=== PATIENT | male | born 1950 | race Caucasian/White ===

== ENCOUNTER 2019-12-31 07:45 | Outpatient (CLI) | payer MEDICARE, SELFPAY ==
--- NOTE | 2019-12-31 08:37 | ECG_ITS ---
Measurements Intervals [place] Rate: 57 P: 62 VA: 178 QRS: 26 QRSD: 110 T: 36 QT: 412 QTc: 402 Interpretive Statements SINUS BRADYCARDIA POSSIBLE LEFT VENTRICULAR HYPERTROPHY ST ELEVATION IN ANTEROLATERAL LEADS- PROBABLY EARLY REPOLARIZATION BASELINE ARTIFACT- I, III, AVR, AVL, AVF, V1 BORDERLINE ECG Electronically Signed On 12-31-2019 8:54:27 CDT by James Aldana D.O.
[2019-12-31 09:21] LABS: Basophils Absolute Auto 0.1 K/mm3 (0.0-0.1); Basophils Percent Auto 1.7 % (0.2-1.2); Eosinophils Absolute Auto 0.5 K/mm3 (0-0.3); Eosinophils Percent Auto 8.3 % (0-4.4); Hematocrit 41.4 % (42.0-52.0); Hemoglobin 13.9 g/dL (14.0-18.0); Immature Granulocyte Absolute 0.02 K/mm3 (0.00-0.031); Immature Granulocyte Percent A 0.3 % (0-0.5); Lymphocytes Absolute Auto 1.78 K/mm3 (0.9-3.2); Lymphocytes Percent Auto 30.8 % (18.3-44.2); Mean Corpuscular HGB Conc 33.6 g/dl (32-36); Mean Corpuscular Hemoglobin 32.7 pg (26-34); Mean Corpuscular Volume 97.4 fl (80-100); Mean Platelet Volume 10.5 fl (7.4-10.4); Monocytes Absolute Auto 0.9 K/mm3 (0.1-0.6); Monocytes Percent Auto 14.7 % (2.6-8.5); Neutrophils Absolute Auto 2.5 K/mm3 (1.3-6.7); Neutrophils Percent Auto 44.2 % (45.5-73.1); Platelet Count Result 271 k/mm3 (150-375); Red Blood Count 4.25 M/mm3 (4.6-6.20); Red Cell Distribution Width 13.2 % (11.5-14.5); White Blood Count 5.8 K/mm3 (4.5-10.0)
[2019-12-31 09:29] LABS: Hemoglobin A1C 5.6 % (<5.7)
[2019-12-31 09:31] LABS: Urine Cotinine NEGATIVE
[2019-12-31 09:37] LABS: Albumin Level 4.6 g/dL (3.5-5.1); Blood Urea Nitrogen 17 mg/dL (9-20); Calcium 9.5 mg/dL (8.4-10.2); Carbon Dioxide 31 mmol/L (22-30); Chloride 98 mmol/L (98-107); Estimated Glomerular Filt Rate > 60; Glucose 99 mg/dL (75-110); Potassium 4.3 mmol/L (3.4-5.0); Sodium 134 mmol/L (137-145)
== END 2019-12-31 07:46 | disposition home or self-care (01) ==
PROVIDERS: PCP Pediatrics; Visit Provider Orthopaedic Surgery
DX: Z01.818 Encounter for other preprocedural examination (principal); M16.12 Unilateral primary osteoarthritis, left hip
CPT/HCPCS: 36415; 80048; 80307; 82040; 83036; 85025; 86850; 86900; 86901; 87081; 93005

== ENCOUNTER 2020-01-07 | Outpatient (CLI) | payer MEDICARE, SELFPAY ==
[2020-01-07 17:26] LABS: SARS-CoV-2 RNA PCR Negative
== END 2020-01-07 00:01 | disposition home or self-care (01) ==
LOC: ANHCOVIDDT
PROVIDERS: PCP Pediatrics; Visit Provider Orthopaedic Surgery
DX: Z01.812 Encounter for preprocedural laboratory examination (principal); Z20.828 Contact with and (suspected) exposure to other viral communicable diseases
CPT/HCPCS: 87635; C9803; U0003

== ENCOUNTER 2020-01-07 08:56 | Outpatient (CLI) | payer MEDICARE, SELFPAY ==
--- NOTE | ~2020-01-07 | NM_ITS ---
EXAMINATION: NM obey stress w perfusion DATE: 01/07/2020 11:27 INDICATION: Abnormal electrocardiogram. TECHNIQUE: Rest images were obtained following intravenous administration of 10.1 mCi Tc99m tetrofosm in (Myoview). The patient was infused intravenously with Lexiscan (regadenoson). Then, 31.7 mCi Tc99m tetrofosmin (Myoview) was administered intravenously, and stress images were obtained. Data was debi nstructed into short axis and horizontal and vertical long axis SPECT images. Gated SPECT images were also obtained. COMPARISON: None. FINDINGS: There is no definite reversible or fixed perfusion abnormality to suggest ischemia or infar ction. There is no segmental wall motion abnormality. Left ventricular ejection fraction measures 6 2%. IMPRESSION: 1. No definite ischemia or infarct. 2. Normal left ventricular ejection fraction measuring 62%. Reviewed, dictated and finalized at location A.
--- NOTE | 2020-01-07 10:22 | EST_ITS ---
Patient Info Name: Isma Nieves Age: 69 years : 1950 Gender: Male Ht: 72 in Wt: 198 lbs BSA: 2.15 m2 Exam Date: 01/07/2020 10:25 AM Exam Location: [facility] Stress Patient Status: Outpatient Admit Date: 01/07/2020 Staff Ordering Physician: James Aldana DO Attending Provider: James Aldana DO Exercise Technologist: Mele Antony RDCS, RT Exam Type: CA stress obey w NM Study Info A regadenoson stress test was performed. Summary 1. 1. Negative lexiscan stress test for ischemic ST changes by ECG criteria. 2. 2. Stable hemodynamics throughout the test. 3. 3. Nuclear scan to follow and will be reported separately. Please correlate with it. 4. 4. Patient informed of the above results. Protocol: Lexiscan Stress ECG Details Stage: REST Duration (min): 0 min : 54 sec HR (bpm): 62 SBP (mmHg): 119 DBP (mmHg): 77 Stage: REST Duration (min): 5 min : 56 sec HR (bpm): 60 SBP (mmHg): 119 DBP (mmHg): 77 Stage: STAGE 1 Duration (min): 1 min : 0 sec HR (bpm): 72 SBP (mmHg): 122 DBP (mmHg): 76 Stage: RECOVERY Duration (min): 1 min : 0 sec HR (bpm): 73 SBP (mmHg): 122 DBP (mmHg): 76 Stage: RECOVERY Duration (min): 2 min : 0 sec HR (bpm): 68 SBP (mmHg): 122 DBP (mmHg): 76 Stage: RECOVERY Duration (min): 3 min : 0 sec HR (bpm): 67 SBP (mmHg): 114 DBP (mmHg): 73 Stage: RECOVERY Duration (min): 3 min : 14 sec HR (bpm): 65 SBP (mmHg): 114 DBP (mmHg): 73 Rest HR: 60 bpm Peak HR: 79 bpm Rest Sys BP: 119 mmHg Peak Sys BP: 122 mmHg Max Pred HR: 153 bpm % Max Pred HR: 52 % Target HR: 130 bpm Max RPP: 9,638 bpm*mmHg Termination Reason: Completed protocol Cardiac Symptoms: Shortness of breath Total Time: 1 min : 0 sec Rest [place]and BP: 77 mmHg Peak [place] BP: 76 mmHg Total Dose: 0.4 mg Resting ECG Sinus rhythm. Stress ECG No ST changes. Arrhythmias None. Report Signatures
== END 2020-01-07 08:57 | disposition home or self-care (01) ==
PROVIDERS: PCP Pediatrics; Visit Provider Internal Medicine Cardiovascular Disease
DX: R06.00 Dyspnea, unspecified (principal); Z01.812 Encounter for preprocedural laboratory examination
CPT/HCPCS: 78452; 93017; A9502; J2785

== ENCOUNTER 2020-01-10 00:02 | Day surgery (SDC) | payer MEDICARE, SELFPAY ==
[2019-12-31 08:02] VITALS: BP 150/80; PULSE 64; RESP 20; TEMP 36.7; O2SAT 97; BMI 28.0
[2020-01-10] VITALS (12 sets, daily range): BP systolic 124–158; BP diastolic 68–90; PULSE 55–71; RESP 10–18; TEMP 36–36.7; O2SAT 90–100; BMI 27.5
--- NOTE | ~2020-01-10 | XR_ITS ---
EXAMINATION: XR hip LT min 2V DATE: 01/10/2020 10:55 INDICATION: Total left hip arthroplasty. Postop. TECHNIQUE: 2 views of left hip were obtained. COMPARISON: Left hip radiographs 09/28/2019 FINDINGS: There is a total left hip arthroplasty in near-anatomic alignment. No fracture. There is ga s in the soft tissues, consistent with recent surgery. IMPRESSION: 1. Total left hip arthroplasty in near-anatomic alignment. Reviewed, dictated and finalized at location A.
--- NOTE | ~2020-01-10 | XR_ITS ---
EXAMINATION: XR surgery orthopedic EXAM DATE: 01/10/2020 10:15 INDICATION: Left hip replacement. TECHNIQUE: Fluoroscopy used during XR surgery orthopedic performed by Dr. Loy Fitzgerald MD. The DAP for this procedure was 0.1 mGym2. FINDINGS: Single frontal image demonstrates total left hip arthroplasty, hardware in expected positi on on this single projection. Correlate with procedure note. IMPRESSION: Fluoroscopy used during XR surgery orthopedic. Reviewed, dictated and finalized at location A.
[2020-01-10] MEDS: LACTATED RINGERS 1,000 ML 30 ML IV CONT (06:45)
[2020-01-10 06:55] LABS: Urine Cotinine NEGATIVE
[2020-01-10] MEDS: TRANEXAMIC ACID 1,000MG/ISO100 1,000 MG/100 ML BAG 200 MG IVPB (07:00)
[2020-01-10] MEDS: ONDANSETRON INJ 4 MG/2 ML VIAL IV PUSH (07:00)
--- NOTE | 2020-01-10 07:05 | WPDANESEPPF ---
Anes - Initial Pre Proc Eval Procedure: Operation Date: 01/10/20 07:30 Proposed Procedures p Left Total Hip Anterior Approach - Loy Fitzgerald MD Date/Time: 01/10/20 07:05 Surgeon: Loy Fitzgerald MD Pre Op Diagnosis: OA Left Hip Patient Data Age: 69 Gender: M Height: 1.8 m Weight: 91.1 kg Last Vital Signs Temp 36.7 C 12/31/19 08:02 Pulse 64 12/31/19 08:02 Resp 20 12/31/19 08:02 BP 150/80 H 12/31/19 08:02 Pulse Ox 97 12/31/19 08:02 Allergies Allergy/AdvReac Type Severity Reaction Status Date / Time No Known Allergies Allergy Verified 01/04/20 09:26 Home Medications Medication Instructions Recorded Confirmed Type albuterol sulfate 200 mcg capsules 2 mcg INHALATION PC PRN 12/28/19 01/04/20 History for inhalation hydrochlorothiazide 25 mg tablet 25 mg PO DAILY 12/28/19 01/04/20 History lisinopril 10 mg tablet 10 mg PO DAILY 12/28/19 01/04/20 History acetaminophen 500 mg tablet 500 mg PO Q6H PRN 01/04/20 01/04/20 History metoprolol succinate 25 mg 25 mg PO DAILY 01/04/20 01/04/20 History tablet,extended release 24 hr Laboratory Tests 01/10/20 06:19 Cotinine Negative ECG: Date of Service: 12/31/19 Procedure(s): CA 12 lead EKG Accession Number(s): [id number] cc: ~ Measurements Intervals [place] Rate: 57 P: 62 [place]: 178 QRS: 26 QRSD: 110 T: 36 QT: 412 QTc: 402 Interpretive Statements SINUS BRADYCARDIA POSSIBLE LEFT VENTRICULAR HYPERTROPHY ST ELEVATION IN ANTEROLATERAL LEADS- PROBABLY EARLY REPOLARIZATION BASELINE ARTIFACT- I, III, AVR, AVL, AVF, V1 BORDERLINE ECG Electronically Signed On 12-31-2019 8:54:27 CDT by James Aldana D.O. Dictated By: James Aldana DO 12/31/19 0908 Other Studies: Exam Date: 01/07/2020 10:25 AM Exam Location: [facility] Stress Patient Status: Outpatient Admit Date: 01/07/2020 Staff Ordering Physician: James Aldana DO Attending Provider: James Aldana DO Exercise Technologist: Mele Antony, DESHAWN, RT Exam Type: CA stress obey w NM Study Info A regadenoson stress test was performed. Summary 1. 1. Negative lexiscan stress test for ischemic ST changes by ECG criteria. 2. 2. Stable hemodynamics throughout the test. FINDINGS: There is no definite reversible or fixed perfusion abnormality to suggest ischemia or infarction. There is no segmental wall motion abnormality. Left ventricular ejection fraction measures 62%. IMPRESSION: 1. No definite ischemia or infarct. 2. Normal left ventricular ejection fraction measuring 62%. Patient hx anesthesia problems: none Family hx anesthesia problems: none [facility] Past Medical History Medical History (Updated 01/10/20 @ 07:06 by Emeterio Galeana MD) Arthritis Arthritis, lumbar spine BMI 26.0-26.9,adult COPD (chronic obstructive pulmonary disease) HYDE (dyspnea on exertion) Hypertension Surgical History Surgical History History of shoulder surgery Left and Right 2007-Dr. Fitzgerald Social History Social History Smoking status: Former smoker Smoking end date: 10/06/19 Additional smoking assessment comments: Smoking for 50 years. 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
--- NOTE | 2020-01-10 07:17 | WPDHPUPDATE1 ---
History and Physical Update Update Date/Time: 01/10/20 07:17 History and Physical has been reviewed, including an updated exam of the patient. There are NO changes in the patient's condition. Risks, benefits, and alternatives have been discussed and questions answered. Patient agrees to proceed with procedure.
[2020-01-10] MEDS: ceFAZolin 2 GM/D5W 50 ML 2 GM/50 ML BAG IVPB ×3 (07:30→23:09)
[2020-01-10] MEDS: SODIUM CHLORIDE 0.9% IV 50 ML, TRANEXAMIC ACID 1,000 MG TOPICAL (08:03)
[2020-01-10] MEDS: ceFAZolin SODIUM 1 GM VIAL IV PUSH (10:06)
--- NOTE | 2020-01-10 10:14 | SUR.OPER ---
EBL: 300ML CELL SAVER: 300ML PLEASE SEE ANESTHESIA RECORD FOR BLOOD ADMINISTRATION
--- NOTE | 2020-01-10 10:53 | PM.PROC ---
Procedure Note - Detailed Date of procedure: 01/10/20 Pre-op diagnosis: OA Left Hip Post-op diagnosis: same Procedure performed: Left total hip replacement through an anterior approach Description of procedure: The patient was identified and the proper side identified. He was taken to the operating room and after general anesthetic induction and intubation, transferred to the HANA table properly positioning him for a left hip procedure. The left hip and thigh was prepped and draped in usual sterile fashion. 10 cc of the arthroplasty solution was injected into the subcutaneous tissue in the area of the incision. Longitudinal incision was made over the TFL muscle belly. Subcutaneous tissue was sharply dissected down to the TFL fascia which was divided in line with the incision. TFL was retracted in the TFL fascia was incised. The circumflex perforating vessels were identified cauterized and ligated then divided. Anterior capsular fat was excised after the anterior capsule was exposed and the appropriate retractors were in place. Anterior capsulectomy was performed. A 1 cm napkin ring of bone was taken out of the femoral neck allowing for removal the femoral head. The acetabulum was cleared of debris then reamed sequentially up to 57 mm allowing for seeding of a 58 G7 cup which was further secured with a single screw. Wound was irrigated with sterile antibiotic solution and then the E poly liner for the 36 head was impacted into place. Attention was then turned to the femur. Appropriate releases were done to allow for access to the proximal femur which was broached up to accept a size 17 echo micro plasty stem. All of this was assessed in done under fluoroscopic control. The real size 17 standard offset micro plasty stem was impacted into place and with trialing was determined that a 36+ six head gave good voodoo of leg lengths when compared fluoroscopically to the opposite side as well as excellent stability. The real 36 ceramic head with a plus six call our was impacted onto this cleaned neck of the femoral component. After the hip was reduced and stability again assessed, the wound was irrigated with a copious amount of sterile irrigation. Periarticular tissues and luisa-incisional tissues were infiltrated with additional 50 cc of the arthroplasty solution. 1 g of tranexamic acid was left deep in the wound. The TFL fascia was reapproximated with 0 looped PDS sutures as was the deeper layers of the subcutaneous tissue. Skin was reapproximated with two of strata fix and glue. Sterile dressings applied. He tolerated the procedure well. He was awakened, extubated and taken recovery in stable condition. There were no known intraoperative complications. Anesthesia: GETA Surgeon: Loy Fitzgerald MD Black Powder Glazing Operator: Isabel Palomares Estimated blood loss (mL): 300 (125 mL returned via Cell Saver) Drains: No Packing: No Pathology: none sent Complications: No immediate complications Condition: stable Disposition: PACU
--- NOTE | 2020-01-10 11:51 | ADMGEN ---
This patient, Isma Nieves, was admitted to -. Patient/family oriented to hospital policies and general routines including ID bracelet, bed and alarms, visiting hours, pain management, procedures, bathroom and other care routines, personal items, smoking policy, room service/diet, and visiting hours. Valuables list has been completed. Information on how to activate the Rapid Response Team has been discussed. Patient/Family are encouraged to report perceived risks to care and to ask questions if they do not understand what they are told or what they should do.
[2020-01-10] MEDS: SODIUM CHLORIDE 0.9% IV 1,000 ML 125 ML IV CONT (12:38)
[2020-01-10] MEDS: KETOROLAC 15 MG/ML VIAL (*BKC) IV PUSH ×2 (13:05→20:24)
--- NOTE | 2020-01-10 17:00 | WPDCN ---
Assessment and Plan Assessment and plan (1) Osteoarthritis of left hip: Qualifiers: Osteoarthritis type: primary Qualified Code(s): M16.12 - Unilateral primary osteoarthritis, left hip Code(s): M16.12 - Unilateral primary osteoarthritis, left hip Status: Acute Assessment and Plan: Postoperative day #0, status post anterior approach left total hip arthroplasty. Wound care and pain control will be deferred to Dr. Fitzgerald. DVT prophylaxis also deferred to the orthopedic surgeon. (2) Chronic obstructive pulmonary disease: Code(s): J44.9 - Chronic obstructive pulmonary disease, unspecified Status: Acute Assessment and Plan: No acute issues. Rescue inhaler as needed. (3) Essential hypertension: Code(s): I10 - Essential (primary) hypertension Status: Acute Assessment and Plan: Blood pressures are well controlled post-operatively. Continue antihypertensives and monitor daily. Additional Plan Thank you for allowing us to participate in this patient's care. Please do not hesitate to contact us with any questions. Supervising physician for this medical consultation is Dr. Marcela Marr. HPI Data of Consult Date/Time: 01/10/20 17:00 Requesting Physician: Loy Fitzgerald MD Primary Care Provider: Bryn Galdamez, Consult Narrative Narrative: Isma Nieves is a 69-year-old male with osteoarthritis of the left hip, chronic back pain, hypertension, and COPD whom the hospitalist service has been consulted for postoperative medical management. He has longstanding, chronic back pain which has gotten worse due to progressive arthritis in the left hip. He has been experiencing daily pain in the left groin and hip, and unfortunately conservative outpatient treatment has not provided him with lasting relief. He thus elected for replacement today and is now status post total left hip replacement through anterior approach per Dr. Fitzgerald. His surgery was performed under general anesthesia with no immediate complications documented and an estimated blood loss of 300 mL, 125 mL returned via Cell Saver. At the time my evaluation, the patient is sitting in a chair at the side of the bed and is eating dinner. He reports no pain whatsoever and in fact tells me ?it is like I had never even had surgery.? He has absolutely no complaints and specifically denies fever, chills, sweats, chest pain, shortness of breath, nausea, and vomiting. He further denies paresthesias, skin color, and temperature changes distal to the surgical site. Of note, preoperative EKG was deemed abnormal, showing early repolarization. Subsequent Lexiscan stress with nuclear medicine imaging was negative with an ejection fraction of 62% Review of Systems Review of Systems: Narrative: Twelve systems were reviewed with pertinent positives and negatives as per HPI. He has upper dentures and lower plate. He wears corrective lenses. He has been diagnosed with mild COPD/emphysema and only has a rescue inhaler at home. He uses it at most 2 days a week, and mainly in the evening and nighttime. He has not had a cough. He will have some dyspnea on exertion occasionally. No exertional chest pain. No history of venous thromboembolism. Except as documented, all other systems were reviewed and are negative. [facility] Past Medical History Medical History (Updated 01/10/20 @ 16:24 by Aviva Pisano PA-C) Arthritis, lumbar spine Chronic low back pain Chronic obstructive pulmonary disease Essential hypertension Normal cardiac stress test (~12/2019) With normal MPI and an ejection fraction of 62%. Osteoarthritis Shingles (~2015) Surgical History Surgical History (Updated 01/10/20 @ 16:23 by Aviva Pisano PA-C) History of repair of rotato
[2020-01-10] MEDS: DOCUSATE SODIUM 100 MG CAPSULE PO (17:53)
[2020-01-10] MEDS: RIVAROXABAN 10 MG TABLET PO (20:24)
[2020-01-11 02:03] VITALS: BP 140/82; PULSE 77; RESP 14; TEMP 37; O2SAT 95
[2020-01-11] MEDS: KETOROLAC 15 MG/ML VIAL (*BKC) IV PUSH (02:05)
[2020-01-11 04:56] LABS: Basophils Absolute Auto 0.1 K/mm3 (0.0-0.1); Basophils Percent Auto 0.5 % (0.2-1.2); Eosinophils Percent Auto 0.4 % (0-4.4); Hematocrit 31.8 % (42.0-52.0); Hemoglobin 10.6 g/dL (14.0-18.0); Immature Granulocyte Absolute 0.04 K/mm3 (0.00-0.031); Immature Granulocyte Percent A 0.4 % (0-0.5); Lymphocytes Absolute Auto 1.34 K/mm3 (0.9-3.2); Lymphocytes Percent Auto 14.1 % (18.3-44.2); Mean Corpuscular HGB Conc 33.3 g/dl (32-36); Mean Corpuscular Hemoglobin 32.4 pg (26-34); Mean Corpuscular Volume 97.2 fl (80-100); Monocytes Absolute Auto 1.2 K/mm3 (0.1-0.6); Monocytes Percent Auto 12.8 % (2.6-8.5); Neutrophils Absolute Auto 6.8 K/mm3 (1.3-6.7); Neutrophils Percent Auto 71.8 % (45.5-73.1); Platelet Count Result 231 k/mm3 (150-375); Red Blood Count 3.27 M/mm3 (4.6-6.20); Red Cell Distribution Width 13.2 % (11.5-14.5); White Blood Count 9.5 K/mm3 (4.5-10.0)
[2020-01-11 05:09] LABS: Blood Urea Nitrogen 14 mg/dL (9-20); Calcium 8.6 mg/dL (8.4-10.2); Carbon Dioxide 26 mmol/L (22-30); Chloride 96 mmol/L (98-107); Estimated CRCL calculation 83 ml/min; Estimated Glomerular Filt Rate > 60; Glucose 142 mg/dL (75-110); Potassium 3.8 mmol/L (3.4-5.0); Sodium 130 mmol/L (137-145)
[2020-01-11 05:44] VITALS: BP 134/72; PULSE 103; RESP 16; TEMP 36.7; O2SAT 97
[2020-01-11] MEDS: ceFAZolin 2 GM/D5W 50 ML 2 GM/50 ML BAG IVPB (06:40)
--- NOTE | 2020-01-11 07:19 | PM.PNORT ---
Progress Note: A&P Assessment and Plan (1) History of total left hip arthroplasty: Onset Date: ~01/2020 Code(s): Z96.642 - Presence of left artificial hip joint Status: Acute (2) Postoperative anemia: Code(s): D64.9 - Anemia, unspecified Status: Acute Assessment and Plan: 69-year-old male who is postop day one left total hip replacement done through an anterior approach and doing very well. He has a mild postoperative anemia which is in part delusional, in part from a intraoperative blood loss as noted above. He will have another round of therapy today and then be discharged home. Instructions were reviewed with him in detail. He has a follow-up with me in approximately two weeks but was instructed to call with any questions prior to follow-up. Plan anticoagulation with Xarelto for two weeks followed by a coated aspirin for another four weeks. I asked him to use his walker until he returns to see me at which point we will likely get him on to a cane. Time Spent With Patient Time with patient: 15 - 25 minutes Subjective Subjective Date/Time Seen: 01/11/20 07:19 Post Op day: 1 (Left hip replacement) Principal diagnosis: Osteoarthritis left hip status post left total hip -anterior approach Interval history: 69-year-old male who is postop day one from left total hip replacement done through an anterior approach. He is having virtually no pain at this point. He ambulated last night with assistance and did well with that. He is anxious to go home. Review of Systems Constitutional: Constitutional: Denies chills and Denies fever(s) Eyes: Eyes: Reports no additional eye complaints ENT: Reports system reviewed and no additional complaints, except as documented Cardiovascular: Cardiovascular: Denies chest pain and Denies dyspnea on exertion Respiratory: Respiratory: Reports no additional respiratory complaints and Denies dyspnea on exertion Gastrointestinal: Gastrointestinal: Denies abdominal pain and Denies bloating Exam Const: General: cooperative, no acute distress and alert Nutritional Appearance: well nourished (BMI 27.5) Orientation/consciousness: patient oriented x3 Limitations: no limitations HENMT: Head: normal to inspection Ears: hearing grossly normal bilaterally Face and sinus: face symmetric Mouth: Yes moist mucous membranes Teeth and gingiva: fair dentition Eyes: Alignment and Position: alignment normal and position normal Sclera: sclerae normal Neck: Neck: normal visual inspection and nontender Chest: Chest palpation & inspection: normal inspection of the chest Resp: Effort & Inspection: normal respiratory effort and able to speak in complete sentences GI: Inspection: other (Abdomen nondistended) Skin: General skin exam: normal color Rashes: no rashes Neuro: General: patient oriented x3 Cognition (Neuro): normal cognition Speech: normal speech Gait exam (Neuro): Other gait observations present Motor exam (neuro): 5/5 motor strength present throughout (Left lower extremity) Sensory Exam: normal sensation Extrem: General: normal to inspection and other Other: Exam of the left hip wound shows it to be intact. No drainage, or erythema. Mild swelling noted in the left proximal thigh about the hip incision. Psych: Appearance: grossly normal Mental Status: mental status grossly normal Objective Data Vital Signs Vital Signs: Vital Signs - 24 hr 01/10/20 10:46 01/10/20 11:01 01/10/20 11:16 Temperature 96.8 F L Pulse Rate 65 60 55 L Respiratory Rate 10 L 11 L 12 Blood Pressure 131/74 136/76 129/73 Pulse Oximetry 100 100 97 01/10/20 11:26 01/10/20 11:42 01/10/20 11:47 Temperature 97.8 F Pulse Rate 69 59 L 58 L Respiratory Rate 14 13 14 Blood Pressure 137/84 128/70 124/69 Pulse Oximetry 94 96 90 01/10/20 12:02 01/10/20 12:32 01/10/20 13:32 Temperature 98.1 F 97.4 F L 97.6 F Pulse Rate 71 69 65 Respiratory Rate 17 18 17 Blood Pressure 13
--- NOTE | 2020-01-11 07:25 | P.DS_ITS ---
DS: Admitting Diagnosis Admitting Diagnosis Admitting Diagnosis: Primary osteoarthritis left hip DS: Discharge Diagnosis Discharge Diagnosis (1) History of total left hip arthroplasty: Onset Date: ~01/2020 Code(s): Z96.642 - Presence of left artificial hip joint Status: Acute DS: Summary Time Spent with Patient Time attestation: Total time spent providing and/or coordinating discharge services: DS: Data Data Completed and Pending Labs on day of discharge: Labs from last 24 hours 01/11/20 01/11/20 04:37 04:37 WBC 9.5 RBC 3.27 L Hgb 10.6 L D Hct 31.8 L MCV 97.2 MCH 32.4 MCHC 33.3 RDW 13.2 Plt Count 231 MPV 10.0 Immature Gran % (Auto) 0.4 Neut % (Auto) 71.8 Lymph % (Auto) 14.1 L Mcdonald % (Auto) 12.8 H Eos % (Auto) 0.4 Baso % (Auto) 0.5 Lymph # (Auto) 1.34 Mcdonald # (Auto) 1.2 H Eos # (Auto) 0.0 Baso # (Auto) 0.1 Abs Immat Gran (auto) 0.04 H Absolute Neuts (auto) 6.8 H Absolute Nucleated RBC 0.0 Nucleated RBC % 0.0 Sodium 130 L Potassium 3.8 Chloride 96 L Carbon Dioxide 26 BUN 14 Creatinine 0.80 Estim Creat Clear Calc 83 Estimated GFR > 60 Glucose 142 H Calcium 8.6 Magnesium 2.0 Discharge Plan Discharge Patient Disposition: Home, Self-Care Discharge Instructions: Please call [facility] at as soon as possible to verify follow-up appointment to be seen in [place]. Also, call the office with any orthopedic questions prior to follow-up. * 3 times daily for 20 minutes each time, reclining in bed with ice packs over the incision and a pillow underneath the affected calf. * Your wound is glued so it is okay to get into the shower and get the wound wet. * Be sure to read through all the information that came from a my office and the hospital. Most of the answer was you will need can be found that material. * Call the office with any questions that you cannot find answers to, or concerns you may have. * After the Xarelto is completed, start taking one coated 325 mg aspirin daily and do this for four more weeks. * Be sure to get up and move around several times daily but do not overdo it. Patient Instructions: Rivaroxaban (By mouth), Pain Management (DC), Total Hip Replacement (DC) Discharge Medications: No Action acetaminophen [Tylenol Extra Strength] 500 mg tablet 500 mg PO Q6H PRN (Reason: PAIN) RF: 0 metoprolol succinate 25 mg tablet extended release 24 hr 25 mg PO DAILY RF: 0 hydrochlorothiazide 25 mg tablet 25 mg PO DAILY RF: 0 lisinopril 10 mg tablet 10 mg PO DAILY RF: 0 albuterol sulfate 90 mcg/actuation Hfa Aerosol Inhaler 2 puff INHALATION QID PRN (Reason: Dyspnea) RF: 0 Quality VTE Prophylaxis VTE prophylaxis: mechanical ordered and pharmacologic ordered
[2020-01-11] MEDS: DOCUSATE SODIUM 100 MG CAPSULE PO (08:56)
[2020-01-11] MEDS: lisinopriL 10 MG TABLET PO (08:57)
[2020-01-11] MEDS: METOPROLOL SUCCINATE EXT REL 25 MG TABCR PO (08:57)
--- NOTE | 2020-01-11 11:44 | PM.IMPN ---
Progress Note: A&P Assessment and Plan (1) Osteoarthritis of left hip: Qualifiers: Osteoarthritis type: primary Qualified Code(s): M16.12 - Unilateral primary osteoarthritis, left hip Code(s): M16.12 - Unilateral primary osteoarthritis, left hip Status: Acute Assessment and Plan: Postoperative day #1, status post anterior approach left total hip arthroplasty. Wound care and pain control per to Dr. Fitzgerald. DVT prophylaxis will be Xarelto [address] Fitzgerald Will be discharged later today. (2) Chronic obstructive pulmonary disease: Code(s): J44.9 - Chronic obstructive pulmonary disease, unspecified Status: Acute Assessment and Plan: No acute issues. Rescue inhaler as needed. (3) Essential hypertension: Code(s): I10 - Essential (primary) hypertension Status: Acute Assessment and Plan: Blood pressures are well controlled post-operatively. Continue THOMAS-inhibitor and diuretic and monitor daily. Subjective Date/time seen: 01/11/20 11:44 Interval history: Date of visit 01/10. [age] old hypertensive white male with COPD status post total left hip arthroplasty 01/09. Stay change having no pain and has been walking. No nausea shortness of breath or chest pain. Seen PT OT and orthopedic surgery and scheduled to be discharged later today Exam Narrative: Exam Narrative: Blood pressure 134/72 pulse is 86 regular afebrile Lungs are clear CV regular rate rhythm no murmur Abdomen nontender Extremities edema posterior tibial 1 to 2+ Neuro alert pleasant cooperative no focal deficits Objective Data Vital Signs Vital Signs: Vital Signs - 24 hr 01/10/20 11:47 01/10/20 12:02 01/10/20 12:32 Temperature 36.6 C 36.7 C 36.3 C L Pulse Rate 58 L 71 69 Respiratory Rate 14 17 18 Blood Pressure 124/69 135/87 135/77 Pulse Oximetry 90 92 99 01/10/20 13:32 01/10/20 18:36 01/10/20 20:53 Temperature 36.4 C 36.6 C 36.5 C Pulse Rate 65 64 65 Respiratory Rate 17 14 16 Blood Pressure 143/75 H 139/68 135/80 Pulse Oximetry 97 100 98 01/11/20 02:03 01/11/20 05:44 Temperature 37.0 C 36.7 C Pulse Rate 77 103 H Respiratory Rate 14 16 Blood Pressure 140/82 134/72 Pulse Oximetry 95 97 Intake/Output Intake/Output: Intake & Output 01/08/20 01/09/20 01/10/20 01/11/20 23:59 23:59 23:59 23:59 Intake Total 1300 1140 Output Total 400 Balance 1300 740 Meds/Results Radiology Results: ITS Impressions Hip X-Ray 01/10/20 11:03 IMPRESSION: 1. Total left hip arthroplasty in near-anatomic alignment. Intraoperative X-Ray 01/10/20 16:11 IMPRESSION: Fluoroscopy used during XR surgery orthopedic. Labs Labs: Laboratory Results - last 24 hr 01/11/20 01/11/20 04:37 04:37 WBC 9.5 RBC 3.27 L Hgb 10.6 L D Hct 31.8 L MCV 97.2 MCH 32.4 MCHC 33.3 RDW 13.2 Plt Count 231 MPV 10.0 Immature Gran % (Auto) 0.4 Neut % (Auto) 71.8 Lymph % (Auto) 14.1 L Real % (Auto) 12.8 H Eos % (Auto) 0.4 Baso % (Auto) 0.5 Lymph # (Auto) 1.34 Real # (Auto) 1.2 H Eos # (Auto) 0.0 Baso # (Auto) 0.1 Abs Immat Gran (auto) 0.04 H Absolute Neuts (auto) 6.8 H Absolute Nucleated RBC 0.0 Nucleated RBC % 0.0 Sodium 130 L Potassium 3.8 Chloride 96 L Carbon Dioxide 26 BUN 14 Creatinine 0.80 Estim Creat Clear Calc 83 Estimated GFR > 60 Glucose 142 H Calcium 8.6 Magnesium 2.0 Quality VTE Prophylaxis VTE prophylaxis: mechanical ordered and pharmacologic ordered
== END 2020-01-11 10:45 | disposition home or self-care (01) ==
LOC: ANHSURGERY 05:51 → ANH2MED 11:59
PROVIDERS: PCP Pediatrics; Visit Provider Orthopaedic Surgery
PROC: (CPT 27130; principal; 2020-01-10 07:30)
DX: M16.12 Unilateral primary osteoarthritis, left hip (principal); J44.9 Chronic obstructive pulmonary disease, unspecified; I10 Essential (primary) hypertension; Z87.891 Personal history of nicotine dependence; E66.9 Obesity, unspecified; Z68.27 Body mass index [BMI] 27.0-27.9, adult; Z79.899 Other long term (current) drug therapy
CPT/HCPCS: 27130; 36415; 73502; 80048; 80307; 82040; 83036; 83735; 85025; 86850; 86900; 86901; 87081; 93005; 97110; 97116; 97161; 97165; A9270; C1776; J0131; J0171; J0690; J1100; J1170; J1885; J2250; J2270; J2370; J2405; J2710; J2795; J3010; J7030; J7120

== ENCOUNTER 2020-04-18 02:22 | Outpatient (CLI) | payer MEDICARE, SELFPAY ==
[2020-04-18 17:03] LABS: SARS-CoV-2 RNA PCR Negative
== END 2020-04-18 02:23 | disposition home or self-care (01) ==
LOC: ANHCOVIDDT 02:22
PROVIDERS: PCP Pediatrics; Visit Provider Internal Medicine Gastroenterology
DX: Z01.812 Encounter for preprocedural laboratory examination (principal); Z20.828 Contact with and (suspected) exposure to other viral communicable diseases
CPT/HCPCS: 87635; C9803; U0003

== ENCOUNTER 2020-04-20 00:40 | Day surgery (SDC) | payer MEDICARE, SELFPAY ==
[2020-04-11 14:17] VITALS: BMI 29.9
[2020-04-20] MEDS: LACTATED RINGERS 1,000 ML 150 ML IV CONT (08:42)
[2020-04-20] MEDS: GENTAMICIN 80MG/SOD CHL 50 ML 80 MG/50 ML BAG 100 MG IVPB (08:44)
[2020-04-20 08:53] VITALS: BP 136/99; PULSE 70; RESP 18; TEMP 36.3; O2SAT 98; BMI 28.4
--- NOTE | 2020-04-20 08:55 | WPDANESEPPF ---
Anes - Initial Pre Proc Eval Procedure: Operation Date: 04/20/20 09:30 Proposed Procedures p Colonoscopy - Daryn Woodson DO Date/Time: 04/20/20 08:55 Surgeon: Daryn Woodson DO Pre Op Diagnosis: Diarrhea Patient Data Age: 69 Gender: M Height: 1.83 m Weight: 100 kg Allergies Allergy/AdvReac Type Severity Reaction Status Date / Time No Known Allergies Allergy Verified 04/20/20 08:27 Home Medications Medication Instructions Recorded Confirmed Type hydrochlorothiazide 25 mg tablet 25 mg PO DAILY 12/28/19 04/20/20 History lisinopril 10 mg tablet 10 mg PO DAILY 12/28/19 04/20/20 History albuterol sulfate 2 puff INHALATION QID PRN 01/10/20 04/20/20 History aspirin 325 mg PO DAILY 04/20/20 04/20/20 History Patient hx anesthesia problems: none Family hx anesthesia problems: none PMFSH Past Medical History Medical History (Updated 03/22/20 @ 11:25 by Loy Fitzgerald MD) Arthritis, lumbar spine BMI 28.0-28.9,adult Chronic low back pain Chronic obstructive pulmonary disease Essential hypertension Normal cardiac stress test (~12/2019) With normal MPI and an ejection fraction of 62%. Osteoarthritis Shingles (~2015) Surgical History Surgical History (Updated 03/22/20 @ 11:25 by Loy Fitzgerald MD) History of repair of rotator cuff (~2007) Bilateral repair per Dr. Fitzgerald. History of total left hip arthroplasty (~01/2020) Surgery January 09, 2020 Social History Social History Social History: The patient lives in [place], [place] with his and their 2 laboratories. 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 He smoked up to 1.5 packs of cigarettes per day and quit in September 2019. He drinks alcohol socially and in moderation. Denies illicit substance use. His , Rohini Nieves, is his surrogate decision maker and he wishes to be a full code. Smoking packs per day: 1.5 Smoking cigarettes per day: 30.0 Years smoked: 50 Smoking pack-years: 75.00 Smoking status: Former smoker Tobacco type: cigarettes Second hand tobacco smoke exposure: Yes Smoking end date: 10/06/19 Additional smoking assessment comments: Smoking for 50 years. 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 Questions were solicited and answers provided to the satisfaction of the patient/family/POA.
[2020-04-20] MEDS: AMPICILLIN 2 GM/NS 100 ML 2 GM/100 ML BAG IVPB (09:17)
--- NOTE | 2020-04-20 09:26 | PM.IMHP ---
H&P: HPI History of Present Illness Date/Time: 04/20/20 09:26 Chief complaint: Diarrhea Narrative: Reason for revisit colonoscopy. This very pleasant gentleman is being evaluated the request of the primary physician. The patient was examined. Impression: In review gentleman with a family history of colon cancer. He has been having diarrhea and rectal bleeding. He had underlying inflammatory and neoplastic disease should be excluded. Hypertension. COPD. Degenerative joint disease. Status post recent total hip arthroplasty. History: This very pleasant gentleman is status post recent hip arthroplasty. Patient began having diarrhea after surgery. He did go a few times per day. He reports black and blood in the stool. Nausea, vomiting, hematemesis, dysphagia and identification night. He denies any abdominal pain, fever, chills, weight loss or constipation at this time. He most recently had bleeding the day prior to the preparation. Patient is here for colonoscopy. Physical examination: General: very pleasant patient in no acute distress. HEENT: Head was normocephalic sclerae is clear mouth without masses neck was supple. Heart: Rate rhythm regular without S3 or S4. Lungs: CTA. Abdomen: Soft with no guarding or rigidity. Bowel sounds were active. Neurologic: Cranial nerves 2 through 12 intact. No focal defects. No clonus. Musculoskeletal system: Revealed no joint tenderness or swelling no muscle atrophy. Extremities: Reveal no significant edema. Skin: Warm and dry with normal turgor. Mental status: intact. Patient is alert and oriented. Review of Systems Review of Systems: All systems reviewed & are unremarkable except as noted in HPI and below [facility] Past Medical History Medical History (Updated 03/22/20 @ 11:25 by Loy Fitzgerald MD) Arthritis, lumbar spine BMI 28.0-28.9,adult Chronic low back pain Chronic obstructive pulmonary disease Essential hypertension Normal cardiac stress test (~12/2019) With normal MPI and an ejection fraction of 62%. Osteoarthritis Shingles (~2015) Surgical History Surgical History (Updated 03/22/20 @ 11:25 by Loy Fitzgerald MD) History of repair of rotator cuff (~2007) Bilateral repair per Dr. Fitzgerald. History of total left hip arthroplasty (~01/2020) Surgery January 09, 2020 Social History Social History Social History: The patient lives in [place], [place] with his and their 2 laboratories. 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 He smoked up to 1.5 packs of cigarettes per day and quit in September 2019. He drinks alcohol socially and in moderation. Denies illicit substance use. His , Rohini Nieves, is his surrogate decision maker and he wishes to be a full code. Smoking packs per day: 1.5 Smoking cigarettes per day: 30.0 Years smoked: 50 Smoking pack-years: 75.00 Smoking status: Former smoker Tobacco type: cigarettes Second hand tobacco smoke exposure: Yes Smoking end date: 10/06/19 Additional smoking assessment comments: Smoking for 50 years. 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
[2020-04-20 10:12] VITALS: BP 130/76; PULSE 60; RESP 16; O2SAT 98
[2020-04-20 10:22] VITALS: BP 157/94; PULSE 62; RESP 18; O2SAT 99
[2020-04-20 10:32] VITALS: BP 176/103; PULSE 60; RESP 22; O2SAT 100
--- NOTE | 2020-04-20 11:44 | SUR.PHASEII ---
PT'S SISTER ROMINA AT BEDSIDE POST OP. DR ROMANO SPOKE WITH PT AND ROMINA. ATTEMPTED TO DRAW BLOOD ON PT SEVERAL TIMES BY MULTIPLE RN'S WHILE PT IN POST OP. LAB WORK OBTAINED AND SENT TO LAB. APPOINTMENT SCHEDULED AT DR JANSEN'S OFFICE AND PT GIVEN THAT INFORMATION. DR VELARDE'S OFFICE WILL CALL TO ARRANGE APPOINTMENT, INFORMATION GIVEN TO 'S OFFICE, THEY WILL ARRANGE AN APPOINTMENT AND CONTACT PT. PT AWARE AND GIVEN ALL PAPER WORK.
[2020-04-20 11:47] LABS: Hematocrit 42.8 % (42.0-52.0); Hemoglobin 14.4 g/dL (14.0-18.0); Mean Corpuscular HGB Conc 33.6 g/dl (32-36); Mean Corpuscular Hemoglobin 32.3 pg (26-34); Mean Platelet Volume 10.7 fl (7.4-10.4); Platelet Count Result 329 k/mm3 (150-375); Red Blood Count 4.46 M/mm3 (4.6-6.20); Red Cell Distribution Width 14.5 % (11.5-14.5); White Blood Count 6.2 K/mm3 (4.5-10.0)
[2020-04-20 11:57] LABS: Alanine Aminotransferase 24 U/L (4-50); Albumin Level 4.3 g/dL (3.5-5.1); Alkaline Phosphatase 78 U/L (38-126); Anion Gap 7 mmol/L (8-16); Aspartate Amino Transferase 27 U/L (17-59); Bilirubin,Total 0.7 mg/dL (0.2-1.3); Blood Urea Nitrogen 5 mg/dL (9-20); Calcium 9.2 mg/dL (8.4-10.2); Carbon Dioxide 27 mmol/L (22-30); Chloride 100 mmol/L (98-107); Estimated CRCL calculation 97 ml/min; Estimated Glomerular Filt Rate > 60; Glucose 93 mg/dL (75-110); Potassium 4.1 mmol/L (3.4-5.0); Prothrombin Time 13.3 Seconds (11.1-14.7); Sodium 134 mmol/L (137-145)
[2020-04-20 12:18] LABS: Free T4 Free Thyroxine 0.99 ng/mL (0.78-2.19)
[2020-04-20 12:23] LABS: Phosphorus 3.9 mg/dL (2.5-4.5)
[2020-04-20 12:28] LABS: Carcinoembryonic Antigen 1.7 ng/mL (0.0-3.0)
[2020-04-20 12:41] LABS: T4 Thyroxine 8.94 ug/dL (5.53-11.0)
== END 2020-04-20 11:54 | disposition home or self-care (01) ==
PROVIDERS: PCP Pediatrics; Visit Provider Internal Medicine Gastroenterology
PROC: 0DJD8ZZ Inspection of Lower Intestinal Tract, Via Natural or Artificial Opening Endoscopic (ICD-10-PCS; CPT 45378; principal; 2020-04-20 09:30)
DX: C20 Malignant neoplasm of rectum (principal); D12.3 Benign neoplasm of transverse colon; K63.5 Polyp of colon; I10 Essential (primary) hypertension; J44.9 Chronic obstructive pulmonary disease, unspecified; Z87.891 Personal history of nicotine dependence; E66.9 Obesity, unspecified; Z68.28 Body mass index [BMI] 28.0-28.9, adult; Z80.0 Family history of malignant neoplasm of digestive organs; Z79.82 Long term (current) use of aspirin
CPT/HCPCS: 45380; 36415; 80048; 80076; 82378; 83735; 84100; 84436; 84439; 85027; 85610; 88305; J0290; J1580; J2704; J7120

== ENCOUNTER 2020-04-27 14:27 | Outpatient (CLI) | payer MEDICARE, SELFPAY ==
--- NOTE | ~2020-04-27 | MR_ITS ---
EXAMINATION: MR pelvis wo con DATE: 04/27/2020 15:58 INDICATION: Rectal adenocarcinoma. Blood in stool. TECHNIQUE: Magnetic resonance imaging (MRI) of the pelvis was performed without intravenous contrast. Sequences included coronal and axial T2-weighted FS FSE, axial T1-weighted FS FSE, axial LAVA, coron al FS FIESTA, coronal LAVA-flex, axial T2-weighted FSE, axial dual-echo T1-weighted FSPGR, axial FS F IESTA, axial DWI, and small nryxp-hi-pfec sagittal, coronal, and axial T2-weighted FSE. COMPARISON: None. FINDINGS: There is wall thickening of the proximal rectum, consistent with adenocarcinoma. The mass likely exte nds less than 5 mm beyond the muscularis propria. The bladder is from the rectum by 1 mm of fat, and it is not clear if the anterior rectal wall is involved by tumor in this area. There are no pathologically enlarged lymph nodes. There is prominent fat in the inguinal canals, which may be sma ll hernias. There is a left hip arthroplasty. There is a left hip joint effusion that extends into th e proximal anterior thigh musculature. IMPRESSION: 1. Wall thickening of the proximal rectum, consistent with adenocarcinoma. Reviewed, dictated and finalized at location A.
== END 2020-04-27 14:28 | disposition home or self-care (01) ==
LOC: ANHIMG 14:35
PROVIDERS: PCP Pediatrics; Visit Provider Internal Medicine Gastroenterology
DX: C20 Malignant neoplasm of rectum (principal); J43.9 Emphysema, unspecified
CPT/HCPCS: 71260; 72195; 74177; Q9967

== ENCOUNTER 2020-04-28 07:59 | Outpatient (CLI) | payer MEDICARE, SELFPAY ==
--- NOTE | ~2020-04-28 | CT_ITS ---
CORRECTED REPORT Changed report and images from [id number] to [id number] EXAMINATION: CT chest abdomen pelvis w con DATE: 04/28/2020 10:04 CDT INDICATION: Rectal cancer TECHNIQUE: Computed tomography (CT) of the chest, abdomen, and pelvis was performed with 100 cc Omnipaque 350 intravenous contrast. The dose-length product was 1000.08 mGy-cm. Automated exposure control and iterative reconstruction technique were employed. COMPARISON: MRI pelvis dated 04/27/2020 FINDINGS: CHEST CT: There is emphysema. There are calcified nodules of the lung parenchyma, consistent with chronic granulomatous disease. No endobronchial lesions. Dependent atelectasis. No noncalcified pulmonary nodules are seen. There are calcified mediastinal lymph nodes, consistent with chronic granulomatous disease. Heart size normal. Small hiatal hernia. No significant vascular abnormality. No pleural or pericardial effusion. ABDOMEN/PELVIS CT: Fatty infiltration of the liver. Small subcentimeter hypodensities of the liver are too small to characterize, although likely benign. The spleen, pancreas, adrenal glands and kidneys are unremarkable. Gallbladder is present. No lymphadenopathy. There is mural thickening of the proximal rectum, consistent with known rectal cancer. No obstruction. There is a left hip arthroplasty. Moderate lumbar spondylosis. No osteolytic or osteoblastic lesions are seen. IMPRESSION: 1. Mural wall thickening proximal rectum, consistent with known rectal carcinoma. No evidence for metastatic disease. 2: Emphysema. Reviewed, dictated and finalized at location B. [facility]
[2020-04-28 08:32] LABS: Estimated Glomerular Filt Rate > 60
== END 2020-04-28 08:00 | disposition home or self-care (01) ==
PROVIDERS: PCP Pediatrics; Visit Provider Internal Medicine Gastroenterology
DX: C20 Malignant neoplasm of rectum (principal); J43.9 Emphysema, unspecified
CPT/HCPCS: 71260; 74177; Q9967

== ENCOUNTER 2020-05-24 12:38 | Outpatient (CLI) | payer MEDICARE, SELFPAY ==
--- NOTE | 2020-05-24 12:51 | ECHO_ITS ---
Patient Info Name: Isma Nieves Age: 69 years : 1950 Gender: Male Ht: 72 in Wt: 218 lbs BSA: 2.26 m2 HR: 60 bpm BP: 117 / 76 mmHg Heart Rhythm: Sinus Rhythm Technical Quality: Good Exam Date: 05/24/2020 1:01 PM Exam Location: [facility] Patient Status: Outpatient Admit Date: 05/24/2020 Staff Ordering Physician: James Aldana DO Banking Manager: London Gregg RDCS Attending Provider: James Aldana DO Referring Physician: Jovan STEVENSON; Exam Type: CA echo doppler color flow Study Info Indications I47.1 - Supraventricular tachycardia Complete two-dimensional, color flow and Doppler transthoracic echocardiogram is performed. Strain analysis performed. History/Risk Factors Supraventricular tachycardia. Summary 1. Complete two-dimensional, color flow and Doppler transthoracic echocardiogram is performed. 2. Left ventricular chamber dimension is normal. 3. Left ventricular systolic function is normal, estimated at 60-65%. 4. There is moderately increased left ventricular wall thickness. 5. The left ventricular diastolic function is grade II diastolic dysfunction. 6. E/e' 12 is mildly elevated. 7. Global longitudinal strain is slightly abnormal at -16.9%. 8. There is mild aortic valve sclerosis. 9. There is trace tricuspid valve regurgitation. 10. No pulmonary hypertension, estimated pulmonary arterial systolic pressure is 28 mmHg. 11. There is trace pulmonic regurgitation. Left Ventricle E/e' 12 is mildly elevated. Global longitudinal strain is slightly abnormal at -16.9%. Left ventricular chamber dimension is normal. Left ventricular systolic function is normal, estimated at 60-65%. There is moderately increased left ventricular wall thickness. The left ventricular diastolic function is grade II diastolic dysfunction. Right Ventricle Right ventricular systolic function is normal with normal TAPSE at 2.0 cm. Right ventricular chamber dimension is normal. Left Atria Left atrial chamber dimension is normal. Right Atria Right atrial chamber dimension is normal. Aortic Valve The aortic valve is trileaflet. There is mild aortic valve sclerosis. There is no aortic valve stenosis. There is no aortic valve regurgitation. Pulmonic Valve There is trace pulmonic regurgitation. Mitral Valve There is no mitral valve stenosis. There is no mitral valve regurgitation. Tricuspid Valve There is trace tricuspid valve regurgitation. No pulmonary hypertension, estimated pulmonary arterial systolic pressure is 28 mmHg. Pericardium/Pleural There is no pericardial effusion. Inferior Vena Cava Normal inferior vena cava with >50% collapse upon inspiration consistent with normal right atrial pressure, 5 mmHg. Aorta The aortic root size at the sinus of Valsalva is normal. Left Ventricular Outflow Tract Name Value Normal LVOT 2D LVOT Diameter 2.0 cm LVOT Doppler LVOT Peak Gradient 8 mmHg LVOT Mean Gradient 4 mmHg LVOT VTI 28 cm LVOT VTI/AV VTI Ratio
== END 2020-05-24 12:39 | disposition home or self-care (01) ==
PROVIDERS: PCP Pediatrics; Visit Provider Internal Medicine Cardiovascular Disease
DX: I47.1 Supraventricular tachycardia (principal); I35.8 Other nonrheumatic aortic valve disorders
CPT/HCPCS: 93306

== ENCOUNTER 2020-06-01 10:30 | Outpatient (CLI) | payer MEDICARE, SELFPAY ==
[2020-06-01 10:42] LABS: Basophils Absolute Auto 0.1 K/mm3 (0.0-0.1); Basophils Percent Auto 1.3 % (0.2-1.2); Eosinophils Absolute Auto 0.3 K/mm3 (0-0.3); Eosinophils Percent Auto 5.5 % (0-4.4); Immature Granulocyte Absolute 0.01 K/mm3 (0.00-0.031); Immature Granulocyte Percent A 0.2 % (0-0.5); Lymphocytes Absolute Auto 1.23 K/mm3 (0.9-3.2); Lymphocytes Percent Auto 27.3 % (18.3-44.2); Mean Corpuscular HGB Conc 33.3 g/dl (32-36); Mean Corpuscular Hemoglobin 32.3 pg (26-34); Mean Platelet Volume 9.8 fl (7.4-10.4); Monocytes Absolute Auto 0.5 K/mm3 (0.1-0.6); Neutrophils Absolute Auto 2.5 K/mm3 (1.3-6.7); Neutrophils Percent Auto 55.7 % (45.5-73.1); Platelet Count Result 259 k/mm3 (150-375); Red Blood Count 4.02 M/mm3 (4.6-6.20); Red Cell Distribution Width 14.6 % (11.5-14.5); White Blood Count 4.5 K/mm3 (4.5-10.0)
== END 2020-06-01 10:31 | disposition home or self-care (01) ==
PROVIDERS: PCP Pediatrics; Visit Provider Internal Medicine Hematology & Oncology
DX: C20 Malignant neoplasm of rectum (principal)
CPT/HCPCS: 36415; 85025

== ENCOUNTER 2020-06-15 09:30 | Outpatient (CLI) | payer MEDICARE, SELFPAY ==
[2020-06-15 09:44] LABS: Basophils Percent Auto 0.9 % (0.2-1.2); Eosinophils Absolute Auto 0.3 K/mm3 (0-0.3); Eosinophils Percent Auto 7.5 % (0-4.4); Hematocrit 37.9 % (42.0-52.0); Hemoglobin 12.6 g/dL (14.0-18.0); Immature Granulocyte Absolute 0.01 K/mm3 (0.00-0.031); Immature Granulocyte Percent A 0.3 % (0-0.5); Lymphocytes Absolute Auto 0.74 K/mm3 (0.9-3.2); Lymphocytes Percent Auto 21.3 % (18.3-44.2); Mean Corpuscular HGB Conc 33.2 g/dl (32-36); Mean Corpuscular Hemoglobin 32.6 pg (26-34); Mean Corpuscular Volume 97.9 fl (80-100); Mean Platelet Volume 10.3 fl (7.4-10.4); Monocytes Absolute Auto 0.4 K/mm3 (0.1-0.6); Monocytes Percent Auto 12.4 % (2.6-8.5); Neutrophils Percent Auto 57.6 % (45.5-73.1); Platelet Count Result 173 k/mm3 (150-375); Red Blood Count 3.87 M/mm3 (4.6-6.20); Red Cell Distribution Width 15.1 % (11.5-14.5); White Blood Count 3.5 K/mm3 (4.5-10.0)
[2020-06-15 09:48] LABS: Blood Urea Nitrogen 15 mg/dL (8-26); Carbon Dioxide 25 mmol/L (22-30); Chloride 102 mmol/L (98-109); Estimated Glomerular Filt Rate > 60; Glucose 139 mg/dL (70-105); Potassium 3.8 mmol/L (3.5-4.9); Sodium 139 mmol/L (138-146)
== END 2020-06-15 09:31 | disposition home or self-care (01) ==
PROVIDERS: PCP Pediatrics; Visit Provider Internal Medicine Hematology & Oncology
DX: C20 Malignant neoplasm of rectum (principal)
CPT/HCPCS: 36415; 80048; 85025

== ENCOUNTER 2020-06-28 11:31 | Outpatient (CLI) | payer MEDICARE, SELFPAY ==
[2020-06-28 11:52] LABS: Eosinophils Absolute Auto 0.3 K/mm3 (0-0.3); Eosinophils Percent Auto 7.2 % (0-4.4); Hematocrit 37.8 % (42.0-52.0); Hemoglobin 12.9 g/dL (14.0-18.0); Immature Granulocyte Absolute 0.02 K/mm3 (0.00-0.031); Immature Granulocyte Percent A 0.5 % (0-0.5); Mean Corpuscular HGB Conc 34.1 g/dl (32-36); Mean Corpuscular Hemoglobin 33.3 pg (26-34); Mean Corpuscular Volume 97.7 fl (80-100); Mean Platelet Volume 10.1 fl (7.4-10.4); Monocytes Absolute Auto 0.6 K/mm3 (0.1-0.6); Neutrophils Absolute Auto 2.2 K/mm3 (1.3-6.7); Neutrophils Percent Auto 57.3 % (45.5-73.1); Platelet Count Result 215 k/mm3 (150-375); Red Blood Count 3.87 M/mm3 (4.6-6.20); White Blood Count 3.9 K/mm3 (4.5-10.0)
[2020-06-28 11:57] LABS: Blood Urea Nitrogen 10 mg/dL (8-26); Carbon Dioxide 26 mmol/L (22-30); Chloride 99 mmol/L (98-109); Estimated Glomerular Filt Rate > 60; Glucose 85 mg/dL (70-105); Sodium 137 mmol/L (138-146)
== END 2020-06-28 11:32 | disposition home or self-care (01) ==
LOC: ANHLAB 11:32
PROVIDERS: PCP Pediatrics; Visit Provider Internal Medicine Hematology & Oncology
DX: C20 Malignant neoplasm of rectum (principal)
CPT/HCPCS: 36415; 80048; 85025

== ENCOUNTER 2020-08-05 00:56 | Outpatient (CLI) | payer MEDICARE, SELFPAY ==
[2020-08-05 19:31] LABS: SARS-CoV-2 RNA PCR Negative
== END 2020-08-05 00:57 | disposition home or self-care (01) ==
LOC: ANHCOVIDDT 00:56
PROVIDERS: PCP Pediatrics; Visit Provider Surgery
DX: Z01.818 Encounter for other preprocedural examination (principal); Z20.828 Contact with and (suspected) exposure to other viral communicable diseases
CPT/HCPCS: 87635; C9803; U0003

== ENCOUNTER 2020-08-09 12:21 | Inpatient (IN) | payer MEDICARE, SELFPAY ==
[2020-07-24 10:33] VITALS: BP 121/74; PULSE 51; RESP 16; TEMP 37; O2SAT 97; BMI 31.2
--- NOTE | 2020-08-07 13:43 | WPDANESEPPF ---
Anes - Initial Pre Proc Eval Procedure: Operation Date: 08/09/20 07:30 Proposed Procedures p Hand-Assisted Laparoscopic Low Anterior Resection - Caesar Robertson DO Date/Time: 08/07/20 13:43 Surgeon: Caesar Robertson DO Pre Op Diagnosis: Rectal Cancer Patient Data Age: 70 Gender: M Height: 1.83 m Weight: 104.5 kg Last Vital Signs Temp 37.0 C 07/24/20 10:33 Pulse 51 L 07/24/20 10:33 Resp 16 07/24/20 10:33 BP 121/74 07/24/20 10:33 Pulse Ox 97 07/24/20 10:33 Allergies Allergy/AdvReac Type Severity Reaction Status Date / Time No Known Allergies Allergy Verified 08/09/20 06:27 Home Medications Medication Instructions Recorded Confirmed Type hydrochlorothiazide 25 mg tablet 25 mg PO DAILY 12/28/19 08/09/20 History lisinopril 10 mg tablet 10 mg PO DAILY 12/28/19 08/09/20 History albuterol sulfate 2 puff INHALATION QID PRN 01/10/20 07/24/20 History aspirin 325 mg PO DAILY 04/20/20 08/09/20 History metoprolol succinate 50 mg 50 mg PO DAILY #30 tablet 05/04/20 08/09/20 Rx tablet,extended release 24 hr amiodarone 200 mg tablet 200 mg PO DAILY #30 tablet 06/26/20 08/09/20 Rx erythromycin 500 mg tablet See Rx Instructions .ROUTE 07/14/20 08/09/20 Rx .COMPLEX #6 tablet neomycin 500 mg tablet See Rx Instructions .ROUTE 07/14/20 08/09/20 Rx .COMPLEX #6 tablet Patient hx anesthesia problems: none Family hx anesthesia problems: none [facility] Past Medical History Medical History (Updated 08/07/20 @ 13:44 by Emeterio Galeana MD) Arthritis, lumbar spine BMI 28.0-28.9,adult BMI 30.0-30.9,adult Chronic low back pain Chronic obstructive pulmonary disease COPD (chronic obstructive pulmonary disease) Essential hypertension Normal cardiac stress test (~12/2019) With normal MPI and an ejection fraction of 62%. Obesity Osteoarthritis PAF (paroxysmal atrial fibrillation) PSVT (paroxysmal supraventricular tachycardia) Rectal cancer Shingles (~2015) Surgical History Surgical History History of colonoscopy 04/20/2020 History of repair of rotator cuff (~2007) Bilateral repair per Dr. Fitzgerald. History of total left hip arthroplasty (~01/2020) Surgery January 09, 2020 Family History Family History Father , age 91 Cancer Skin cancer, Bladder, cancer, Lung cancer Heart disease Sibling Cancer skin cancer Diabetes mellitus Kidney disease Mother , age 95 Cancer Skin cancer, lung cancer Social History Social History Social History: The patient lives in [place], [place] with his and their 2 laboratories. 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 He smoked up to 1.5 packs of cigarettes per day and quit in September 2019. He drinks alcohol socially and in moderation. Denies illicit substance use. His , Rohini Nieves, is his surrogate decision maker and he wishes to be a full code. Smoking packs per day: 2 Smoking cigarettes per day: 40.0 Years smoked: 50 Smoking pack-years: 100.00 Smoking status: Former smoker Tobacco type: cigarettes Second hand tobacco smoke exposure: Yes Smoking end date: 10/08/19 Additional smoking assessment comments: Smoking for 50 years. Alcohol intake: current Drinks per week: 4 Substance use: former Substance use type: does not use Living arrangements: with family Additional living arrangements comments: Rohini Nieves Additional occupation/education comments: [employer] Spiritual care concerns: No Anes - Eval Final PreProcedure Day of Procedure 08/07/20 13:43 Patient weight: obese Heart: regular rate and rhythm Lungs: clear to auscultation and normal air movement Airway: Mallampati scale class II Neurological: alert and oriented Last oral i
[2020-08-09] VITALS (14 sets, daily range): BP systolic 104–127; BP diastolic 57–79; PULSE 59–73; RESP 14–20; TEMP 35.9–37; O2SAT 92–100
[2020-08-09] MEDS: ACETAMINOPHEN 500 MG TABLET 1000 MG PO ×2 (06:34→17:17)
[2020-08-09] MEDS: LACTATED RINGERS 1,000 ML 30 ML IV CONT ×2 (06:40→12:09)
[2020-08-09] MEDS: KETOROLAC 15 MG/ML VIAL (*BKC) IV PUSH (06:43)
--- NOTE | 2020-08-09 07:15 | WPDHPUPDATE1 ---
History and Physical Update Update Date/Time: 08/09/20 07:15 History and Physical has been reviewed, including an updated exam of the patient. There are NO changes in the patient's condition. Risks, benefits, and alternatives have been discussed and questions answered. Patient agrees to proceed with procedure.
[2020-08-09] MEDS: ceFAZolin 2 GM/D5W 50 ML 2 GM/50 ML BAG IVPB (07:29)
[2020-08-09] MEDS: metroNIDAZOLE 500 MG/ISO 100ML 500 MG/100 ML BAG 100 MG IVPB (07:50)
--- NOTE | 2020-08-09 08:12 | SUR.PREOP ---
0715-UP TO BR TO VOID.
[2020-08-09] MEDS: ceFAZolin SODIUM 1 GM VIAL 2 GM IV PUSH (11:19)
--- NOTE | 2020-08-09 12:04 | PM.PROC ---
Procedure Note - Detailed Date of procedure: 08/09/20 Pre-op diagnosis: Rectal Cancer Post-op diagnosis: same Procedure performed: Hand assisted laparoscopic low anterior resection with low pelvic anastomosis Description of procedure: Procedure as well as risks benefits and alternatives were explained to the patient. Written consent was obtained and placed in chart prior to procedure. Patient was brought back to surgical suite. He was placed supine on operating table. Time-out was done to confirm patient procedure. He was then intubated by the anesthesia department. He was re-positioned to modified lithotomy position. His abdomen was prepped and draped in sterile fashion using chlorhexidine prep. His rectum was irrigated with Betadine and his perirectal area was prepped and draped in sterile fashion using Betadine prep. A 7 centimeter vertical incision was made just inferior to the umbilicus using a 15 blade scalpel. Electrocautery was used for hemostasis and for dissection down through Martinez's fascia. The linea alba was then incised using electrocautery. The peritoneum was bluntly entered using a curved hemostats. A carefully inspected the abdomen through the small hand port incision, and then placed the wound protector at this incision followed by the gel port with a 5 millimeter trocar placed through it. Carbon dioxide insufflation was then used to create a pneumoperitoneum. The abdomen was inspected, and no significant abnormalities were identified. The patient was then placed in steep Trendelenburg position and rotated to the right. Exparel was infiltrated bilaterally along the abdominal wall to perform a transversus abdominis plane block. A 5 millimeter incision was made in the suprapubic region and in the right upper quadrant and 5 millimeter ports were placed under direct visualization. A 12 millimeter incision was made in the right lower quadrant, and a 12 millimeter port was placed under direct visualization. I placed my left hand through the GelPort and carefully inspected the colon. The sigmoid colon was retracted anteriorly to tent up the inferior mesenteric artery and mesocolon. The medial side of the peritoneum was scored using hook electrocautery. I entered into the avascular retroperitoneal plane and continued the medial to lateral dissection. The left ureter was identified and preserved in its location throughout the entire case. The continued dissection with hook electrocautery and ligasure bipolar cautery to clear off the adventitia around the inferior mesenteric artery. Once the inferior mesenteric artery was isolated, I then ligated it with the ligasure bipolar cautery. The ureter was identified and position was verified before like getting the vessel. I then continued along the medial to lateral plane and dissected out to the lateral peritoneal attachments of the descending and sigmoid colon. I then continued this dissection distally along the upper rectum. The sigmoid colon was then retracted further medially and the lateral peritoneal attachments were taken down using hook electrocautery. I entered into the mesorectal plane and continued the dissection around the pelvic rectum using LigaSure bipolar cautery. Careful dissection was carried out circumferentially around the rectum and mesorectum until I felt that I was distal enough to perform our resection and anastomosis. There was no tattoo to locate where the mass was and I could not palpate any mass in the rectum. I chose to resect at the location where I had cleared off along the distal rectum. The echelon 60 millimeter blue load stapler was then advanced across the distal rectum and clamped and fired. This freed up our rectum completely. The staple line appeared secure. Indocyanine green was then infused intravenously to assess for perfusion to the colon and rectal stump. Perfusion appeared adequate at both ends. The patient was then flattened out in bed and the pneumo
--- NOTE | 2020-08-09 14:00 | PC.NURSE ---
Received patient from OR per bed. Report received from SHANELL Laurent.
[2020-08-09] MEDS: LACTATED RINGERS 1,000 ML 100 ML IV CONT (14:34)
[2020-08-09] MEDS: HYDROmorphone HCL INJ (*CRX) 1 MG/ML SYR 0.5 MG IV PUSH ×2 (14:45→23:03)
[2020-08-09] MEDS: ENOXAPARIN 30 MG/0.3 ML SYRINGE SUB-Q (20:43)
[2020-08-09] MEDS: NITROGLYCERIN SL 0.4 MG TABLET SUBLINGUAL (23:58)
[2020-08-10] VITALS (13 sets, daily range): BP systolic 112–132; BP diastolic 65–79; PULSE 61–80; RESP 16–20; TEMP 36.6–37.1; O2SAT 92–96
[2020-08-10] MEDS: ACETAMINOPHEN 500 MG TABLET 1000 MG PO ×2 (00:01→05:31)
--- NOTE | 2020-08-10 00:24 | PC.NURSE ---
Patient stated he had chest pressure midsternal area that doesn't radiate. DR glasgow ordered nitroglycerin and hospitalist consult. After taking the nitroglycerin patient is resting comfortably with no complains at this time.
[2020-08-10] MEDS: LACTATED RINGERS 1,000 ML 100 ML IV CONT ×3 (00:54→21:43)
--- NOTE | 2020-08-10 01:00 | WPDCN ---
Assessment and Plan Assessment and plan (1) Chest pressure: Code(s): R07.89 - Other chest pain Status: Acute (2) Primary colorectal adenocarcinoma: Onset Date: ~04/2020 Code(s): C19 - Malignant neoplasm of rectosigmoid junction Status: Inactive (3) Essential hypertension: Code(s): I10 - Essential (primary) hypertension Status: Acute (4) Chronic obstructive pulmonary disease: Code(s): J44.9 - Chronic obstructive pulmonary disease, unspecified Status: Acute (5) Paroxysmal atrial fibrillation: Code(s): I48.0 - Paroxysmal atrial fibrillation Status: Inactive Additional Plan Chest pressure is atypical for cardiac pain and is likely referred discomfort from the abdomen as the pressure resolved with belching. EKG is unremarkable. For completeness sake he will be monitored on telemetry and troponins will be trended. He is in a normal sinus rhythm at this time. Vital signs were reviewed and they are stable. Thank you for allowing us to participate in this patient's care. Please do not hesitate to contact us with any questions. We will follow with you. Supervising physician for this medical consultation is Dr. Hager. HPI Data of Consult Date/Time: 08/10/20 01:00 Requesting Physician: Caesar Robertson DO Primary Care Provider: Bryn GaldamezMD Consult Narrative Narrative: This is a very pleasant is a 70-year-old male with colorectal adenocarcinoma arising in the proximal rectum, paroxysmal atrial fibrillation, hypertension, and COPD whom the hospitalist service has been consulted for evaluation of chest discomfort. The patient is known to myself and the hospitalist service as we saw him in consultation in January 2020 status post left hip replacement. Following the surgery he had constipation however not long thereafter began experiencing diarrhea with rectal bleeding. He was referred for colonoscopy on April [address] Woodson and at that time he was found to have a malignant appearing ulcerated mass in the rectum as well as 2 colon polyps. The polyps were benign, 1 was hyperplastic and the other was a tubular adenoma. Pathology on the rectal mass showed moderate to poorly differentiated colorectal adenocarcinoma. More recently he completed neoadjuvant chemoradiation which he tolerated well. He presented today for resection of the rectal mass and is now status post hand assisted laparoscopic low anterior resection with low pelvic anastomosis per Dr. Robertson. He has had some mild discomfort in the lower abdomen and occasional nausea since the surgery but nothing significant. Sometime several hours ago he developed a pressure-like sensation in the low sternal region. The on-call surgeon was contacted, recommended nitroglycerin x1, and it is in this setting that we are being consulted. The patient does not think the nitroglycerin helped, but instead thinks it resolved with belching. His EKG showed a sinus rhythm with normal axis and no ST changes. He has no discomfort at the time my evaluation and specifically denies chest pain, shortness of breath, current nausea, vomiting, and sweats. He has no history of coronary artery disease however he reportedly had an abnormal EKG (early repolarization) prior to his hip replacement in January. Subsequent Lexiscan stress with nuclear medicine imaging was negative for ischemia and his ejection fraction was 62%. More recently he developed intermittent tachycardia and was found to have paroxysmal atrial fibrillation on a 19 day event monitor for which he is now being followed by Dr. Aldana. Review of Systems Review of Systems: Narrative: Twelve systems were reviewed with pertinent positives and negatives as per HPI. No fever, chills, or sweats. No recent cold or flu symptoms. He denies cough and shortness of breath. No feelings of racing heart or palpitations today. He has chronic back pain related to his longstanding hip pain,
--- NOTE | 2020-08-10 01:44 | ECG_ITS ---
Measurements Intervals [place] Rate: 76 P: 45 SD: 159 QRS: 26 QRSD: 109 T: 12 QT: 409 QTc: 463 Interpretive Statements SINUS RHYTHM BORDERLINE T WAVE ABNORMALITY- INFERIOR LEADS BASELINE ARTIFACT- I, III, AVL BORDERLINE ECG Electronically Signed On 08-10-2020 8:53:36 REGISTERED DIET TECHNICIAN by James Aldana D.O.
[2020-08-10 02:15] LABS: Basophils Percent Auto 0.3 % (0.2-1.2); Hematocrit 34.5 % (42.0-52.0); Hemoglobin 11.9 g/dL (14.0-18.0); Immature Granulocyte Absolute 0.05 K/mm3 (0.00-0.031); Immature Granulocyte Percent A 0.5 % (0-0.5); Lymphocytes Absolute Auto 0.31 K/mm3 (0.9-3.2); Lymphocytes Percent Auto 2.9 % (18.3-44.2); Mean Corpuscular HGB Conc 34.5 g/dl (32-36); Mean Corpuscular Hemoglobin 34.5 pg (26-34); Mean Platelet Volume 10.7 fl (7.4-10.4); Monocytes Absolute Auto 0.7 K/mm3 (0.1-0.6); Monocytes Percent Auto 6.7 % (2.6-8.5); Neutrophils Absolute Auto 9.7 K/mm3 (1.3-6.7); Neutrophils Percent Auto 89.6 % (45.5-73.1); Platelet Count Result 223 k/mm3 (150-375); Red Blood Count 3.45 M/mm3 (4.6-6.20); Red Cell Distribution Width 14.7 % (11.5-14.5); White Blood Count 10.9 K/mm3 (4.5-10.0)
[2020-08-10 02:24] LABS: Anion Gap 10 mmol/L (8-16); Blood Urea Nitrogen 12 mg/dL (9-20); Calcium 8.8 mg/dL (8.4-10.2); Carbon Dioxide 24 mmol/L (22-30); Chloride 98 mmol/L (98-107); Estimated CRCL calculation 86 ml/min; Estimated Glomerular Filt Rate > 60; Glucose 152 mg/dL (75-110); Potassium 4.1 mmol/L (3.4-5.0); Sodium 132 mmol/L (137-145)
[2020-08-10 02:35] LABS: Troponin I < 0.012 ng/mL (0.000-0.034)
[2020-08-10] MEDS: HYDROmorphone HCL INJ (*CRX) 1 MG/ML SYR 0.5 MG IV PUSH (05:00)
[2020-08-10 06:17] LABS: Troponin I < 0.012 ng/mL (0.000-0.034)
[2020-08-10 08:43] LABS: Troponin I < 0.012 ng/mL (0.000-0.034)
[2020-08-10] MEDS: ASPIRIN 81 MG ENTERIC TABLET PO (09:10)
[2020-08-10] MEDS: METOPROLOL SUCCINATE EXT REL 50 MG TABCR PO (09:10)
[2020-08-10] MEDS: AMIODARONE HCL 200 MG TABLET PO (09:10)
[2020-08-10] MEDS: ENOXAPARIN 30 MG/0.3 ML SYRINGE SUB-Q ×2 (09:10→20:11)
--- NOTE | 2020-08-10 09:49 | PM.PNGS ---
Progress Note: A&P Assessment and Plan (1) Rectal cancer: Code(s): C20 - Malignant neoplasm of rectum Status: Acute Assessment and Plan: Doing well on POD#1. Will advance to full liquids but advised patient to still just sip on what he feels like having. Increase activity, encourage IS Await final pathology Subjective Subjective Date/Time Seen: 08/10/20 09:49 Post Op day: 1 Interval history: Passing flatus. Pain controlled. 1 episode of nausea yesterday, otherwise tolerating liquids. Had episode of chest pain last night and hospitalist was consulted, so far does not appear to be cardiac. Exam GI: Inspection: non-distended and incision (intact with glue) GI Palp: Yes Tenderness to palpation present (GI) (incisional) Auscultation: normal bowel sounds Objective Data Vital Signs Vital Signs: Vital Signs - 24 hr 08/09/20 12:09 08/09/20 12:20 08/09/20 12:35 Temperature 36.3 C L Pulse Rate 72 59 L 61 Respiratory Rate 14 14 14 Blood Pressure 115/69 109/57 L 111/66 Pulse Oximetry 100 98 100 08/09/20 12:50 08/09/20 13:05 08/09/20 13:20 Temperature Pulse Rate 60 61 63 Respiratory Rate 14 14 14 Blood Pressure 106/65 113/64 104/60 Pulse Oximetry 96 92 93 08/09/20 13:35 08/09/20 14:15 08/09/20 14:30 Temperature 36.0 C L 36.0 C L 36.0 C L Pulse Rate 62 61 62 Respiratory Rate 14 14 14 Blood Pressure 110/60 120/61 119/73 Pulse Oximetry 92 94 96 08/09/20 15:00 08/09/20 16:00 08/09/20 20:23 Temperature 35.9 C L 36.0 C L 36.4 C Pulse Rate 63 64 68 Respiratory Rate 14 14 14 Blood Pressure 115/61 108/59 L 125/72 Pulse Oximetry 94 95 95 08/09/20 23:40 08/10/20 02:00 08/10/20 02:43 Temperature 37.0 C 37.0 C Pulse Rate 73 73 80 Respiratory Rate 18 18 Blood Pressure 127/79 127/79 Pulse Oximetry 92 92 08/10/20 04:00 08/10/20 04:58 08/10/20 09:10 Temperature 37.1 C Pulse Rate 70 74 80 Respiratory Rate 16 Blood Pressure 112/65 Pulse Oximetry 94 Intake/Output Intake/Output: Intake & Output 08/07/20 08/08/20 08/09/20 08/10/20 23:59 23:59 23:59 23:59 Intake Total 850 1750 Output Total 135 950 Balance 715 800 Meds/Results Medications: Active Medications Generic Name Dose Route Start Last Admin Trade Name Freq PRN Reason Stop Dose Admin Acetaminophen 1,000 mg 08/09/20 18:00 08/10/20 05:31 Acetaminophen 500 Mg Tablet PO 1,000 mg Q6H ASHELY Administration Albuterol 2 puff 08/09/20 13:42 Albuterol Sulfate (*Sp) Aerosol 1 Puff INHALATION QID PRN Dyspnea Amiodarone HCl 200 mg 08/10/20 09:00 08/10/20 09:10 Amiodarone Hcl 200 Mg Tablet PO 200 mg DAILY ASHELY Administration Aspirin 81 mg 08/10/20 09:00 08/10/20 09:10 Aspirin 81 Mg Enteric Tablet PO 81 mg QAM ASHELY Administration Enoxaparin Sodium 30 mg 08/09/20 21:00 08/10/20 09:10 Enoxaparin 30 Mg/0.3 Ml Syringe SUB-Q 30 mg Q12HR ASHELY Administration Hydromorphone HCl 1 mg 08/09/20 13:42 Hydromorphone Hcl Inj (*Crx) 1 Mg/Ml Syr IV PUSH Q2H PRN Pain Rated 7-10 Hydromorphone HCl 0.5 mg 08/09/20 13:42 08/10/20 05:00 Hydromorphone Hcl Inj (*Crx) 1 Mg/Ml Syr IV PUSH 0.5 mg Q2H PRN Administration Pain Rated 4-6 Lactated Ringer's 1,000 mls @ 100 mls/hr 08/09/20 13:42 08/10/20 00:54 Lr - Lactated Ringers Iv IV CONT 100 mls/hr .Q10H ASHELY Administration Metoprolol Succinate 50 mg 08/10/20 09:00 08/10/20 09:10 Metoprolol Succinate Ext Rel 50 Mg Tabcr PO 50 mg DAILY ASHELY Administration Ondansetron HCl 4 mg 08/09/20 13:42 Ondansetron Inj 4 Mg/2 Ml Vial IV PUSH Q4H PRN Nausea And Vomiting Labs Labs: Laboratory Results - last 24 hr 08/10/20 08/10/20 08/10/20 02:02 02:02 02:02 WBC 10.9 H RBC 3.45 L Hgb 11.9 L Hct 34.5 L MCV 100.0 MCH 34.5 H MCHC 34.5 RDW 14.7 H Plt Count 223 MPV 10.7 H Immature Gran % (Auto) 0.5 Neut % (Auto) 89.6 H
--- NOTE | 2020-08-10 12:12 | PM.IMPN ---
Progress Note: A&P Assessment and Plan (1) Chest pressure: Code(s): R07.89 - Other chest pain Status: Resolved Assessment and Plan: Chest pressure is atypical for cardiac pain and is likely referred discomfort from the abdomen as the pressure resolved with belching. EKG is unremarkable. Troponins negative x 3. Does not appear to be cardiac related and likely more related from recent abdominal surgery. VSS reviewed and stable. (2) Primary colorectal adenocarcinoma: Onset Date: ~04/2020 Code(s): C19 - Malignant neoplasm of rectosigmoid junction Status: Inactive Assessment and Plan: POD1 Hand assisted laparoscopic low anterior resection with low pelvic anastomosis per Dr. Robertson. (3) Essential hypertension: Code(s): I10 - Essential (primary) hypertension Status: Acute Assessment and Plan: BP 110s sys. Continuing on metoprolol Consider resuming other home medications if BP allows (4) Chronic obstructive pulmonary disease: Code(s): J44.9 - Chronic obstructive pulmonary disease, unspecified Status: Acute Assessment and Plan: No acute issues (5) Paroxysmal atrial fibrillation: Code(s): I48.0 - Paroxysmal atrial fibrillation Status: Inactive Assessment and Plan: On amiodarone. In sinus rhythm at this moment Additional Plan Thank you for allowing us to participate in this patient's care. Will sign off on case. Please do not hesitate to contact us with any questions. Subjective Date/time seen: 08/10/20 12:12 This is a Hospitalist Consult Progress Note Interval history: Patient is a very pleasant is a 70-year-old male with colorectal adenocarcinoma arising in the proximal rectum, paroxysmal atrial fibrillation, hypertension, and COPD whom the hospitalist service has been consulted for evaluation of chest discomfort. This has resolved per patient. He tells me he thinks was related to GI/gas/abdominal distention as it resolved with belching. No further chest discomfort. Had several BMs this morning. Has significant, but tolerable abdominal pain. He states he has some discomfort on the roof of his mouth that started overnight. Has some Miller discomfort. No other complaints at the moment. Denies f/c/s, headaches, dizziness, lightheadedness, changes in v/h, current cp/palpitations, n/v, calf pain/swelling. Review of Systems Review of Systems: All systems reviewed & are unremarkable except as noted in HPI and below Exam Narrative: Exam Narrative: General: Patient sitting up in chair at time of visit in no acute distress. HEENT: Normocephalic, EOMI, oral mucosa moist. No abscess appreciated in oral cavity; patient points to one area on right palate that appears very slightly more edematous then opposite corresponding site but no drainage or erythema appreciated. No evidence of infection Cardiovascular: Rate and rhythm are regular. No notable murmur, rub, or gallop. Tele shows sinus rhythm, no alarms Respiratory: Lungs clear to auscultation all faustin. Non-labored breathing. Abdomen: Abdomen is soft and slightly distended with hypoactive bowel sounds. There is some bruising around a lower midline abdominal surgical incision and laparoscopic incision which are both c/d/i/well approximated. Extremities: Peripheral pulses intact. No edema. NTTP b/l calves Neuro: No focal neurological deficits. Speech is clear. Objective Data Vital Signs Vital Signs: Last Vital Signs Temp 98.6 F 08/10/20 10:00 Pulse 75 08/10/20 10:00 Resp 16 08/10/20 10:00 BP 117/66 08/10/20 10:00 Pulse Ox 96 08/10/20 10:00 Intake/Output Intake/Output: Intake & Output 08/07/20 08/08/20 08/09/20 08/10/20 23:59 23:59 23:59 23:59 Intake Total 850 1870 Output Total 135 950 Balance 715
[2020-08-10] MEDS: MAGNES & ALUM HYD/SIMETH/DIPHENHYD/LIDOCAINE 119 ML MOUTHWASH BY MOUTH (12:31)
[2020-08-10] MEDS: HYDROmorphone HCL INJ (*CRX) 1 MG/ML SYR IV PUSH (15:01)
[2020-08-10] MEDS: HYDROcodone/acetaminophen (*CRX) 10-325 MG TABLET 1 TAB PO (17:37)
[2020-08-10] MEDS: HYDROcodone/acetaminophen (*CRX) 5-325 MG TABLET 1 TAB PO (21:51)
[2020-08-11] VITALS (10 sets, daily range): BP systolic 129–145; BP diastolic 64–71; PULSE 73–85; RESP 15–20; TEMP 36.8–37; O2SAT 91–95
[2020-08-11] MEDS: HYDROcodone/acetaminophen (*CRX) 5-325 MG TABLET 1 TAB PO ×3 (03:02→22:21)
[2020-08-11 05:51] LABS: Hematocrit 31.5 % (42.0-52.0); Hemoglobin 10.4 g/dL (14.0-18.0); Mean Corpuscular Hemoglobin 34.1 pg (26-34); Mean Corpuscular Volume 103.3 fl (80-100); Platelet Count Result 199 k/mm3 (150-375); Red Blood Count 3.05 M/mm3 (4.6-6.20); Red Cell Distribution Width 15.1 % (11.5-14.5); White Blood Count 6.7 K/mm3 (4.5-10.0)
[2020-08-11 06:07] LABS: Anion Gap 1 mmol/L (8-16); Blood Urea Nitrogen 10 mg/dL (9-20); Calcium 8.6 mg/dL (8.4-10.2); Carbon Dioxide 32 mmol/L (22-30); Chloride 104 mmol/L (98-107); Estimated CRCL calculation 88 ml/min; Estimated Glomerular Filt Rate > 60; Glucose 94 mg/dL (75-110); Potassium 3.5 mmol/L (3.4-5.0); Sodium 137 mmol/L (137-145)
[2020-08-11] MEDS: METOPROLOL SUCCINATE EXT REL 50 MG TABCR PO (07:16)
[2020-08-11] MEDS: AMIODARONE HCL 200 MG TABLET PO (07:16)
[2020-08-11] MEDS: ASPIRIN 81 MG ENTERIC TABLET PO (07:16)
[2020-08-11] MEDS: ENOXAPARIN 30 MG/0.3 ML SYRINGE SUB-Q ×2 (09:01→20:36)
[2020-08-11] MEDS: HYDROcodone/acetaminophen (*CRX) 10-325 MG TABLET 1 TAB PO ×2 (11:53→17:46)
--- NOTE | 2020-08-11 12:19 | PM.PNGS ---
Progress Note: A&P Assessment and Plan (1) Rectal cancer: Code(s): C20 - Malignant neoplasm of rectum Status: Acute Assessment and Plan: Pathology shows T2N0 rectal cancer, margins negative. Advance to soft diet for dinner. Desitin ointment for perirectal irritation Continue to slowly advance diet and activity Subjective Subjective Date/Time Seen: 08/11/20 12:19 Post Op day: 2 Interval history: Moving bowels, tolerating full liquids. Having a lot of rectal pain and tailbone pain today from all of the BM's. He says he's had about 20 BM's since yesterday. No bloating. Ambulating some, but tailbone hurts so much it is hard for him to get out of bed. Exam GI: Inspection: non-distended and incision (intact with glue) GI Palp: Yes Tenderness to palpation present (GI) (incisional) Auscultation: normal bowel sounds Objective Data Vital Signs Vital Signs: Vital Signs - 24 hr 08/10/20 14:00 08/10/20 16:00 08/10/20 18:00 Temperature 36.6 C 37.1 C Pulse Rate 61 74 75 Respiratory Rate 16 16 Blood Pressure 132/69 126/72 Pulse Oximetry 96 95 08/10/20 20:00 08/10/20 22:01 08/11/20 00:00 Temperature 37.0 C Pulse Rate 68 75 74 Respiratory Rate 20 Blood Pressure 114/65 Pulse Oximetry 95 08/11/20 04:00 08/11/20 04:57 08/11/20 07:16 Temperature 37.0 C Pulse Rate 74 73 81 Respiratory Rate 20 Blood Pressure 131/67 Pulse Oximetry 92 08/11/20 08:00 08/11/20 12:00 Temperature Pulse Rate 74 83 Respiratory Rate Blood Pressure Pulse Oximetry Intake/Output Intake/Output: Intake & Output 08/08/20 08/09/20 08/10/20 08/11/20 23:59 23:59 23:59 23:59 Intake Total 850 5110 1630 Output Total 135 3925 1400 Balance 715 1185 230 Meds/Results Medications: Active Medications Generic Name Dose Route Start Last Admin Trade Name Freq PRN Reason Stop Dose Admin Acetaminophen 650 mg 08/10/20 09:48 Acetaminophen 325 Mg Tablet PO Q6H PRN Pain Rated 1-3 Hydrocodone Bitart/Acetaminophen 1 tab 08/10/20 09:47 08/11/20 07:14 Hydrocodone/Acetaminophen (*Crx) 5-325 Mg Tablet PO 1 tab Q4H PRN Administration Pain Rated 4-6 Hydrocodone Bitart/Acetaminophen 1 tab 08/10/20 09:47 08/11/20 11:53 Hydrocodone/Acetaminophen (*Crx) 10-325 Mg Tablet PO 1 tab Q4H PRN Administration Pain Rated 7-10 Albuterol 2 puff 08/09/20 13:42 Albuterol Sulfate (*Sp) Aerosol 1 Puff INHALATION QID PRN Dyspnea Amiodarone HCl 200 mg 08/10/20 09:00 08/11/20 07:16 Amiodarone Hcl 200 Mg Tablet PO 200 mg DAILY ASHELY Administration Aspirin 81 mg 08/10/20 09:00 08/11/20 07:16 Aspirin 81 Mg Enteric Tablet PO 81 mg QAM ASHELY Administration Enoxaparin Sodium 30 mg 08/09/20 21:00 08/11/20 09:01 Enoxaparin 30 Mg/0.3 Ml Syringe SUB-Q 30 mg Q12HR ASHELY Administration Hydromorphone HCl 1 mg 08/09/20 13:42 08/10/20 15:01 Hydromorphone Hcl Inj (*Crx) 1 Mg/Ml Syr IV PUSH 1 mg Q2H PRN Administration Pain Rated 7-10 Hydromorphone HCl 0.5 mg 08/09/20 13:42 08/10/20 05:00 Hydromorphone Hcl Inj (*Crx) 1 Mg/Ml Syr IV PUSH 0.5 mg Q2H PRN Administration Pain Rated 4-6 Lidocaine/Diphenhydr/Alum/Mg/Simeth 5 ml 08/10/20 10:18 08/10/20 12:31 Magnes & Alum Hyd/Simeth/Diphenhyd/Lidocaine 119 Ml Mouthwash BY MOUTH 09/09/20 13:01 5 ml Q4HR PRN Administration Mouth Sore Pain Metoprolol Succinate 50 mg 08/10/20 09:00 08/11/20 07:16 Metoprolol Succinate Ext Rel 50 Mg Tabcr PO 50 mg DAILY ASHELY Administration Ondansetron HCl 4 mg 08/09/20 13:42 Ondansetron Inj 4 Mg/2 Ml Vial IV PUSH Q4H PRN Nausea And Vomiting Zinc Oxide 1 applic 08/11/20 12:17 Cod Liver Oil/Zinc Oxide Oint 30 Gm TOPICAL PRN PRN Rash Labs Labs: Laboratory Results - last 24 hr 08/11/20 08/11/20 05:00 05:00 WBC 6.7 RBC 3.05 L Hgb 10.4 L Hct 31.5 L MCV 103.3
--- NOTE | 2020-08-11 14:07 | PC.NURSE ---
Re-evaluated patient's fall score following surgery. Patient no longer experiencing effects from anesthesia. Patient has ambulated many times in room and in shook way with standby assistance. Patient reports feeling great while up and moving. Educated patient on need to call for assistance when needed, patient understands and acknowledges this.
[2020-08-11] MEDS: COD LIVER OIL/ZINC OXIDE OINT 30 GM 1 APPLIC TOPICAL (15:00)
[2020-08-12] VITALS (12 sets, daily range): BP systolic 124–145; BP diastolic 73–82; PULSE 76–95; RESP 20–23; TEMP 36.2–38.1; O2SAT 92–95
[2020-08-12] MEDS: ONDANSETRON INJ 4 MG/2 ML VIAL IV PUSH ×3 (01:13→10:05)
[2020-08-12 05:46] LABS: Hematocrit 33.5 % (42.0-52.0); Hemoglobin 11.1 g/dL (14.0-18.0); Mean Corpuscular HGB Conc 33.1 g/dl (32-36); Mean Corpuscular Hemoglobin 33.4 pg (26-34); Mean Corpuscular Volume 100.9 fl (80-100); Mean Platelet Volume 11.2 fl (7.4-10.4); Platelet Count Result 205 k/mm3 (150-375); Red Blood Count 3.32 M/mm3 (4.6-6.20); Red Cell Distribution Width 14.7 % (11.5-14.5); White Blood Count 9.1 K/mm3 (4.5-10.0)
[2020-08-12] MEDS: HYDROcodone/acetaminophen (*CRX) 10-325 MG TABLET 1 TAB PO ×2 (06:00→10:05)
[2020-08-12 06:03] LABS: Anion Gap 6 mmol/L (8-16); Blood Urea Nitrogen 10 mg/dL (9-20); Calcium 8.7 mg/dL (8.4-10.2); Carbon Dioxide 29 mmol/L (22-30); Chloride 97 mmol/L (98-107); Estimated CRCL calculation 89 ml/min; Estimated Glomerular Filt Rate > 60; Glucose 115 mg/dL (75-110); Potassium 3.5 mmol/L (3.4-5.0); Sodium 132 mmol/L (137-145)
[2020-08-12] MEDS: ENOXAPARIN 30 MG/0.3 ML SYRINGE SUB-Q ×2 (09:13→20:15)
[2020-08-12] MEDS: ASPIRIN 81 MG ENTERIC TABLET PO (09:13)
[2020-08-12] MEDS: METOPROLOL SUCCINATE EXT REL 50 MG TABCR PO (09:13)
[2020-08-12] MEDS: AMIODARONE HCL 200 MG TABLET PO (09:14)
--- NOTE | 2020-08-12 13:29 | PM.PNGS ---
Progress Note: A&P Assessment and Plan (1) Rectal cancer: Code(s): C20 - Malignant neoplasm of rectum Status: Acute Assessment and Plan: Continue soft diet Slowly increase activity Await improvement in frequent bowels before patient will be ready to handle routine care at home (2) Fever: Code(s): R50.9 - Fever, unspecified Status: Acute Assessment and Plan: Will continue to monitor for recurrent fevers. Wound has just a slight amount of pink discoloration which could be early signs of a superficial wound infection. We will repeat CBC in a.m. and workup for other sources of fever if it continues. Subjective Subjective Date/Time Seen: 08/12/20 13:29 Post Op day: 3 Interval history: Still having very frequent bowel movements, but becoming slightly more solid. Pain controlled with oral pain meds. Patient feels very fatigued and feels tired with short ambulation. Spiked a fever overnight, but down to normal this morning. Denies any cough or any leg swelling. No urinary difficulties. Exam GI: Inspection: incision (Glue intact, slight pink color around hand port incision) GI Palp: Yes Soft to palpation and Yes Tenderness to palpation present (GI) (Incisional) Auscultation: normal bowel sounds Objective Data Vital Signs Vital Signs: Vital Signs - 24 hr 08/11/20 14:00 08/11/20 16:00 08/11/20 20:00 Temperature 36.8 C Pulse Rate 77 73 81 Respiratory Rate 15 Blood Pressure 129/64 Pulse Oximetry 95 08/11/20 22:00 08/12/20 00:00 08/12/20 04:00 Temperature 36.9 C Pulse Rate 85 88 95 Respiratory Rate 16 Blood Pressure 145/71 H Pulse Oximetry 91 08/12/20 05:55 08/12/20 05:57 08/12/20 08:30 Temperature 38.1 C H 37.6 C H Pulse Rate 94 92 Respiratory Rate 20 Blood Pressure 139/82 Pulse Oximetry 92 08/12/20 09:12 08/12/20 09:13 08/12/20 09:14 Temperature 36.9 C Pulse Rate 92 92 92 Respiratory Rate 20 Blood Pressure 124/73 Pulse Oximetry 94 08/12/20 12:00 Temperature Pulse Rate 76 Respiratory Rate Blood Pressure Pulse Oximetry Intake/Output Intake/Output: Intake & Output 12/30/20 08/10/20 08/11/20 08/12/20 23:59 23:59 23:59 23:59 Intake Total 850 5110 2830 1100 Output Total 135 3925 1400 1700 Balance 715 1185 1430 -600 Meds/Results Medications: Active Medications Generic Name Dose Route Start Last Admin Trade Name Freq PRN Reason Stop Dose Admin Acetaminophen 650 mg 08/10/20 09:48 Acetaminophen 325 Mg Tablet PO Q6H PRN Pain Rated 1-3 Hydrocodone Bitart/Acetaminophen 1 tab 08/10/20 09:47 08/11/20 22:21 Hydrocodone/Acetaminophen (*Crx) 5-325 Mg Tablet PO 1 tab Q4H PRN Administration Pain Rated 4-6 Hydrocodone Bitart/Acetaminophen 1 tab 08/10/20 09:47 08/12/20 10:05 Hydrocodone/Acetaminophen (*Crx) 10-325 Mg Tablet PO 1 tab Q4H PRN Administration Pain Rated 7-10 Albuterol 2 puff 08/09/20 13:42 Albuterol Sulfate (*Sp) Aerosol 1 Puff INHALATION QID PRN Dyspnea Amiodarone HCl 200 mg 08/10/20 09:00 08/12/20 09:14 Amiodarone Hcl 200 Mg Tablet PO 200 mg DAILY ASHELY Administration Aspirin 81 mg 08/10/20 09:00 08/12/20 09:13 Aspirin 81 Mg Enteric Tablet PO 81 mg QAM ASHELY Administration Enoxaparin Sodium 30 mg 08/09/20 21:00 08/12/20 09:13 Enoxaparin 30 Mg/0.3 Ml Syringe SUB-Q 30 mg Q12HR ASHELY Administration Hydromorphone HCl 1 mg 08/09/20 13:42 08/10/20 15:01 Hydromorphone Hcl Inj (*Crx) 1 Mg/Ml Syr IV PUSH 1 mg Q2H PRN Administration Pain Rated 7-10 Hydromorphone HCl 0.5 mg 08/09/20 13:42 08/10/20 05:00 Hydromorphone Hcl Inj (*Crx) 1 Mg/Ml Syr IV PUSH 0.5 mg Q2H PRN Administration Pain Rated 4-6 Lidocaine/Diphenhydr/Alum/Mg/Simeth 5 ml 08/10/20 10:18 08/10/20 12:31 Magnes & Alum Hyd/Simeth/Diphenhyd/Lidocaine 119 Ml Mouthwash BY MOUTH 09/09/20 13:01 5 ml Q4HR PRN Administr
--- NOTE | 2020-08-12 14:00 | PC.NURSE ---
Lower medial abdominal incision slightly warm and reddened. Dr. Robertson was here and assessed wound and is aware.
[2020-08-12] MEDS: HYDROcodone/acetaminophen (*CRX) 5-325 MG TABLET 1 TAB PO ×2 (15:38→22:41)
--- NOTE | 2020-08-12 18:54 | PC.NURSE ---
Incision to medial lower abdomen with more redness noted around site. Warmth noted around site as well. Patient has remained afebrile today. Patient states he is feeling better this evening and denies additional pain or discomfort. Call placed to Dr. Robertson to notify him of changes to incision site.
[2020-08-13 04:52] VITALS: BP 137/64; PULSE 70; RESP 20; TEMP 36.8; O2SAT 95
[2020-08-13 05:52] LABS: Hematocrit 31.5 % (42.0-52.0); Hemoglobin 10.6 g/dL (14.0-18.0); Mean Corpuscular HGB Conc 33.7 g/dl (32-36); Mean Corpuscular Hemoglobin 34.6 pg (26-34); Mean Corpuscular Volume 102.9 fl (80-100); Mean Platelet Volume 10.9 fl (7.4-10.4); Platelet Count Result 190 k/mm3 (150-375); Red Blood Count 3.06 M/mm3 (4.6-6.20); Red Cell Distribution Width 14.8 % (11.5-14.5); White Blood Count 7.6 K/mm3 (4.5-10.0)
[2020-08-13 06:08] LABS: Anion Gap 4 mmol/L (8-16); Blood Urea Nitrogen 11 mg/dL (9-20); Calcium 8.7 mg/dL (8.4-10.2); Carbon Dioxide 30 mmol/L (22-30); Chloride 99 mmol/L (98-107); Estimated CRCL calculation 86 ml/min; Estimated Glomerular Filt Rate > 60; Glucose 98 mg/dL (75-110); Potassium 3.5 mmol/L (3.4-5.0); Sodium 133 mmol/L (137-145)
[2020-08-13] MEDS: HYDROcodone/acetaminophen (*CRX) 5-325 MG TABLET 1 TAB PO (07:15)
--- NOTE | 2020-08-13 08:07 | PC.NURSE ---
Patient c/o intense burning and itching in rectum. Rectum appears very reddened and irritated. Small raised area noted near rectum, possibly a hemorrhoid. Patient states he has had hemorrhoids in the past. Requesting something for this. Call placed to Dr. Robertson. Awaiting call back.
[2020-08-13] MEDS: ASPIRIN 81 MG ENTERIC TABLET PO (10:01)
[2020-08-13] MEDS: ENOXAPARIN 30 MG/0.3 ML SYRINGE SUB-Q ×2 (10:01→21:21)
[2020-08-13 10:02] VITALS: PULSE 76
[2020-08-13] MEDS: AMIODARONE HCL 200 MG TABLET PO (10:02)
[2020-08-13] MEDS: METOPROLOL SUCCINATE EXT REL 50 MG TABCR PO (10:02)
--- NOTE | 2020-08-13 12:52 | PM.PNGS ---
Progress Note: A&P Assessment and Plan (1) Rectal cancer: Code(s): C20 - Malignant neoplasm of rectum Status: Acute Assessment and Plan: slowly improving with regular diet continue Desitin and Anusol cream for perirectal irritation Increase activity Possibly home tomorrow Subjective Subjective Date/Time Seen: 08/13/20 12:52 Post Op day: 4 Interval history: Mostly c/o perirectal irritation still. Abdominal pain is improving. No more fevers. Tolerating solid diet. Still having a lot of loose BM's. Exam GI: Inspection: incision (mild pink color at handport incision. No erythema or drainage.) GI Palp: Yes Soft to palpation, Yes Tenderness to palpation present (GI) (minimal incisional) and No Guarding due to palpation present (GI) Auscultation: normal bowel sounds Other: Perirectal erythema and irritation. No thrombosed hemorrhoids visible. Objective Data Vital Signs Vital Signs: Vital Signs - 24 hr 08/12/20 14:00 08/12/20 18:00 08/12/20 21:57 Temperature 36.2 C L 37.1 C 36.6 C Pulse Rate 82 77 Respiratory Rate 23 H 20 Blood Pressure 145/76 H 141/75 H Pulse Oximetry 95 92 08/13/20 04:52 08/13/20 10:02 Temperature 36.8 C Pulse Rate 70 76 Respiratory Rate 20 Blood Pressure 137/64 Pulse Oximetry 95 Intake/Output Intake/Output: Intake & Output 08/10/20 08/11/20 08/12/20 08/13/20 23:59 23:59 23:59 23:59 Intake Total 5110 2830 1980 1090 Output Total 3925 1400 1700 Balance 1185 3068 406 6680 Meds/Results Medications: Active Medications Generic Name Dose Route Start Last Admin Trade Name Freq PRN Reason Stop Dose Admin Acetaminophen 650 mg 08/10/20 09:48 Acetaminophen 325 Mg Tablet PO Q6H PRN Pain Rated 1-3 Hydrocodone Bitart/Acetaminophen 1 tab 08/10/20 09:47 08/13/20 07:15 Hydrocodone/Acetaminophen (*Crx) 5-325 Mg Tablet PO 1 tab Q4H PRN Administration Pain Rated 4-6 Hydrocodone Bitart/Acetaminophen 1 tab 08/10/20 09:47 08/12/20 10:05 Hydrocodone/Acetaminophen (*Crx) 10-325 Mg Tablet PO 1 tab Q4H PRN Administration Pain Rated 7-10 Albuterol 2 puff 08/09/20 13:42 Albuterol Sulfate (*Sp) Aerosol 1 Puff INHALATION QID PRN Dyspnea Amiodarone HCl 200 mg 08/10/20 09:00 08/13/20 10:02 Amiodarone Hcl 200 Mg Tablet PO 200 mg DAILY ASHELY Administration Aspirin 81 mg 08/10/20 09:00 08/13/20 10:01 Aspirin 81 Mg Enteric Tablet PO 81 mg QAM ASHELY Administration Enoxaparin Sodium 30 mg 08/09/20 21:00 08/13/20 10:01 Enoxaparin 30 Mg/0.3 Ml Syringe SUB-Q 30 mg Q12HR ASHELY Administration Hydrocortisone 1 applic 08/13/20 09:00 08/13/20 10:01 Hydrocortisone (Proctozone-Hc) 2.5% Cream 30 Gm Tube RECTAL 1 applic Q12HR ASHELY Administration Hydromorphone HCl 1 mg 08/09/20 13:42 08/10/20 15:01 Hydromorphone Hcl Inj (*Crx) 1 Mg/Ml Syr IV PUSH 1 mg Q2H PRN Administration Pain Rated 7-10 Hydromorphone HCl 0.5 mg 08/09/20 13:42 08/10/20 05:00 Hydromorphone Hcl Inj (*Crx) 1 Mg/Ml Syr IV PUSH 0.5 mg Q2H PRN Administration Pain Rated 4-6 Cefazolin Sodium 1 gm in 50 mls @ 100 mls/hr 08/12/20 19:00 08/13/20 12:38 Ancef 1 Gm/D5w 50 Ml Pm IVPB Infused Q8H [facility] Infusion Lidocaine/Diphenhydr/Alum/Mg/Simeth 5 ml 08/10/20 10:18 08/10/20 12:31 Magnes & Alum Hyd/Simeth/Diphenhyd/Lidocaine 119 Ml Mouthwash BY MOUTH 09/09/20 13:01 5 ml Q4HR PRN Administration Mouth Sore Pain Metoprolol Succinate 50 mg 08/10/20 09:00 08/13/20 10:02 Metoprolol Succinate Ext Rel 50 Mg Tabcr PO 50 mg DAILY ASHELY Administration Ondansetron HCl 4 mg 08/09/20 13:42 08/12/20 10:05 Ondansetron Inj 4 Mg/2 Ml Vial IV PUSH 4 mg Q4H PRN Administration Nausea And Vomiting Zinc Oxide 1 applic 08/11/20 12:17 08/11/20 15:00 Cod Liver Oil/Zinc Oxide Oint 30 Gm TOPICAL 1 applic PRN PRN Administration Rash Labs Labs: Laboratory
[2020-08-13 14:00] VITALS: BP 140/62; PULSE 80; RESP 17; TEMP 36.7; O2SAT 97
[2020-08-13] MEDS: HYDROcodone/acetaminophen (*CRX) 10-325 MG TABLET 1 TAB PO (15:31)
[2020-08-13] MEDS: COD LIVER OIL/ZINC OXIDE OINT 30 GM 1 APPLIC TOPICAL (18:25)
[2020-08-13 22:00] VITALS: BP 150/76; PULSE 72; RESP 18; TEMP 37; O2SAT 98
[2020-08-14] MEDS: HYDROcodone/acetaminophen (*CRX) 10-325 MG TABLET 1 TAB PO (02:19)
[2020-08-14 05:47] LABS: Hematocrit 31.1 % (42.0-52.0); Hemoglobin 10.5 g/dL (14.0-18.0); Mean Corpuscular HGB Conc 33.8 g/dl (32-36); Mean Corpuscular Hemoglobin 34.3 pg (26-34); Mean Corpuscular Volume 101.6 fl (80-100); Mean Platelet Volume 10.9 fl (7.4-10.4); Platelet Count Result 204 k/mm3 (150-375); Red Blood Count 3.06 M/mm3 (4.6-6.20); Red Cell Distribution Width 14.5 % (11.5-14.5)
[2020-08-14 06:00] VITALS: BP 137/74; PULSE 65; RESP 16; TEMP 36.4; O2SAT 98
[2020-08-14 06:16] LABS: Anion Gap 5 mmol/L (8-16); Blood Urea Nitrogen 9 mg/dL (9-20); Calcium 8.8 mg/dL (8.4-10.2); Carbon Dioxide 29 mmol/L (22-30); Chloride 102 mmol/L (98-107); Estimated CRCL calculation 86 ml/min; Estimated Glomerular Filt Rate > 60; Glucose 99 mg/dL (75-110); Potassium 3.6 mmol/L (3.4-5.0); Sodium 136 mmol/L (137-145)
[2020-08-14 08:35] VITALS: PULSE 65
[2020-08-14] MEDS: AMIODARONE HCL 200 MG TABLET PO (08:35)
[2020-08-14 08:36] VITALS: PULSE 65
[2020-08-14] MEDS: ASPIRIN 81 MG ENTERIC TABLET PO (08:36)
[2020-08-14] MEDS: METOPROLOL SUCCINATE EXT REL 50 MG TABCR PO (08:36)
[2020-08-14] MEDS: ENOXAPARIN 30 MG/0.3 ML SYRINGE SUB-Q (08:36)
--- NOTE | 2020-08-14 10:30 | PM.DS ---
DS: Admitting Diagnosis Admitting Diagnosis Admitting Diagnosis: Rectal cancer DS: Discharge Diagnosis Discharge Diagnosis (1) Rectal cancer: Code(s): C20 - Malignant neoplasm of rectum Status: Acute (2) BMI 30.0-30.9,adult: Code(s): Z68.30 - Body mass index [BMI]30.0-30.9, adult Status: Acute (3) PSVT (paroxysmal supraventricular tachycardia): Code(s): I47.1 - Supraventricular tachycardia Status: Acute (4) Essential hypertension: Code(s): I10 - Essential (primary) hypertension Status: Acute DS: Summary Hospital Course Reason for hospitalization: Rectal cancer Hospital Course: This is a 70-year-old man who presented for surgical resection rectal cancer. He was previously diagnosed on 04/20/[address] Woodson. He underwent neoadjuvant chemo radiation and is now presenting for surgery. Hand assisted laparoscopic low anterior resection was performed on 08/09/2020. He was admitted postoperatively for recovery. He was started on clear liquid diet. The evening after the surgery he was having some chest pressure and atypical chest pain, therefore hospitalist was consulted. EKG was unchanged and troponins were negative. He was placed on telemetry to carefully observe for any other changes. His cardiac monitor remained normal sinus rhythm and after a couple days the cardiac monitor was discontinued. On postop day 1 he started moving his bowels and was having frequent loose bowel movements. He was advanced to a full liquid diet. Over the next couple days he was gradually advanced to a soft regular diet. He continued to have frequent loose bowel movements but this did gradually improved over a few days. He was also having extreme irritation around his anus from all of the bowel movements and wiping. He was started on Desitin cream and hydrocortisone cream to help. This did seem to improve over the next couple days. He did spike a fever on 08/12/2020. He was noted to have some slight erythema at his hand port incision and this was possibly the source of his fever. He was started on Ancef for possible early signs of cellulitis. He did not spike any more fevers and the slight erythema at the hand port site seemed to resolve over the next day or 2. He remained hemodynamically stable and was tolerating a soft diet. Pathology showed T2 N0 adenocarcinoma with negative resection margins. 0/8 lymph nodes were positive. He was doing well on postop day 5 and therefore was discharged on postop day 5 Status at Discharge Functional status at discharge: uses cane/walker Overall status at discharge: patient is progressing back to baseline Time Spent with Patient Time attestation: Total time spent providing and/or coordinating discharge services: Time spent: Less than 30 minutes Exam GI: Inspection: normal to inspection, non-distended and incision (Intact with glue, pink color at the hand port incision is resolving) GI Palp: Yes Soft to palpation and No Tenderness to palpation present (GI) Auscultation: normal bowel sounds DS: Data Data Completed and Pending Completed studies during hospitalization: Pathology 08/09/20 09:45 Final Diagnosis A. RECTOSIGMOID, LOW ANTERIOR RESECTION: - RECTOSIGMOID WITHOUT PATHOLOGIC ABNORMALITY. - FIVE BENIGN PERICOLONIC/PERIRECTAL LYMPH NODES (0/5). B. RECTUM, LOW ANTERIOR RESECTION: - MODERATELY DIFFERENTIATED RECTAL ADENOCARCINOMA, 1.7 x 1.5 x 1.1 CM, AT PERITONEAL REFLECTION, INVADING INTO BUT NOT THROUGH MUSCULARIS PROPRIA, NOT INVOLVING RESECTION MARGINS. - DISTANCE FROM DISTAL MARGIN 2.0 CM. - CHANGES CONSISTENT WITH PARTIAL TUMOR REGRESSION (SCORE 2). - TWO BENIGN PERIRECTAL LYMPH NODES (0/2). C. ANASTOMOTIC RINGS, END-TO-END ANASTOMOSIS: - COLON AND RECTUM WITHOUT PATHOLOGIC ABNORMALITY. - ONE BENIGN PERICOLONIC/PERIRECTAL LYMPH NODE (0/1). Labs on day of discharge: Labs from last 24 hours 08/14/20
[2020-08-14] MEDS: HYDROcodone/acetaminophen (*CRX) 5-325 MG TABLET 1 TAB PO (11:26)
== END 2020-08-14 12:32 | disposition home or self-care (01) | DRG 330 ==
LOC: ANH2MED 08-10 06:03
PROVIDERS: Physician Assistant; Admitting Provider Surgery; PCP Pediatrics; Visit Provider Surgery
PROC: 0D1E4Z4 Bypass Large Intestine to Cutaneous, Percutaneous Endoscopic Approach (ICD-10-PCS; principal; 2020-08-09 07:30)
DX: C20 Malignant neoplasm of rectum (principal); I47.1 Supraventricular tachycardia; R50.9 Fever, unspecified; R07.89 Other chest pain; I48.0 Paroxysmal atrial fibrillation; I10 Essential (primary) hypertension; J44.9 Chronic obstructive pulmonary disease, unspecified; M47.816 Spondylosis without myelopathy or radiculopathy, lumbar region; Z96.642 Presence of left artificial hip joint; E66.9 Obesity, unspecified; Z68.31 Body mass index [BMI] 31.0-31.9, adult; Z79.82 Long term (current) use of aspirin; Z79.899 Other long term (current) drug therapy; Z86.010 Personal history of colon polyps; Z87.891 Personal history of nicotine dependence; Z92.3 Personal history of irradiation; Z92.21 Personal history of antineoplastic chemotherapy
CPT/HCPCS: 36415; 80048; 84484; 85025; 85027; 86140; 86850; 86900; 86901; 88305; 88307; 88309; 88329; 93005; A9270; C1729; C9290; J0330; J0690; J1100; J1170; J1650; J1885; J2370; J2405; J2704; J2710; J3010; J7030; J7120

== ENCOUNTER 2020-08-19 08:23 | Inpatient (IN) | payer MEDICARE, SELFPAY ==
[2020-08-19] VITALS (31 sets, daily range): BP systolic 132–154; BP diastolic 57–87; PULSE 69–89; RESP 13–25; TEMP 36.6–36.9; O2SAT 93–100; BMI 30.5
--- NOTE | ~2020-08-19 | CT_ITS ---
EXAMINATION: CT guide absc cath placement DATE: 08/19/2020 14:59 INDICATION: Perirectal gas and fluid collection post recent low abdominal resection. TECHNIQUE: The procedure including the risks and benefits was discussed with the patient. Risks discu ssed included bleeding and infection. The patient understood the risks and benefits and agreed to pro ceed. The patient was confirmed to be receiving appropriate antibiotic coverage. Patient was placed p [place]. The skin overlying the left buttock was prepped and draped in usual sterile fashion. Conscious sedation was provided by the department of anesthesia. Anesthetic was administered with 1% lidocaine subcutaneously. An 18-gauge trocar needle was inserted loculated or rectal gas and fluid collection w ith CT guidance. A J-wire was advanced through the needle with position confirmed by CT. The needle w as removed over the wire and utilizing Seldinger technique the tract was serially dilated to 10 Frenc h. A 10 German drainage catheter was then placed over the wire with position confirmed by CT. The wir e was removed and approximately 10 mL of cloudy reddish-yellow fluid was aspirated and sent to the ks b for Gram stain and cultures. The catheter was stitched to the skin with suture. Antibiotic ointment and a sterile dressing were applied. The catheter was attached to suction drainage and was draining small amount of additional fluid at the conclusion of the procedure. There were no immediate complica tions. The dose-length product was 234.08 mGy-cm. FINDINGS: CT images demonstrate the catheter within the perirectal gas and fluid collection. 10 mL fl uid was aspirated for testing. IMPRESSION: 1. Successful CT-guided perirectal abscess drainage. 2. 10 mL fluid was sent for aerobic and anaerobic cultures. 3. The catheter will be managed by Dr. Sierra. Reviewed, dictated and finalized at location A. [facility]
--- NOTE | ~2020-08-19 | CT_ITS ---
EXAMINATION: CT abdomen pelvis w con DATE: 08/19/2020 10:20 INDICATION: Abdominal pain. TECHNIQUE: Computed tomography (CT) of the abdomen and pelvis was performed with 100 mL Omnipaque-350 intravenous contrast. Automated exposure control and iterative reconstruction technique were employe d. The dose-length product was 1083.51 mGy-cm. COMPARISON: 04/28/2020 FINDINGS: Calcified nodule at the left lower lobe, calcified mediastinal lymph node and splenic calcification, all consistent with old granulomatous disease. Mild bibasilar atelectasis. Heart size is normal. Athe rosclerotic coronary artery calcification and aortic valve ossification. No pericardial or pleural ef fusion. 6 mm cyst in the right hepatic lobe. Gallbladder, pancreas and bilateral adrenal glands are n ormal. 3 mm nonobstructing stone in the mid left kidney. There are couple subcentimeter low-attenuati on right renal cysts. Mild right hydroureteronephrosis without evident right-sided urolithiasis or ob structing mass. There is mild urothelial enhancement along the distal right ureter. There is also mil d wall thickening at the bladder which raises possibility of cystitis with ascending urinary tract in fection. Postoperative change of prior partial colectomy for reported rectal cancer with anastomotic suture line at the distal aspect of the rectum. Abutting the posterior margin of the anastomosis is a loculated gas collection in the presacral space which measures 7.4 x 5.2 x 4.8 cm and which contains a minimal amount of fluid posteriorly. No other free intraperitoneal gas. No bowel obstruction. Norm al appendix. There is calcified atherosclerosis of the tortuous abdominal aorta and several of the ot her arteries. Left total hip arthroplasty. Severe lumbar spondylosis. Small fat-containing left ingui nal hernia. IMPRESSION: 1. 7.4 x 5.2 x 4.8 cm predominately gas containing cavity with minimal fluid located in the presacral space abutting the posterior margin of a rectal anastomotic suture line likely at the site of a repo rted prior rectal cancer resection which is concerning for bowel perforation. 2. 3 mm nonobstructing left renal stone. 3. Mild right hydroureteronephrosis with urothelial enhancement at the distal right ureter but withou t evident obstructing stone or mass. Cannot exclude either recently passed stone, cystitis and ascend ing urinary tract infection or response to the adjacent inflammation resulting from the suspected per forated bowel. Correlate with urinalysis. Reviewed, dictated and finalized at location A. [employer] IMPRESSION: 1. 7.4 x 5.2 x 4.8 cm predominately gas containing cavity with minimal fluid lo cated in the presacral space abutting the posterior margin of a rectal anastomo tic suture line likely at the site of a reported prior rectal cancer resection which is concerning for bowel perforation. 2. 3 mm nonobstructing left renal stone. 3. Mild right hydroureteronephrosis with urothelial enhancement at the distal r ight ureter but without evident obstructing stone or mass. Cannot exclude eithe r recently passed stone, cystitis and ascending urinary tract infection or resp onse to the adjacent inflammation resulting from the suspected perforated bowel . Correlate with urinalysis.
--- NOTE | ~2020-08-19 | CT_ITS ---
EXAMINATION: CT abdomen pelvis wo con DATE: 08/23/2020 10:16 INDICATION: Anastomotic leak. TECHNIQUE: Computed tomography (CT) of the abdomen and pelvis was performed without intravenous contr ast. Automated exposure control and iterative reconstruction technique were employed. The dose-length product was 855.89 mGy-cm. COMPARISON: CT abdomen and pelvis 08/19/2020 FINDINGS: The visualized portions of the lung bases demonstrate mild atelectasis. Calcified bilateral lung nodules and calcified left hilar lymph nodes are consistent with old granulomatous disease. No pleural effusion. The heart size is normal. No pericardial effusion. The liver is normal. There is co ntrast in the gallbladder. The spleen, pancreas, adrenal glands, and right kidney are normal. There i s a 4 mm stone in left kidney. There is an anastomosis in the rectum. There is a perirectal collectio n of gas and relatively small volume of fluid in total measuring 5.7 x 4.3 x 7.2 cm with percutaneous drain in expected position. There are no dilated loops of bowel. The appendix is normal. There are n o pathologically enlarged lymph nodes. There is prominent fat in the inguinal canals that may be smal l hernias. There is a total left hip arthroplasty. There is osteolysis in the acetabulum adjacent to the arthroplasty. There is severe lumbar spondylosis. IMPRESSION: 1. Collection of gas and relatively small volume of fluid in the perirectal region with little change from 08/19/20 with percutaneous drain in expected position. Reviewed, dictated and finalized at location A. [employer] IMPRESSION: 1. Collection of gas and relatively small volume of fluid in the perirectal reg ion with little change from 08/19/20 with percutaneous drain in expected position .
[2020-08-19 08:53] LABS: Basophils Absolute Auto 0.1 K/mm3 (0.0-0.1); Basophils Percent Auto 0.5 % (0.2-1.2); Eosinophils Absolute Auto 0.2 K/mm3 (0-0.3); Eosinophils Percent Auto 1.3 % (0-4.4); Hematocrit 32.1 % (42.0-52.0); Hemoglobin 10.9 g/dL (14.0-18.0); Immature Granulocyte Absolute 0.12 K/mm3 (0.00-0.031); Lymphocytes Percent Auto 8.2 % (18.3-44.2); Mean Corpuscular Hemoglobin 33.3 pg (26-34); Mean Corpuscular Volume 98.2 fl (80-100); Mean Platelet Volume 10.7 fl (7.4-10.4); Monocytes Absolute Auto 1.2 K/mm3 (0.1-0.6); Monocytes Percent Auto 9.8 % (2.6-8.5); Neutrophils Absolute Auto 9.6 K/mm3 (1.3-6.7); Neutrophils Percent Auto 79.2 % (45.5-73.1); Platelet Count Result 364 k/mm3 (150-375); Red Blood Count 3.27 M/mm3 (4.6-6.20); Red Cell Distribution Width 13.8 % (11.5-14.5); White Blood Count 12.2 K/mm3 (4.5-10.0)
--- NOTE | 2020-08-19 08:59 | ED.GENADULT ---
HPI - General Adult General Chief complaint: Abdominal Pain Stated complaint: ABD PAIN/DIARRHEA Time Seen by Provider: 08/19/20 08:35 History of Present Illness HPI narrative: Patient is a 70-year-old gentleman who presents the emergency department with chief complaint of abdominal pain. Patient reports that he had a bowel resection and was discharged from the hospital the end of July. The patient states that he has been having increasing pain throughout his abdomen and has noticed that his bowel pattern has switched from soft stool to liquid stool. Patient states he has been having severe rectal pain and has been treated with hydrocortisone creams to his rectal area. The patient states he is spoken to the on-call surgeon who recommended that he come to the emergency department for evaluation. Patient denies fever reports that he has been treated with antibiotics for a postoperative infection. Related Data Home Medications Medication Instructions Recorded Confirmed hydrochlorothiazide 25 mg tablet 25 mg PO DAILY 12/28/19 08/19/20 lisinopril 10 mg tablet 10 mg PO DAILY 12/28/19 08/19/20 albuterol sulfate 2 puff INHALATION QID PRN 01/10/20 07/24/20 aspirin 325 mg PO DAILY 04/20/20 08/19/20 Allergies Allergy/AdvReac Type Severity Reaction Status Date / Time No Known Allergies Allergy Verified 08/19/20 08:31 Review of Systems Review of Systems: Narrative: A 10 system review of systems was completed on the patient and is negative except for what is stated in the HPI. Nursing and ancillary documentation was reviewed. [facility] Past Medical History Medical History Arthritis, lumbar spine Chronic low back pain Chronic obstructive pulmonary disease Essential hypertension Normal cardiac stress test (~12/2019) With normal MPI and an ejection fraction of 62%. Osteoarthritis Paroxysmal atrial fibrillation Paroxysmal supraventricular tachycardia Primary colorectal adenocarcinoma (~04/2020) Status post neoadjuvant chemoradiation and resection on 08/09/2020. Shingles (~2015) Surgical History Surgical History History of colonoscopy 04/20/2020 History of rectal surgery (~08/09/20) Hand assisted laparoscopic low anterior resection with low pelvic anastomosis for colorectal adenocarcinoma per Dr. Robertson. History of repair of rotator cuff (~2007) Bilateral repair per Dr. Fitzgerald. History of total left hip arthroplasty (~01/10/20) Family History Family History Father , age 91 Cancer Skin cancer, Bladder, cancer, Lung cancer Heart disease Sibling Cancer skin cancer Diabetes mellitus Kidney disease Mother , age 95 Cancer Skin cancer, lung cancer Social History Social History Social History: The patient lives in [place], [place] with his and their 2 laboratories. 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 He smoked up to 1.5 packs of cigarettes per day and quit in September 2019. He drinks alcohol socially and in moderation. Denies illicit substance use. His , Rohini Nieves, is his surrogate decision maker and he wishes to be a full code. Smoking packs per day: 2 Smoking cigarettes per day: 40.0 Years smoked: 50 Smoking pack-years: 100.00 Smoking status: Former smoker Tobacco type: cigarettes Second hand tobacco smoke exposure: Yes Smoking end date: 10/08/19 Additional smoking assessment comments: Smoking for 50 years. 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
[2020-08-19] MEDS: SODIUM CHLORIDE 0.9% IV 1,000 ML 999 ML IV CONT (09:00)
[2020-08-19] MEDS: MORPHINE SULFATE (*CRX) 4 MG/ML INJ IV PUSH ×4 (09:00→23:35)
[2020-08-19] MEDS: ONDANSETRON INJ 4 MG/2 ML VIAL IV PUSH ×2 (09:01→15:10)
[2020-08-19 09:11] LABS: Alanine Aminotransferase 36 U/L (4-50); Albumin Level 3.9 g/dL (3.5-5.1); Alkaline Phosphatase 72 U/L (38-126); Anion Gap 9 mmol/L (8-16); Aspartate Amino Transferase 35 U/L (17-59); Bilirubin,Total 0.9 mg/dL (0.2-1.3); Blood Urea Nitrogen 10 mg/dL (9-20); Calcium 9.1 mg/dL (8.4-10.2); Carbon Dioxide 25 mmol/L (22-30); Chloride 92 mmol/L (98-107); Estimated CRCL calculation 96 ml/min; Estimated Glomerular Filt Rate > 60; Glucose 118 mg/dL (75-110); Lipase 22 U/L (23-300); Potassium 3.8 mmol/L (3.4-5.0); Sodium 126 mmol/L (137-145)
[2020-08-19 09:19] LABS: Add Urine Microscopic? NO; Appearance Urine Clear (Clear); Bilirubin Urine Negative (Negative); Blood Urine Negative (Negative); Color Urine Yellow (Yellow); Glucose Urine UA Negative (Negative); Ketones Urine Negative (Negative); Leukocyte Esterase Ur Negative LEU/UL (Negative); Mucus Urine Rare /lpf; Nitrate Urine Negative (Negative); Protein Urine Negative (Negative); RBC Urine 0-2 /hpf (0-2); Specific Grav Ur 1.013 (1.001-1.035); Urobilinogen Urine Negative mg/dL (<2.0); WBC Urine 0-3 /hpf
[2020-08-19 09:30] LABS: Lactic Acid Reflex 1.2 mmol/L (0.7-2.1)
--- NOTE | 2020-08-19 11:47 | PM.IMHP ---
H&P: HPI History of Present Illness Date/Time: 08/19/20 11:47 Chief Complaint: abdominal pain Narrative: Isma Nieves is a 70 year old male c h/o rectal cancer s/p LAR on 08/09 presenting to ED c/o worsening lower abd pain/pressure c radiation to back. Pt reports diarrhea but had some blood clots this am. Pt has been eric diet but reports poor appetite. Pt reports weakness, easy fatigue but no f/c. Review of Systems Constitutional: Constitutional: Denies anorexia, Denies body ache(s), Denies chills, Reports fatigue, Denies fever(s), Denies headache(s), Reports lethargy, Reports malaise, Reports poor appetite, Reports weakness, Denies weight gain and Denies weight loss Eyes: Eyes: Reports no additional eye complaints ENT: Reports system reviewed and no additional complaints, except as documented Cardiovascular: Cardiovascular: Reports no additional cardiovascular complaints Respiratory: Respiratory: Reports no additional respiratory complaints Gastrointestinal: Gastrointestinal: Reports as per HPI Genitourinary: Genitourinary: Reports urinary frequency Musculoskeletal: Musculoskeletal: Reports no additional musculoskeletal complaints Integumentary/Breasts: Skin/Breast: Reports system reviewed and no additional complaints, except as docu Neurologic: Reports system reviewed and no additional complaints, except as documented Psychiatric: Psychiatric: Reports no additional psychiatric complaints Endocrine: Endocrine: Reports no additional endocrine complaints Hematologic/Lymphatic: Hematologic/Lymphatic: Reports no additional hematologic/lymphatic complaints Allergic/Immunologic: Allergic/Immunologic: Reports no additional allergic/immunologic complaints PMFSH Past Medical History Medical History Arthritis, lumbar spine Chronic low back pain Chronic obstructive pulmonary disease Essential hypertension Normal cardiac stress test (~12/2019) With normal MPI and an ejection fraction of 62%. Osteoarthritis Paroxysmal atrial fibrillation Paroxysmal supraventricular tachycardia Primary colorectal adenocarcinoma (~04/2020) Status post neoadjuvant chemoradiation and resection on 08/09/2020. Shingles (~2015) Surgical History Surgical History History of colonoscopy 04/20/2020 History of rectal surgery (~08/09/20) Hand assisted laparoscopic low anterior resection with low pelvic anastomosis for colorectal adenocarcinoma per Dr. Robertson. History of repair of rotator cuff (~2007) Bilateral repair per Dr. Fitzgerald. History of total left hip arthroplasty (~01/10/20) Family History Family History Father , age 91 Cancer Skin cancer, Bladder, cancer, Lung cancer Heart disease Sibling Cancer skin cancer Diabetes mellitus Kidney disease Mother , age 95 Cancer Skin cancer, lung cancer Social History Social History Social History: The patient lives in [place], [place] with his and their 2 laboratories. 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 He smoked up to 1.5 packs of cigarettes per day and quit in September 2019. He drinks alcohol socially and in moderation. Denies illicit substance use. His , Rohini Nieves, is his surrogate decision maker and he wishes to be a full code. Smoking packs per day: 2 Smoking cigarettes per day: 40.0 Years smoked: 50 Smoking pack-years: 100.00 Smoking status: Former smoker Tobacco type: cigarettes Second hand tobacco smoke exposure: Yes Smoking end date: 10/08/19 Additional smoking assessment comments: Smoking for 50 years. Alcohol intake: never Drinks per week: 4 Substance use: never Substance use type: does not use Additional living arrangements comments:
--- NOTE | 2020-08-19 12:23 | WPDANESEPPF ---
Anes - Initial Pre Proc Eval Procedure: IR abscess drain placement Date/Time: 08/19/20 12:23 Surgeon: Trice Pre Op Diagnosis: abscess Pre Op Diagnosis: Post Operative Infection Patient Data Age: 70 Gender: M Height: 1.83 m Weight: 103.42 kg Last Vital Signs Temp 36.6 C 08/19/20 08:26 Pulse 76 08/19/20 12:01 Resp 15 08/19/20 12:01 BP 133/87 08/19/20 12:01 Pulse Ox 100 08/19/20 12:01 Allergies Allergy/AdvReac Type Severity Reaction Status Date / Time No Known Allergies Allergy Verified 08/19/20 08:31 Home Medications Medication Instructions Recorded Confirmed Type hydrochlorothiazide 25 mg tablet 25 mg PO DAILY 12/28/19 08/19/20 History lisinopril 10 mg tablet 10 mg PO DAILY 12/28/19 08/19/20 History albuterol sulfate 2 puff INHALATION QID PRN 01/10/20 07/24/20 History aspirin 325 mg PO DAILY 04/20/20 08/19/20 History metoprolol succinate 50 mg 50 mg PO DAILY #30 tablet 05/04/20 08/19/20 Rx tablet,extended release 24 hr amiodarone 200 mg tablet 200 mg PO DAILY #30 tablet 06/26/20 08/19/20 Rx hydrocodone 5 mg-acetaminophen 325 1 tablet PO Q4H PRN #20 tablet 08/18/20 08/19/20 Rx mg tablet Laboratory Tests 08/19/20 08/19/20 08/19/20 08:38 08:38 08:54 WBC 12.2 K/mm3 H K/mm3 (4.5-10.0) RBC 3.27 M/mm3 L M/mm3 (4.6-6.20) Hgb 10.9 g/dL L g/dL (14.0-18.0) Hct 32.1 % L % (42.0-52.0) MCV 98.2 fl fl (80-100) MCH 33.3 pg pg (26-34) MCHC 34.0 g/dl g/dl (32-36) RDW 13.8 % % (11.5-14.5) Plt Count 364 k/mm3 D k/mm3 (150-375) MPV 10.7 fl H fl (7.4-10.4) Immature Gran % (Auto) 1.0 % H % (0-0.5) Neut % (Auto) 79.2 % H % (45.5-73.1) Lymph % (Auto) 8.2 % L % (18.3-44.2) [place] % (Auto) 9.8 % H % (2.6-8.5) Eos % (Auto) 1.3 % % (0-4.4) Baso % (Auto) 0.5 % % (0.2-1.2) Lymph # (Auto) 1.00 K/mm3 K/mm3 (0.9-3.2) [place] # (Auto) 1.2 K/mm3 H K/mm3 (0.1-0.6) Eos # (Auto) 0.2 K/mm3 K/mm3 (0-0.3) Baso # (Auto) 0.1 K/mm3 K/mm3 (0.0-0.1) Abs Immat Gran (auto) 0.12 K/mm3 H K/mm3 (0.00-0.031) Absolute Neuts (auto) 9.6 K/mm3 H K/mm3 (1.3-6.7) Absolute Nucleated RBC 0.0 K/mm3 K/mm3 (0.0-0.012) Nucleated RBC % 0.0 % % (0.0-0.2) Sodium 126 mmol/L L mmol/L (137-145) Potassium 3.8 mmol/L mmol/L (3.4-5.0) Chloride 92 mmol/L L mmol/L (98-107) Carbon Dioxide 25 mmol/L mmol/L (22-30) Anion Gap 9 mmol/L mmol/L (8-16) BUN 10 mg/dL mg/dL (9-20) Creatinine 0.80 mg/dL mg/dL (0.7-1.3) Estim Creat Clear Calc 96 ml/min ml/min Estimated GFR > 60 (59 - ) Glucose 118 mg/dL H mg/dL (75-110) Lactic Acid Calcium 9.1 mg/dL mg/dL (8.4-10.2) Total Bilirubin 0.9 mg/dL mg/dL (0.2-1.3) AST 35 U/L U/L (17-59) ALT 36 U/L U/L (4-50) Alkaline Phosphatase 72 U/L U/L (38-126) Total Protein 8.0 g/dL g/dL (6.3-8.2) Albumin 3.9 g/dL g/dL (3.5-5.1) Lipase 22 U/L L U/L (23-300) Urine Color Yellow (Yellow) Urine Appearance Clear (Clear) Urine pH 6.0 (5.0-9.0) Ur Specific Harvey 1.013 (1.001-1.035) Urine Protein Negative mg/dL mg/dL (Negative) Urine Glucose (UA) Negative mg/dL mg/dL (Negative) Urine Ketones Negative mg/dL mg/dL (Negative) Ur Blood (Man) Negative (Negative) Urine Nitrate Negative (Negative) Urine Bilirubin Negative (Negative) Urine Urobilinogen Negative mg/dL mg/dL (<2.0) Leukocyte Esterase Rfl Negative JONATHAN/UL JONATHAN/UL (Negative) Urine RBC 0-2 /hpf /hpf (0-2) Urine WBC 0-3 /hp
[2020-08-19] MEDS: SODIUM CHLORIDE 0.9% IV 1,000 ML 125 ML IV CONT ×2 (12:43→23:37)
[2020-08-19 12:45] LABS: Prothrombin Time 14.2 Seconds (11.1-14.7)
[2020-08-19 12:46] LABS: Partial Thromboplastin Time 35.3 SECONDS (22.3-36.8)
--- NOTE | 2020-08-19 12:55 | ADMGEN ---
This patient, Isma Nieves, was admitted to Medical Room 244-. Patient/family oriented to hospital policies and general routines including ID bracelet, bed and alarms, visiting hours, pain management, procedures, bathroom and other care routines, personal items, smoking policy, room service/diet, and visiting hours. Information on how to activate the Rapid Response Team has been discussed. Patient/Family are encouraged to report perceived risks to care and to ask questions if they do not understand what they are told or what they should do.
[2020-08-19] MEDS: LORazepam INJ (*CRX) 2 MG/ML VIAL 1 MG IV PUSH ×2 (17:36→23:29)
[2020-08-20] MEDS: MORPHINE SULFATE (*CRX) 4 MG/ML INJ IV PUSH ×5 (02:25→20:08)
[2020-08-20 04:00] VITALS: BP 132/53; PULSE 78; RESP 20; TEMP 36.9; O2SAT 96
[2020-08-20] MEDS: LORazepam INJ (*CRX) 2 MG/ML VIAL 1 MG IV PUSH ×2 (05:59→23:32)
[2020-08-20 06:00] VITALS: BP 132/53; PULSE 78; RESP 20; TEMP 36.9; O2SAT 96
[2020-08-20 07:23] LABS: Hematocrit 33.2 % (42.0-52.0); Mean Corpuscular HGB Conc 33.1 g/dl (32-36); Mean Corpuscular Hemoglobin 34.3 pg (26-34); Mean Corpuscular Volume 103.4 fl (80-100); Mean Platelet Volume 10.4 fl (7.4-10.4); Platelet Count Result 390 k/mm3 (150-375); Red Blood Count 3.21 M/mm3 (4.6-6.20); White Blood Count 10.5 K/mm3 (4.5-10.0)
[2020-08-20 07:32] LABS: Anion Gap 7 mmol/L (8-16); Blood Urea Nitrogen 6 mg/dL (9-20); Calcium 8.8 mg/dL (8.4-10.2); Carbon Dioxide 27 mmol/L (22-30); Chloride 101 mmol/L (98-107); Estimated CRCL calculation 95 ml/min; Estimated Glomerular Filt Rate > 60; Glucose 123 mg/dL (75-110); Potassium 4.2 mmol/L (3.4-5.0); Sodium 135 mmol/L (137-145)
[2020-08-20] MEDS: SODIUM CHLORIDE 0.9% IV 1,000 ML 125 ML IV CONT ×2 (08:09→17:33)
[2020-08-20 09:57] VITALS: O2SAT 94
--- NOTE | 2020-08-20 11:12 | PM.PNGS ---
Progress Note: A&P Assessment and Plan (1) Intraabdominal fluid collection: Code(s): R18.8 - Other ascites Status: Acute Assessment and Plan: s/p perc drainage, cont abx, await cx, cont NPO for now (2) Rectal cancer: Code(s): C20 - Malignant neoplasm of rectum Status: Acute Assessment and Plan: s/p LAR Subjective Subjective Date/Time Seen: 08/20/20 11:12 Pt feels better today. Reports lower abd and back pain nearly resolved. Pt reports difficulty c urination and bladder scan c 1000 ml Review of Systems Constitutional: Constitutional: Denies body ache(s), Denies chills, Denies fever(s), Reports lethargy and Reports weakness Cardiovascular: Cardiovascular: Reports no additional cardiovascular complaints Respiratory: Respiratory: Reports no additional respiratory complaints Gastrointestinal: Gastrointestinal: Denies abdominal pain, Denies nausea and Denies vomiting Genitourinary: Genitourinary: Reports as per HPI Exam Const: General: cooperative, comfortable and no acute distress Resp: Effort & Inspection: normal respiratory effort Auscultation: clear to auscultation bilaterally Cardio: Rate: regular rate Rhythm: regular rhythm GI: Inspection: normal to inspection, non-distended and incision GI Palp: Yes Soft to palpation, No Tenderness to palpation present (GI), No Guarding due to palpation present (GI) and No Rigid due to palpation Other: soft, sl dist, decreased TTP Objective Data Vital Signs Vital Signs: Vital Signs - 24 hr 08/19/20 11:15 08/19/20 11:53 08/19/20 12:00 Temperature Pulse Rate 71 89 77 Respiratory Rate 13 18 15 Blood Pressure 154/84 H Pulse Oximetry 100 100 08/19/20 12:01 08/19/20 12:40 08/19/20 14:40 Temperature 36.6 C 36.6 C Pulse Rate 76 69 74 Respiratory Rate 15 16 16 Blood Pressure 133/87 133/71 134/81 Pulse Oximetry 100 99 97 08/19/20 15:33 08/19/20 20:00 08/20/20 04:00 Temperature 36.9 C 36.9 C Pulse Rate 82 78 Respiratory Rate 18 20 Blood Pressure 138/57 L 132/53 L Pulse Oximetry 94 97 96 08/20/20 06:00 08/20/20 09:57 Temperature 36.9 C Pulse Rate 78 Respiratory Rate 20 Blood Pressure 132/53 L Pulse Oximetry 96 94 Intake/Output Intake/Output: Intake & Output 08/17/20 08/18/20 08/19/20 08/20/20 23:59 23:59 23:59 23:59 Intake Total 2100 1050 Output Total 30 Balance 2100 1020 Meds/Results Medications: Active Medications Generic Name Dose Route Start Last Admin Trade Name Freq PRN Reason Stop Dose Admin Piperacillin/Tazobactam/Dextrose 3.375 gm in 50 mls @ 100 mls/hr 08/19/20 18:00 08/20/20 07:24 Zosyn 3.375 Gm/D5w 50ml Pm IVPB Infused Q6H ASHELY Infusion Sodium Chloride 1,000 mls @ 125 mls/hr 08/19/20 11:25 08/20/20 08:09 Normal Saline Iv IV CONT 125 mls/hr .Q8H ASHELY Administration Lorazepam 1 mg 08/19/20 17:00 08/20/20 05:59 Lorazepam Inj (*Crx) 2 Mg/Ml Vial IV PUSH 1 mg Q6H PRN Administration Anxiety Morphine Sulfate 4 mg 08/19/20 11:23 08/20/20 10:45 Morphine Sulfate (*Crx) 4 Mg/Ml Inj IV PUSH 4 mg Q2H PRN Administration Pain Rated 7-10 Ondansetron HCl 4 mg 08/19/20 11:23 08/19/20 15:10 Ondansetron Inj 4 Mg/2 Ml Vial IV PUSH 4 mg Q4H PRN Administration Nausea Radiology Results: ITS Impressions Abdomen/Pelvis CT 08/19/20 10:42 IMPRESSION: 1. 7.4 x 5.2 x 4.8 cm predominately gas containing cavity with minimal fluid located in the presacral space abutting the posterior margin of a rectal anastomotic suture line likely at the site of a reported prior rectal cancer resection which is concerning for bowel perforation. 2. 3 mm nonobstructing left renal stone. 3. Mild right hydroureteronephrosis with urothelial enhancement at the distal right ureter but without evident obstructing stone or mass. Cannot exclude either recently passed stone, cystitis and ascending urinary tract infection or response to the lew
[2020-08-20 14:00] VITALS: BP 158/75; PULSE 80; RESP 16; TEMP 37.1; O2SAT 94
[2020-08-20 21:44] VITALS: BP 151/83; PULSE 85; RESP 16; TEMP 36.9; O2SAT 97
[2020-08-21] MEDS: MORPHINE SULFATE (*CRX) 4 MG/ML INJ IV PUSH ×7 (03:49→22:36)
[2020-08-21] MEDS: SODIUM CHLORIDE 0.9% IV 1,000 ML 125 ML IV CONT (03:51)
[2020-08-21 05:48] LABS: Hematocrit 30.3 % (42.0-52.0); Hemoglobin 10.1 g/dL (14.0-18.0); Mean Corpuscular HGB Conc 33.3 g/dl (32-36); Mean Corpuscular Hemoglobin 34.1 pg (26-34); Mean Corpuscular Volume 102.4 fl (80-100); Mean Platelet Volume 10.4 fl (7.4-10.4); Platelet Count Result 403 k/mm3 (150-375); Red Blood Count 2.96 M/mm3 (4.6-6.20); White Blood Count 11.9 K/mm3 (4.5-10.0)
[2020-08-21 06:00] VITALS: BP 147/67; PULSE 80; RESP 18; TEMP 36.8; O2SAT 96
[2020-08-21] MEDS: ONDANSETRON INJ 4 MG/2 ML VIAL IV PUSH ×3 (06:03→20:19)
[2020-08-21 06:15] LABS: Anion Gap 5 mmol/L (8-16); Blood Urea Nitrogen 6 mg/dL (9-20); Calcium 8.2 mg/dL (8.4-10.2); Carbon Dioxide 24 mmol/L (22-30); Chloride 104 mmol/L (98-107); Estimated CRCL calculation 124 ml/min; Estimated Glomerular Filt Rate > 60; Glucose 101 mg/dL (75-110); Potassium 3.7 mmol/L (3.4-5.0); Sodium 133 mmol/L (137-145)
[2020-08-21 08:45] VITALS: PULSE 80; RESP 18; O2SAT 96
--- NOTE | 2020-08-21 10:40 | PM.PNGS ---
Progress Note: A&P Assessment and Plan (1) Anastomotic leak of intestine: Code(s): K91.89 - Other postprocedural complications and disorders of digestive system Status: Acute Assessment and Plan: What is coming out of drain appears to be thin feculent fluid. This appears to be very minimal and patient is still having bowel movements, so I think this is a tiny leak that may seal with bowel rest and time. Will keep patient NPO and start PPN today. Will determine if repeat imaging is needed in the next couple days to assess how well the fluid collection is being drained. Discussed concerns for possibly needing to return to surgery and perform loop ileostomy. If he is responding well to perc drainage and bowel rest, may be able to avoid this and just give him time to heal. (2) Rectal cancer: Code(s): C20 - Malignant neoplasm of rectum Status: Acute (3) Urinary retention: Code(s): R33.9 - Retention of urine, unspecified Status: Acute Subjective Subjective Date/Time Seen: 08/21/20 10:40 Bowels still moving. No fevers. Pain improving. Urinating better today. Still has some mild right flank pain. Exam GI: Inspection: non-distended and incision (clean/dry/intact) GI Palp: No abdominal tenderness Other: Pigtail drain with scant thin feculent drainage Objective Data Vital Signs Vital Signs: Vital Signs - 24 hr 08/20/20 14:00 08/20/20 21:44 08/21/20 06:00 Temperature 37.1 C 36.9 C 36.8 C Pulse Rate 80 85 80 Respiratory Rate 16 16 18 Blood Pressure 158/75 H 151/83 H 147/67 H Pulse Oximetry 94 97 96 08/21/20 08:45 Temperature Pulse Rate 80 Respiratory Rate 18 Blood Pressure Pulse Oximetry 96 Intake/Output Intake/Output: Intake & Output 08/18/20 08/19/20 08/20/20 08/21/20 23:59 23:59 23:59 23:59 Intake Total 2100 2100 1100 Output Total 35 1535 2700 Balance 2065 565 -1600 Meds/Results Medications: Active Medications Generic Name Dose Route Start Last Admin Trade Name Freq PRN Reason Stop Dose Admin Albuterol 2 puff 08/21/20 10:35 Albuterol Sulfate (*Sp) Aerosol 1 Puff INHALATION QID PRN Dyspnea Amiodarone HCl 200 mg 08/22/20 09:00 Amiodarone Hcl 200 Mg Tablet PO DAILY [facility] Hydrochlorothiazide 25 mg 08/22/20 09:00 Hydrochlorothiazide 25 Mg Tablet PO DAILY [facility] Piperacillin/Tazobactam/Dextrose 3.375 gm in 50 mls @ 100 mls/hr 08/19/20 18:00 08/21/20 06:33 Zosyn 3.375 Gm/D5w 50ml Pm IVPB Infused Q6H [facility] Infusion Dextrose 1,000 mls @ 50 mls/hr 08/21/20 10:38 Dextrose 10% IV CONT .Q20H PRN if PN is interrupted Amino Acids/Electrolytes/Dextrose 2,000 mls @ 100 mls/hr 08/21/20 10:40 Clinimix E 4.25%/5% Solution IV CONT .Q20H [facility] Protocol Fat Emulsion Intravenous 250 mls @ 20.833 mls/hr 08/21/20 10:40 Lipids 20% IVPB Q24H [facility] Lisinopril 10 mg 08/22/20 09:00 Lisinopril 10 Mg Tablet PO DAILY [facility] Lorazepam 1 mg 08/19/20 17:00 08/20/20 23:32 Lorazepam Inj (*Crx) 2 Mg/Ml Vial IV PUSH 1 mg Q6H PRN Administration Anxiety Metoprolol Succinate 50 mg 08/22/20 09:00 Metoprolol Succinate Ext Rel 50 Mg Tabcr PO DAILY [facility] Morphine Sulfate 4 mg 08/19/20 11:23 08/21/20 09:20 Morphine Sulfate (*Crx) 4 Mg/Ml Inj IV PUSH 4 mg Q2H PRN Administration Pain Rated 7-10 Ondansetron HCl 4 mg 08/19/20 11:23 08/21/20 09:54 Ondansetron Inj 4 Mg/2 Ml Vial IV PUSH 4 mg Q4H PRN Administration Nausea Radiology Results: ITS Impressions Abdomen/Pelvis CT 08/19/20 10:42 IMPRESSION: 1. 7.4 x 5.2 x 4.8 cm predominately gas containing cavity with minimal fluid located in the presacral space abutting the posterior margin of a rectal anastomotic suture line likely at the site of a reported prior rectal cancer resection which is concerning for bowel perforation. 2. 3 mm nonobstructing left renal stone. 3. Mild right hydro
--- NOTE | 2020-08-21 10:47 | WPDURCON ---
Assessment and Plan Assessment and plan (1) Urinary retention: Code(s): R33.9 - Retention of urine, unspecified Status: Acute Assessment and Plan: Place 16fr montero catheter. He is unable to take Flomax at this time d/t NPO status, will start it when that is lifted. Likely secondary to procedure in July, however he may have had underlying BPH prior to this. Will plan to do a voiding trial once he has been on Flomax for a few days. No further evaluation at this time. (2) BPH (benign prostatic hyperplasia): Code(s): N40.0 - Benign prostatic hyperplasia without lower urinary tract symptoms Status: Acute (3) Hydronephrosis: Code(s): N13.30 - Unspecified hydronephrosis Status: Acute Assessment and Plan: Noted on the right side, no obvious obstruction, likely secondary to retention. Will plan to [facility] in a couple of days to see if it resolves after montero placement. Urology Consult Note HPI Date Seen: 08/21/20 Requesting Physician: Yuridia Sierra MD Primary Care Provider: Bryn Galdamez, Consult Narrative Narrative: Isma Nieves is a 70 year old male Who presented to the ER on 08/19/2020 with worsening right lower quadrant abdominal pain s/p a bowel resection in 07/2020, this pain radiates to the right flank. He also c/o nausea. He has had this pain since before his initial surgery. We were consulted d/t the concern for urinary retention. His PVR last night was 1000cc, he has been urinating since but not very much. He also states he cannot empty his bladder but is afraid to strain and push d/t his recent surgery and not wanting to ruin his repair. He denies problems urinating prior to his surgery, but does state he has had dysuria since the surgery. He denies hematuria, history of UTI's or BPH. He states he has a history of kidney stones and has passed some spontaneously, but has also had a ureteroscopy before. He was not treated by our group. His first kidney stone was in 1974. His UA is negative, WBC is 11.9, creatinine is 0.60. His CT from 08/19/2020 shows a left 3mm non obstructive stone, mild right hydronephrosis with urothelial enhancement of the distal right ureter. There is no obvious obstruction in the right ureter, 7.4 x 5.2 x 4.8 cm predominately gas containing cavity with minimal fluid located in the presacral space abutting the posterior margin of a rectal anastomotic suture line likely at the site of a reported prior rectal cancer resection which is concerning for bowel perforation. He is currently NPO d/t his anastomosis that is not healing. Review of Systems Cardiovascular: Cardiovascular: Denies chest pain Respiratory: Respiratory: Reports no additional respiratory complaints Gastrointestinal: Gastrointestinal: Reports abdominal pain, Reports nausea and Denies vomiting Genitourinary: Genitourinary: Denies hematuria, Reports dysuria, Reports flank pain, Denies urinary frequency, Reports urinary hesitancy and Denies urinary urgency REPLACED BY [facility] Past Medical History Medical History Arthritis, lumbar spine Chronic low back pain Chronic obstructive pulmonary disease Essential hypertension Normal cardiac stress test (~12/2019) With normal MPI and an ejection fraction of 62%. Osteoarthritis Paroxysmal atrial fibrillation Paroxysmal supraventricular tachycardia Primary colorectal adenocarcinoma (~04/2020) Status post neoadjuvant chemoradiation and resection on 08/09/2020. Shingles (~2015) Surgical History Surgical History History of colonoscopy 04/20/2020 History of rectal surgery (~08/09/20) Hand assisted laparoscopic low anterior resection with low pelvic anastomosis for colorectal adenocarcinoma per Dr. Robertson. History of repair of rotator cuff (~2007) Bilateral repair per Dr. Fitzgerald. History of total left hip arthroplasty (~01/10/20) Family History F
[2020-08-21 11:13] LABS: Partial Thromboplastin Time 33.7 SECONDS (22.3-36.8)
[2020-08-21 12:48] VITALS: BP 145/77
[2020-08-21 12:49] VITALS: PULSE 80
[2020-08-21] MEDS: METOPROLOL SUCCINATE EXT REL 50 MG TABCR PO (12:49)
[2020-08-21] MEDS: AMIODARONE HCL 200 MG TABLET PO (12:49)
[2020-08-21] MEDS: lisinopriL 10 MG TABLET PO (12:49)
[2020-08-21] MEDS: hydroCHLOROthiazide 25 MG TABLET PO (12:49)
[2020-08-21 13:10] LABS: Transferrin 161 mg/dL (206-381)
[2020-08-21] MEDS: AMINO ACIDS 4.25%/D5W/LYTES/CA 2,000 ML 100 ML IV CONT (13:56)
[2020-08-21 14:00] VITALS: BP 138/67; PULSE 80; RESP 18; TEMP 37.2; O2SAT 93
[2020-08-21] MEDS: FAT EMULSIONS IV 20% 250 ML 20.83 ML IVPB (16:11)
[2020-08-21] MEDS: TAMSULOSIN HCL 0.4 MG CAPSULE PO (17:51)
[2020-08-21 18:21] LABS: Glucose Point of Care 166 (65-105)
[2020-08-21] MEDS: LORazepam INJ (*CRX) 2 MG/ML VIAL 1 MG IV PUSH (21:09)
[2020-08-21 22:00] VITALS: BP 147/74; PULSE 81; RESP 20; TEMP 37.7; O2SAT 96
[2020-08-22] LABS: Glucose Point of Care 141 (65-105)
[2020-08-22] MEDS: MORPHINE SULFATE (*CRX) 4 MG/ML INJ IV PUSH ×5 (03:46→22:08)
[2020-08-22 05:18] VITALS: BP 124/68; PULSE 71; RESP 20; TEMP 37.3; O2SAT 94
[2020-08-22 05:47] LABS: Hemoglobin 10.2 g/dL (14.0-18.0); Mean Corpuscular Hemoglobin 33.8 pg (26-34); Mean Corpuscular Volume 99.3 fl (80-100); Mean Platelet Volume 10.2 fl (7.4-10.4); Platelet Count Result 449 k/mm3 (150-375); Red Blood Count 3.02 M/mm3 (4.6-6.20); Red Cell Distribution Width 13.6 % (11.5-14.5); White Blood Count 12.8 K/mm3 (4.5-10.0)
[2020-08-22] MEDS: ONDANSETRON INJ 4 MG/2 ML VIAL IV PUSH ×2 (05:47→19:14)
[2020-08-22 06:00] LABS: Anion Gap 5 mmol/L (8-16); Blood Urea Nitrogen 9 mg/dL (9-20); Calcium 8.4 mg/dL (8.4-10.2); Carbon Dioxide 28 mmol/L (22-30); Chloride 94 mmol/L (98-107); Estimated CRCL calculation 124 ml/min; Estimated Glomerular Filt Rate > 60; Glucose 139 mg/dL (75-110); Phosphorus 3.3 mg/dL (2.5-4.5); Potassium 3.4 mmol/L (3.4-5.0); Sodium 127 mmol/L (137-145)
[2020-08-22 06:51] LABS: Glucose Point of Care 131 (65-105)
[2020-08-22 07:52] LABS: Triglycerides 89 mg/dL (<150)
--- NOTE | 2020-08-22 08:56 | PM.PNGS ---
Progress Note: A&P Assessment and Plan (1) Anastomotic leak of intestine: Code(s): K91.89 - Other postprocedural complications and disorders of digestive system Status: Acute Assessment and Plan: No drain output yesterday. Bowels still moving. Continue IV antibiotics Clear liquid diet today Will plan for repeat CT tomorrow, may use oral contrast to assess for any leak at anastomosis (2) Intraabdominal fluid collection: Code(s): R18.8 - Other ascites Status: Acute Assessment and Plan: Drain in place with no output yesterday. (3) Urinary retention: Code(s): R33.9 - Retention of urine, unspecified Status: Acute Assessment and Plan: Urology following, Miller replaced yesterday Subjective Subjective Date/Time Seen: 08/22/20 08:56 Mostly c/o pain from Miller catheter. Tolerating ensure clear supplements. Exam GI: Inspection: non-distended and incision (clean/dry/intact) GI Palp: No abdominal tenderness Other: Pigtail drain with scant thin feculent drainage and minimal air Objective Data Vital Signs Vital Signs: Vital Signs - 24 hr 08/21/20 12:48 08/21/20 12:49 08/21/20 14:00 Temperature 37.2 C Pulse Rate 80 80 Respiratory Rate 18 Blood Pressure 145/77 H 138/67 Pulse Oximetry 93 08/21/20 22:00 08/22/20 05:18 Temperature 37.7 C H 37.3 C Pulse Rate 81 71 Respiratory Rate 20 20 Blood Pressure 147/74 H 124/68 Pulse Oximetry 96 94 Intake/Output Intake/Output: Intake & Output 08/19/20 08/20/20 08/21/20 08/22/20 23:59 23:59 23:59 23:59 Intake Total 2100 2100 1200 350 Output Total 35 1535 3600 900 Balance 2065 823 -0435 -375 Meds/Results Medications: Active Medications Generic Name Dose Route Start Last Admin Trade Name Freq PRN Reason Stop Dose Admin Albuterol 2 puff 08/21/20 10:35 Albuterol Sulfate (*Sp) Aerosol 1 Puff INHALATION QID PRN Dyspnea Amiodarone HCl 200 mg 08/21/20 09:00 08/21/20 12:49 Amiodarone Hcl 200 Mg Tablet PO 200 mg DAILY ASHELY Administration Hydrochlorothiazide 25 mg 08/21/20 09:00 08/21/20 12:49 Hydrochlorothiazide 25 Mg Tablet PO 25 mg DAILY [facility] Administration Piperacillin/Tazobactam/Dextrose 3.375 gm in 50 mls @ 100 mls/hr 08/19/20 18:00 08/22/20 06:09 Zosyn 3.375 Gm/D5w 50ml Pm IVPB Infused Q6H ASHE[facility] Infusion Dextrose 1,000 mls @ 50 mls/hr 08/21/20 10:38 Dextrose 10% IV CONT .Q20H PRN if PN is interrupted Amino Acids/Electrolytes/Dextrose 2,000 mls @ 100 mls/hr 08/21/20 14:00 08/21/20 13:56 Clinimix E 4.25%/5% Solution IV CONT 100 mls/hr .Q20H ASHELY Administration Protocol Fat Emulsion Intravenous 250 mls @ 20.833 mls/hr 08/21/20 14:00 08/22/20 04:12 Lipids 20% IVPB Infused Q24H ASHE[facility] Infusion Lisinopril 10 mg 08/21/20 09:00 08/21/20 12:49 Lisinopril 10 Mg Tablet PO 10 mg DAILY [facility] Administration Lorazepam 1 mg 08/19/20 17:00 08/21/20 21:09 Lorazepam Inj (*Crx) 2 Mg/Ml Vial IV PUSH 1 mg Q6H PRN Administration Anxiety Metoprolol Succinate 50 mg 08/21/20 09:00 08/21/20 12:49 Metoprolol Succinate Ext Rel 50 Mg Tabcr PO 50 mg DAILY [facility] Administration Morphine Sulfate 4 mg 08/19/20 11:23 08/22/20 05:46 Morphine Sulfate (*Crx) 4 Mg/Ml Inj IV PUSH 4 mg Q2H PRN Administration Pain Rated 7-10 Ondansetron HCl 4 mg 08/19/20 11:23 08/22/20 05:47 Ondansetron Inj 4 Mg/2 Ml Vial IV PUSH 4 mg Q4H PRN Administration Nausea Tamsulosin HCl 0.4 mg 08/21/20 17:00 08/21/20 17:51 Tamsulosin Hcl 0.4 Mg Capsule PO 0.4 mg QAM ASHELY Administration Radiology Results: ITS Impressions Abdomen/Pelvis CT 08/19/20 10:42 IMPRESSION: 1. 7.4 x 5.2 x 4.8 cm predominately gas containing cavity with minimal fluid located in the presacral space abutting the posterior margin of a rectal anastomotic suture line likely at the site of a reported prior rectal cancer res
[2020-08-22] MEDS: AMIODARONE HCL 200 MG TABLET PO (09:36)
[2020-08-22] MEDS: METOPROLOL SUCCINATE EXT REL 50 MG TABCR PO (09:36)
[2020-08-22] MEDS: lisinopriL 10 MG TABLET PO (09:36)
[2020-08-22] MEDS: TAMSULOSIN HCL 0.4 MG CAPSULE PO (09:36)
[2020-08-22] MEDS: hydroCHLOROthiazide 25 MG TABLET PO (09:36)
[2020-08-22] MEDS: AMINO ACIDS 4.25%/D5W/LYTES/CA 2,000 ML 100 ML IV CONT (09:50)
[2020-08-22 11:44] VITALS: BMI 30.5
[2020-08-22 14:00] VITALS: BP 108/64; PULSE 71; RESP 16; TEMP 37.1; O2SAT 97
[2020-08-22] MEDS: FAT EMULSIONS IV 20% 250 ML 20.83 ML IVPB (16:14)
[2020-08-22 17:16] LABS: Glucose Point of Care 123 (65-105)
--- NOTE | 2020-08-22 17:52 | WPDUROPN2 ---
Progress Note: A&P Assessment and Plan (1) BPH (benign prostatic hyperplasia): Code(s): N40.0 - Benign prostatic hyperplasia without lower urinary tract symptoms Status: Acute (2) Hydronephrosis: Code(s): N13.30 - Unspecified hydronephrosis Status: Acute Assessment and Plan: Pt. uncomfortable, but tolerant of, Miller catheter. Tentatively plan voiding trial morning. Repeat CT scan will allow us to re-evaluate scant right hydronephrosis. Subjective Subjective Date/Time Seen: 08/22/20 17:52 Tolerating catheter and Flomax Review of Systems Cardiovascular: Cardiovascular: Denies chest pain, Denies lightheadedness, Denies palpitations and Denies dyspnea Respiratory: Respiratory: Denies dyspnea Gastrointestinal: Gastrointestinal: Denies diarrhea, Denies nausea and Denies vomiting Genitourinary: Genitourinary: Denies hematuria and Denies dysuria Endocrine: Endocrine: Denies palpitations Exam Const: General: no acute distress Resp: Effort & Inspection: normal respiratory effort GI: Inspection: non-distended GI Palp: No abdominal tenderness and No Guarding due to palpation present (GI) Auscultation: normal bowel sounds Objective Data Vital Signs Vital Signs: Vital Signs - 24 hr 08/21/20 22:00 08/22/20 05:18 08/22/20 14:00 Temperature 99.8 F H 99.1 F 98.7 F Pulse Rate 81 71 71 Respiratory Rate 20 20 16 Blood Pressure 147/74 H 124/68 108/64 Pulse Oximetry 96 94 97 Intake/Output Intake/Output: Intake & Output 08/19/20 08/20/20 08/21/20 08/22/20 23:59 23:59 23:59 23:59 Intake Total 2100 2100 1200 3210 Output Total 35 1535 3600 1700 Balance 2065 565 -2400 1510 Meds/Results Medications: Active Medications Generic Name Dose Route Start Last Admin Trade Name Freq PRN Reason Stop Dose Admin Albuterol 2 puff 08/21/20 10:35 Albuterol Sulfate (*Sp) Aerosol 1 Puff INHALATION QID PRN Dyspnea Amiodarone HCl 200 mg 08/21/20 09:00 08/22/20 09:36 Amiodarone Hcl 200 Mg Tablet PO 200 mg DAILY ASHELY Administration Hydrochlorothiazide 25 mg 08/21/20 09:00 08/22/20 09:36 Hydrochlorothiazide 25 Mg Tablet PO 25 mg DAILY ASHE[facility] Administration Piperacillin/Tazobactam/Dextrose 3.375 gm in 50 mls @ 100 mls/hr 08/19/20 18:00 08/22/20 17:25 Zosyn 3.375 Gm/D5w 50ml Pm IVPB 100 mls/hr Q6H ASHE[facility] Administration Dextrose 1,000 mls @ 50 mls/hr 08/21/20 10:38 Dextrose 10% IV CONT .Q20H PRN if PN is interrupted Amino Acids/Electrolytes/Dextrose 2,000 mls @ 100 mls/hr 08/21/20 14:00 08/22/20 09:50 Clinimix E 4.25%/5% Solution IV CONT 100 mls/hr .Q20H ASHELY Administration Protocol Fat Emulsion Intravenous 250 mls @ 20.833 mls/hr 08/21/20 14:00 08/22/20 16:14 Lipids 20% IVPB 20.83 mls/hr Q24H ASHE[facility] Administration Lisinopril 10 mg 08/21/20 09:00 08/22/20 09:36 Lisinopril 10 Mg Tablet PO 10 mg DAILY [facility] Administration Lorazepam 1 mg 08/19/20 17:00 08/21/20 21:09 Lorazepam Inj (*Crx) 2 Mg/Ml Vial IV PUSH 1 mg Q6H PRN Administration Anxiety Metoprolol Succinate 50 mg 08/21/20 09:00 08/22/20 09:36 Metoprolol Succinate Ext Rel 50 Mg Tabcr PO 50 mg DAILY [facility] Administration Morphine Sulfate 4 mg 08/19/20 11:23 08/22/20 13:12 Morphine Sulfate (*Crx) 4 Mg/Ml Inj IV PUSH 4 mg Q2H PRN Administration Pain Rated 7-10 Ondansetron HCl 4 mg 08/19/20 11:23 08/22/20 05:47 Ondansetron Inj 4 Mg/2 Ml Vial IV PUSH 4 mg Q4H PRN Administration Nausea Tamsulosin HCl 0.4 mg 08/21/20 17:00 08/22/20 09:36 Tamsulosin Hcl 0.4 Mg Capsule PO 0.4 mg QAM ASHELY Administration Radiology Results: ITS Impressions Abdomen/Pelvis CT 08/19/20 10:42 IMPRESSION: 1. 7.4 x 5.2 x 4.8 cm predominately gas containing cavity with minimal fluid located in the presacral space abutting the posterior margin of a rectal anastomotic suture line likely at the site o
[2020-08-22] MEDS: LORazepam INJ (*CRX) 2 MG/ML VIAL 1 MG IV PUSH (20:07)
[2020-08-22 22:00] VITALS: BP 113/54; PULSE 68; RESP 18; TEMP 37; O2SAT 96
[2020-08-23] MEDS: ONDANSETRON INJ 4 MG/2 ML VIAL IV PUSH ×3 (00:45→23:55)
[2020-08-23] MEDS: MORPHINE SULFATE (*CRX) 4 MG/ML INJ IV PUSH ×3 (00:45→11:04)
[2020-08-23 01:13] LABS: Glucose Point of Care 129 (65-105)
[2020-08-23] MEDS: LORazepam INJ (*CRX) 2 MG/ML VIAL 1 MG IV PUSH ×2 (04:00→20:00)
[2020-08-23 05:54] VITALS: BP 113/54; PULSE 67; RESP 18; TEMP 36.7; O2SAT 92
[2020-08-23 06:00] LABS: Hematocrit 30.9 % (42.0-52.0); Hemoglobin 10.5 g/dL (14.0-18.0); Mean Corpuscular Hemoglobin 33.2 pg (26-34); Mean Corpuscular Volume 97.8 fl (80-100); Mean Platelet Volume 10.4 fl (7.4-10.4); Platelet Count Result 510 k/mm3 (150-375); Red Blood Count 3.16 M/mm3 (4.6-6.20); Red Cell Distribution Width 13.4 % (11.5-14.5); White Blood Count 10.1 K/mm3 (4.5-10.0)
[2020-08-23 06:03] LABS: Anion Gap 6 mmol/L (8-16); Blood Urea Nitrogen 12 mg/dL (9-20); Calcium 8.5 mg/dL (8.4-10.2); Carbon Dioxide 31 mmol/L (22-30); Chloride 94 mmol/L (98-107); Estimated CRCL calculation 107 ml/min; Estimated Glomerular Filt Rate > 60; Glucose 140 mg/dL (75-110); Phosphorus 4.4 mg/dL (2.5-4.5); Potassium 3.5 mmol/L (3.4-5.0); Sodium 131 mmol/L (137-145)
[2020-08-23 07:43] LABS: Glucose Point of Care 140 (65-105)
[2020-08-23 08:13] LABS: Glucose Point of Care 111 (65-105)
[2020-08-23] MEDS: AMINO ACIDS 4.25%/D5W/LYTES/CA 2,000 ML 100 ML IV CONT (09:03)
[2020-08-23 11:08] VITALS: PULSE 72
[2020-08-23] MEDS: METOPROLOL SUCCINATE EXT REL 50 MG TABCR PO (11:08)
[2020-08-23 11:09] VITALS: PULSE 72
[2020-08-23] MEDS: AMIODARONE HCL 200 MG TABLET PO (11:09)
[2020-08-23] MEDS: hydroCHLOROthiazide 25 MG TABLET PO (11:09)
[2020-08-23] MEDS: TAMSULOSIN HCL 0.4 MG CAPSULE PO (11:10)
[2020-08-23] MEDS: lisinopriL 10 MG TABLET PO (11:10)
--- NOTE | 2020-08-23 11:36 | PM.PNGS ---
Progress Note: A&P Assessment and Plan (1) Anastomotic leak of intestine: Code(s): K91.89 - Other postprocedural complications and disorders of digestive system Status: Acute Assessment and Plan: Repeat CT reviewed. Still has some gas within presacral space, but very little fluid. Nothing draining out of pigtail drain. Will advance diet to full liquids today. Increase activity. Hopefully home in 1-2 days. Will keep drain in for at least 1 more week. (2) Urinary retention: Code(s): R33.9 - Retention of urine, unspecified Status: Acute Assessment and Plan: Appreciate urology input. Voiding trial eventually. (3) Rectal cancer: Code(s): C20 - Malignant neoplasm of rectum Status: Acute Subjective Subjective Date/Time Seen: 08/23/20 11:36 Still no drainage from pigtail drain. No fevers. Bowels moving a lot. Exam GI: Inspection: non-distended GI Palp: Yes Soft to palpation, No Tenderness to palpation present (GI) and No Guarding due to palpation present (GI) Objective Data Vital Signs Vital Signs: Vital Signs - 24 hr 08/22/20 14:00 08/22/20 22:00 08/23/20 05:54 Temperature 37.1 C 37.0 C 36.7 C Pulse Rate 71 68 67 Respiratory Rate 16 18 18 Blood Pressure 108/64 113/54 L 113/54 L Pulse Oximetry 97 96 92 08/23/20 11:08 08/23/20 11:09 Temperature Pulse Rate 72 72 Respiratory Rate Blood Pressure Pulse Oximetry Intake/Output Intake/Output: Intake & Output 08/20/20 08/21/20 08/22/20 08/23/20 23:59 23:59 23:59 23:59 Intake Total 2100 1200 3260 3270 Output Total 1535 3600 1700 3000 Balance 565 -2400 1560 270 Meds/Results Medications: Active Medications Generic Name Dose Route Start Last Admin Trade Name Freq PRN Reason Stop Dose Admin Albuterol 2 puff 08/21/20 10:35 Albuterol Sulfate (*Sp) Aerosol 1 Puff INHALATION QID PRN Dyspnea Amiodarone HCl 200 mg 08/21/20 09:00 08/23/20 11:09 Amiodarone Hcl 200 Mg Tablet PO 200 mg DAILY ASHELY Administration Hydrochlorothiazide 25 mg 08/21/20 09:00 08/23/20 11:09 Hydrochlorothiazide 25 Mg Tablet PO 25 mg DAILY ASHELY Administration Piperacillin/Tazobactam/Dextrose 3.375 gm in 50 mls @ 100 mls/hr 08/19/20 18:00 08/23/20 07:10 Zosyn 3.375 Gm/D5w 50ml Pm IVPB Infused Q6H ASHELY Infusion Dextrose 1,000 mls @ 50 mls/hr 08/21/20 10:38 Dextrose 10% IV CONT .Q20H PRN if PN is interrupted Amino Acids/Electrolytes/Dextrose 2,000 mls @ 100 mls/hr 08/21/20 14:00 08/23/20 09:03 Clinimix E 4.25%/5% Solution IV CONT 100 mls/hr .Q20H ASHELY Administration Protocol Fat Emulsion Intravenous 250 mls @ 20.833 mls/hr 08/21/20 14:00 08/23/20 06:44 Lipids 20% IVPB Infused Q24H ASHELY Infusion Lisinopril 10 mg 08/21/20 09:00 08/23/20 11:10 Lisinopril 10 Mg Tablet PO 10 mg DAILY ASHELY Administration Lorazepam 1 mg 08/19/20 17:00 08/23/20 04:00 Lorazepam Inj (*Crx) 2 Mg/Ml Vial IV PUSH 1 mg Q6H PRN Administration Anxiety Metoprolol Succinate 50 mg 08/21/20 09:00 08/23/20 11:08 Metoprolol Succinate Ext Rel 50 Mg Tabcr PO 50 mg DAILY ASHELY Administration Morphine Sulfate 4 mg 08/19/20 11:23 08/23/20 11:04 Morphine Sulfate (*Crx) 4 Mg/Ml Inj IV PUSH 4 mg Q2H PRN Administration Pain Rated 7-10 Ondansetron HCl 4 mg 08/19/20 11:23 08/23/20 11:02 Ondansetron Inj 4 Mg/2 Ml Vial IV PUSH 4 mg Q4H PRN Administration Nausea Tamsulosin HCl 0.4 mg 08/21/20 17:00 08/23/20 11:10 Tamsulosin Hcl 0.4 Mg Capsule PO 0.4 mg QAM ASHELY Administration Radiology Results: ITS Impressions Catheter Placement CT 08/19/20 15:25 IMPRESSION: 1. Successful CT-guided perirectal abscess drainage. 2. 10 mL fluid was sent for aerobic and anaerobic cultures. 3. The catheter will be managed by Dr. Sierra. Abdomen/Pelvis CT 08/23/20 10:17 IMPRESSION: 1. Collection of gas and relat
[2020-08-23 11:44] LABS: Glucose Point of Care 142 (65-105)
[2020-08-23] MEDS: HYDROcodone/acetaminophen (*CRX) 10-325 MG TABLET 1 TAB PO ×3 (13:51→23:55)
[2020-08-23 14:00] VITALS: BP 120/60; PULSE 74; RESP 18; TEMP 37; O2SAT 95
[2020-08-23] MEDS: LOPERAMIDE HCL 2 MG CAPSULE PO ×2 (14:18→18:28)
[2020-08-23] MEDS: FAT EMULSIONS IV 20% 250 ML 20.83 ML IVPB (15:16)
[2020-08-23 17:27] LABS: Glucose Point of Care 127 (65-105)
[2020-08-23 20:00] VITALS: PULSE 74; RESP 18; O2SAT 95
[2020-08-23 22:00] VITALS: BP 137/79; PULSE 64; RESP 16; TEMP 36.4; O2SAT 98
[2020-08-23 23:31] LABS: Glucose Point of Care 139 (65-105)
[2020-08-24] MEDS: LORazepam INJ (*CRX) 2 MG/ML VIAL 1 MG IV PUSH ×2 (03:18→19:00)
[2020-08-24] MEDS: HYDROcodone/acetaminophen (*CRX) 10-325 MG TABLET 1 TAB PO ×2 (05:36→20:22)
[2020-08-24 06:00] VITALS: BP 125/58; PULSE 82; RESP 16; TEMP 36.8; O2SAT 93
[2020-08-24 06:02] LABS: Glucose Point of Care 140 (65-105)
[2020-08-24 06:03] LABS: Alanine Aminotransferase 30 U/L (4-50); Albumin Level 3.7 g/dL (3.5-5.1); Alkaline Phosphatase 87 U/L (38-126); Anion Gap 6 mmol/L (8-16); Aspartate Amino Transferase 37 U/L (17-59); Bilirubin,Total 0.7 mg/dL (0.2-1.3); Blood Urea Nitrogen 13 mg/dL (9-20); Calcium 9.1 mg/dL (8.4-10.2); Carbon Dioxide 31 mmol/L (22-30); Chloride 89 mmol/L (98-107); Estimated CRCL calculation 95 ml/min; Estimated Glomerular Filt Rate > 60; Glucose 147 mg/dL (75-110); Phosphorus 3.5 mg/dL (2.5-4.5); Potassium 3.6 mmol/L (3.4-5.0); Sodium 126 mmol/L (137-145)
[2020-08-24 06:06] LABS: Basophils Absolute Auto 0.1 K/mm3 (0.0-0.1); Basophils Percent Auto 0.5 % (0.2-1.2); Eosinophils Absolute Auto 0.1 K/mm3 (0-0.3); Eosinophils Percent Auto 0.9 % (0-4.4); Hematocrit 32.9 % (42.0-52.0); Hemoglobin 11.2 g/dL (14.0-18.0); Immature Granulocyte Absolute 0.09 K/mm3 (0.00-0.031); Immature Granulocyte Percent A 0.6 % (0-0.5); Lymphocytes Percent Auto 4.2 % (18.3-44.2); Mean Corpuscular Hemoglobin 33.3 pg (26-34); Mean Corpuscular Volume 97.9 fl (80-100); Mean Platelet Volume 10.3 fl (7.4-10.4); Monocytes Absolute Auto 1.3 K/mm3 (0.1-0.6); Monocytes Percent Auto 8.9 % (2.6-8.5); Neutrophils Percent Auto 84.9 % (45.5-73.1); Platelet Count Result 600 k/mm3 (150-375); Red Blood Count 3.36 M/mm3 (4.6-6.20); Red Cell Distribution Width 13.5 % (11.5-14.5); White Blood Count 14.2 K/mm3 (4.5-10.0)
[2020-08-24 06:23] LABS: Triglycerides 117 mg/dL (<150)
[2020-08-24 08:13] LABS: Glucose Point of Care 147 (65-105)
[2020-08-24 10:10] VITALS: PULSE 68
[2020-08-24] MEDS: hydroCHLOROthiazide 25 MG TABLET PO (10:10)
[2020-08-24] MEDS: AMIODARONE HCL 200 MG TABLET PO (10:10)
[2020-08-24] MEDS: LOPERAMIDE HCL 2 MG CAPSULE PO ×3 (10:10→18:07)
[2020-08-24] MEDS: lisinopriL 10 MG TABLET PO (10:10)
[2020-08-24] MEDS: METOPROLOL SUCCINATE EXT REL 50 MG TABCR PO (10:10)
[2020-08-24] MEDS: TAMSULOSIN HCL 0.4 MG CAPSULE PO (10:10)
--- NOTE | 2020-08-24 12:07 | WPDUROPN2 ---
Progress Note: A&P Assessment and Plan (1) Hydronephrosis: Code(s): N13.30 - Unspecified hydronephrosis Status: Acute Assessment and Plan: Resolved on repeat CT from 08/23/2020. (2) BPH (benign prostatic hyperplasia): Code(s): N40.0 - Benign prostatic hyperplasia without lower urinary tract symptoms Status: Acute Assessment and Plan: Continue Flomax. Bladder scan post void and call with residual. (3) Urinary retention: Code(s): R33.9 - Retention of urine, unspecified Status: Acute Assessment and Plan: Miller removed yesterday d/t irritation. Subjective Subjective Date/Time Seen: 08/24/20 12:07 Patient was not tolerating catheter yesterday afternoon, therefore I gave orders for removal. Since then he continues FLomax and denies straining, hesitancy or slowed stream of urination. Review of Systems Cardiovascular: Cardiovascular: Denies chest pain Respiratory: Respiratory: Reports no additional respiratory complaints Gastrointestinal: Gastrointestinal: Denies nausea and Denies vomiting Genitourinary: Genitourinary: Denies hematuria, Denies dysuria, Denies flank pain, Denies urinary frequency and Denies urinary hesitancy Exam Resp: Effort & Inspection: normal respiratory effort Cardio: Rate: regular rate GI: GI Palp: Yes Soft to palpation and No Tenderness to palpation present (GI) : General: Yes no CVA tenderness Extrem: General: no edema Objective Data Vital Signs Vital Signs: Vital Signs - 24 hr 08/23/20 14:00 08/23/20 20:00 08/23/20 22:00 Temperature 98.6 F 97.6 F Pulse Rate 74 74 64 Respiratory Rate 18 18 16 Blood Pressure 120/60 137/79 Pulse Oximetry 95 95 98 08/24/20 06:00 08/24/20 10:10 Temperature 98.3 F Pulse Rate 82 68 Respiratory Rate 16 Blood Pressure 125/58 L Pulse Oximetry 93 Intake/Output Intake/Output: Intake & Output 08/21/20 08/22/20 08/23/20 08/24/20 23:59 23:59 23:59 23:59 Intake Total 1200 3260 3700 3060 Output Total 3600 1700 3650 300 Balance -2400 1560 50 2760 Meds/Results Medications: Active Medications Generic Name Dose Route Start Last Admin Trade Name Freq PRN Reason Stop Dose Admin Hydrocodone Bitart/Acetaminophen 1 tab 08/23/20 11:40 Hydrocodone/Acetaminophen (*Crx) 5-325 Mg Tablet PO Q4H PRN Pain Rated 4-6 Hydrocodone Bitart/Acetaminophen 1 tab 08/23/20 11:40 08/24/20 05:36 Hydrocodone/Acetaminophen (*Crx) 10-325 Mg Tablet PO 1 tab Q4H PRN Administration Pain Rated 7-10 Albuterol 2 puff 08/21/20 10:35 Albuterol Sulfate (*Sp) Aerosol 1 Puff INHALATION QID PRN Dyspnea Amiodarone HCl 200 mg 08/21/20 09:00 08/24/20 10:10 Amiodarone Hcl 200 Mg Tablet PO 200 mg DAILY ASHELY Administration Hydrochlorothiazide 25 mg 08/21/20 09:00 08/24/20 10:10 Hydrochlorothiazide 25 Mg Tablet PO 25 mg DAILY ASHELY Administration Piperacillin/Tazobactam/Dextrose 3.375 gm in 50 mls @ 100 mls/hr 08/19/20 18:00 08/24/20 06:15 Zosyn 3.375 Gm/D5w 50ml Pm IVPB Infused Q6H ASHELY Infusion Dextrose 1,000 mls @ 50 mls/hr 08/21/20 10:38 Dextrose 10% IV CONT .Q20H PRN if PN is interrupted Lisinopril 10 mg 08/21/20 09:00 08/24/20 10:10 Lisinopril 10 Mg Tablet PO 10 mg DAILY ASHELY Administration Loperamide HCl 2 mg 08/23/20 13:00 08/24/20 10:10 Loperamide Hcl 2 Mg Capsule PO 2 mg TID ASHELY Administration Lorazepam 1 mg 08/19/20 17:00 08/24/20 03:18 Lorazepam Inj (*Crx) 2 Mg/Ml Vial IV PUSH 1 mg Q6H PRN Administration Anxiety Metoprolol Succinate 50 mg 08/21/20 09:00 08/24/20 10:10 Metoprolol Succinate Ext Rel 50 Mg Tabcr PO 50 mg DAILY ASHELY Administration Ondansetron HCl 4 mg 08/19/20 11:23 08/23/20 23:55 Ondansetron Inj 4 Mg/2 Ml Vial IV PUSH 4 mg Q4H PRN Administration Nausea Tamsulosin HCl 0.4 mg 08/21/20 17:00 08/24/20 10:10 Tamsulosin Hcl 0.4
--- NOTE | 2020-08-24 12:29 | PM.PNGS ---
Progress Note: A&P Assessment and Plan (1) Anastomotic leak of intestine: Code(s): K91.89 - Other postprocedural complications and disorders of digestive system Status: Acute Assessment and Plan: WBC up slightly to 14,000 today but he remains afebrile. Percutaneous drain with no output, but appears to be having some gas coming through the tubing - continue to monitor on suction. This will remain in place on discharge. Discussed with the patient to try to monitor the drain and keep it to suction if the accordion expands throughout the day. Will advance to soft diet today and see how the patient tolerates this. Stop PPN. Continue IV antibiotics. Increase activity and encouraged walking the halls. (2) Urinary retention: Code(s): R33.9 - Retention of urine, unspecified Status: Acute Assessment and Plan: Miller removed and voiding trial today. Appreciate Urology's help. Will need outpatient f/u after discharge. (3) Rectal cancer: Code(s): C20 - Malignant neoplasm of rectum Status: Acute Additional Plan Discussed plan of care with Dr. Robertson. Subjective Subjective Date/Time Seen: 08/24/20 12:29 Post Op day: 15 Patient reports: voiding w/o difficulty (Miller removed today) Interval history: Patient feeling tired and exhausted today. Reports his right flank pain has improved some. Tolerating a diet. No output recorded from perc drain again overnight. Review of Systems Review of Systems: All systems reviewed & are unremarkable except as noted in HPI and below Constitutional: Constitutional: Denies fever(s) Exam Const: General: comfortable and no acute distress Orientation/consciousness: patient oriented x3 GI: Inspection: non-distended GI Palp: Yes Soft to palpation and No Tenderness to palpation present (GI) Auscultation: normal bowel sounds Other: Pigtail drain in left lower back with scant thin feculent drainage and small amount of air noted in accordion suction. Skin: General skin exam: normal color Neuro: General: moves all extremities and no focal motor deficits Extrem: General: no clubbing, cyanosis or edema and no calf tenderness Psych: Affect: normal affect Insight: Good insight present (Psych) Judgement: Good judgement present (Psych) Objective Data Vital Signs Vital Signs: Vital Signs - 24 hr 08/23/20 14:00 08/23/20 20:00 08/23/20 22:00 Temperature 98.6 F 97.6 F Pulse Rate 74 74 64 Respiratory Rate 18 18 16 Blood Pressure 120/60 137/79 Pulse Oximetry 95 95 98 08/24/20 06:00 08/24/20 10:10 Temperature 98.3 F Pulse Rate 82 68 Respiratory Rate 16 Blood Pressure 125/58 L Pulse Oximetry 93 Intake/Output Intake/Output: Intake & Output 08/21/20 08/22/20 08/23/20 08/24/20 23:59 23:59 23:59 23:59 Intake Total 1200 3260 3700 3060 Output Total 3600 1700 3650 300 Balance -2400 1560 50 2760 Meds/Results Medications: Active Medications Generic Name Dose Route Start Last Admin Trade Name Freq PRN Reason Stop Dose Admin Hydrocodone Bitart/Acetaminophen 1 tab 08/23/20 11:40 Hydrocodone/Acetaminophen (*Crx) 5-325 Mg Tablet PO Q4H PRN Pain Rated 4-6 Hydrocodone Bitart/Acetaminophen 1 tab 08/23/20 11:40 08/24/20 05:36 Hydrocodone/Acetaminophen (*Crx) 10-325 Mg Tablet PO 1 tab Q4H PRN Administration Pain Rated 7-10 Albuterol 2 puff 08/21/20 10:35 Albuterol Sulfate (*Sp) Aerosol 1 Puff INHALATION QID PRN Dyspnea Amiodarone HCl 200 mg 08/21/20 09:00 08/24/20 10:10 Amiodarone Hcl 200 Mg Tablet PO 200 mg DAILY ASHELY Administration Hydrochlorothiazide 25 mg 08/21/20 09:00 08/24/20 10:10 Hydrochlorothiazide 25 Mg Tablet PO 25 mg DAILY ASHELY Administration Piperacillin/Tazobactam/Dextrose 3.375 gm in 50 mls @ 100 mls/hr 08/19/20 18:00 08/24/20 12:24 Zosyn 3.375 Gm/D5w 50ml Pm IVPB 100 mls/hr Q6H ASHELY Administration Dextrose 1,000 mls @ 50 mls/hr 08/21/20 10:3
--- NOTE | 2020-08-24 13:32 | PC.NURSE ---
Bladder scanned patient. Scanner revealed 750-900 cc urine in bladder. Patient ambulated to bathroom and attempted to void. Voided 350 cc and a bit more unmeasured in the toilet. Call placed to [facility] to notify her of same. Patient states he will not agree to a montero catheter or a straight cath.
[2020-08-24 14:00] VITALS: BP 100/58; PULSE 70; RESP 18; TEMP 36.6; O2SAT 94
[2020-08-24] MEDS: HYDROcodone/acetaminophen (*CRX) 5-325 MG TABLET 1 TAB PO (14:50)
[2020-08-24 20:00] VITALS: PULSE 70; RESP 18; O2SAT 94
[2020-08-24 22:00] VITALS: BP 107/65; PULSE 63; RESP 16; TEMP 36.4; O2SAT 97
[2020-08-25] MEDS: HYDROcodone/acetaminophen (*CRX) 10-325 MG TABLET 1 TAB PO ×3 (00:28→08:57)
[2020-08-25] MEDS: LORazepam INJ (*CRX) 2 MG/ML VIAL 1 MG IV PUSH (03:26)
[2020-08-25 05:12] VITALS: BP 124/58; PULSE 73; RESP 16; TEMP 36.6; O2SAT 97
[2020-08-25 05:41] LABS: Hematocrit 30.3 % (42.0-52.0); Hemoglobin 10.2 g/dL (14.0-18.0); Mean Corpuscular HGB Conc 33.7 g/dl (32-36); Mean Corpuscular Hemoglobin 33.3 pg (26-34); Mean Platelet Volume 10.1 fl (7.4-10.4); Platelet Count Result 521 k/mm3 (150-375); Red Blood Count 3.06 M/mm3 (4.6-6.20); Red Cell Distribution Width 13.6 % (11.5-14.5); White Blood Count 9.6 K/mm3 (4.5-10.0)
[2020-08-25 05:53] LABS: Anion Gap 6 mmol/L (8-16); Blood Urea Nitrogen 14 mg/dL (9-20); Calcium 8.6 mg/dL (8.4-10.2); Carbon Dioxide 31 mmol/L (22-30); Chloride 89 mmol/L (98-107); Estimated CRCL calculation 85 ml/min; Estimated Glomerular Filt Rate > 60; Glucose 113 mg/dL (75-110); Potassium 3.2 mmol/L (3.4-5.0); Sodium 126 mmol/L (137-145)
[2020-08-25] MEDS: TOLNAFTATE 1% POWDER 45 GM BTL 1 APPLIC TOPICAL ×2 (06:13→20:22)
--- NOTE | 2020-08-25 07:19 | WPDUROPN2 ---
Progress Note: A&P Additional Plan Continues to carry residual volumes 700-750cc but, other than a slow steam, is not symptomatic. He contineus to refuse a urethral catheter. Home anytime on Flomax. Follow-up with us in 2-3 weeks. Subjective Subjective Date/Time Seen: 08/25/20 07:19 Reports slow urine stream but, otherwise, no discomfort with incomplete bladder emptying. Review of Systems Cardiovascular: Cardiovascular: Denies chest pain, Denies lightheadedness, Denies palpitations and Denies dyspnea Respiratory: Respiratory: Denies dyspnea Gastrointestinal: Gastrointestinal: Denies diarrhea, Denies nausea and Denies vomiting Genitourinary: Genitourinary: Denies hematuria and Denies dysuria Endocrine: Endocrine: Denies palpitations Exam Const: General: no acute distress Resp: Effort & Inspection: normal respiratory effort GI: Inspection: non-distended GI Palp: No abdominal tenderness and No Guarding due to palpation present (GI) Auscultation: normal bowel sounds Objective Data Vital Signs Vital Signs: Vital Signs - 24 hr 08/24/20 10:10 08/24/20 14:00 08/24/20 20:00 Temperature 98 F Pulse Rate 68 70 70 Respiratory Rate 18 18 Blood Pressure 100/58 L Pulse Oximetry 94 94 08/24/20 22:00 08/25/20 05:12 Temperature 97.6 F 97.8 F Pulse Rate 63 73 Respiratory Rate 16 16 Blood Pressure 107/65 124/58 L Pulse Oximetry 97 97 Intake/Output Intake/Output: Intake & Output 08/22/20 08/23/20 08/24/20 08/25/20 23:59 23:59 23:59 23:59 Intake Total 3260 3700 3480 100 Output Total 1700 3650 953 Balance 1560 50 2527 100 Meds/Results Medications: Active Medications Generic Name Dose Route Start Last Admin Trade Name Freq PRN Reason Stop Dose Admin Hydrocodone Bitart/Acetaminophen 1 tab 08/23/20 11:40 08/24/20 14:50 Hydrocodone/Acetaminophen (*Crx) 5-325 Mg Tablet PO 1 tab Q4H PRN Administration Pain Rated 4-6 Hydrocodone Bitart/Acetaminophen 1 tab 08/23/20 11:40 08/25/20 04:15 Hydrocodone/Acetaminophen (*Crx) 10-325 Mg Tablet PO 1 tab Q4H PRN Administration Pain Rated 7-10 Albuterol 2 puff 08/21/20 10:35 Albuterol Sulfate (*Sp) Aerosol 1 Puff INHALATION QID PRN Dyspnea Amiodarone HCl 200 mg 08/21/20 09:00 08/24/20 10:10 Amiodarone Hcl 200 Mg Tablet PO 200 mg DAILY ASHELY Administration Hydrochlorothiazide 25 mg 08/21/20 09:00 08/24/20 10:10 Hydrochlorothiazide 25 Mg Tablet PO 25 mg DAILY ASHELY Administration Piperacillin/Tazobactam/Dextrose 3.375 gm in 50 mls @ 100 mls/hr 08/19/20 18:00 08/25/20 06:41 Zosyn 3.375 Gm/D5w 50ml Pm IVPB Infused Q6H ASHELY Infusion Dextrose 1,000 mls @ 50 mls/hr 08/21/20 10:38 Dextrose 10% IV CONT .Q20H PRN if PN is interrupted Lisinopril 10 mg 08/21/20 09:00 08/24/20 10:10 Lisinopril 10 Mg Tablet PO 10 mg DAILY ASHELY Administration Loperamide HCl 2 mg 08/23/20 13:00 08/24/20 18:07 Loperamide Hcl 2 Mg Capsule PO 2 mg TID ASHELY Administration Lorazepam 1 mg 08/19/20 17:00 08/25/20 03:26 Lorazepam Inj (*Crx) 2 Mg/Ml Vial IV PUSH 1 mg Q6H PRN Administration Anxiety Metoprolol Succinate 50 mg 08/21/20 09:00 08/24/20 10:10 Metoprolol Succinate Ext Rel 50 Mg Tabcr PO 50 mg DAILY ASHELY Administration Ondansetron HCl 4 mg 08/19/20 11:23 08/23/20 23:55 Ondansetron Inj 4 Mg/2 Ml Vial IV PUSH 4 mg Q4H PRN Administration Nausea Tamsulosin HCl 0.4 mg 08/21/20 17:00 08/24/20 10:10 Tamsulosin Hcl 0.4 Mg Capsule PO 0.4 mg QAM ASHELY Administration Tolnaftate 1 applic 08/25/20 09:00 08/25/20 06:13 Tolnaftate 1% Powder 45 Gm Btl TOPICAL 1 applic Q12HR ASHELY Administration Radiology Results: ITS Impressions Catheter Placement CT 08/19/20 15:25 IMPRESSION: 1. Successful CT-guided perirectal abscess drainage. 2. 10 mL fluid was sent for aerobic and anaerobic cultures. 3. The catheter will b
[2020-08-25 08:59] VITALS: PULSE 88
[2020-08-25] MEDS: AMIODARONE HCL 200 MG TABLET PO (08:59)
[2020-08-25] MEDS: POTASSIUM CHLORIDE 20 MEQ TABLET 40 MEQ PO (08:59)
[2020-08-25 09:00] VITALS: PULSE 88
[2020-08-25] MEDS: METOPROLOL SUCCINATE EXT REL 50 MG TABCR PO (09:00)
[2020-08-25] MEDS: hydroCHLOROthiazide 25 MG TABLET PO (09:00)
[2020-08-25] MEDS: TAMSULOSIN HCL 0.4 MG CAPSULE PO (09:00)
[2020-08-25] MEDS: lisinopriL 10 MG TABLET PO (09:00)
[2020-08-25] MEDS: LIDOCAINE HCL 2% GEL UROJET 10 ML PKG MUCOUS MEM (09:05)
[2020-08-25] MEDS: LOPERAMIDE HCL 2 MG CAPSULE PO ×3 (09:05→18:09)
--- NOTE | 2020-08-25 09:30 | PC.NURSE ---
Patient up and down all night, having difficulty urinating. States he feels like he has to go but cannot make any urine come out. Has to focus and run warm water and try repeatedly to go to the bathroom. Patient also c/o right flank pain. States it is an 8 and he is requesting a pain med. Called Dr. Corey and discussed with him. Orders received to insert montero catheter. 700 cc urine immediately returned. Patient resting comfortably after montero inserted.
--- NOTE | 2020-08-25 11:30 | PC.NURSE ---
Patient called me to the room. Complains of severe abdominal pain - states I can't take it . Points to lower abdomen and down into right leg. Called Dr. Robertson and notified him of patient's complaints. Dr. Corey and Dr. Robertson both to see patient.
[2020-08-25] MEDS: HYDROmorphone HCL INJ (*CRX) 1 MG/ML SYR 0.5 MG IV PUSH (11:44)
--- NOTE | 2020-08-25 12:17 | PCNFU ---
Nutrition Follow-Up Complete: Altered GI function as related to post opt infection as evidenced by parentral nutrition. Goal: Meet estimated nutritional needs Progressing towards goal. We will continue current goal. Pt current nutrition is heart healthy diet. Last recorded weight is 101.6 kg, down from 102.1 kg. Bowel Motility:+BM reported 08/25 Labs Reviewed:Glu 113,Na 126, Hct 30.3 Meds Noted:Craig, Ativan, Zosyn Additional Notes: Nutrition follow up today. PPN has been d/c. orders for ensure clear to ensure Enlive BID. Patient oral intake has been fair, refused dinner last night. Ate bites for breakfast. He did request strawberry for ensure drink. PO intake is encouraged. Monitoring: weight, labs, meds, oral intake every 3 days.
--- NOTE | 2020-08-25 13:29 | PM.PNGS ---
Progress Note: A&P Assessment and Plan (1) Anastomotic leak of intestine: Code(s): K91.89 - Other postprocedural complications and disorders of digestive system Status: Acute Assessment and Plan: Drain in place and does not have any output other than a little gas. Will keep drain in place and continue antibiotics. Plan for CT abd/pelvis next week to ensure that there is no more leak. (2) Urinary retention: Code(s): R33.9 - Retention of urine, unspecified Status: Acute Assessment and Plan: Miller replaced today. Continue per Urology. (3) Hydronephrosis: Code(s): N13.30 - Unspecified hydronephrosis Status: Acute (4) Rectal cancer: Code(s): C20 - Malignant neoplasm of rectum Status: Acute Subjective Subjective Date/Time Seen: 08/25/20 13:29 Patient was having a lot of right flank pain this AM and was found to have >1 Liter on bladder scan. Miller had to be replaced. Patient now c/o right leg pain, right sided abdominal and flank pain, and suprapubic pain. He has been tolerating regular diet and bowels have been moving fine. No output from percutaneous drain. No fevers. Exam GI: GI Palp: Yes Soft to palpation, Yes Tenderness to palpation present (GI) (RLQ and Right flank) and No Guarding due to palpation present (GI) Auscultation: normal bowel sounds Other: Pigtail catheter in place with no output. Objective Data Vital Signs Vital Signs: Vital Signs - 24 hr 08/24/20 14:00 08/24/20 20:00 08/24/20 22:00 Temperature 36.6 C 36.4 C Pulse Rate 70 70 63 Respiratory Rate 18 18 16 Blood Pressure 100/58 L 107/65 Pulse Oximetry 94 94 97 08/25/20 05:12 08/25/20 08:59 08/25/20 09:00 Temperature 36.6 C Pulse Rate 73 88 88 Respiratory Rate 16 Blood Pressure 124/58 L Pulse Oximetry 97 Intake/Output Intake/Output: Intake & Output 08/22/20 08/23/20 08/24/20 08/25/20 23:59 23:59 23:59 23:59 Intake Total 3260 3700 3480 900 Output Total 1700 3650 953 700 Balance 1560 50 2527 200 Meds/Results Medications: Active Medications Generic Name Dose Route Start Last Admin Trade Name Freq PRN Reason Stop Dose Admin Hydrocodone Bitart/Acetaminophen 1 tab 08/23/20 11:40 08/24/20 14:50 Hydrocodone/Acetaminophen (*Crx) 5-325 Mg Tablet PO 1 tab Q4H PRN Administration Pain Rated 4-6 Hydrocodone Bitart/Acetaminophen 1 tab 08/23/20 11:40 08/25/20 08:57 Hydrocodone/Acetaminophen (*Crx) 10-325 Mg Tablet PO 1 tab Q4H PRN Administration Pain Rated 7-10 Albuterol 2 puff 08/21/20 10:35 Albuterol Sulfate (*Sp) Aerosol 1 Puff INHALATION QID PRN Dyspnea Amiodarone HCl 200 mg 08/21/20 09:00 08/25/20 08:59 Amiodarone Hcl 200 Mg Tablet PO 200 mg DAILY ASHELY Administration Aspirin 325 mg 08/25/20 09:00 Aspirin 325 Mg Tablet PO DAILY ASHELY Hydrochlorothiazide 25 mg 08/21/20 09:00 08/25/20 09:00 Hydrochlorothiazide 25 Mg Tablet PO 25 mg DAILY ASHELY Administration Hydromorphone HCl 0.5 mg 08/25/20 11:29 08/25/20 11:44 Hydromorphone Hcl Inj (*Crx) 1 Mg/Ml Syr IV PUSH 0.5 mg Q2H PRN Administration Pain Rated 7-10 Piperacillin/Tazobactam/Dextrose 3.375 gm in 50 mls @ 100 mls/hr 08/19/20 18:00 08/25/20 12:30 Zosyn 3.375 Gm/D5w 50ml Pm IVPB 100 mls/hr Q6H ASHELY Administration Dextrose 1,000 mls @ 50 mls/hr 08/21/20 10:38 Dextrose 10% IV CONT .Q20H PRN if PN is interrupted Lisinopril 10 mg 08/21/20 09:00 08/25/20 09:00 Lisinopril 10 Mg Tablet PO 10 mg DAILY ASHELY Administration Loperamide HCl 2 mg 08/23/20 13:00 08/25/20 09:05 Loperamide Hcl 2 Mg Capsule PO 2 mg TID ASHELY Administration Lorazepam 1 mg 08/19/20 17:00 08/25/20 03:26 Lorazepam Inj (*Crx) 2 Mg/Ml Vial IV PUSH 1 mg Q6H PRN Administration Anxiety Metoprolol Succinate 50 mg 08/21/20 09:00 08/25/20 09:00 Metoprolol Succinate Ext Rel 50 Mg Tabcr PO
[2020-08-25 14:00] VITALS: BP 125/51; PULSE 76; RESP 16; TEMP 37.1; O2SAT 97
[2020-08-25] MEDS: ASPIRIN 325 MG TABLET PO (15:01)
[2020-08-25] MEDS: HYDROcodone/acetaminophen (*CRX) 5-325 MG TABLET 1 TAB PO ×2 (15:01→20:20)
[2020-08-25] MEDS: ONDANSETRON INJ 4 MG/2 ML VIAL IV PUSH (18:55)
[2020-08-25] MEDS: diazePAM (*CRX) 5 MG TABLET PO (18:55)
[2020-08-25 22:00] VITALS: BP 110/64; PULSE 71; RESP 18; TEMP 37.1; O2SAT 97
[2020-08-26] MEDS: HYDROmorphone HCL INJ (*CRX) 1 MG/ML SYR 0.5 MG IV PUSH (00:09)
[2020-08-26] MEDS: ONDANSETRON INJ 4 MG/2 ML VIAL IV PUSH (03:05)
[2020-08-26 04:58] VITALS: BP 119/55; PULSE 96; RESP 22; TEMP 37.1; O2SAT 84
[2020-08-26] MEDS: diazePAM (*CRX) 5 MG TABLET PO (05:50)
[2020-08-26] MEDS: HYDROcodone/acetaminophen (*CRX) 5-325 MG TABLET 1 TAB PO (05:50)
[2020-08-26 06:02] LABS: Hematocrit 33.5 % (42.0-52.0); Hemoglobin 11.4 g/dL (14.0-18.0); Mean Corpuscular Hemoglobin 33.6 pg (26-34); Mean Corpuscular Volume 98.8 fl (80-100); Mean Platelet Volume 10.3 fl (7.4-10.4); Platelet Count Result 606 k/mm3 (150-375); Red Blood Count 3.39 M/mm3 (4.6-6.20); Red Cell Distribution Width 13.8 % (11.5-14.5); White Blood Count 11.8 K/mm3 (4.5-10.0)
[2020-08-26 06:25] LABS: Anion Gap 7 mmol/L (8-16); Blood Urea Nitrogen 13 mg/dL (9-20); Calcium 9.2 mg/dL (8.4-10.2); Carbon Dioxide 30 mmol/L (22-30); Chloride 89 mmol/L (98-107); Estimated CRCL calculation 85 ml/min; Estimated Glomerular Filt Rate > 60; Glucose 124 mg/dL (75-110); Magnesium 2.1 mg/dL (1.6-2.3); Potassium 3.9 mmol/L (3.4-5.0); Sodium 126 mmol/L (137-145)
[2020-08-26 09:18] VITALS: PULSE 77
[2020-08-26] MEDS: ASPIRIN 325 MG TABLET PO (09:18)
[2020-08-26] MEDS: AMIODARONE HCL 200 MG TABLET PO (09:18)
[2020-08-26] MEDS: lisinopriL 10 MG TABLET PO (09:19)
[2020-08-26 09:20] VITALS: PULSE 71
[2020-08-26] MEDS: TOLNAFTATE 1% POWDER 45 GM BTL 1 APPLIC TOPICAL (09:20)
[2020-08-26] MEDS: TAMSULOSIN HCL 0.4 MG CAPSULE PO (09:20)
[2020-08-26] MEDS: hydroCHLOROthiazide 25 MG TABLET PO (09:20)
[2020-08-26] MEDS: METOPROLOL SUCCINATE EXT REL 50 MG TABCR PO (09:20)
[2020-08-26] MEDS: LOPERAMIDE HCL 2 MG CAPSULE PO ×2 (09:24→12:44)
[2020-08-26 09:25] VITALS: PULSE 71; RESP 20; O2SAT 92
--- NOTE | 2020-08-26 11:31 | PM.DS ---
DS: Admitting Diagnosis Admitting Diagnosis Admitting Diagnosis: colorectal anastomotic leak history rectal cancer status post low anterior resection 08/09/2020 DS: Discharge Diagnosis Discharge Diagnosis (1) Anastomotic leak of intestine: Code(s): K91.89 - Other postprocedural complications and disorders of digestive system Status: Acute Assessment and Plan: CT-guided percutaneous drain placed 08/20/2020 with good result. (2) Urinary retention: Code(s): R33.9 - Retention of urine, unspecified Status: Acute Assessment and Plan: Patient failed voiding trial after being placed on Flomax. Will go home with Miller catheter. (3) Rectal cancer: Code(s): C20 - Malignant neoplasm of rectum Status: Chronic Assessment and Plan: Preoperative chemo radiation therapy which was completed in late June. Laparoscopic low anterior resection 08/09/2020. DS: Summary Hospital Course Hospital Course: see discharge summary Time Spent with Patient Time attestation: Total time spent providing and/or coordinating discharge services: Patient is a 70-year-old man who presented to the emergency room on August 19 with abdominal pain that radiated to his back. He was also noted to have some loose stools. He has a history of rectal cancer. He had chemo radiation therapy from May 29 through July 05, 2020. The tumor was clinical stage IIA. On 08/09/2020 he underwent hand access laparoscopic low anterior resection. The tumor was straddling the anterior peritoneal reflection. Pathologic staging was T2 N0 M0. Patient was discharged on 08/14/2020. In the emergency room on 08/19/2020 he was noted to have a diffusely [place] [id number]. He was afebrile. CT scan showed a 7 x 5 cm pelvic fluid collection adjacent to the anastomosis suggestive of anastomotic leak. He was started on IV Zosyn and admitted to the hospital. The next day, 08/20/[address]-guided percutaneous drain placed. Cultures grew Enterococcus and E coli. The drain had very little output after 24-36 hours. His white count stayed marginally elevated throughout the hospitalization. Follow-up CT scan on 08/23 showed decrease in the amount of air and a very small residual amount of fluid with the catheter in good position. Patient had problems with urinary retention during his hospital stay. He had a postvoid residual of over 1000. He was started on Flomax and a Miller catheter was placed on 08/21/2020. His catheter was removed and he had a voiding trial on 08/24. He failed the voiding trial. Miller catheter was replaced and he will be discharged on Flomax with the catheter. He was able to be started on clear liquids on 08/21. His diet was slowly advanced and he was tolerating regular food by the time of discharge. He is discharged now with home health to see him for assistance in managing the Miller catheter and the percutaneous drain. He is in improved condition. Exam Const: General: comfortable and no acute distress; No confusion Orientation/consciousness: patient oriented x3 and No confusion GI: Inspection: non-distended, scar ( Well-healed) and other ( pigtail catheter exits from the back. Minimal output.) GI Palp: Yes Soft to palpation, No Tenderness to palpation present (GI), No Guarding due to palpation present (GI) and No Rebound tenderness present Auscultation: normal bowel sounds Urinary Catheter: Urinary Catheter: patent and draining and urine clear Neuro: General: patient oriented x3, no focal motor deficits and No confusion Extrem: General: no calf tenderness and no edema DS: Data Data Completed and Pending Labs on day of discharge: Labs from last 24 hours 08/26/20 08/26/20 05:12 05:11 WBC 11.8 H RBC 3.39 L Hgb 11.4 L Hct 33.5 L MCV 98.8 MCH 33.6 MCHC 34.0 RDW 13.8 Plt Count 606 H MPV 10.3 Sodium 126 L Potassium 3.9 Chlo
== END 2020-08-26 14:20 | disposition home health service (06) | DRG 394 ==
LOC: ANHED 11:18 → ANH2MED 08-21 16:08
PROVIDERS: Surgery; Admitting Provider Surgery; Emergency Provider Emergency Medicine; PCP Pediatrics; Visit Provider Surgery
DX: K91.89 Other postprocedural complications and disorders of digestive system (principal); C20 Malignant neoplasm of rectum; N13.30 Unspecified hydronephrosis; R33.9 Retention of urine, unspecified; N40.0 Benign prostatic hyperplasia without lower urinary tract symptoms; J44.9 Chronic obstructive pulmonary disease, unspecified; M47.896 Other spondylosis, lumbar region; I10 Essential (primary) hypertension; Z96.642 Presence of left artificial hip joint; Z79.82 Long term (current) use of aspirin; Z79.899 Other long term (current) drug therapy; Z87.891 Personal history of nicotine dependence
CPT/HCPCS: 36415; 74176; 74177; 75989; 80048; 80053; 81003; 83605; 83690; 83735; 84100; 84466; 84478; 85025; 85027; 85610; 85730; 87070; 87075; 87076; 87077; 87185; 87186; 87205; 96361; 96374; 96375; 99285; A9270; C1729; C1769; J1170; J2060; J2250; J2270; J2405; J2543; J3010; J7030; Q9967

== ENCOUNTER 2020-08-29 16:25 | Inpatient (IN) | payer MEDICARE, SELFPAY ==
[2020-08-29] VITALS (12 sets, daily range): BP systolic 119–149; BP diastolic 66–91; PULSE 56–69; RESP 12–23; TEMP 36.5–36.9; O2SAT 98–100; BMI 28.4
--- NOTE | ~2020-08-29 | CT_ITS ---
EXAMINATION: CT abdomen pelvis wo/w con DATE: 09/10/2020 11:27 INDICATION: Abdominal and flank pain. Nausea and vomiting. TECHNIQUE: Computed tomography (CT) of the abdomen and pelvis was performed without and with 100 mL O mnipaque-350 intravenous contrast. Automated exposure control and iterative reconstruction technique were employed. The dose-length product was 1544.38 mGy-cm. COMPARISON: 09/07/2020 FINDINGS: Decrease in size of a now tiny left pleural effusion. Persistent compressive atelectasis at the basil ar left lower lobe and minimal dependent atelectasis in the right lower lobe. Small bilateral calcifi ed pulmonary nodules consistent with old granulomatous disease. Heart size is normal. No pericardial effusion. Distal tip of a left internal jugular central venous catheter is positioned in the high rig ht atrium near the superior cavoatrial junction. Nasogastric tube tip in the body of the stomach. There are multiple dilated loops of small bowel brayan uring up to 1.3 cm maximal diameter. There is some residual dilute oral contrast material within the dilated bowel which tapers gradually distally with no discrete transition point to suggest obstructio n and this likely represents a persistent ileus. A catheter extends into the afferent limb of the rig ht lower quadrant diverting loop ileostomy. The dose if recurrent side of the small bowel is decompre ssed extending to the cecum where there is residual high attenuation oral contrast material. Appendix is normal. Surgical drain extends from the anterior left pelvis into the presacral space where there is a persistent 8.2 x 4.6 x 4.9 cm gas and fluid-filled rim-enhancing abscess. Dehiscent anastomotic suture line at the distalmost rectum. 6 mm low-attenuation likely cyst or hemangioma in the right hepatic lobe. Splenic calcific a cyst con sistent with old granulomatous disease. Gallbladder, pancreas and bilateral adrenal glands are normal . Kidneys enhance symmetrically. 2-3 mm nonobstructing left renal stone. No other urolithiasis or hyd ronephrosis. Contrast extends through the normal-appearing bilateral ureters to the bladder where add itional excreted contrast surrounds the inflated bulb of a Miller catheter. Small bilateral fat-contai adalgisa inguinal hernias. No pathologically enlarged abdominal or pelvic lymphadenopathy. There is some osteolysis likely related to particle disease at the cephalad aspect of the acetabular component of a left total hip arthroplasty. Small nonaggressive lytic lesion in the lateral right ninth rib most li carolyn fibrous dysplasia. Severe lumbar spondylosis. IMPRESSION: 1. Persistent dilated small bowel proximal to the right lower quadrant loop ileostomy without a discr ete transition point and favor persistent adynamic ileus over obstruction. 2. Surgical drain within a persistent 8.2 x 4.6 x 4.9 cm perirectal abscess secondary to a previousl y identified leak at a distal rectal anastomosis. 3. Decreased size of a now very small left pleural effusion with bibasilar atelectasis. Reviewed, dictated and finalized at location A. MET COFFEE ATTENDANT IMPRESSION: 1. Persistent dilated small bowel proximal to the right lower quadrant loop ile ostomy without a discrete transition point and favor persistent adynamic ileus over obstruction. 2. Surgical drain within a persistent 8.2 x 4.6 x 4.9 cm perirectal abscess se condary to a previously identified leak at a distal rectal anastomosis. 3. Decreased size of a now very small left pleural effusion with bibasilar atel ectasis.
--- NOTE | ~2020-08-29 | XR_ITS ---
EXAMINATION: XR abdomen/kub 1V DATE: 09/06/2020 12:58 INDICATION: Ileus TECHNIQUE: A supine view of the abdomen on 2 radiographs was obtained. COMPARISON: Small bowel follow-through dated 09/06/2020 FINDINGS: Nasogastric tube tip in proximal side port likely in the stomach. Multiple mildly dilated loops of sm all bowel throughout the abdomen and pelvis. These are gas-filled proximally and there is some residu al more dilute oral contrast material in the more distal small bowel. Right lower quadrant ostomy rep ortedly a diverting loop ileostomy. Unchanged small amount of residual more dense oral contrast mater ial in the cecum and appendix. Surgical drain with distal tip in the deep pelvis. Midline pelvic skin cassius. Calcified nodule at the medial left lung base consistent with old granulomatous disease. Mo derate lower lumbar spondylosis. Partially visualized left total hip arthroplasty. IMPRESSION: 1. Multiple mildly dilated gas-filled loops of small bowel with decrease in the amount of residual di lute oral contrast material consistent with persistent small bowel ileus. Reviewed, dictated and finalized at location B. DULING AGENT IMPRESSION: 1. Multiple mildly dilated gas-filled loops of small bowel with decrease in the amount of residual dilute oral contrast material consistent with persistent sm all bowel ileus.
--- NOTE | ~2020-08-29 | CT_ITS ---
EXAMINATION: CT abdomen pelvis wo con DATE: 09/07/2020 10:22 INDICATION: Adynamic ileus. TECHNIQUE: Computed tomography (CT) of the abdomen and pelvis was performed without intravenous contr ast. Automated exposure control and iterative reconstruction technique were employed. The dose-length product was 1148.04 mGy-cm. COMPARISON: CT abdomen and pelvis 08/29/2020 FINDINGS: The visualized portions of the lung bases demonstrate small pleural effusions. There is dep endent atelectasis bilaterally. Emphysema is noted. A calcified left lung nodule and calcified left h ilar and mediastinal lymph nodes are consistent with old granulomatous disease. The heart size is nor mal. No pericardial effusion. The nasogastric tube tip is in the stomach. The liver is normal. Calcif ications in the spleen are consistent with old granulomatous disease. There is contrast in the gallbl adder, which is normal in size. The pancreas, adrenal glands, and right kidney are normal. There is a 3 mm stone in left kidney. A Miller catheter is noted. There is an anastomosis in the rectum. The sanjuana endix is normal. There is a diverting loop ileostomy in right abdomen. The proximal small bowel is di lated to the level of the ileostomy. There is a 5.6 x 5.2 x 9.2 cm collection of fluid and gas in the perirectal region. There is a surgical drain in the fluid collection. There are no pathologically en larged lymph nodes. There is a total left hip arthroplasty. There is osteolysis in the superior aceta bulum adjacent to the arthroplasty. There is a 12 mm nonaggressive lytic lesion in right ninth rib, m ost likely fibrous dysplasia. There is severe lumbar spondylosis. IMPRESSION: 1. Dilatation of proximal small bowel to the level of the ileostomy, consistent with adynamic ileus. 2. 5.6 x 5.2 x 9.2 cm postoperative fluid collection in the perirectal region with surgical drain in the collection. 3. Small pleural effusions. Reviewed, dictated and finalized at location A. OMIC DEVELOPMENT COORDINATOR IMPRESSION: 1. Dilatation of proximal small bowel to the level of the ileostomy, consistent with adynamic ileus. 2. 5.6 x 5.2 x 9.2 cm postoperative fluid collection in the perirectal region w ith surgical drain in the collection. 3. Small pleural effusions.
--- NOTE | ~2020-08-29 | XR_ITS ---
EXAMINATION: XR abdomen NG/feed tube insert DATE: 09/10/2020 10:23 INDICATION: Nasogastric tube placement TECHNIQUE: A supine view of the abdomen and lower chest was obtained for evaluation of feeding tube placement. COMPARISON: CT dated 09/07/2020 and radiograph dated 09/09/2020 FINDINGS: Nasogastric tube tip in proximal side port in the body of the stomach. Again seen are multiple dilate d gas-filled loops of small bowel in the central abdomen, some gas in the proximal colon. Mild left b asilar atelectasis. Heart size is normal. IMPRESSION: 1. Nasogastric tube in the stomach. 2. Persistent dilated gas-filled small bowel which could represent ileus or obstruction. 3. Mild left basilar atelectasis. Reviewed, dictated and finalized at location A. ATRY TEACHER IMPRESSION: 1. Nasogastric tube in the stomach. 2. Persistent dilated gas-filled small bowel which could represent ileus or obs truction. 3. Mild left basilar atelectasis.
--- NOTE | ~2020-08-29 | XR_ITS ---
EXAMINATION: XR abdomen NG/feed tube insert INDICATION: Nasogastric tube placement TECHNIQUE: Portable AP KUB-NG at 0 to 51 hours COMPARISON: 08/30/2020 FINDINGS: The nasogastric tube is in the stomach. There are multiple mildly dilated loops of small mady wel. A small amount of enteric contrast material from recent small bowel follow-through is seen in th e colon. Left basilar airspace opacities are consistent with atelectasis versus pneumonia. There is a partially imaged drain in the pelvis. IMPRESSION: 1. Nasogastric tube in the stomach. 2. Mildly dilated small bowel, likely adynamic ileus. Reviewed, dictated and finalized at location A. GROUND CLEANING ATTENDANT
--- NOTE | ~2020-08-29 | XR_ITS ---
EXAMINATION: XR abdomen/kub 1V EXAM DATE: 09/05/2020 13:22 INDICATION: Ileus. TECHNIQUE: Frontal projection of the upper abdomen, frontal projection lower abdomen/pelvis for inter pretation. Comparison is made to prior examination from 09/03/2020. FINDINGS: Sternotomy wires are present without findings to suggest sternal dehiscence. There is a espinosa rgical drain overlying the pelvis. Left hip arthroplasty. Contrast within colon and appendix. Severel y distended left upper quadrant small bowel, probably postoperative ileus. Feeding tube is in positio n. IMPRESSION: Severely distended small bowel, likely postoperative ileus. Reviewed, dictated and finalized at location A. ONAL RETAIL SALES MANAGER
--- NOTE | ~2020-08-29 | XR_ITS ---
EXAMINATION: XR abdomen obstructive series DATE: 09/09/2020 08:03 INDICATION: Bowel obstruction TECHNIQUE: Frontal supine and upright views of the abdomen were obtained. COMPARISON: CT dated 09/07/2020 FINDINGS: No significant change in multiple gas-filled mildly dilated loops of small bowel throughout the abdom en consistent with persistent ileus. Right lower quadrant diverting loop ileostomy. Residual small am ount of oral contrast material at the cecum. No free intraperitoneal gas. Surgical drain the central pelvis with multiple superimposed midline skin cassius. Suture line projecting over the region of the rectoanal junction. Partially visualized left total hip arthroplasty. Small left pleural effusion wi th mild left basilar atelectasis.. IMPRESSION: 1. No significant change in multiple mildly dilated gas-filled loops of small bowel and favor persis tent postoperative ileus over obstruction. 2. Small left pleural effusion with left basilar atelectasis. Reviewed, dictated and finalized at location A. IT COLLECTION SPECIALIST IMPRESSION: 1. No significant change in multiple mildly dilated gas-filled loops of small bowel and favor persistent postoperative ileus over obstruction. 2. Small left pleural effusion with left basilar atelectasis.
--- NOTE | ~2020-08-29 | XR_ITS ---
EXAMINATION: XR abdomen obstructive series DATE: 09/07/2020 08:42 INDICATION: Adynamic ileus. TECHNIQUE: Upright and supine views of the abdomen on 3 radiographs were obtained. COMPARISON: CT abdomen and pelvis 08/29/2020 FINDINGS: There are multiple dilated loops of small bowel. There is free intraperitoneal gas, consist ent with recent surgery. The nasogastric tube tip is in the stomach. There is a surgical drain in the pelvis. Skin cassius overlie the lower abdomen. There is a left hip arthroplasty. There are airspace opacities at left lung base, likely atelectasis. IMPRESSION: 1. Dilated small bowel, consistent with adynamic ileus. Reviewed, dictated and finalized at location A. DING ARCHITECT
--- NOTE | ~2020-08-29 | XR_ITS ---
EXAMINATION: XR abdomen/kub 1V DATE: 09/12/2020 08:02 INDICATION: Adynamic ileus. TECHNIQUE: A supine view of the abdomen on 2 radiographs was obtained. COMPARISON: CT abdomen and pelvis 09/10/2020, abdomen single view 09/10/2020 FINDINGS: There are multiple dilated loops of small bowel. The colon is decompressed. There is a surg ical drain overlying the pelvis. Skin cassius are noted. The nasogastric tube tip is in the stomach. There is a total left hip arthroplasty. IMPRESSION: 1. Persistently dilated small bowel, consistent with adynamic ileus. Reviewed, dictated and finalized at location A. AN/WOMAN
--- NOTE | ~2020-08-29 | XR_ITS ---
EXAMINATION: XR sm bowel follow through WS EXAM DATE: 09/06/2020 03:50 INDICATION: Post-op loop ileostomy, ileus. TECHNIQUE: Magnetic Resonance Imaging Coordinator radiograph was acquired. Small bowel series was performed with water-soluble contr ast solution. Reportedly a total of 225 mL of Omnipaque 350 solution was injected through the nasogas tric tube. Fluoroscopy time of 0.0 minutes, with 15 KUB images obtained portably. FINDINGS: Magnetic Resonance Imaging Coordinator image demonstrates feeding tube in expected position and some contrast within the cec um and appendix, along with severely distended jejunum. On a 2 hour image contrast identified in stom ach and single loop of jejunum, slow progression. On a 3 1/2 hour image contrast within several other loops of severely distended small bowel. A 5 hour image has further progression of additional loops of severely distended small bowel bowel. Can't appreciate any interval change between the 5 hour imag e and subsequent 7 hour, 9 hour and 11 hour images. There is no evidence of contrast reached the term inal ileum on that exam, and exam was ended. No evidence of contrast extravasation. Laparotomy cassius, left pelvic drain, left hip replacement. IMPRESSION: Severely distended jejunum without transit to colon during 11 hours of images. Given his tory of recent operation, most likely postoperative ileus. Obstruction can have similar radiographic appearance. Reviewed, dictated and finalized at location A. O MACHINE OPERATOR IMPRESSION: Severely distended jejunum without transit to colon during 11 hour s of images. Given history of recent operation, most likely postoperative ileus . Obstruction can have similar radiographic appearance.
--- NOTE | ~2020-08-29 | US_ITS ---
EXAMINATION: US renal BI DATE: 09/18/2020 11:11 INDICATION: Renal failure. TECHNIQUE: Multiple ultrasound grayscale images of the kidneys were obtained. COMPARISON: CT abdomen and pelvis 09/10/2020 FINDINGS: The right kidney measures 12.1 x 5.2 x 5.8 cm. The left kidney measures 11.2 x 6.8 x 4.8 cm. The kidn eys demonstrate normal parenchymal echogenicity. There is no hydronephrosis. The bladder is normal. T here is a Miller catheter in the bladder. IMPRESSION: 1. Normal kidneys. No hydronephrosis. Reviewed, dictated and finalized at location A. CATTLE FARM WORKER
--- NOTE | ~2020-08-29 | CT_ITS ---
EXAMINATION: CT brain wo con DATE: 09/17/2020 20:31 INDICATION: Status post fall. Head trauma. Headache. TECHNIQUE: Computed tomography (CT) of the head was performed without intravenous contrast. The dose- length product was 605.33 mGy-cm. The mA was adjusted according to patient size. Iterative reconstruc tion technique was employed. COMPARISON: None FINDINGS: Brain parenchymal volume is normal. There are scattered mild periventricular and subcortica l white matter changes, most likely related to small vessel ischemic disease (microangiopathy). No ve ntriculomegaly or midline shift. Basilar cisterns are patent. There is intracranial atherosclerosis. There is mucosal thickening of the paranasal sinuses. No acute intracranial hemorrhage, infarction, m ass or mass effect. No depressed skull fractures. IMPRESSION: 1. No acute intracranial abnormality. 2: Chronic age-related findings. Reviewed, dictated and finalized at location A. EXPANDER
--- NOTE | ~2020-08-29 | XR_ITS ---
EXAMINATION: XR abdomen obstructive series DATE: 09/03/2020 07:52 INDICATION: Nasogastric tube placement TECHNIQUE: Upright and supine views of the abdomen were obtained. COMPARISON: 09/02/2020 FINDINGS: The nasogastric tube is in the stomach. There are are multiple dilated loops of small bowel in the left abdomen. No free intraperitoneal gas is identified. A surgical drain is present in the p tyler. A rectal anastomosis is noted. There are midline surgical cassius. A small amount of contrast material is seen in the cecum and appendix related to recent small bowel follow-through. There are ch anges of left total hip arthroplasty. IMPRESSION: 1. Nasogastric tube in the stomach. 2. Dilated small bowel, likely adynamic ileus. Reviewed, dictated and finalized at location A. ESS ENGINEER
--- NOTE | ~2020-08-29 | XR_ITS ---
EXAMINATION: XR sm bowel follow through WS DATE: 08/30/2020 15:01 INDICATION: Rectal anastomotic leak. Unable to perform water-soluble enema due to the inferior positi oning of the anastomosis. TECHNIQUE: Bundle Tier radiograph(s) of the abdomen was/were obtained. Oral contrast was administered, and sequential radiographs of the abdomen were obtained until oral contrast was noted to be in the rectu m. COMPARISON: CT dated 08/29/2020 FINDINGS: Bundle Tier image demonstrates the formed loop of a percutaneous left transgluteal abscess drain coiled in the region of the presacral space. Partially visualized noncemented left total hip arthroplasty. Resendiz sit time from the stomach to proximal colon was approximately 30 minutes with contrast reaching the r ectum by 2 hours. There is normal caliber and mucosal fold pattern throughout the small bowel. IMPRESSION: 1. Normal small bowel follow-through with contrast having reached the rectum. No definitive contrast accumulation within the drainage catheter. A noncontrast CT of the pelvis is planned for more sensiti ve assessment of contrast extravasation into the presacral abscess cavity. See subsequent CT report t o follow for further detail. Reviewed, dictated and finalized at location A. MITE PACKING MACHINE OPERATOR IMPRESSION: 1. Normal small bowel follow-through with contrast having reached the rectum. N o definitive contrast accumulation within the drainage catheter. A noncontrast CT of the pelvis is planned for more sensitive assessment of contrast extravasa tion into the presacral abscess cavity. See subsequent CT report to follow for further detail.
--- NOTE | ~2020-08-29 | CT_ITS ---
EXAMINATION: CT pelvis wo con DATE: 08/30/2020 15:57 INDICATION: Abdominal pain and bloating. TECHNIQUE: High resolution computed tomography (CT) of the pelvis was performed without intravenous c ontrast. Additional sagittal and coronal reconstructions were performed. Automated exposure control a nd iterative reconstruction technique were employed. The dose-length product was 732.63 mGy-cm. COMPARISON: 08/29/2020 FINDINGS: Large amount of water-soluble oral contrast material from the prior small bowel study extends through out the visualized bowels including the normal appendix and throughout the colon to the anus. There i s an approximately 9 mm diameter defect in the right posterolateral wall at the distal rectal anastom osis. Contrast, small amount of gas and small amount of likely clot or feculent material fills an sanjuana roximately 7.8 x 6.1 x 3.8 cm abscess cavity in the presacral space. The drainage catheter which had been clamped for the 30 minutes prior to imaging remains positioned at the left side of the abscess c avity. Following imaging the catheter was unclamped and suction drainage reinitiated with drainage of opaque santana-colored fluid. The bladder is decompressed with a Miller catheter in place. No free intrap erineal fluid or other loculated fluid collections identified in the pelvis or visualized lower abdom en. No pathologically enlarged pelvic or inguinal lymphadenopathy. Left total hip arthroplasty. Apurva re lower lumbar spondylosis. IMPRESSION: 1. Anastomotic leak at the distal rectum with contrast extending into a 7.8 x 6.1 x 3.8 cm presacral abscess cavity through a 9 mm diameter defect. The left transgluteal abscess drainage catheter remain s appropriately positioned within the abscess cavity. Reviewed, dictated and finalized at location A. GY CONSULTANT IMPRESSION: 1. Anastomotic leak at the distal rectum with contrast extending into a 7.8 x 6 .1 x 3.8 cm presacral abscess cavity through a 9 mm diameter defect. The left t ransgluteal abscess drainage catheter remains appropriately positioned within t he abscess cavity.
--- NOTE | ~2020-08-29 | CT_ITS ---
EXAMINATION: CT abdomen pelvis w con INDICATION: Right lower quadrant pain, history of rectal cancer and perirectal abscess drain TECHNIQUE: Computed tomographic images of the abdomen and pelvis were obtained after the administrati on of 100 cc of Omnipaque 350 intravenous contrast. The dose-length product (DLP) was 924.54 mGy-cm. Automated exposure control and iterative reconstruction technique were employed. COMPARISON: 08/23/2020 and 08/19/2020 FINDINGS: Minimal dependent atelectasis is present in the lung bases. The heart size is normal. There is a 6 mm cyst of the right hepatic lobe. The spleen, pancreas, gallbladder, and adrenal glands are normal. Hypoattenuating lesions in the kidneys, measuring up to 6 mm on the right, are too small to c haracterize but likely represent cysts. There is 3 mm nonobstructing stone of the left kidney. No pat hologically enlarged abdominal or pelvic lymph nodes are identified. The appendix is normal. There is a presacral abscess containing a drain which is slightly decreased in size since the prior examinati on measuring approximately 5.0 x 2.6 x 8.3 cm. The gas-containing component of the abscess has decrea sed in size however there appears to be slight increase in the fluid component. The bladder is decomp ressed by Miller catheter. There is severe lumbar spondylosis. Changes of left total hip arthroplasty are noted. There is calcified atherosclerosis of the aorta and many of the other arteries. IMPRESSION: 1. Presacral abscess containing a drain with overall slight decrease in size although this is predomi nantly related to decrease in volume of the gas-containing component as the fluid component appears t o have slightly increased in volume. Reviewed, dictated and finalized at location A. NEYMAN PRESSMAN IMPRESSION: 1. Presacral abscess containing a drain with overall slight decrease in size al though this is predominantly related to decrease in volume of the gas-containin g component as the fluid component appears to have slightly increased in volume .
[2020-08-29] MEDS: MORPHINE SULFATE (*CRX) 4 MG/ML INJ IV PUSH ×2 (17:19→21:03)
[2020-08-29 17:31] LABS: Basophils Absolute Auto 0.1 K/mm3 (0.0-0.1); Basophils Percent Auto 0.4 % (0.2-1.2); Eosinophils Absolute Auto 0.1 K/mm3 (0-0.3); Eosinophils Percent Auto 0.3 % (0-4.4); Hematocrit 36.3 % (42.0-52.0); Hemoglobin 12.4 g/dL (14.0-18.0); Immature Granulocyte Absolute 0.29 K/mm3 (0.00-0.031); Lymphocytes Absolute Auto 0.59 K/mm3 (0.9-3.2); Lymphocytes Percent Auto 4.1 % (18.3-44.2); Mean Corpuscular HGB Conc 34.2 g/dl (32-36); Mean Corpuscular Hemoglobin 33.5 pg (26-34); Mean Corpuscular Volume 98.1 fl (80-100); Mean Platelet Volume 9.9 fl (7.4-10.4); Monocytes Absolute Auto 1.2 K/mm3 (0.1-0.6); Monocytes Percent Auto 8.3 % (2.6-8.5); Neutrophils Absolute Auto 12.3 K/mm3 (1.3-6.7); Neutrophils Percent Auto 84.9 % (45.5-73.1); Platelet Count Result 589 k/mm3 (150-375); Red Cell Distribution Width 13.9 % (11.5-14.5); White Blood Count 14.5 K/mm3 (4.5-10.0)
[2020-08-29 17:42] LABS: INR 1.1; Prothrombin Time 14.3 Seconds (11.1-14.7)
[2020-08-29 17:43] LABS: Partial Thromboplastin Time 34.5 SECONDS (22.3-36.8)
[2020-08-29 17:44] LABS: Anion Gap 9 mmol/L (8-16); Blood Urea Nitrogen 14 mg/dL (9-20); Carbon Dioxide 31 mmol/L (22-30); Chloride 87 mmol/L (98-107); Estimated CRCL calculation 76 ml/min; Estimated Glomerular Filt Rate > 60; Glucose 133 mg/dL (75-110); Potassium 3.6 mmol/L (3.4-5.0); Sodium 127 mmol/L (137-145)
--- NOTE | 2020-08-29 17:51 | ED.ABDPAIN ---
HPI - Abdominal Pain General Chief Complaint: Abdominal Pain <Justo Briceño MD - Last Filed: 08/29/20 18:27> Stated Complaint: rlq pain <Justo Briceño MD - Last Filed: 08/29/20 18:27> Time Seen by Provider: 08/29/20 16:28 <Justo Briceño MD - Last Filed: 08/29/20 18:27> History of Present Illness HPI narrative: Patient is a 62-year-old male who presents ER with lower abdominal pain. Patient has recently been in the hospital for colon cancer with 3 anastomosis. He then developed a subsequent reanastomotic leak and a pelvic fluid collection. A percutaneous drain was placed on his last admission and fluid culture grew E. coli and Enterococcus. Patient was recently discharged home. He reports he has not been getting drainage out of the drain over the last couple days when his comes it. Today he developed severe lower abdominal pain on the right side similar toward previously had abdominal pain when the elastic leak presented. He reports fever/chills. No chest pain or chest pressure. He has had some nausea and vomiting. Operation performed by Dr. Robertson. <Justo Briceño MD - Last Filed: 08/29/20 18:27> Related Data Home Medications: Home Medications Medication Instructions Recorded Confirmed hydrochlorothiazide 25 mg tablet 25 mg PO DAILY 12/28/19 08/29/20 lisinopril 10 mg tablet 10 mg PO DAILY 12/28/19 08/29/20 albuterol sulfate 2 puff INHALATION QID PRN 01/10/20 08/29/20 aspirin 325 mg PO DAILY 04/20/20 08/29/20 <Justo Briceño MD - Last Filed: 08/29/20 18:27> Allergies/Adverse Reactions: Allergies Allergy/AdvReac Type Severity Reaction Status Date / Time No Known Allergies Allergy Verified 08/29/20 23:25 <Justo Briceño MD - Last Filed: 08/29/20 18:27> Review of Systems Review of Systems: All systems reviewed & are unremarkable except as noted in HPI and below <Justo Briceño MD - Last Filed: 08/29/20 18:27> Constitutional: Constitutional: Reports chills, Reports fever(s) and Denies weakness <Justo Briceño MD - Last Filed: 08/29/20 18:27> ENT: Denies nasal congestion and Denies sore throat <Justo Briceño MD - Last Filed: 08/29/20 18:27> Cardiovascular: Cardiovascular: Denies chest pain and Denies radiating jaw, neck or arm pain <Justo Briceño MD - Last Filed: 08/29/20 18:27> Respiratory: Respiratory: Denies cough, Denies dyspnea and Denies wheezing <Justo Briceño MD - Last Filed: 08/29/20 18:27> Gastrointestinal: Gastrointestinal: Reports abdominal pain, Denies diarrhea, Reports nausea and Reports vomiting <Justo Briceño MD - Last Filed: 08/29/20 18:27> Genitourinary: Comments: Miller catheter in place. <Justo Briceño MD - Last Filed: 08/29/20 18:27> [facility] Past Medical History Medical History: Medical History Arthritis, lumbar spine Chronic low back pain Chronic obstructive pulmonary disease Essential hypertension Normal cardiac stress test (~12/2019) With normal MPI and an ejection fraction of 62%. Osteoarthritis Paroxysmal atrial fibrillation Paroxysmal supraventricular tachycardia Primary colorectal adenocarcinoma (~04/2020) Status post neoadjuvant chemoradiation and resection on 08/09/2020. Shingles (~2015) <Justo Briceño MD - Last Filed: 08/29/20 18:27> Surgical History Surgical History: Surgical History History of colonoscopy 04/20/2020 History of rectal surgery (~08/09/20) Hand assisted laparoscopic low anterior resection with low pelvic anastomosis for colorectal adenocarcinoma per Dr. Robertson. History of repair of rotator cuff (~2007) Bilateral repair per Dr. Fitzgerald. History of total left hip arthroplasty (~01/10/20) <Justo Briceño MD - Last Filed: 08/29/20 18:27> Family History Family History: Family History (Reviewed 08/29/20 @ 22:43 b
[2020-08-29] MEDS: HYDROmorphone HCL INJ (*CRX) 1 MG/ML SYR IV PUSH (19:22)
[2020-08-29] MEDS: LACTATED RINGERS 1,000 ML 125 ML IV CONT (21:04)
--- NOTE | 2020-08-29 22:33 | ADMGEN ---
This patient, Isma Nieves, was admitted to Medical Room 249-01. Patient/family oriented to hospital policies and general routines including ID bracelet, bed and alarms, visiting hours, pain management, procedures, bathroom and other care routines, personal items, smoking policy, room service/diet, and visiting hours. Information on how to activate the Rapid Response Team has been discussed. Patient/Family are encouraged to report perceived risks to care and to ask questions if they do not understand what they are told or what they should do.
[2020-08-30] MEDS: HYDROcodone/acetaminophen (*CRX) 7.5-325 MG TABLET 1 TAB PO (00:23)
[2020-08-30] MEDS: AMOXICILLIN/CLAVULANATE K 875-125 MG TAB 1 TABLET PO ×2 (00:24→08:54)
[2020-08-30] MEDS: MORPHINE SULFATE (*CRX) 4 MG/ML INJ IV PUSH ×3 (03:37→09:08)
[2020-08-30 04:31] LABS: Add Urine Microscopic? YES; Appearance Urine Clear (Clear); Bacteria Urine Trace /hpf; Bilirubin Urine Negative (Negative); Blood Urine 1+ (Negative); Color Urine Yellow (Yellow); Glucose Urine UA Negative (Negative); Ketones Urine Negative (Negative); Leukocyte Esterase Ur 1+ LEU/UL (Negative); Mucus Urine Rare /lpf; Nitrate Urine Negative (Negative); Protein Urine 1+ mg/dL (Negative); RBC Urine 0-2 /hpf (0-2)
[2020-08-30 04:34] LABS: Specific Grav Ur 1.038 (1.001-1.035)
[2020-08-30] MEDS: LACTATED RINGERS 1,000 ML 125 ML IV CONT ×2 (05:35→18:18)
[2020-08-30 05:50] LABS: Hemoglobin 11.4 g/dL (14.0-18.0); Mean Corpuscular HGB Conc 33.5 g/dl (32-36); Mean Corpuscular Hemoglobin 33.1 pg (26-34); Mean Corpuscular Volume 98.8 fl (80-100); Mean Platelet Volume 10.1 fl (7.4-10.4); Platelet Count Result 510 k/mm3 (150-375); Red Blood Count 3.44 M/mm3 (4.6-6.20); Red Cell Distribution Width 13.9 % (11.5-14.5)
[2020-08-30 06:00] VITALS: BP 110/57; PULSE 58; RESP 20; TEMP 36.1; O2SAT 98
[2020-08-30 06:00] LABS: Anion Gap 6 mmol/L (8-16); Blood Urea Nitrogen 13 mg/dL (9-20); Calcium 9.5 mg/dL (8.4-10.2); Carbon Dioxide 33 mmol/L (22-30); Chloride 91 mmol/L (98-107); Estimated CRCL calculation 76 ml/min; Estimated Glomerular Filt Rate > 60; Glucose 114 mg/dL (75-110); Potassium 3.7 mmol/L (3.4-5.0); Sodium 130 mmol/L (137-145)
[2020-08-30 08:52] VITALS: PULSE 62
[2020-08-30] MEDS: METOPROLOL SUCCINATE EXT REL 50 MG TABCR PO (08:52)
[2020-08-30] MEDS: ASPIRIN 325 MG TABLET PO (08:52)
[2020-08-30] MEDS: hydroCHLOROthiazide 25 MG TABLET PO (08:52)
[2020-08-30] MEDS: lisinopriL 10 MG TABLET PO (08:52)
[2020-08-30 08:54] VITALS: PULSE 62
[2020-08-30] MEDS: AMIODARONE HCL 200 MG TABLET PO (08:54)
[2020-08-30] MEDS: TOLNAFTATE 1% POWDER 45 GM BTL 1 APPLIC TOPICAL ×2 (09:12→17:48)
--- NOTE | 2020-08-30 09:26 | PM.IMHP ---
H&P: HPI History of Present Illness Date/Time: 08/30/20 09:26 Chief Complaint: Pelvic pain Narrative: Isma Nieves is a 70 year old male who presented back to the emergency department last night with severe lower abdominal and right groin pain that started yesterday. He states he had 1 bowel movement yesterday afternoon and then the pain became more severe after this. He was having multiple bowel movements the day prior to this. He originally underwent low anterior resection for rectal cancer on 08/09/2020. He had an uneventful hospital stay and was discharged on 08/14/2020. He then presented to the emergency department on 08/19/2020 with worsening abdominal pain and was found to have evidence of an anastomotic leak. This appeared to be a small contained leak and it was percutaneously drained. He was kept NPO for several days and then slowly started back on a liquid diet. He was progressed to a solid diet and had very little if any output from the drain at this point. He was then discharged on 08/26/2020 with the drain still in place. Plan was to have the patient have a follow-up CT this week and follow up in the office for possible drain removal. In the emergency department last night, a repeat CT showed smaller size of the abscess near the anastomosis but slightly larger fluid component compared to previously. The patient continues to have severe colicky pain that is mostly in the lower pelvis and groin region. The pigtail drain was irrigated in the emergency department and he does seem to have more output since this was irrigated. He states that he feels like he needs to pass gas or have a bowel movement but cannot. Review of Systems Review of Systems: All systems reviewed & are unremarkable except as noted in HPI and below Constitutional: Constitutional: Reports chills and Denies fever(s) Gastrointestinal: Gastrointestinal: Reports as per HPI [facility] Past Medical History Medical History Arthritis, lumbar spine Chronic low back pain Chronic obstructive pulmonary disease Essential hypertension Normal cardiac stress test (~12/2019) With normal MPI and an ejection fraction of 62%. Osteoarthritis Paroxysmal atrial fibrillation Paroxysmal supraventricular tachycardia Primary colorectal adenocarcinoma (~04/2020) Status post neoadjuvant chemoradiation and resection on 08/09/2020. Shingles (~2016) Surgical History Surgical History History of colonoscopy 04/20/2020 History of rectal surgery (~08/09/20) Hand assisted laparoscopic low anterior resection with low pelvic anastomosis for colorectal adenocarcinoma per Dr. Robertson. History of repair of rotator cuff (~2007) Bilateral repair per Dr. Fitzgerald. History of total left hip arthroplasty (~01/10/20) Family History Family History Father , age 91 Cancer Skin cancer, Bladder, cancer, Lung cancer Heart disease Sibling Cancer skin cancer Diabetes mellitus Kidney disease Mother , age 95 Cancer Skin cancer, lung cancer Social History Social History Social History: The patient lives in [place], [place] with his and their 2 laboratories. 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 He smoked up to 1.5 packs of cigarettes per day and quit in September 2019. He drinks alcohol socially and in moderation. Denies illicit substance use. His , Rohini Nieves, is his surrogate decision maker and he wishes to be a full code. Smoking packs per day: 2 Smoking cigarettes per day: 40.0 Years smoked: 50 Smoking pack-years: 100.00 Smoking status: Former smoker Tobacco type: cigarettes Second hand tobacco smoke exposure: Yes Smoking end date: 10/08/19 Additional sm
[2020-08-30] MEDS: HYDROmorphone HCL INJ (*CRX) 1 MG/ML SYR 0.5 MG IV PUSH (10:29)
--- NOTE | 2020-08-30 12:04 | PC.NURSE ---
pt. left floor at 12:04 for radiology via stretcher
[2020-08-30 14:00] VITALS: BP 108/54; PULSE 63; RESP 16; TEMP 36; O2SAT 99
[2020-08-30] MEDS: HYDROmorphone HCL INJ (*CRX) 1 MG/ML SYR IV PUSH ×2 (17:51→20:19)
[2020-08-30 20:00] VITALS: PULSE 61; RESP 18; O2SAT 100
[2020-08-30 21:56] VITALS: BP 113/67; PULSE 61; RESP 18; TEMP 36.4; O2SAT 100
[2020-08-31] VITALS (17 sets, daily range): BP systolic 105–142; BP diastolic 56–84; PULSE 67–85; RESP 12–18; TEMP 36.2–37.2; O2SAT 92–100
[2020-08-31] MEDS: HYDROmorphone HCL INJ (*CRX) 1 MG/ML SYR IV PUSH ×7 (00:03→21:32)
[2020-08-31] MEDS: LACTATED RINGERS 1,000 ML 125 ML IV CONT ×3 (03:48→19:31)
[2020-08-31 05:29] LABS: Hematocrit 30.7 % (42.0-52.0); Hemoglobin 10.5 g/dL (14.0-18.0); Mean Corpuscular HGB Conc 34.2 g/dl (32-36); Mean Corpuscular Hemoglobin 32.9 pg (26-34); Mean Corpuscular Volume 96.2 fl (80-100); Mean Platelet Volume 10.1 fl (7.4-10.4); Platelet Count Result 472 k/mm3 (150-375); Red Blood Count 3.19 M/mm3 (4.6-6.20); Red Cell Distribution Width 13.8 % (11.5-14.5); White Blood Count 13.6 K/mm3 (4.5-10.0)
[2020-08-31 05:41] LABS: Anion Gap 5 mmol/L (8-16); Blood Urea Nitrogen 10 mg/dL (9-20); Calcium 8.6 mg/dL (8.4-10.2); Carbon Dioxide 30 mmol/L (22-30); Chloride 92 mmol/L (98-107); Estimated CRCL calculation 84 ml/min; Estimated Glomerular Filt Rate > 60; Glucose 115 mg/dL (75-110); Potassium 3.3 mmol/L (3.4-5.0); Sodium 127 mmol/L (137-145)
--- NOTE | 2020-08-31 06:17 | PC.NURSE ---
Pt to OR per bed, S bar faxed to pre-op, glasses, dentures and cell phone with pt to OR.
--- NOTE | 2020-08-31 06:49 | WPDANESEPPF ---
Anes - Initial Pre Proc Eval Procedure: Operation Date: 08/31/20 07:30 Proposed Procedures p Open Loop Ileostomy, Possible Diverting Colostomy - Caesar Robertson DO Date/Time: 08/31/20 06:49 Surgeon: Dimitri Lozada MD Pre Op Diagnosis: Intraabdominal abscess Patient Data Age: 70 Gender: M Height: 1.83 m Weight: 95 kg Last Vital Signs Temp 36.2 C L 08/31/20 04:55 Pulse 69 08/31/20 04:55 Resp 18 08/31/20 04:55 BP 105/65 08/31/20 04:55 Pulse Ox 97 08/31/20 04:55 Allergies Allergy/AdvReac Type Severity Reaction Status Date / Time No Known Allergies Allergy Verified 08/29/20 23:25 Home Medications Medication Instructions Recorded Confirmed Type hydrochlorothiazide 25 mg tablet 25 mg PO DAILY 12/28/19 08/29/20 History lisinopril 10 mg tablet 10 mg PO DAILY 12/28/19 08/29/20 History albuterol sulfate 2 puff INHALATION QID PRN 01/10/20 08/29/20 History aspirin 325 mg PO DAILY 04/20/20 08/29/20 History metoprolol succinate 50 mg 50 mg PO DAILY #30 tablet 05/04/20 08/29/20 Rx tablet,extended release 24 hr amiodarone 200 mg tablet 200 mg PO DAILY #30 tablet 06/26/20 08/29/20 Rx hydrocodone 5 mg-acetaminophen 325 1 tablet PO Q4H PRN #20 tablet 08/18/20 08/29/20 Rx mg tablet amoxicillin-pot clavulanate 1 tablet PO Q12H #14 tablet 08/26/20 08/29/20 Rx [Augmentin] nystatin 1 applic TOPICAL BID 08/30/20 08/30/20 History Laboratory Tests 08/30/20 08/31/20 08/31/20 18:41 05:05 05:05 WBC 13.6 K/mm3 H K/mm3 (4.5-10.0) RBC 3.19 M/mm3 L M/mm3 (4.6-6.20) Hgb 10.5 g/dL L g/dL (14.0-18.0) Hct 30.7 % L % (42.0-52.0) MCV 96.2 fl fl (80-100) MCH 32.9 pg pg (26-34) MCHC 34.2 g/dl g/dl (32-36) RDW 13.8 % % (11.5-14.5) Plt Count 472 k/mm3 H k/mm3 (150-375) MPV 10.1 fl fl (7.4-10.4) Sodium 127 mmol/L L mmol/L (137-145) Potassium 3.3 mmol/L L mmol/L (3.4-5.0) Chloride 92 mmol/L L mmol/L (98-107) Carbon Dioxide 30 mmol/L mmol/L (22-30) Anion Gap 5 mmol/L L mmol/L (8-16) BUN 10 mg/dL mg/dL (9-20) Creatinine 0.80 mg/dL mg/dL (0.7-1.3) Estim Creat Clear Calc 84 ml/min ml/min Estimated GFR > 60 (59 - ) Glucose 115 mg/dL H mg/dL (75-110) Calcium 8.6 mg/dL mg/dL (8.4-10.2) Blood Type A Positive Antibody Screen Negative ECG: Date of Service: 08/10/20 Procedure(s): CA 12 lead EKG Accession Number(s): [id number] cc: ~ Measurements Intervals [place] Rate: 76 P: 45 GA: 159 QRS: 26 QRSD: 109 T: 12 QT: 409 QTc: 463 Interpretive Statements SINUS RHYTHM BORDERLINE T WAVE ABNORMALITY- INFERIOR LEADS BASELINE ARTIFACT- I, III, AVL BORDERLINE ECG Electronically Signed On 08-10-2020 8:53:36 [employer] by James Aldana D.O. Dictated By: James Aldana DO 08/10/20 0154 Other Studies: Exam Date: 05/24/2020 1:01 PM Summary 1. Complete two-dimensional, color flow and Doppler transthoracic echocardiogram is performed. 2. Left ventricular chamber dimension is normal. 3. Left ventricular systolic function is normal, estimated at 60-65%. 4. There is moderately increased left ventricular wall thickness. 5. The left ventricular diastolic function is grade II diastolic dysfunction. 6. E/e' 12 is mildly elevated. 7. Global longitudinal strain is slightly abnormal at -16.9%. 8. There is mild aortic valve sclerosis. 9. There is trace tricuspid valve regurgitation. 10. No pulmonary hypertension, estimated pulmonary arterial sy
--- NOTE | 2020-08-31 07:20 | WPDHPUPDATE1 ---
History and Physical Update Update Date/Time: 08/31/20 07:20 History and Physical has been reviewed, including an updated exam of the patient. There are NO changes in the patient's condition. Risks, benefits, and alternatives have been discussed and questions answered. Patient agrees to proceed with procedure.
--- NOTE | 2020-08-31 07:20 | PM.PNGS ---
Subjective Subjective Date/Time Seen: 08/31/20 07:20 Interval history: I discussed the CT results with Dr. Friend in radiology yesterday. He has evidence of a persistent anastomotic leak and has failed conservative measures with bowel rest and percutaneous drainage. Will proceed with loop ileostomy, possible end colostomy. I discussed with him that if most of the anastomosis appears intact, I can try to allow further healing with the loop ileostomy. If his anastomosis appears to be very weak or ischemic, I may need to give him an end colostomy which would likely be permanent given how low on the rectum this is. Further drainage or repair of the anastomosis is also a possibility. Patient was marked in preop by the ostomy nurse. All Questions were answered. Objective Data Vital Signs Vital Signs: Vital Signs - 24 hr 08/30/20 08:52 08/30/20 08:54 08/30/20 14:00 Temperature 36.0 C L Pulse Rate 62 62 63 Respiratory Rate 16 Blood Pressure 108/54 L Pulse Oximetry 99 08/30/20 20:00 08/30/20 21:56 08/31/20 04:55 Temperature 36.4 C 36.2 C L Pulse Rate 61 61 69 Respiratory Rate 18 18 18 Blood Pressure 113/67 105/65 Pulse Oximetry 100 100 97 08/31/20 06:25 Temperature 37.2 C Pulse Rate 67 Respiratory Rate 16 Blood Pressure 118/72 Pulse Oximetry 98 Intake/Output Intake/Output: Intake & Output 08/28/20 08/29/20 08/30/20 08/31/20 23:59 23:59 23:59 23:59 Intake Total 3320 1370 Output Total 1520 750 Balance 1800 620 Meds/Results Medications: Active Medications Generic Name Dose Route Start Last Admin Trade Name Freq PRN Reason Stop Dose Admin Albuterol 2 puff 08/29/20 23:46 Albuterol Sulfate (*Sp) Aerosol 1 Puff INHALATION QID PRN Dyspnea Amiodarone HCl 200 mg 08/30/20 08:00 08/30/20 08:54 Amiodarone Hcl 200 Mg Tablet PO 200 mg DAILY@0800 ASHELY Administration Amoxicillin/Clavulanate Potassium 1 tablet 08/30/20 08:00 08/30/20 08:54 Amoxicillin/Clavulanate K 875-125 Mg Tab PO 1 tablet ASHELY Administration Fentanyl Citrate 25 mcg 08/31/20 06:48 Fentanyl Citrate Inj (*Crx) 100 Mcg/2 Ml Vial IV PUSH Q2M PRN Pain Hydrochlorothiazide 25 mg 08/30/20 09:00 08/30/20 08:52 Hydrochlorothiazide 25 Mg Tablet PO 25 mg DAILY ASHELY Administration Hydromorphone HCl 1 mg 08/30/20 09:22 08/31/20 04:40 Hydromorphone Hcl Inj (*Crx) 1 Mg/Ml Syr IV PUSH 1 mg Q2H PRN Administration Pain Rated 7-10 Hydromorphone HCl 0.5 mg 08/30/20 09:40 08/30/20 10:29 Hydromorphone Hcl Inj (*Crx) 1 Mg/Ml Syr IV PUSH 0.5 mg Q2H PRN Administration Pain Rated 4-6 Hydromorphone HCl 0.25 mg 08/31/20 06:48 Hydromorphone Hcl Inj (*Crx) 1 Mg/Ml Syr IV PUSH Q5M PRN Pain Lactated Ringer's 1,000 mls @ 125 mls/hr 08/29/20 20:45 08/31/20 03:48 Lr - Lactated Ringers Iv IV CONT 125 mls/hr .Q8H ASHELY Administration Acetaminophen 1,000 mg in 100 mls @ 400 mls/hr 08/30/20 12:00 08/31/20 06:13 Ofirmev 1,000 Mg Ivpb IVPB 08/31/20 12:01 Infused Q6HR ASHELY Infusion Piperacillin/Tazobactam/Dextrose 3.375 gm in 50 mls @ 100 mls/hr 08/30/20 12:00 08/31/20 05:47 Zosyn 3.375 Gm/D5w 50ml Pm IVPB Infused Q6H ASHELY Infusion Lactated Ringer's 1,000 mls @ 30 mls/hr 08/31/20 06:50 Lr - Lactated Ringers Iv IV CONT .Q24H ASHELY Lactated Ringer's 1,000 mls @ 30 mls/hr 08/31/20 06:50 Lr - Lactated Ringers Iv IV CONT .Q24H ASHELY Lisinopril 10 mg 08/30/20 09:00 08/30/20 08:52 Lisinopril 10 Mg Tablet PO 10 mg DAILY ASHELY Administration Lorazepam 0.5 mg 08/29/20 23:41 Lorazepam Inj (*Crx) 2 Mg/Ml Vial IV PUSH Q6H PRN Anxiety Metoprolol Succinate 50 mg 08/30/20 09:00 08/30/20 08:52 Metoprolol Succinate Ext Rel 50 Mg Tabcr PO 50 mg DAILY ASHELY Administration Ondansetron HCl 4 mg 08/31/20 06:48 Ondansetron Inj 4 Mg/2 Ml Vial IV PUSH ONCE PRN Nausea
--- NOTE | 2020-08-31 07:30 | PCWOUND ---
wocn note met patient in PreOP room, received orders to juanita patient abdomen for ileostomy and possible colostomy. Both right and left sides marked with black X . Dr Robertson present in the wound room after marking, approved both sites. Will follow patient after surgery for ostomy education.
--- NOTE | 2020-08-31 08:07 | SUR.OPER ---
arrives with left transgluteal abscess drain/off to patient right clamp valve wrapped with gauze and tape/patient not lying on clamp. drain bag on side of bed and draining tannish brown liquid/+ stool odor. arrives with montero bag/montero secure on right medial anterior thigh/montero off to right to anesthesia to gravity. 175ml escobar clear u/a emptied on arrival/montero bag leaking and new bag placed.
[2020-08-31] MEDS: LACTATED RINGERS 1,000 ML 30 ML IV CONT ×2 (08:51→09:51)
--- NOTE | 2020-08-31 09:06 | SUR.OPER ---
montero emptied 25ml of escobar u/a 0906.
--- NOTE | 2020-08-31 10:02 | PM.PROC ---
Procedure Note - Detailed Date of procedure: 08/31/20 Pre-op diagnosis: Anastomotic leak, rectal cancer Post-op diagnosis: same Procedure performed: Diverting loop ileostomy Description of procedure: Procedure as well as risks, benefits, and alternatives were discussed with the patient. Written consent was obtained and placed in chart prior to procedure. The patient was marked by the ostomy nurse in preop for both right lower quadrant ileostomy and left lower quadrant end colostomy. Patient was brought back to surgical suite. He was placed supine on operating table. Time-out was done to confirm patient and procedure. He was intubated by the Anesthesia Department. His abdomen was prepped and draped in sterile fashion using chlorhexidine prep. A 10 cm vertical midline incision was made in the lower abdomen using a 10 blade scalpel. Electrocautery was used for hemostasis and for dissection down through Martinez's fascia. The old suture at the hand port was identified and cut away using suture scissors. The fascia was then incised using electrocautery. I then entered into the peritoneal cavity using electrocautery. An Shad wound protector was then inserted and the abdominal cavity was carefully inspected. The patient was placed in Trendelenburg position and I carefully packed the small bowel out of the pelvis to carefully identify the descending colon coming down into the pelvis. There were a few loose adhesions that came down easily with careful blunt dissection and I was then able to identify deeper down into the pelvis where the anastomosis was. The descending colon appeared healthy and viable and there did not appear to be any disruption of the anastomosis anteriorly. I could not identify the anastomotic leak posteriorly, but I was able to palpate the drain in this location. The decision was made to leave the descending colon in its place as most of the anastomosis appeared to be intact. A small mari incision was made in the left lower quadrant on the skin and a 19 round Jono drain was placed through this location. The drain was then advanced down deep into the pelvis to the posterior pelvis along the sacrum where the leak was noted. The drain was sutured in place using a 3 0 nylon drain stitch. The patient was then flattened out of bed. I a identified a location on the distal ileum about 30 cm from the ileocecal valve that appeared in adequate location for the loop ileostomy. There did not appear to be any tension to the ileum at this point when bring it up through the midline incision. I then placed a [place] clamp on the bowel at this point. I then made a 2 cm circular incision on the skin at the location in the right abdomen for the ileostomy. Electrocautery was then used to carefully dissect the skin off of the subcu fat. I then dissected deep to this area and identified the anterior rectus sheath. A vertical incision was made on the anterior rectus sheath using electrocautery and then the rectus muscle was split vertically to identify the posterior rectus sheath. The posterior rectus sheath was then incised with electrocautery and the peritoneum was then entered. I then ensured that 2 fingers could fit through the opening in the end carefully brought the loop of ileum up through this incision in proper orientation. I ensured that the distal limb of the ileum was oriented cephalad and the proximal limb of the ileum was oriented along the caudal edge of the ostomy incision. The bowel did not appear torsed in this orientation and appeared to come up through the incision without any tension. A window was then created in the mesentery using a curved hemostat and a T-bar was placed through this. The ileum was left in place at this point and the abdomen was then carefully inspected 1 final time. No other abnormalities were noted. The peritoneum of the midline incision was then reapproximated using 0 Vicryl running suture. The subcu space was then ir
[2020-08-31] MEDS: fentaNYL CITRATE INJ (*CRX) 100 MCG/2 ML VIAL 25 MCG IV PUSH ×8 (10:06→10:24)
[2020-08-31] MEDS: HYDROmorphone HCL INJ (*CRX) 1 MG/ML SYR 0.25 MG IV PUSH ×8 (10:35→11:10)
--- NOTE | 2020-08-31 11:29 | PC.NURSE ---
Pt arrived to room 249 from Surgery
[2020-08-31] MEDS: ACETAMINOPHEN 500 MG TABLET 1000 MG PO ×3 (11:53→23:58)
[2020-08-31] MEDS: ONDANSETRON INJ 4 MG/2 ML VIAL IV PUSH ×2 (11:55→17:05)
--- NOTE | 2020-08-31 15:48 | WPDURCON ---
Assessment and Plan Assessment and plan (1) BPH (benign prostatic hyperplasia): Code(s): N40.0 - Benign prostatic hyperplasia without lower urinary tract symptoms Status: Acute (2) Urinary retention: Code(s): R33.9 - Retention of urine, unspecified Status: Acute Assessment and Plan: Will resume Flomax and start Finasteride when pt. taking po. Continue indwelling catheter, for now. Will follow and consider another voiding trial prior to discharge. Urology Consult Note HPI Date Seen: 08/31/20 Requesting Physician: Dimitri Lozada MD Primary Care Provider: Bryn Galdamez, Consult Narrative Narrative: Isma Nieves is a 70 year old male known to our practice since a recent admission to [facility]. At that time we consulted on the patient for marked obstructive voiding symptoms and incomplete bladder emptying ( postvoid residual volume 700-800 cc). He was a bit challenging because he was adamantly opposed to having a urethral catheter placed. Eventually consented and thereafter was much more comfortable. We did start him on Flomax and, unfortunately, he failed 1 voiding trial. He was discharged with an indwelling catheter with plans to follow-up for voiding trials in our office in 2-3 weeks Review of Systems Review of Systems: ROS unobtainable: Yes unobtainable due to medical condition (immediately post-op following general surgical procedure) PMFSH Past Medical History Medical History Arthritis, lumbar spine Chronic low back pain Chronic obstructive pulmonary disease Essential hypertension Normal cardiac stress test (~12/2019) With normal MPI and an ejection fraction of 62%. Osteoarthritis Paroxysmal atrial fibrillation Paroxysmal supraventricular tachycardia Primary colorectal adenocarcinoma (~04/2020) Status post neoadjuvant chemoradiation and resection on 08/09/2020. Shingles (~2015) Surgical History Surgical History History of colonoscopy 04/20/2020 History of rectal surgery (~08/09/20) Hand assisted laparoscopic low anterior resection with low pelvic anastomosis for colorectal adenocarcinoma per Dr. Robertson. History of repair of rotator cuff (~2007) Bilateral repair per Dr. Fitzgerald. History of total left hip arthroplasty (~01/10/20) Family History Family History Father , age 91 Cancer Skin cancer, Bladder, cancer, Lung cancer Heart disease Sibling Cancer skin cancer Diabetes mellitus Kidney disease Mother , age 95 Cancer Skin cancer, lung cancer Social History Social History Social History: The patient lives in [place], [place] with his and their 2 laboratories. 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 He smoked up to 1.5 packs of cigarettes per day and quit in September 2019. He drinks alcohol socially and in moderation. Denies illicit substance use. His , Rohini Nieves, is his surrogate decision maker and he wishes to be a full code. Smoking packs per day: 2 Smoking cigarettes per day: 40.0 Years smoked: 50 Smoking pack-years: 100.00 Smoking status: Former smoker Tobacco type: cigarettes Second hand tobacco smoke exposure: Yes Smoking end date: 10/08/19 Additional smoking assessment comments: Smoking for 50 years. 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
[2020-08-31] MEDS: hydroCHLOROthiazide 25 MG TABLET PO (17:06)
[2020-08-31] MEDS: METOPROLOL SUCCINATE EXT REL 50 MG TABCR PO (17:06)
[2020-08-31] MEDS: AMIODARONE HCL 200 MG TABLET PO (17:06)
[2020-08-31] MEDS: lisinopriL 10 MG TABLET PO (17:07)
[2020-08-31] MEDS: ENOXAPARIN 30 MG/0.3 ML SYRINGE SUB-Q (20:01)
[2020-09-01] VITALS (8 sets, daily range): BP systolic 114–138; BP diastolic 66–75; PULSE 61–81; RESP 16–20; TEMP 36.2–36.8; O2SAT 92–96
[2020-09-01] MEDS: HYDROmorphone HCL INJ (*CRX) 1 MG/ML SYR IV PUSH ×6 (01:13→21:58)
[2020-09-01] MEDS: LACTATED RINGERS 1,000 ML 125 ML IV CONT (04:05)
[2020-09-01 05:29] LABS: Basophils Absolute Auto 0.1 K/mm3 (0.0-0.1); Basophils Percent Auto 0.4 % (0.2-1.2); Eosinophils Percent Auto 0.2 % (0-4.4); Hematocrit 32.2 % (42.0-52.0); Hemoglobin 10.7 g/dL (14.0-18.0); Immature Granulocyte Absolute 0.15 K/mm3 (0.00-0.031); Immature Granulocyte Percent A 1.3 % (0-0.5); Lymphocytes Absolute Auto 0.61 K/mm3 (0.9-3.2); Lymphocytes Percent Auto 5.2 % (18.3-44.2); Mean Corpuscular HGB Conc 33.2 g/dl (32-36); Mean Corpuscular Hemoglobin 33.1 pg (26-34); Mean Corpuscular Volume 99.7 fl (80-100); Monocytes Absolute Auto 0.8 K/mm3 (0.1-0.6); Monocytes Percent Auto 6.6 % (2.6-8.5); Neutrophils Absolute Auto 10.2 K/mm3 (1.3-6.7); Neutrophils Percent Auto 86.3 % (45.5-73.1); Platelet Count Result 460 k/mm3 (150-375); Red Blood Count 3.23 M/mm3 (4.6-6.20); Red Cell Distribution Width 14.1 % (11.5-14.5); White Blood Count 11.8 K/mm3 (4.5-10.0)
[2020-09-01 05:45] LABS: Anion Gap 3 mmol/L (8-16); Blood Urea Nitrogen 7 mg/dL (9-20); Calcium 8.7 mg/dL (8.4-10.2); Carbon Dioxide 34 mmol/L (22-30); Chloride 95 mmol/L (98-107); Estimated CRCL calculation 96 ml/min; Estimated Glomerular Filt Rate > 60; Glucose 106 mg/dL (75-110); Potassium 3.5 mmol/L (3.4-5.0); Sodium 132 mmol/L (137-145)
[2020-09-01] MEDS: ACETAMINOPHEN 500 MG TABLET 1000 MG PO ×3 (05:55→17:35)
--- NOTE | 2020-09-01 08:09 | PM.PNGS ---
Progress Note: A&P Assessment and Plan (1) Anastomotic leak of intestine: Code(s): K91.89 - Other postprocedural complications and disorders of digestive system Status: Acute Assessment and Plan: Doing well on POD#1 Await return of bowel function, continue clear liquids for now Increase activity Continue antibiotics and watch drain output (2) Intra-abdominal abscess: Code(s): K65.1 - Peritoneal abscess Status: Acute (3) BPH (benign prostatic hyperplasia): Code(s): N40.0 - Benign prostatic hyperplasia without lower urinary tract symptoms Status: Acute Assessment and Plan: Miller in place On Flomax Keep Miller due to prior failed voiding trials. Patient to follow up with Dr. Corey as outpatient. (4) Rectal cancer: Code(s): C20 - Malignant neoplasm of rectum Status: Chronic Subjective Subjective Date/Time Seen: 09/01/20 08:09 Post Op day: 1 Interval history: Occasional colicky pains. Overall feeling better. No fevers. Exam GI: Inspection: incision (dressing dry) and other (Ileostomy pink will minimal serous drainage) GI Palp: Yes Tenderness to palpation present (GI) (incisional) and Yes Other GI palpation findings present Other: GARY with serosanguinous output Objective Data Vital Signs Vital Signs: Vital Signs - 24 hr 08/31/20 09:51 08/31/20 10:00 08/31/20 10:15 Temperature 36.2 C L Pulse Rate 75 80 70 Respiratory Rate 12 16 12 Blood Pressure 136/77 124/84 137/73 Pulse Oximetry 100 100 100 08/31/20 10:30 08/31/20 10:45 08/31/20 11:00 Temperature Pulse Rate 72 72 75 Respiratory Rate 13 12 14 Blood Pressure 142/73 H 139/71 129/76 Pulse Oximetry 100 100 100 08/31/20 11:10 08/31/20 12:00 08/31/20 12:15 Temperature 36.6 C 36.7 C Pulse Rate 76 83 73 Respiratory Rate 12 16 16 Blood Pressure 135/77 127/67 129/65 Pulse Oximetry 100 99 98 08/31/20 12:45 08/31/20 13:45 08/31/20 15:46 Temperature 37.0 C 36.8 C Pulse Rate 85 80 Respiratory Rate 16 16 Blood Pressure 121/56 L 127/71 Pulse Oximetry 96 97 92 08/31/20 17:06 08/31/20 18:00 08/31/20 22:00 Temperature 36.9 C 36.6 C Pulse Rate 84 79 72 Respiratory Rate 16 18 Blood Pressure 128/70 115/62 Pulse Oximetry 98 97 09/01/20 02:00 09/01/20 06:00 Temperature 36.3 C L 36.3 C L Pulse Rate 62 61 Respiratory Rate 18 18 Blood Pressure 138/73 128/72 Pulse Oximetry 96 95 Intake/Output Intake/Output: Intake & Output 08/29/20 08/30/20 08/31/20 09/01/20 23:59 23:59 23:59 23:59 Intake Total 3320 4050 1990 Output Total 1520 2500 1310 Balance 1800 1550 680 Meds/Results Medications: Active Medications Generic Name Dose Route Start Last Admin Trade Name Freq PRN Reason Stop Dose Admin Acetaminophen 1,000 mg 08/31/20 11:11 09/01/20 05:55 Acetaminophen 500 Mg Tablet PO 1,000 mg Q6HR ASHELY Administration Albuterol 2 puff 08/29/20 23:46 Albuterol Sulfate (*Sp) Aerosol 1 Puff INHALATION QID PRN Dyspnea Amiodarone HCl 200 mg 08/30/20 08:00 08/31/20 17:06 Amiodarone Hcl 200 Mg Tablet PO 200 mg DAILY@0800 ASHELY Administration Enoxaparin Sodium 30 mg 08/31/20 21:00 08/31/20 20:01 Enoxaparin 30 Mg/0.3 Ml Syringe SUB-Q 30 mg Q12HR ASHELY Administration Hydrochlorothiazide 25 mg 08/30/20 09:00 08/31/20 17:06 Hydrochlorothiazide 25 Mg Tablet PO 25 mg DAILY ASHELY Administration Hydromorphone HCl 1 mg 08/30/20 09:22 09/01/20 07:10 Hydromorphone Hcl Inj (*Crx) 1 Mg/Ml Syr IV PUSH 1 mg Q2H PRN Administration Pain Rated 7-10 Hydromorphone HCl 0.5 mg 08/30/20 09:40 08/30/20 10:29 Hydromorphone Hcl Inj (*Crx) 1 Mg/Ml Syr IV PUSH 0.5 mg Q2H PRN Administration Pain Rated 4-6 Lactated Ringer's 1,000 mls @ 125 mls/hr 08/29/20 20:45 09/01/20 04:05 Lr - Lactated Ringers Iv IV CONT 125 mls/hr .Q8H ASHELY Administration Piperacillin/Tazobactam/Dextrose 3.375 gm in 50 mls @ 10
[2020-09-01] MEDS: hydroCHLOROthiazide 25 MG TABLET PO (08:29)
[2020-09-01] MEDS: lisinopriL 10 MG TABLET PO (08:29)
[2020-09-01] MEDS: ENOXAPARIN 30 MG/0.3 ML SYRINGE SUB-Q ×2 (08:29→21:55)
[2020-09-01] MEDS: TOLNAFTATE 1% POWDER 45 GM BTL 1 APPLIC TOPICAL ×2 (08:30→17:36)
[2020-09-01] MEDS: METOPROLOL SUCCINATE EXT REL 50 MG TABCR PO (08:30)
[2020-09-01] MEDS: AMIODARONE HCL 200 MG TABLET PO (08:49)
[2020-09-01] MEDS: ONDANSETRON INJ 4 MG/2 ML VIAL IV PUSH ×2 (09:53→22:01)
[2020-09-01] MEDS: IBUPROFEN IV 800 MG/200 ML 800 MG/200 ML BAG 400 MG IVPB (12:00)
[2020-09-01] MEDS: LORazepam INJ (*CRX) 2 MG/ML VIAL 0.5 MG IV PUSH (12:01)
[2020-09-01] MEDS: LACTATED RINGERS 1,000 ML 100 ML IV CONT (14:04)
[2020-09-02] VITALS (7 sets, daily range): BP systolic 100–124; BP diastolic 51–73; PULSE 81–110; RESP 18–22; TEMP 36.9–37.2; O2SAT 90–98
[2020-09-02] MEDS: ACETAMINOPHEN 500 MG TABLET 1000 MG PO (00:22)
[2020-09-02] MEDS: LORazepam INJ (*CRX) 2 MG/ML VIAL 0.5 MG IV PUSH (01:00)
[2020-09-02] MEDS: LACTATED RINGERS 1,000 ML 100 ML IV CONT (03:35)
[2020-09-02] MEDS: HYDROmorphone HCL INJ (*CRX) 1 MG/ML SYR IV PUSH ×5 (05:45→23:36)
[2020-09-02 06:04] LABS: Mean Corpuscular HGB Conc 33.3 g/dl (32-36); Mean Corpuscular Hemoglobin 33.1 pg (26-34); Mean Corpuscular Volume 99.2 fl (80-100); Mean Platelet Volume 10.2 fl (7.4-10.4); Platelet Count Result 509 k/mm3 (150-375); Red Blood Count 3.63 M/mm3 (4.6-6.20); Red Cell Distribution Width 14.2 % (11.5-14.5)
[2020-09-02 06:20] LABS: Anion Gap 4 mmol/L (8-16); Blood Urea Nitrogen 12 mg/dL (9-20); Calcium 8.8 mg/dL (8.4-10.2); Carbon Dioxide 38 mmol/L (22-30); Chloride 89 mmol/L (98-107); Estimated CRCL calculation 69 ml/min; Estimated Glomerular Filt Rate > 60; Glucose 123 mg/dL (75-110); Potassium 3.5 mmol/L (3.4-5.0); Sodium 131 mmol/L (137-145)
--- NOTE | 2020-09-02 07:37 | PM.PNGS ---
Progress Note: A&P Assessment and Plan (1) Ileus following gastrointestinal surgery: Onset Date: ~09/02/20 Code(s): K91.89 - Other postprocedural complications and disorders of digestive system; K56.7 - Ileus, unspecified Status: Acute Assessment and Plan: Overnight patient had increased bloating then began having some belching and coffee ground emesis. NG tube was placed and yielded approximately 1900 cc of dark gastric contents. Will leave NG in place at least 24 hours repeat abdominal film tomorrow and follow. Patient has been made NPO and we will increase IV fluids in view of his gastrointestinal fluid loss. (2) Hyponatremia: Onset Date: 09/01/20 Code(s): E87.1 - Hypo-osmolality and hyponatremia Status: Acute Assessment and Plan: Somewhat hyponatremic today so will increase his IV fluids to normal saline with some potassium and follow electrolytes closely. (3) Intra-abdominal abscess: Onset Date: ~08/25/20 Code(s): K65.1 - Peritoneal abscess Status: Acute Assessment and Plan: Patient is believed to have had a small anastomotic leak and had a luisa rectal/anastomotic abscess that was initially drained percutaneously and now has a surgically placed GARY drain next to it. (4) Hydronephrosis: Onset Date: Unknown Code(s): N13.30 - Unspecified hydronephrosis Status: Acute Assessment and Plan: Urology is following for this (5) BPH (benign prostatic hyperplasia): Onset Date: Unknown Code(s): N40.0 - Benign prostatic hyperplasia without lower urinary tract symptoms Status: Acute Assessment and Plan: Urology is following for this. (6) Urinary retention: Onset Date: Unknown Code(s): R33.9 - Retention of urine, unspecified Status: Acute Assessment and Plan: Urology is following for this. Patient has indwelling catheter this time. (7) Anastomotic leak of intestine: Onset Date: ~08/25/20 Code(s): K91.89 - Other postprocedural complications and disorders of digestive system Status: Acute Assessment and Plan: Due to this anastomotic leak and non improvement with conservative management patient underwent a exploratory laparotomy and creation of a diverting loop ileostomy 2 days ago. Appears to have an ileus at this time. Will consult Medicine in view of his other medical problems and the need for amiodarone. He has had a has an NG tube in if he does not absorb this well he may need to have some type of a drip. He also has a significant cardiac history. (8) Complication, postoperative infection: Qualifiers: Encounter type: initial encounter Postoperative infection type: deep incisional surgical site Qualified Code(s): T81.42XA - Infection following a procedure, deep incisional surgical site, initial encounter Code(s): T81.40XA - Infection following a procedure, unspecified, initial encounter Status: Acute (9) PAF (paroxysmal atrial fibrillation): Code(s): I48.0 - Paroxysmal atrial fibrillation Status: Acute (10) Rectal cancer: Code(s): C20 - Malignant neoplasm of rectum Status: Chronic Additional Plan Will have patient take his amiodarone clamp NG for 2 hours each day Will add PPI in view of coffee ground emesis/coffee-ground material an NG output Encourage patient to walk at least 3 times a day in the hallway. Subjective Subjective Date/Time Seen: 09/02/20 07:37 Patient lying in bed when I entered the room. Patient states he feels much better now the NG tube is in. Nurse reports 1900 cc out through the NG tube since 2:00 a.m.. IV fluids going at 100 right now. Review of Systems Constitutional: Constitutional: Reports no additional constitutional complaints ENT: Reports other (Mucous Membranes moist.) Cardiovascular: Cardiovascular: Denies dyspnea Respiratory: Respiratory: Denies pain on inspiration and D
[2020-09-02] MEDS: AMIODARONE HCL 200 MG TABLET PO (08:01)
[2020-09-02] MEDS: ENOXAPARIN 30 MG/0.3 ML SYRINGE SUB-Q ×2 (08:01→20:14)
--- NOTE | 2020-09-02 08:05 | PC.NURSE ---
Discussed medical consult with Dr. Marr at 0800. Dr. Marr notified that patient has NGT, takes PO cardiac medications and that Dr. Lozada is requesting his recommendations in regards to these while patient is NPO with NGT/suction.
[2020-09-02] MEDS: TOLNAFTATE 1% POWDER 45 GM BTL 1 APPLIC TOPICAL ×2 (08:14→17:36)
[2020-09-02] MEDS: KCL 20MEQ/0.9% SOD CHL 1,000 ML 150 ML IV CONT (10:19)
[2020-09-02] MEDS: PANTOPRAZOLE SODIUM IV 40 MG VIAL IV PUSH ×2 (10:20→20:14)
--- NOTE | 2020-09-02 12:31 | PM.IMCN ---
Assessment and Plan Assessment and plan (1) Ileus following gastrointestinal surgery: Onset Date: ~09/02/20 Code(s): K91.89 - Other postprocedural complications and disorders of digestive system; K56.7 - Ileus, unspecified Status: Acute Assessment and Plan: Isma Nieves is a 70 year old male with hx of rectal cancer and underwent resection on 08/09/2020 and it was uneventful and he was discharged on 08/14/20, he presented with abdominal pain on 08/19/20 and was found to have a small leak at anastomosis, and it was percutaneously drained a drained was placed, monitored initially NPO and then he was able to tolerated diet and discharged home on 08/26/2020. He again presented on 08/30/[address] scan of abdomen showed small abscess near the anastomosis and severe colicky abdominal pain and felt wanted to pass gas or have BM but was not able, he was started on IVF and Zosyn, close review of CT scan showed persistent anastomitic leak seemed that conservative treatment with bowl rest was not helping and it was decided to take the patient to OR for loop ileostomy with possible colostomy on 08/31/2020, he was doing fine until last night patient had coffee ground emesis and patient was placed on NG tube removed 1900cc gastric content, plan is to continue NG tube and now patient is NPO, patient has hx of A. fib and HTN for this patient is taking oral Amiodarone and metoprolol, so we were consulted to switch patient to oral medications to IV and monitor A. Fib and HTN, patient was given Amiodarone via NG tube, will hold metoprolol PO, currently his HR and BP controlled, will give lopressor 5mg IV q8 PRN if the HR is above 100s, patient denies any chest pain shortness of breath palpitation fever or chills, patient is not passing any gas and no BM, we thank you for consulting us for medical management will follow the patient with you and please call us if you have any questions. Thank you. (2) PAF (paroxysmal atrial fibrillation): Code(s): I48.0 - Paroxysmal atrial fibrillation Status: Acute Assessment and Plan: Rate is now controlled Plan is above (3) Essential hypertension: Code(s): I10 - Essential (primary) hypertension Status: Acute Assessment and Plan: Blood pressure is within normal limits plan is above HPI Data of Consult Consult date: 09/02/20 Requesting Physician: Dimitri Lozada MD Primary Care Provider: Bryn Galdamez, Consult Narrative Narrative: Isma Nieves is a 70 year old male with hx of rectal cancer and underwent resection on 08/09/2020 and it was uneventful and he was discharged on 08/14/20, he presented with abdominal pain on 08/19/20 and was found to have a small leak at anastomosis, and it was percutaneously drained a drained was placed, monitored initially NPO and then he was able to tolerated diet and discharged home on 08/26/2020. He again presented on 08/30/[address] scan of abdomen showed small abscess near the anastomosis and severe colicky abdominal pain and felt wanted to pass gas or have BM but was not able, he was started on IVF and Zosyn, close review of CT scan showed persistent anastomitic leak seemed that conservative treatment with bowl rest was not helping and it was decided to take the patient to OR for loop ileostomy with possible colostomy on 08/31/2020, he was doing fine until last night patient had coffee ground emesis and patient was placed on NG tube removed 1900cc gastric content, plan is to continue NG tube and now patient is NPO, patient has hx of A. fib and HTN for this patient is taking oral Amiodarone and metoprolol, so we were consulted to switch patient to oral medications to IV and monitor A. Fib and HTN, patient was given Amiodarone via NG tube, will hold metoprolol PO, currently his HR and BP controlled, will give lopressor 5mg IV q8 PRN if the HR is above 100s, patient denies any chest pain shortness of breath palpitation fever or chills, patient is
[2020-09-02] MEDS: KCL 20MEQ/0.9% SOD CHL 1,000 ML 125 ML IV CONT (18:32)
[2020-09-03] VITALS (8 sets, daily range): BP systolic 126–151; BP diastolic 74–88; PULSE 88–101; RESP 16–22; TEMP 36.5–36.9; O2SAT 92–96
[2020-09-03] MEDS: KCL 20MEQ/0.9% SOD CHL 1,000 ML 125 ML IV CONT (04:33)
[2020-09-03] MEDS: HYDROmorphone HCL INJ (*CRX) 1 MG/ML SYR IV PUSH ×7 (04:34→22:40)
[2020-09-03 06:05] LABS: Basophils Absolute Auto 0.1 K/mm3 (0.0-0.1); Basophils Percent Auto 0.5 % (0.2-1.2); Eosinophils Absolute Auto 0.2 K/mm3 (0-0.3); Eosinophils Percent Auto 1.9 % (0-4.4); Hematocrit 33.7 % (42.0-52.0); Hemoglobin 11.2 g/dL (14.0-18.0); Immature Granulocyte Absolute 0.24 K/mm3 (0.00-0.031); Immature Granulocyte Percent A 1.9 % (0-0.5); Lymphocytes Absolute Auto 0.89 K/mm3 (0.9-3.2); Lymphocytes Percent Auto 6.9 % (18.3-44.2); Mean Corpuscular HGB Conc 33.2 g/dl (32-36); Mean Corpuscular Hemoglobin 32.8 pg (26-34); Mean Corpuscular Volume 98.8 fl (80-100); Mean Platelet Volume 10.1 fl (7.4-10.4); Monocytes Percent Auto 7.5 % (2.6-8.5); Neutrophils Absolute Auto 10.5 K/mm3 (1.3-6.7); Neutrophils Percent Auto 81.3 % (45.5-73.1); Platelet Count Result 476 k/mm3 (150-375); Red Blood Count 3.41 M/mm3 (4.6-6.20); Red Cell Distribution Width 14.5 % (11.5-14.5); White Blood Count 12.9 K/mm3 (4.5-10.0)
[2020-09-03 06:08] LABS: Anion Gap 5 mmol/L (8-16); Blood Urea Nitrogen 15 mg/dL (9-20); Calcium 8.2 mg/dL (8.4-10.2); Carbon Dioxide 30 mmol/L (22-30); Chloride 96 mmol/L (98-107); Estimated CRCL calculation 85 ml/min; Estimated Glomerular Filt Rate > 60; Glucose 101 mg/dL (75-110); Potassium 3.5 mmol/L (3.4-5.0); Sodium 131 mmol/L (137-145)
--- NOTE | 2020-09-03 07:30 | PC.NURSE ---
Pt to radiology per bed. NGT clamped, IVF infusing.
--- NOTE | 2020-09-03 07:56 | PM.PNGS ---
Progress Note: A&P Assessment and Plan (1) Ileus following gastrointestinal surgery: Onset Date: ~09/02/20 Code(s): K91.89 - Other postprocedural complications and disorders of digestive system; K56.7 - Ileus, unspecified Status: Acute Assessment and Plan: Overnight patient had increased bloating and pain even with NG tube in. NG put out less last night than the night before when it was initially placed. Will leave NG in place for now in view of the ileus and follow. Patient has been made NPO and we will increase IV fluids in view of his gastrointestinal fluid loss. Also I have increased the potassium in the IV fluids (today's potassium 3.5 is low normal). Plain films obtained today show dilated loops of small bowel and some residual contrast from the CT in his cecum. No obvious free air in the abdomen. (2) Hyponatremia: Onset Date: 09/01/20 Code(s): E87.1 - Hypo-osmolality and hyponatremia Status: Acute Assessment and Plan: Somewhat hyponatremic today so will increase his IV fluids to normal saline with some potassium and follow electrolytes closely. (3) Intra-abdominal abscess: Onset Date: ~08/25/20 Code(s): K65.1 - Peritoneal abscess Status: Acute Assessment and Plan: Patient is believed to have had a small anastomotic leak and had a luisa rectal/anastomotic abscess that was initially drained percutaneously and now has a surgically placed GARY drain next to it. (4) Hydronephrosis: Onset Date: Unknown Code(s): N13.30 - Unspecified hydronephrosis Status: Acute Assessment and Plan: Urology is following for this (5) BPH (benign prostatic hyperplasia): Onset Date: Unknown Code(s): N40.0 - Benign prostatic hyperplasia without lower urinary tract symptoms Status: Acute Assessment and Plan: Urology is following for this. (6) Urinary retention: Onset Date: Unknown Code(s): R33.9 - Retention of urine, unspecified Status: Acute Assessment and Plan: Urology is following for this. Patient has indwelling catheter this time. (7) Anastomotic leak of intestine: Onset Date: ~08/25/20 Code(s): K91.89 - Other postprocedural complications and disorders of digestive system Status: Acute Assessment and Plan: Due to this anastomotic leak and non improvement with conservative management patient underwent a exploratory laparotomy and creation of a diverting loop ileostomy 3 days ago. Appears to have an ileus at this time. Will consult Medicine in view of his other medical problems and the need for amiodarone. He has had a has an NG tube in if he does not absorb this well he may need to have some type of a drip. He also has a significant cardiac history. (8) Complication, postoperative infection: Qualifiers: Encounter type: initial encounter Postoperative infection type: deep incisional surgical site Qualified Code(s): T81.42XA - Infection following a procedure, deep incisional surgical site, initial encounter Code(s): T81.40XA - Infection following a procedure, unspecified, initial encounter Status: Acute (9) PAF (paroxysmal atrial fibrillation): Code(s): I48.0 - Paroxysmal atrial fibrillation Status: Acute Assessment and Plan: Patient on p.o. amiodarone. Will try again giving this p.o. and clamping the NG for [address] Marr regarding this problem and patient would have to moved IMU on tele if amiodarone is to be given IV. Will place patient on tele here and see if he is in AFib. (10) Rectal cancer: Code(s): C20 - Malignant neoplasm of rectum Status: Chronic Assessment and Plan: Patient recently had resection. Will eventually need possible radiation and chemotherapy. Subjective Subjective Date/Time Seen: 09/03/20 07:56 Patient laying in bed as I entered the room. Complaining of abdominal
--- NOTE | 2020-09-03 07:58 | PC.NURSE ---
Pt returned from radiology.
[2020-09-03] MEDS: ENOXAPARIN 30 MG/0.3 ML SYRINGE SUB-Q ×2 (08:24→20:17)
[2020-09-03] MEDS: AMIODARONE HCL 200 MG TABLET PO (08:24)
[2020-09-03] MEDS: PANTOPRAZOLE SODIUM IV 40 MG VIAL IV PUSH ×2 (08:25→20:17)
[2020-09-03] MEDS: TOLNAFTATE 1% POWDER 45 GM BTL 1 APPLIC TOPICAL ×2 (08:25→16:54)
[2020-09-03] MEDS: MAGNESIUM HYDROXIDE SUSP 30 ML UDC FEED TUBE (09:03)
[2020-09-03] MEDS: KCL 40 MEQ/0.9% SOD CHL 1,000 ML 150 ML IV CONT ×2 (10:55→20:16)
--- NOTE | 2020-09-03 11:11 | PM.IMPN ---
Progress Note: A&P Assessment and Plan (1) Ileus following gastrointestinal surgery: Onset Date: ~09/02/20 Code(s): K91.89 - Other postprocedural complications and disorders of digestive system; K56.7 - Ileus, unspecified Status: Acute Assessment and Plan: 09/03/20 11:11 Isma Nieves is a 70 year old male with hx of rectal cancer and underwent resection on 08/09/2020 and it was uneventful and he was discharged on 08/14/20, he presented with abdominal pain on 08/19/20 and was found to have a small leak at anastomosis, and it was percutaneously drained a drained was placed, monitored initially NPO and then he was able to tolerated diet and discharged home on 08/26/2020. He again presented on 08/30/[address] scan of abdomen showed small abscess near the anastomosis and severe colicky abdominal pain and felt wanted to pass gas or have BM but was not able, he was started on IVF and Zosyn, close review of CT scan showed persistent anastomitic leak seemed that conservative treatment with bowl rest was not helping and it was decided to take the patient to OR for loop ileostomy with possible colostomy on 08/31/2020, he was doing fine until last night patient had coffee ground emesis and patient was placed on NG tube removed 1900cc gastric content, plan is to continue NG tube and now patient is NPO, patient has hx of A. fib and HTN for this patient is taking oral Amiodarone and metoprolol, so we were consulted to switch patient to oral medications to IV and monitor A. Fib and HTN, patient was given Amiodarone via NG tube, will hold metoprolol PO, currently his HR and BP controlled, will give lopressor 5mg IV q8 PRN if the HR is above 100s, patient denies any chest pain shortness of breath palpitation fever or chills, patient is not passing any gas and no BM, we thank you for consulting us for medical management will follow the patient with you and please call us if you have any questions. Thank you. 09/03 today patient has not pass any gas, patient does have abdominal discomfort, no nausea or vomiting he is on NG tube, he denies any complaint of chest pain, palpitation or shortness of breath, patient's heart rate and blood pressure within normal limits, being monitored on tele, patient is receiving amiodarone via NG tube and we are holding p.o. metoprolol and lisinopril, patient is clinically stable will continue to monitor patient potassium and magnesium are monitor will supplement as needed, patient is seen by surgery service and further recommendation to follow. (2) PAF (paroxysmal atrial fibrillation): Code(s): I48.0 - Paroxysmal atrial fibrillation Status: Acute Assessment and Plan: Rate is now controlled Plan is above (3) Essential hypertension: Code(s): I10 - Essential (primary) hypertension Status: Acute Assessment and Plan: Blood pressure is within normal limits plan is above Subjective Date/time seen: 09/03/20 11:11 Isma Nieves is a 70 year old male with hx of rectal cancer and underwent resection on 08/09/2020 and it was uneventful and he was discharged on 08/14/20, he presented with abdominal pain on 08/19/20 and was found to have a small leak at anastomosis, and it was percutaneously drained a drained was placed, monitored initially NPO and then he was able to tolerated diet and discharged home on 08/26/2020. He again presented on 08/30/[address] scan of abdomen showed small abscess near the anastomosis and severe colicky abdominal pain and felt wanted to pass gas or have BM but was not able, he was started on IVF and Zosyn, close review of CT scan showed persistent anastomitic leak seemed that conservative treatment with bowl rest was not helping and it was decided to take the patient to OR for loop ileostomy with possible colostomy on 08/31/2020, he was doing fine until last night patient had coffee ground emesis and patient was placed on NG tube removed 1900cc gastric content, plan is to ariela
[2020-09-03 15:38] LABS: Anion Gap 5 mmol/L (8-16); Blood Urea Nitrogen 15 mg/dL (9-20); Calcium 8.5 mg/dL (8.4-10.2); Carbon Dioxide 30 mmol/L (22-30); Chloride 99 mmol/L (98-107); Estimated CRCL calculation 85 ml/min; Estimated Glomerular Filt Rate > 60; Glucose 116 mg/dL (75-110); Magnesium 1.9 mg/dL (1.6-2.3); Potassium 3.8 mmol/L (3.4-5.0); Sodium 134 mmol/L (137-145)
[2020-09-04] VITALS (10 sets, daily range): BP systolic 148–169; BP diastolic 72–90; PULSE 101–108; RESP 16–18; TEMP 36.6–36.9; O2SAT 92–96; BMI 29.9
[2020-09-04] MEDS: LORazepam INJ (*CRX) 2 MG/ML VIAL 0.5 MG IV PUSH (01:03)
[2020-09-04] MEDS: KCL 40 MEQ/0.9% SOD CHL 1,000 ML 150 ML IV CONT ×2 (01:51→09:03)
[2020-09-04] MEDS: HYDROmorphone HCL INJ (*CRX) 1 MG/ML SYR IV PUSH ×7 (03:48→22:44)
[2020-09-04 05:37] LABS: Hematocrit 32.9 % (42.0-52.0); Hemoglobin 10.7 g/dL (14.0-18.0); Mean Corpuscular HGB Conc 32.5 g/dl (32-36); Mean Corpuscular Hemoglobin 32.7 pg (26-34); Mean Corpuscular Volume 100.6 fl (80-100); Mean Platelet Volume 9.9 fl (7.4-10.4); Platelet Count Result 457 k/mm3 (150-375); Red Blood Count 3.27 M/mm3 (4.6-6.20); Red Cell Distribution Width 14.4 % (11.5-14.5); White Blood Count 12.5 K/mm3 (4.5-10.0)
[2020-09-04 05:44] LABS: Anion Gap 5 mmol/L (8-16); Blood Urea Nitrogen 14 mg/dL (9-20); Calcium 8.1 mg/dL (8.4-10.2); Carbon Dioxide 29 mmol/L (22-30); Chloride 102 mmol/L (98-107); Estimated CRCL calculation 85 ml/min; Estimated Glomerular Filt Rate > 60; Glucose 107 mg/dL (75-110); Magnesium 2.1 mg/dL (1.6-2.3); Potassium 4.1 mmol/L (3.4-5.0); Sodium 136 mmol/L (137-145)
[2020-09-04] MEDS: AMIODARONE HCL 200 MG TABLET PO (08:13)
[2020-09-04] MEDS: ENOXAPARIN 30 MG/0.3 ML SYRINGE SUB-Q ×2 (08:14→20:26)
[2020-09-04] MEDS: PANTOPRAZOLE SODIUM IV 40 MG VIAL IV PUSH ×2 (08:14→20:26)
[2020-09-04] MEDS: TOLNAFTATE 1% POWDER 45 GM BTL 1 APPLIC TOPICAL ×2 (08:19→17:00)
--- NOTE | 2020-09-04 11:24 | PM.PNGS ---
Progress Note: A&P Assessment and Plan (1) Ileus following gastrointestinal surgery: Onset Date: ~09/02/20 Code(s): K91.89 - Other postprocedural complications and disorders of digestive system; K56.7 - Ileus, unspecified Status: Acute Assessment and Plan: Post-op ileus with still high NG output overnight. Ileostomy with clear output. Awaiting full return of bowel function. Continue NG tube decompression and bowel rest. We will start PPN today. Patient has had a significant amount of narcotics over the weekend, which could be contributing. Will give the patient Reglan and Relistor today to help with motility. Encouraged increased activity and walking the halls - ordered PT today. (2) Anastomotic leak of intestine: Onset Date: ~08/25/20 Code(s): K91.89 - Other postprocedural complications and disorders of digestive system Status: Acute Assessment and Plan: S/p exploratory laparotomy and creation of a diverting loop ileostomy on 08/31/20. Continue IV abx, WBC trending down and patient afebrile. Continue to monitor GARY drain on bulb suction - there is currently minimal output from GARY drain. (3) Intra-abdominal abscess: Onset Date: ~08/25/20 Code(s): K65.1 - Peritoneal abscess Status: Acute Assessment and Plan: See plan above. (4) Rectal cancer: Code(s): C20 - Malignant neoplasm of rectum Status: Chronic (5) PAF (paroxysmal atrial fibrillation): Code(s): I48.0 - Paroxysmal atrial fibrillation Status: Acute Assessment and Plan: Currently receiving PO amiodarone with clamping of NG following administration. Hospitalist consulted and has added IV Lopressor as needed as well. On telemetry - HR 97 in sinus rhythm on monitor on my exam. Appreciate Hospitalist help. Continue to monitor. (6) Urinary retention: Onset Date: Unknown Code(s): R33.9 - Retention of urine, unspecified Status: Acute Assessment and Plan: Management per Urology. Indwelling montero in place. (7) Hydronephrosis: Onset Date: Unknown Code(s): N13.30 - Unspecified hydronephrosis Status: Acute Assessment and Plan: Management per Urology. (8) Hyponatremia: Onset Date: 09/01/20 Code(s): E87.1 - Hypo-osmolality and hyponatremia Status: Acute Assessment and Plan: Improving, sodium 136 today. Will start PPN and continue to monitor labs. Additional Plan Discussed plan of care with Dr. Robertson. Subjective Subjective Date/Time Seen: 09/04/20 11:24 Post Op day: 4 Patient reports: no new complaints and pain is less Interval history: Patient reports bloating and abdominal pain has improved. He reports Dilaudid is helping with pain. Having some liquid output from the ileostomy. Feeling thirsty but no other complaints. Review of Systems Review of Systems: All systems reviewed & are unremarkable except as noted in HPI and below Constitutional: Constitutional: Reports as per HPI, Reports no additional constitutional complaints, Denies chills and Denies fever(s) Cardiovascular: Cardiovascular: Reports no additional cardiovascular complaints, Denies chest pain, Denies leg edema and Denies dyspnea Respiratory: Respiratory: Reports no additional respiratory complaints, Denies cough and Denies dyspnea Gastrointestinal: Gastrointestinal: Reports as per HPI and Reports no additional gastrointestinal complaints Neurologic: Reports system reviewed and no additional complaints, except as documented, Denies confusion and Denies focal weakness Exam Const: General: comfortable, no acute distress, alert and awake Orientation/consciousness: patient oriented x3 GI: Inspection: distended GI Palp: Yes Soft to palpation and Yes Tenderness to palpation present (GI) (diffusely tener, worse near incisions) Percussion: Yes tympanic to percussion Auscultation: Hypoactive bowel sounds present Other: Midline inc
[2020-09-04] MEDS: METHYLNALTREXONE 12 MG/0.6 ML VIAL SUB-Q (12:20)
[2020-09-04] MEDS: METOCLOPRAMIDE HCL INJ 10 MG/2 ML VIAL IV PUSH ×3 (12:20→23:53)
[2020-09-04] MEDS: AMINO ACIDS 4.25%/D5W/LYTES/CA 2,000 ML 100 ML IV CONT (12:21)
[2020-09-04] MEDS: FAT EMULSIONS IV 20% 250 ML 20.8 ML IVPB (12:21)
[2020-09-04 12:23] LABS: Transferrin 127 mg/dL (206-381)
--- NOTE | 2020-09-04 12:52 | PCOTNOTE ---
Attempted OT evaluation at 12:53pm, per RN patient's and wound care nurses are coming at 1:00pm to educate of managing patient's ostomy bag. RN says this will take approximately an hour. Will attempt OT evaluation at later time.
[2020-09-04 12:54] LABS: Glucose Point of Care 147 (65-105)
--- NOTE | 2020-09-04 14:21 | PM.IMPN ---
Progress Note: A&P Assessment and Plan (1) Ileus following gastrointestinal surgery: Onset Date: ~09/02/20 Code(s): K91.89 - Other postprocedural complications and disorders of digestive system; K56.7 - Ileus, unspecified Status: Acute Assessment and Plan: 09/03/20 11:11 Isma Nieves is a 70 year old male with hx of rectal cancer and underwent resection on 08/09/2020 and it was uneventful and he was discharged on 08/14/20, he presented with abdominal pain on 08/19/20 and was found to have a small leak at anastomosis, and it was percutaneously drained a drained was placed, monitored initially NPO and then he was able to tolerated diet and discharged home on 08/26/2020. He again presented on 08/30/[address] scan of abdomen showed small abscess near the anastomosis and severe colicky abdominal pain and felt wanted to pass gas or have BM but was not able, he was started on IVF and Zosyn, close review of CT scan showed persistent anastomitic leak seemed that conservative treatment with bowl rest was not helping and it was decided to take the patient to OR for loop ileostomy with possible colostomy on 08/31/2020, he was doing fine until last night patient had coffee ground emesis and patient was placed on NG tube removed 1900cc gastric content, plan is to continue NG tube and now patient is NPO, patient has hx of A. fib and HTN for this patient is taking oral Amiodarone and metoprolol, so we were consulted to switch patient to oral medications to IV and monitor A. Fib and HTN, patient was given Amiodarone via NG tube, will hold metoprolol PO, currently his HR and BP controlled, will give lopressor 5mg IV q8 PRN if the HR is above 100s, patient denies any chest pain shortness of breath palpitation fever or chills, patient is not passing any gas and no BM, we thank you for consulting us for medical management will follow the patient with you and please call us if you have any questions. Thank you. 09/03 today patient has not pass any gas, patient does have abdominal discomfort, no nausea or vomiting he is on NG tube, he denies any complaint of chest pain, palpitation or shortness of breath, patient's heart rate and blood pressure within normal limits, being monitored on tele, patient is receiving amiodarone via NG tube and we are holding p.o. metoprolol and lisinopril, patient is clinically stable will continue to monitor patient potassium and magnesium are monitor will supplement as needed, patient is seen by surgery service and further recommendation to follow. 09/04 today patient still has not passing any gas, on NG tube high output, seen by surgery service suspect patient has taking too much narcotic to control the pain, patient is given Reglan and Relistor to help have BM, agrees patient to ambulate and work with PT, patient with a proximal atrial fibrillation patient is receiving amiodarone via NG tube, metoprolol is on hold, will give Lopressor 5 mg every 8 hours as needed for the heart rate above 100, patient on telemetry heart rate is close to 100, patient is clinically stable, will continue to monitor and follow-up with surgery team (2) PAF (paroxysmal atrial fibrillation): Code(s): I48.0 - Paroxysmal atrial fibrillation Status: Acute Assessment and Plan: Rate is now controlled Plan is above (3) Essential hypertension: Code(s): I10 - Essential (primary) hypertension Status: Acute Assessment and Plan: Blood pressure is within normal limits plan is above Subjective Date/time seen: 09/04/20 14:21 Isma Nieves is a 70 year old male with hx of rectal cancer and underwent resection on 08/09/2020 and it was uneventful and he was discharged on 08/14/20, he presented with abdominal pain on 08/19/20 and was found to have a small leak at anastomosis, and it was percutaneously drained a drained was placed, monitored initially NPO and then he was able to tolerated diet and discharged home on 08/26/2020. He
[2020-09-04] MEDS: ALBUTEROL SULFATE (*SP) AEROSOL 1 PUFF 2 PUFF INHALATION (17:08)
[2020-09-04 18:15] LABS: Glucose Point of Care 144 (65-105)
[2020-09-05] VITALS (11 sets, daily range): BP systolic 146–174; BP diastolic 90–95; PULSE 78–114; RESP 16–22; TEMP 36.5–37.3; O2SAT 91–96
[2020-09-05 00:15] LABS: Glucose Point of Care 158 (65-105)
[2020-09-05] MEDS: HYDROmorphone HCL INJ (*CRX) 1 MG/ML SYR IV PUSH ×9 (01:49→23:47)
[2020-09-05] MEDS: ALBUTEROL SULFATE (*SP) AEROSOL 1 PUFF 2 PUFF INHALATION ×2 (01:50→19:35)
[2020-09-05 05:25] LABS: Hematocrit 32.2 % (42.0-52.0); Hemoglobin 10.7 g/dL (14.0-18.0); Mean Corpuscular HGB Conc 33.2 g/dl (32-36); Mean Corpuscular Hemoglobin 32.6 pg (26-34); Mean Corpuscular Volume 98.2 fl (80-100); Mean Platelet Volume 9.6 fl (7.4-10.4); Platelet Count Result 477 k/mm3 (150-375); Red Blood Count 3.28 M/mm3 (4.6-6.20); Red Cell Distribution Width 14.6 % (11.5-14.5); White Blood Count 14.5 K/mm3 (4.5-10.0)
[2020-09-05 05:58] LABS: Anion Gap 8 mmol/L (8-16); Blood Urea Nitrogen 16 mg/dL (9-20); Calcium 8.2 mg/dL (8.4-10.2); Carbon Dioxide 24 mmol/L (22-30); Chloride 101 mmol/L (98-107); Estimated CRCL calculation 108 ml/min; Estimated Glomerular Filt Rate > 60; Glucose 147 mg/dL (75-110); Magnesium 2.2 mg/dL (1.6-2.3); Phosphorus 2.9 mg/dL (2.5-4.5); Potassium 4.2 mmol/L (3.4-5.0); Sodium 133 mmol/L (137-145)
[2020-09-05] MEDS: METOCLOPRAMIDE HCL INJ 10 MG/2 ML VIAL IV PUSH ×4 (06:01→23:46)
[2020-09-05 08:01] LABS: Glucose Point of Care 138 (65-105)
[2020-09-05 08:09] LABS: Glucose Point of Care 161 (65-105)
--- NOTE | 2020-09-05 09:18 | PCPTNOTE ---
Patient refused treatment this session due to increased pain. Spoke with RN and Pt, plan to return to see Pt at 12:00 following second pain medicine dosage with a plan to attempt ambulation.
[2020-09-05] MEDS: ENOXAPARIN 30 MG/0.3 ML SYRINGE SUB-Q ×2 (09:45→20:42)
[2020-09-05] MEDS: PANTOPRAZOLE SODIUM IV 40 MG VIAL IV PUSH ×2 (09:46→20:42)
[2020-09-05] MEDS: AMIODARONE HCL 200 MG TABLET PO (09:46)
[2020-09-05] MEDS: TOLNAFTATE 1% POWDER 45 GM BTL 1 APPLIC TOPICAL ×2 (09:46→17:55)
[2020-09-05] MEDS: AMINO ACIDS 4.25%/D5W/LYTES/CA 2,000 ML 100 ML IV CONT (09:47)
--- NOTE | 2020-09-05 11:28 | PCNFU ---
Nutrition Follow-Up Complete: Altered GI function as related to anastomotic leak as evidenced by NPO x 5 days. Goal: Meet estimated caloric needs Patient is progressing towards goal. We will continue current goal. Pt current nutrition is PPN-Clinimix E 4.25/5 at 100 ml/hr with 250 ml 20% Lipid Emulsion. Last recorded weight is 103.4 kg, up from 100 kg on admit. Bowel Motility: No BM reported, Hypoactive bowel sounds, Ileostomy bag. Labs Reviewed:Na 133,Glu 147,Hct 32.2,Hgb 10.7 Meds Noted:Dilaudid,Reglan,Zosyn, Protonix, Clinimix E 4.25/5 at 100 ml/hr, 250 ml 20% Lipid Emulsion. Additional Notes: Nursing states, NGT is currently clamped. Abdomen distended. Pain reported, Dilaudid is scheduled. PPN is proving 1316 kcals/102 gms protein, meeting 64% of patients caloric needs. Monitoring: weight, labs, PPN every Friday and Friday.
[2020-09-05 11:36] LABS: Triglycerides 132 mg/dL (<150)
[2020-09-05] MEDS: FAT EMULSIONS IV 20% 250 ML 20.8 ML IVPB (11:38)
[2020-09-05 11:57] LABS: Glucose Point of Care 137 (65-105)
--- NOTE | 2020-09-05 12:23 | PM.PNGS ---
Progress Note: A&P Assessment and Plan (1) Ileus following gastrointestinal surgery: Onset Date: ~09/02/20 Code(s): K91.89 - Other postprocedural complications and disorders of digestive system; K56.7 - Ileus, unspecified Status: Acute Assessment and Plan: Still having a significant amount of abdominal pain requiring IV Dilaudid nearly every 2 hours. Will add scheduled IV Tylenol to help with pain control. KUB ordered today. Continue NG decompression, bowel rest, and PPN. Consider gastrografin SBFT study. Continue Reglan IV. Encouraged increased activity and walking the halls, up in the chair. Encouraged the patient to coordinate ambulating and PT after receiving the pain medication. (2) Anastomotic leak of intestine: Onset Date: ~08/25/20 Code(s): K91.89 - Other postprocedural complications and disorders of digestive system Status: Acute Assessment and Plan: S/p exploratory laparotomy and creation of a diverting loop ileostomy on 08/31/20. Continue IV abx, WBC 14,000 today, patient remains afebrile. Continue to monitor GARY drain on bulb suction - only minimal output at this point. (3) Intra-abdominal abscess: Onset Date: ~08/25/20 Code(s): K65.1 - Peritoneal abscess Status: Acute Assessment and Plan: See plan above. (4) Rectal cancer: Code(s): C20 - Malignant neoplasm of rectum Status: Chronic (5) PAF (paroxysmal atrial fibrillation): Code(s): I48.0 - Paroxysmal atrial fibrillation Status: Acute Assessment and Plan: Currently receiving PO amiodarone with clamping of NG following administration. Hospitalist consulted and has added IV Lopressor as needed as well. On telemetry, in sinus rhythm on my exam. Appreciate Hospitalist help. Continue to monitor. (6) Urinary retention: Onset Date: Unknown Code(s): R33.9 - Retention of urine, unspecified Status: Acute Assessment and Plan: Management per Urology. Indwelling montero in place. (7) Hydronephrosis: Onset Date: Unknown Code(s): N13.30 - Unspecified hydronephrosis Status: Acute Assessment and Plan: Management per Urology. (8) Hyponatremia: Onset Date: 09/01/20 Code(s): E87.1 - Hypo-osmolality and hyponatremia Status: Acute Assessment and Plan: Na 133 today, on PPN. Continue to monitor labs. Additional Plan Discussed plan of care with Dr. Robertson. Subjective Subjective Date/Time Seen: 09/05/20 10:23 Post Op day: 4 Patient reports: still having pain and afebrile Interval history: Patient seen this morning and still having a significant amount of abdominal pain. He is also complaining of bilateral flank pain. He denies any nausea. NG in place and had 600 cc output overnight. His ileostomy have 350 cc output overnight and still appears to be a clear green liquid. Patient has refused physical therapy yesterday and again today due to pain. He reports getting up to the chair this morning for less than an hour and getting back to bed. No other complaints. Review of Systems Review of Systems: All systems reviewed & are unremarkable except as noted in HPI and below Constitutional: Constitutional: Reports as per HPI, Reports no additional constitutional complaints, Denies chills and Denies fever(s) Cardiovascular: Cardiovascular: Reports no additional cardiovascular complaints, Denies chest pain, Denies leg edema and Denies dyspnea Respiratory: Respiratory: Reports no additional respiratory complaints, Denies cough and Denies dyspnea Gastrointestinal: Gastrointestinal: Reports as per HPI and Reports no additional gastrointestinal complaints Neurologic: Reports system reviewed and no additional complaints, except as documented, Denies Abnormal speech present, Denies confusion and Denies focal weakness Psychiatric: Psychiatric: Denies confusion Exam Const: General: no acute distress and alert; No ac
--- NOTE | 2020-09-05 13:57 | PM.IMPN ---
Progress Note: A&P Assessment and Plan (1) Ileus following gastrointestinal surgery: Onset Date: ~09/02/20 Code(s): K91.89 - Other postprocedural complications and disorders of digestive system; K56.7 - Ileus, unspecified Status: Acute Assessment and Plan: 09/05/20 13:57 Isma Nieves is a 70 year old male with hx of rectal cancer and underwent resection on 08/09/2020 and it was uneventful and he was discharged on 08/14/20, he presented with abdominal pain on 08/19/20 and was found to have a small leak at anastomosis, and it was percutaneously drained a drained was placed, monitored initially NPO and then he was able to tolerated diet and discharged home on 08/26/2020. He again presented on 08/30/[address] scan of abdomen showed small abscess near the anastomosis and severe colicky abdominal pain and felt wanted to pass gas or have BM but was not able, he was started on IVF and Zosyn, close review of CT scan showed persistent anastomitic leak seemed that conservative treatment with bowl rest was not helping and it was decided to take the patient to OR for loop ileostomy with possible colostomy on 08/31/2020, he was doing fine until last night patient had coffee ground emesis and patient was placed on NG tube removed 1900cc gastric content, plan is to continue NG tube and now patient is NPO, patient has hx of A. fib and HTN for this patient is taking oral Amiodarone and metoprolol, so we were consulted to switch patient to oral medications to IV and monitor A. Fib and HTN, patient was given Amiodarone via NG tube, will hold metoprolol PO, currently his HR and BP controlled, will give lopressor 5mg IV q8 PRN if the HR is above 100s, patient denies any chest pain shortness of breath palpitation fever or chills, patient is not passing any gas and no BM, we thank you for consulting us for medical management will follow the patient with you and please call us if you have any questions. Thank you. 09/03 today patient has not pass any gas, patient does have abdominal discomfort, no nausea or vomiting he is on NG tube, he denies any complaint of chest pain, palpitation or shortness of breath, patient's heart rate and blood pressure within normal limits, being monitored on tele, patient is receiving amiodarone via NG tube and we are holding p.o. metoprolol and lisinopril, patient is clinically stable will continue to monitor patient potassium and magnesium are monitor will supplement as needed, patient is seen by surgery service and further recommendation to follow. 09/04 today patient still has not passing any gas, on NG tube high output, seen by surgery service suspect patient has taking too much narcotic to control the pain, patient is given Reglan and Relistor to help have BM, agrees patient to ambulate and work with PT, patient with a proximal atrial fibrillation patient is receiving amiodarone via NG tube, metoprolol is on hold, will give Lopressor 5 mg every 8 hours as needed for the heart rate above 100, patient on telemetry heart rate is close to 100, patient is clinically stable, will continue to monitor and follow-up with surgery team. 09/05 today went for walk and he just returned, he appears in pain, and c/o abdominal pain, still not passing any gas, on NG tube, current clamped and received his medications including amiodarone, Pt HR is now running above 100s, patient is on IV Lopressor 5mg q6 PRN as needed for HT above 100s, patient will be seen by surgery service and further recommendation to follow. (2) PAF (paroxysmal atrial fibrillation): Code(s): I48.0 - Paroxysmal atrial fibrillation Status: Acute Assessment and Plan: Rate is now controlled Plan is above (3) Essential hypertension: Code(s): I10 - Essential (primary) hypertension Status: Acute Assessment and Plan: Blood pressure is within normal limits plan is above Subjective Date/time seen: 09/05/20 13:57 Isma Nieves is a 70 year old
[2020-09-05 19:28] LABS: Glucose Point of Care 141 (65-105)
[2020-09-05] MEDS: LORazepam INJ (*CRX) 2 MG/ML VIAL 0.5 MG IV PUSH (20:05)
[2020-09-05] MEDS: ONDANSETRON INJ 4 MG/2 ML VIAL IV PUSH (22:46)
[2020-09-05 23:49] LABS: Glucose Point of Care 112 (65-105)
[2020-09-06] VITALS (10 sets, daily range): BP systolic 104–136; BP diastolic 73–84; PULSE 88–120; RESP 18–22; TEMP 36.4–37.5; O2SAT 91–96
[2020-09-06] MEDS: HYDROmorphone HCL INJ (*CRX) 1 MG/ML SYR IV PUSH ×9 (01:48→22:50)
--- NOTE | 2020-09-06 03:08 | PC.NURSE ---
Spoke to Radiologist (Adithya) who stated there was no change since last xray and that there does not appear to be any movement. Ok to turn on NG tube at this time.
[2020-09-06] MEDS: METOCLOPRAMIDE HCL INJ 10 MG/2 ML VIAL IV PUSH ×3 (05:32→17:51)
[2020-09-06 05:46] LABS: Hematocrit 32.7 % (42.0-52.0); Hemoglobin 10.5 g/dL (14.0-18.0); Mean Corpuscular HGB Conc 32.1 g/dl (32-36); Mean Corpuscular Hemoglobin 32.6 pg (26-34); Mean Corpuscular Volume 101.6 fl (80-100); Mean Platelet Volume 9.9 fl (7.4-10.4); Platelet Count Result 416 k/mm3 (150-375); Red Blood Count 3.22 M/mm3 (4.6-6.20); Red Cell Distribution Width 14.6 % (11.5-14.5); White Blood Count 12.4 K/mm3 (4.5-10.0)
[2020-09-06] MEDS: AMINO ACIDS 4.25%/D5W/LYTES/CA 2,000 ML 100 ML IV CONT (05:57)
[2020-09-06 06:05] LABS: Anion Gap 6 mmol/L (8-16); Blood Urea Nitrogen 20 mg/dL (9-20); Calcium 8.8 mg/dL (8.4-10.2); Carbon Dioxide 32 mmol/L (22-30); Chloride 98 mmol/L (98-107); Estimated CRCL calculation 86 ml/min; Estimated Glomerular Filt Rate > 60; Glucose 123 mg/dL (75-110); Magnesium 2.5 mg/dL (1.6-2.3); Phosphorus 4.6 mg/dL (2.5-4.5); Sodium 136 mmol/L (137-145)
[2020-09-06 07:25] LABS: Glucose Point of Care 132 (65-105)
[2020-09-06] MEDS: AMIODARONE HCL 200 MG TABLET PO (08:25)
[2020-09-06] MEDS: PANTOPRAZOLE SODIUM IV 40 MG VIAL IV PUSH ×2 (08:25→21:03)
[2020-09-06] MEDS: TOLNAFTATE 1% POWDER 45 GM BTL 1 APPLIC TOPICAL ×2 (08:26→17:20)
[2020-09-06] MEDS: ENOXAPARIN 30 MG/0.3 ML SYRINGE SUB-Q ×2 (08:26→21:02)
--- NOTE | 2020-09-06 09:13 | PCPTNOTE ---
Patient refused treatment this session due to pain. Attempted to see patient at 09:04Patient states his pain medication hasn't worked yet. Come back later. Will attempt to see patient later as appropriate. Amaya Hill, GENERAL PRACTICE
[2020-09-06] MEDS: FAT EMULSIONS IV 20% 250 ML 20.8 ML IVPB (11:23)
[2020-09-06 11:57] LABS: Glucose Point of Care 128 (65-105)
--- NOTE | 2020-09-06 13:56 | PM.IMPN ---
Progress Note: A&P Assessment and Plan (1) Ileus following gastrointestinal surgery: Onset Date: ~09/02/20 Code(s): K91.89 - Other postprocedural complications and disorders of digestive system; K56.7 - Ileus, unspecified Status: Acute Assessment and Plan: 09/06/20 13:56 Isma Nieves is a 70 year old male with hx of rectal cancer and underwent resection on 08/09/2020 and it was uneventful and he was discharged on 08/14/20, he presented with abdominal pain on 08/19/20 and was found to have a small leak at anastomosis, and it was percutaneously drained a drained was placed, monitored initially NPO and then he was able to tolerated diet and discharged home on 08/26/2020. He again presented on 08/30/[address] scan of abdomen showed small abscess near the anastomosis and severe colicky abdominal pain and felt wanted to pass gas or have BM but was not able, he was started on IVF and Zosyn, close review of CT scan showed persistent anastomitic leak seemed that conservative treatment with bowl rest was not helping and it was decided to take the patient to OR for loop ileostomy with possible colostomy on 08/31/2020, he was doing fine until last night patient had coffee ground emesis and patient was placed on NG tube removed 1900cc gastric content, plan is to continue NG tube and now patient is NPO, patient has hx of A. fib and HTN for this patient is taking oral Amiodarone and metoprolol, so we were consulted to switch patient to oral medications to IV and monitor A. Fib and HTN, patient was given Amiodarone via NG tube, will hold metoprolol PO, currently his HR and BP controlled, will give lopressor 5mg IV q8 PRN if the HR is above 100s, patient denies any chest pain shortness of breath palpitation fever or chills, patient is not passing any gas and no BM, we thank you for consulting us for medical management will follow the patient with you and please call us if you have any questions. Thank you. 09/03 today patient has not pass any gas, patient does have abdominal discomfort, no nausea or vomiting he is on NG tube, he denies any complaint of chest pain, palpitation or shortness of breath, patient's heart rate and blood pressure within normal limits, being monitored on tele, patient is receiving amiodarone via NG tube and we are holding p.o. metoprolol and lisinopril, patient is clinically stable will continue to monitor patient potassium and magnesium are monitor will supplement as needed, patient is seen by surgery service and further recommendation to follow. 09/04 today patient still has not passing any gas, on NG tube high output, seen by surgery service suspect patient has taking too much narcotic to control the pain, patient is given Reglan and Relistor to help have BM, agrees patient to ambulate and work with PT, patient with a proximal atrial fibrillation patient is receiving amiodarone via NG tube, metoprolol is on hold, will give Lopressor 5 mg every 8 hours as needed for the heart rate above 100, patient on telemetry heart rate is close to 100, patient is clinically stable, will continue to monitor and follow-up with surgery team. 09/05 today went for walk and he just returned, he appears in pain, and c/o abdominal pain, still not passing any gas, on NG tube, current clamped and received his medications including amiodarone, Pt HR is now running above 100s, patient is on IV Lopressor 5mg q6 PRN as needed for HT above 100s, patient will be seen by surgery service and further recommendation to follow. 09/06 today patient is quite bloated and in pain, he was seen by surgery service and patient had abdomen x-ray which showed . Multiple mildly dilated gas-filled loops of small bowel with decrease in the amount of residual dilute oral contrast material consistent with persistent small bowel ileus. patient will be seen by surgery service and further recommendation to follow. Patient has NG tube and NPO receiving amiodorane via the tube, on tele he sis
--- NOTE | 2020-09-06 14:26 | PC.NURSE ---
On 09/06/20, the student, [Mel Pearce ], provided care and completed [email or web address] documentation on this patient. I have reviewed the student's documentation and agree with the findings, with notes: abdomen dressing clean dry and intact upon assessment, GARY drain intact with brown/green drainage, and montero intact with escobar urine.
--- NOTE | 2020-09-06 16:11 | PM.PNGS ---
Progress Note: A&P Assessment and Plan (1) Anastomotic leak of intestine: Onset Date: ~08/25/20 Code(s): K91.89 - Other postprocedural complications and disorders of digestive system Status: Acute Assessment and Plan: Still concerned that patient is not having function through ileostomy yet. Abdominal xray looks a little less distended today, but that may be due to decompression from NG. Still not seeing much out of ileostomy. Patient is on Reglan and has received previous dose of Relistor. Continue PPN and NG decompression. May consider CT abd/pelvis tomorrow if still not improving. Could still have prolonged ileus, but could also have obstruction from adhesion or obstruction at ileostomy site. (2) Intra-abdominal abscess: Onset Date: ~08/25/20 Code(s): K65.1 - Peritoneal abscess Status: Acute (3) Ileus following gastrointestinal surgery: Onset Date: ~09/02/20 Code(s): K91.89 - Other postprocedural complications and disorders of digestive system; K56.7 - Ileus, unspecified Status: Acute (4) Rectal cancer: Code(s): C20 - Malignant neoplasm of rectum Status: Chronic Subjective Subjective Date/Time Seen: 09/06/20 16:11 SBFT done yesterday. Patient became more bloated during test, and eventually NG had to be replaced back to suction. Had a lot of NG output after this was done. Still getting Dilaudid fairly consistently. Not having much output from ileostomy yet. Exam GI: Inspection: distended GI Palp: Yes Soft to palpation and Yes Tenderness to palpation present (GI) (mild generalized, mostly at incision) Auscultation: Hypoactive bowel sounds present Other: Digital exam of ileostomy performed, no signs of obstruction at ileostomy, appears patent and pink. Objective Data Vital Signs Vital Signs: Vital Signs - 24 hr 09/05/20 19:55 09/05/20 20:00 09/06/20 00:00 Temperature 37.3 C Pulse Rate 110 H 114 H 120 H Respiratory Rate 22 H 22 H Blood Pressure 165/95 H Pulse Oximetry 96 96 09/06/20 04:26 09/06/20 06:00 09/06/20 08:00 Temperature 36.5 C Pulse Rate 93 89 97 Respiratory Rate 20 Blood Pressure 104/73 Pulse Oximetry 96 09/06/20 08:25 09/06/20 12:00 09/06/20 13:59 Temperature 36.4 C Pulse Rate 106 H 92 88 Respiratory Rate 18 Blood Pressure 109/74 Pulse Oximetry 91 Intake/Output Intake/Output: Intake & Output 09/03/20 09/04/20 09/05/20 09/06/20 23:59 23:59 23:59 23:59 Intake Total 3500 3559 1591 2750 Output Total 2805 2655 2510 2620 Balance 695 904 -919 130 Meds/Results Medications: Active Medications Generic Name Dose Route Start Last Admin Trade Name Freq PRN Reason Stop Dose Admin Albuterol 2 puff 08/29/20 23:46 09/05/20 19:35 Albuterol Sulfate (*Sp) Aerosol 1 Puff INHALATION 2 puff QID PRN Administration Dyspnea Amiodarone HCl 200 mg 08/30/20 08:00 09/06/20 08:25 Amiodarone Hcl 200 Mg Tablet PO 200 mg DAILY@0800 ASHELY Administration Enoxaparin Sodium 30 mg 08/31/20 21:00 09/06/20 08:26 Enoxaparin 30 Mg/0.3 Ml Syringe SUB-Q 30 mg Q12HR ASHELY Administration Hydrochlorothiazide 25 mg 08/30/20 09:00 09/01/20 08:29 Hydrochlorothiazide 25 Mg Tablet PO 25 mg DAILY ASHELY Administration Hydromorphone HCl 1 mg 08/30/20 09:22 09/06/20 15:06 Hydromorphone Hcl Inj (*Crx) 1 Mg/Ml Syr IV PUSH 1 mg Q2H PRN Administration Pain Rated 7-10 Hydromorphone HCl 0.5 mg 08/30/20 09:40 08/30/20 10:29 Hydromorphone Hcl Inj (*Crx) 1 Mg/Ml Syr IV PUSH 0.5 mg Q2H PRN Administration Pain Rated 4-6 Piperacillin/Tazobactam/Dextrose 3.375 gm in 50 mls @ 100 mls/hr 08/30/20 12:00 09/06/20 12:25 Zosyn 3.375 Gm/D5w 50ml Pm IVPB Infused Q6H ASHELY Infusion Dextrose 1,000 mls @ 50 mls/hr 09/04/20 11:17 Dextrose 10% IV CONT .Q20H PRN if PN is interrupted Amino Acids/Electrolytes/Dextrose 2,000 mls @ 120 mls/hr 09/04/
[2020-09-06] MEDS: LORazepam INJ (*CRX) 2 MG/ML VIAL 0.5 MG IV PUSH (21:48)
[2020-09-06] MEDS: AMINO ACIDS 4.25%/D5W/LYTES/CA 2,000 ML 120 ML IV CONT (23:19)
[2020-09-07] VITALS (8 sets, daily range): BP systolic 138–146; BP diastolic 78–87; PULSE 91–106; RESP 20; TEMP 36.1–37.2; O2SAT 93–97
[2020-09-07] MEDS: METOCLOPRAMIDE HCL INJ 10 MG/2 ML VIAL IV PUSH ×4 (00:13→17:05)
[2020-09-07] MEDS: HYDROmorphone HCL INJ (*CRX) 1 MG/ML SYR IV PUSH ×4 (00:50→07:59)
[2020-09-07 01:08] LABS: Glucose Point of Care 134 (65-105)
[2020-09-07] MEDS: LORazepam INJ (*CRX) 2 MG/ML VIAL 0.5 MG IV PUSH (02:34)
[2020-09-07 05:47] LABS: Hematocrit 33.6 % (42.0-52.0); Hemoglobin 10.8 g/dL (14.0-18.0); Mean Corpuscular HGB Conc 32.1 g/dl (32-36); Mean Corpuscular Hemoglobin 33.1 pg (26-34); Mean Corpuscular Volume 103.1 fl (80-100); Mean Platelet Volume 10.1 fl (7.4-10.4); Platelet Count Result 406 k/mm3 (150-375); Red Blood Count 3.26 M/mm3 (4.6-6.20); Red Cell Distribution Width 14.8 % (11.5-14.5); White Blood Count 11.8 K/mm3 (4.5-10.0)
[2020-09-07 05:49] LABS: Anion Gap 6 mmol/L (8-16); Blood Urea Nitrogen 24 mg/dL (9-20); Calcium 8.5 mg/dL (8.4-10.2); Carbon Dioxide 29 mmol/L (22-30); Chloride 99 mmol/L (98-107); Estimated CRCL calculation 95 ml/min; Estimated Glomerular Filt Rate > 60; Glucose 121 mg/dL (75-110); Magnesium 2.4 mg/dL (1.6-2.3); Phosphorus 4.1 mg/dL (2.5-4.5); Potassium 4.2 mmol/L (3.4-5.0); Sodium 134 mmol/L (137-145)
[2020-09-07 06:15] LABS: Glucose Point of Care 137 (65-105)
[2020-09-07] MEDS: PANTOPRAZOLE SODIUM IV 40 MG VIAL IV PUSH ×2 (08:07→20:56)
[2020-09-07] MEDS: ENOXAPARIN 30 MG/0.3 ML SYRINGE SUB-Q ×2 (08:07→20:56)
[2020-09-07] MEDS: TOLNAFTATE 1% POWDER 45 GM BTL 1 APPLIC TOPICAL ×2 (08:08→17:17)
[2020-09-07] MEDS: AMIODARONE HCL 200 MG TABLET PO (08:08)
--- NOTE | 2020-09-07 09:50 | PM.PNGS ---
Progress Note: A&P Assessment and Plan (1) Ileus following gastrointestinal surgery: Onset Date: ~09/02/20 Code(s): K91.89 - Other postprocedural complications and disorders of digestive system; K56.7 - Ileus, unspecified Status: Acute Assessment and Plan: Abdominal Xray not improving. Will get CT abd/pelvis today Concern for persistent obstruction or other complication as a cause for this prolonged ileus. Will make a decision based on CT today. May need to stimulate bowels more or consider endoscopy through ileostomy. If obstruction or perforation seen on CT, may need to take back to surgery. Continue PPN, may get a Picc line today if ongoing NPO status expected. Continue Zosyn for anastomotic leak (2) Intra-abdominal abscess: Onset Date: ~08/25/20 Code(s): K65.1 - Peritoneal abscess Status: Acute (3) Anastomotic leak of intestine: Onset Date: ~08/25/20 Code(s): K91.89 - Other postprocedural complications and disorders of digestive system Status: Acute (4) Rectal cancer: Code(s): C20 - Malignant neoplasm of rectum Status: Chronic Subjective Subjective Date/Time Seen: 09/07/20 09:50 Pain not improving. Ostomy output not improving. Patient trying to get up more. Says 1mg Dilaudid not helping much anymore. No fevers. Exam GI: Inspection: distended and incision (Dry, intact with cassius) GI Palp: Yes Tenderness to palpation present (GI) (mostly central abdomen and near incision) Auscultation: Hypoactive bowel sounds present Other: Ileostomy pink, minimal serous output LLQ drain slightly green tinged output Objective Data Vital Signs Vital Signs: Vital Signs - 24 hr 09/06/20 12:00 09/06/20 13:59 09/06/20 16:00 Temperature 36.4 C Pulse Rate 92 88 88 Respiratory Rate 18 Blood Pressure 109/74 Pulse Oximetry 91 09/06/20 20:00 09/06/20 21:30 09/07/20 00:00 Temperature 37.3 C 37.5 C Pulse Rate 105 H 103 H Respiratory Rate 22 H Blood Pressure 136/84 Pulse Oximetry 92 09/07/20 01:07 09/07/20 04:00 Temperature 37.2 C 36.5 C Pulse Rate 101 H Respiratory Rate 20 Blood Pressure 146/87 H Pulse Oximetry 93 Intake/Output Intake/Output: Intake & Output 09/04/20 09/05/20 09/06/20 09/07/20 23:59 23:59 23:59 23:59 Intake Total 3559 1591 5050 100 Output Total 2655 2510 3370 1960 Balance 904 -919 1680 -1860 Meds/Results Medications: Active Medications Generic Name Dose Route Start Last Admin Trade Name Freq PRN Reason Stop Dose Admin Albuterol 2 puff 08/29/20 23:46 09/05/20 19:35 Albuterol Sulfate (*Sp) Aerosol 1 Puff INHALATION 2 puff QID PRN Administration Dyspnea Amiodarone HCl 200 mg 08/30/20 08:00 09/07/20 08:08 Amiodarone Hcl 200 Mg Tablet PO 200 mg DAILY@0800 ASHELY Administration Enoxaparin Sodium 30 mg 08/31/20 21:00 09/07/20 08:07 Enoxaparin 30 Mg/0.3 Ml Syringe SUB-Q 30 mg Q12HR ASHELY Administration Hydrochlorothiazide 25 mg 08/30/20 09:00 09/01/20 08:29 Hydrochlorothiazide 25 Mg Tablet PO 25 mg DAILY ASHELY Administration Hydromorphone HCl 0.75 mg 09/07/20 09:49 Hydromorphone Hcl Inj (*Crx) 1 Mg/Ml Syr IV PUSH Q2H PRN Pain Rated 4-6 Hydromorphone HCl 1.5 mg 09/07/20 09:49 Hydromorphone Hcl Inj (*Crx) 1 Mg/Ml Syr IV PUSH Q2H PRN Pain Rated 7-10 Piperacillin/Tazobactam/Dextrose 3.375 gm in 50 mls @ 100 mls/hr 08/30/20 12:00 09/07/20 06:15 Zosyn 3.375 Gm/D5w 50ml Pm IVPB Infused Q6H ASHELY Infusion Dextrose 1,000 mls @ 50 mls/hr 09/04/20 11:17 Dextrose 10% IV CONT .Q20H PRN if PN is interrupted Amino Acids/Electrolytes/Dextrose 2,000 mls @ 120 mls/hr 09/04/20 11:20 09/06/20 23:19 Clinimix E 4.25%/5% Solution IV CONT 120 mls/hr .[id number] ASHELY Administration Protocol Fat Emulsion Intravenous 250 mls @ 20.833 mls/hr 09/04/20 11:20 09/06/20 23:30 Lipids 20% IVPB Infused
[2020-09-07] MEDS: HYDROmorphone HCL INJ (*CRX) 1 MG/ML SYR 1.5 MG IV PUSH ×3 (10:42→23:40)
--- NOTE | 2020-09-07 11:52 | PCPTNOTE ---
Patient on hold per nursing due to having multiple procedure this date. Will resume PT per plan of care after talking with nursing staff tomorrow.
[2020-09-07 11:57] LABS: Triglycerides 154 mg/dL (<150)
[2020-09-07] MEDS: LIDOCAINE HCL 1% PF INJ 5 ML VIAL INFILTRATE (12:00)
--- NOTE | 2020-09-07 12:56 | P.PNIM_ITS ---
Progress Note: A&P Assessment and Plan (1) Ileus following gastrointestinal surgery: Onset Date: ~09/02/20 Code(s): K91.89 - Other postprocedural complications and disorders of digestive system; K56.7 - Ileus, unspecified Status: Acute Assessment and Plan: 09/07/20 12:56 Isma Nieves is a 70 year old male with hx of rectal cancer and underwent resection on 08/09/2020 and it was uneventful and he was discharged on 08/14/20, he presented with abdominal pain on 08/19/20 and was found to have a small leak at anastomosis, and it was percutaneously drained a drained was placed, monitored initially NPO and then he was able to tolerated diet and discharged home on 08/26/2020. He again presented on 08/30/[address] scan of abdomen showed small abscess near the anastomosis and severe colicky abdominal pain and felt wanted to pass gas or have BM but was not able, he was started on IVF and Zosyn, close review of CT scan showed persistent anastomitic leak seemed that conservative treatment with bowl rest was not helping and it was decided to take the patient to OR for loop ileostomy with possible colostomy on 08/31/2020, he was doing fine until last night patient had coffee ground emesis and patient was placed on NG tube removed 1900cc gastric content, plan is to continue NG tube and now patient is NPO, patient has hx of A. fib and HTN for this patient is taking oral Amiodarone and metoprolol, so we were consulted to switch patient to oral medications to IV and monitor A. Fib and HTN, patient was given Amiodarone via NG tube, will hold metoprolol PO, currently his HR and BP controlled, will give lopressor 5mg IV q8 PRN if the HR is above 100s, patient denies any chest pain shortness of breath palpitation fever or chills, patient is not passing any gas and no BM, we thank you for consulting us for medical management will follow the patient with you and please call us if you have any questions. Thank you. 09/03 today patient has not pass any gas, patient does have abdominal discomfort, no nausea or vomiting he is on NG tube, he denies any complaint of chest pain, palpitation or shortness of breath, patient's heart rate and blood pressure with in normal limits, being monitored on tele, patient is receiving amiodarone via NG tube and we are holding p.o. metoprolol and lisinopril, patient is clinically stable will continue to monitor patient potassium and magnesium are monitor will supplement as needed, patient is seen by surgery service and further recommendation to follow. 09/04 today patient still has not passing any gas, on NG tube high output, seen by surgery service suspect patient has taking too much narcotic to control the pain, patient is given Reglan and Relistor to help have BM, agrees patient to ambulate and work with PT, patient with a proximal atrial fibrillation patient is receiving amiodarone via NG tube, metoprolol is on hold, will give Lopressor 5 mg every 8 hours as needed for the heart rate above 100, patient on telemetry heart rate is close to 100, patient is clinically stable, will continue to monitor and follow-up with surgery team. 09/05 today went for walk and he just returned, he appears in pain, and c/o abdominal pain, still not passing any gas, on NG tube, current clamped and received his medications including amiodarone, Pt HR is now running above 100s, patient is on IV Lopressor 5mg q6 PRN as needed for HT above 100s, patient will be seen by surgery service and further recommendation to follow. 09/06 today patient is quite bloated and in pain, he was seen by surgery service and patient had abdomen x-ray which showed . Multiple mildly dilated gas-filled loops of small bowel with decrease in the amount of residual dilute oral contrast m
[2020-09-07] MEDS: FAT EMULSIONS IV 20% 250 ML 20.8 ML IVPB (13:39)
[2020-09-07] MEDS: HYDROmorphone HCL INJ (*CRX) 1 MG/ML SYR 0.75 MG IV PUSH ×2 (17:12→21:31)
[2020-09-07] MEDS: CENTRAL LINE FLUSH 10 ML IV PUSH ×2 (17:17→20:57)
[2020-09-07 18:51] LABS: Glucose Point of Care 102 (65-105)
[2020-09-07] MEDS: AMINO ACIDS 4.25%/D5W/LYTES/CA 2,000 ML 120 ML IV CONT (21:00)
[2020-09-08] VITALS (10 sets, daily range): BP systolic 125–154; BP diastolic 83–87; PULSE 88–113; RESP 16–21; TEMP 36.2–37; O2SAT 96–100
[2020-09-08] MEDS: METOCLOPRAMIDE HCL INJ 10 MG/2 ML VIAL IV PUSH ×5 (00:10→23:17)
[2020-09-08] MEDS: HYDROmorphone HCL INJ (*CRX) 1 MG/ML SYR 0.75 MG IV PUSH ×3 (03:00→23:47)
[2020-09-08 05:20] LABS: Hematocrit 31.6 % (42.0-52.0); Hemoglobin 10.2 g/dL (14.0-18.0); Mean Corpuscular HGB Conc 32.3 g/dl (32-36); Mean Corpuscular Hemoglobin 32.1 pg (26-34); Mean Corpuscular Volume 99.4 fl (80-100); Mean Platelet Volume 10.1 fl (7.4-10.4); Platelet Count Result 402 k/mm3 (150-375); Red Blood Count 3.18 M/mm3 (4.6-6.20); Red Cell Distribution Width 14.5 % (11.5-14.5); White Blood Count 10.4 K/mm3 (4.5-10.0)
[2020-09-08 05:33] LABS: Anion Gap 4 mmol/L (8-16); Blood Urea Nitrogen 19 mg/dL (9-20); Calcium 8.6 mg/dL (8.4-10.2); Carbon Dioxide 30 mmol/L (22-30); Chloride 99 mmol/L (98-107); Estimated CRCL calculation 95 ml/min; Estimated Glomerular Filt Rate > 60; Glucose 119 mg/dL (75-110); Potassium 4.2 mmol/L (3.4-5.0); Sodium 133 mmol/L (137-145)
[2020-09-08 05:35] LABS: Anion Gap 3 mmol/L (8-16); Blood Urea Nitrogen 19 mg/dL (9-20); Calcium 8.7 mg/dL (8.4-10.2); Carbon Dioxide 29 mmol/L (22-30); Chloride 100 mmol/L (98-107); Estimated CRCL calculation 95 ml/min; Estimated Glomerular Filt Rate > 60; Glucose 118 mg/dL (75-110); Magnesium 2.3 mg/dL (1.6-2.3); Potassium 4.2 mmol/L (3.4-5.0); Sodium 132 mmol/L (137-145)
[2020-09-08] MEDS: CENTRAL LINE FLUSH 20 ML IV PUSH (05:37)
[2020-09-08 05:52] LABS: Glucose Point of Care 99 (65-105)
[2020-09-08] MEDS: CENTRAL LINE FLUSH 10 ML IV PUSH ×4 (05:56→20:49)
[2020-09-08] MEDS: TOLNAFTATE 1% POWDER 45 GM BTL 1 APPLIC TOPICAL ×2 (09:28→16:49)
[2020-09-08] MEDS: AMIODARONE HCL 200 MG TABLET PO (09:28)
[2020-09-08] MEDS: ENOXAPARIN 30 MG/0.3 ML SYRINGE SUB-Q (09:28)
[2020-09-08] MEDS: HYDROmorphone HCL INJ (*CRX) 1 MG/ML SYR 1.5 MG IV PUSH ×3 (09:28→20:52)
[2020-09-08] MEDS: PANTOPRAZOLE SODIUM IV 40 MG VIAL IV PUSH ×2 (09:28→20:49)
[2020-09-08] MEDS: AMINO ACIDS 4.25%/D5W/LYTES/CA 2,000 ML 120 ML IV CONT (09:32)
--- NOTE | 2020-09-08 11:10 | PM.IMPN ---
Progress Note: A&P Assessment and Plan (1) Ileus following gastrointestinal surgery: Onset Date: ~09/02/20 Code(s): K91.89 - Other postprocedural complications and disorders of digestive system; K56.7 - Ileus, unspecified Status: Acute Assessment and Plan: nasogastric tube TPN recommendation per surgery Reviewed CT scan Surgery following Monitor BMP Replace electrolytes (2) Hyponatremia: Onset Date: 09/01/20 Code(s): E87.1 - Hypo-osmolality and hyponatremia Status: Acute Assessment and Plan: Improve monitor BMP (3) Intra-abdominal abscess: Onset Date: ~08/25/20 Code(s): K65.1 - Peritoneal abscess Status: Acute Assessment and Plan: Current on IV antibiotics Status post ileostomy (4) Anastomotic leak of intestine: Onset Date: ~08/25/20 Code(s): K91.89 - Other postprocedural complications and disorders of digestive system Status: Acute Assessment and Plan: Status post ileostomy (5) PAF (paroxysmal atrial fibrillation): Code(s): I48.0 - Paroxysmal atrial fibrillation Status: Acute Assessment and Plan: Continue amiodarone P.r.n. metoprolol (6) COPD (chronic obstructive pulmonary disease): Code(s): J44.9 - Chronic obstructive pulmonary disease, unspecified Status: Acute Assessment and Plan: Stable continue home medication (7) Rectal cancer: Code(s): C20 - Malignant neoplasm of rectum Status: Chronic Assessment and Plan: Reason colon resection on August 14 2020 Complicated with anastomosis leak complicated with abscesses This is the 2nd admission after Surgery Fullness leak was treated conservatively This secondary current leak and abscess was treated with ileostomy Subjective Date/time seen: 09/08/20 11:10 Interval history: Patient seen and examined Patient still has nasogastric tube States that showed probable ileus and abscess Patient denies fever headache chest pain shortness of breath I am seeing the patient for AFib Exam Narrative: Exam Narrative: Alert Chest no wheeze crackles Abdomen distended nontender CVS S1 + S2 Lower extremity edema Objective Data Vital Signs Vital Signs: Vital Signs - 24 hr 09/07/20 14:00 09/07/20 16:00 09/07/20 20:00 Temperature 97.1 F L Pulse Rate 94 98 101 H Respiratory Rate 20 Blood Pressure 138/80 Pulse Oximetry 93 09/07/20 21:20 09/08/20 00:00 09/08/20 04:00 Temperature 96.9 F L Pulse Rate 96 90 88 Respiratory Rate 20 Blood Pressure 142/78 H Pulse Oximetry 97 09/08/20 05:18 09/08/20 08:00 09/08/20 09:28 Temperature 98.6 F Pulse Rate 92 113 H 97 Respiratory Rate 20 Blood Pressure 154/86 H Pulse Oximetry 96 Intake/Output Intake/Output: Intake & Output 09/05/20 09/06/20 09/07/20 09/08/20 23:59 23:59 23:59 23:59 Intake Total 1591 5050 2760 2550 Output Total 2510 3370 4017 1800 Balance -919 1680 -1257 750 Meds/Results Medications: Active Medications Generic Name Dose Route Start Last Admin Trade Name Freq PRN Reason Stop Dose Admin Albuterol 2 puff 08/29/20 23:46 09/05/20 19:35 Albuterol Sulfate (*Sp) Aerosol 1 Puff INHALATION 2 puff QID PRN Administration Dyspnea Amiodarone HCl 200 mg 08/30/20 08:00 09/08/20 09:28 Amiodarone Hcl 200 Mg Tablet PO 200 mg DAILY@0800 ASHELY Administration Enoxaparin Sodium 30 mg 08/31/20 21:00 09/08/20 09:28 Enoxaparin 30 Mg/0.3 Ml Syringe SUB-Q 30 mg Q12HR ASHELY Administration Hydrochlorothiazide 25 mg 08/30/20 09:00 09/01/20 08:29 Hydrochlorothiazide 25 Mg Tablet PO 25 mg DAILY ASHELY Administration Hydromorphone HCl 0.75 mg 09/07/20 09:49 09/08/20 03:00 Hydromorphone Hcl Inj (*Crx) 1 Mg/Ml Syr IV PUSH 0.75 mg Q2H PRN Administration Pain Rated 4-6 Hydromorphone HCl 1.5 mg 09/07/20 09:49 09/08/20 09:28 Hydromorphone Hcl Inj (*Crx) 1 Mg/Ml Syr IV PU
[2020-09-08] MEDS: FAT EMULSIONS IV 20% 250 ML 20.8 ML IVPB (11:38)
[2020-09-08] MEDS: AMINO ACIDS 5%/D15W/E-LYTES/CA 2,000 ML with MULTIVITAMINS-12 INJ VIAL 1 2.5 ML, MULTIV... 80 ML IV CONT (11:51)
--- NOTE | 2020-09-08 11:51 | PM.PNGS ---
Progress Note: A&P Assessment and Plan (1) Ileus following gastrointestinal surgery: Onset Date: ~09/02/20 Code(s): K91.89 - Other postprocedural complications and disorders of digestive system; K56.7 - Ileus, unspecified Status: Acute Assessment and Plan: On Reglan Will give Mag Citrate per NG today Continue NG decompression Miller in the ileostomy to allow continued decompression, will keep in place until distention has improved and output picking up (2) Intra-abdominal abscess: Onset Date: ~08/25/20 Code(s): K65.1 - Peritoneal abscess Status: Acute Assessment and Plan: Drain in place in pelvis, keep drain until abscess has resolved (3) Anastomotic leak of intestine: Onset Date: ~08/25/20 Code(s): K91.89 - Other postprocedural complications and disorders of digestive system Status: Acute (4) Rectal cancer: Code(s): C20 - Malignant neoplasm of rectum Status: Chronic (5) Protein calorie malnutrition: Code(s): E46 - Unspecified protein-calorie malnutrition Status: Acute Assessment and Plan: Continue TPN, monitor electrolytes. Subjective Subjective Date/Time Seen: 09/08/20 11:51 Interval history: Ileostomy draining, still having significant NG output as well. Pain slowly improving. Ambulating some, but has difficulty with waiting for assistance. No fevers. Exam GI: Inspection: distended and incision (clean, dry, intact) GI Palp: Yes Tenderness to palpation present (GI) (incisional) and No Guarding due to palpation present (GI) Auscultation: Hypoactive bowel sounds present Other: GARY minimal serous, slightly greenish output Ileostomy pink and functioning Objective Data Vital Signs Vital Signs: Vital Signs - 24 hr 09/07/20 14:00 09/07/20 16:00 09/07/20 20:00 Temperature 36.2 C L Pulse Rate 94 98 101 H Respiratory Rate 20 Blood Pressure 138/80 Pulse Oximetry 93 09/07/20 21:20 09/08/20 00:00 09/08/20 04:00 Temperature 36.1 C L Pulse Rate 96 90 88 Respiratory Rate 20 Blood Pressure 142/78 H Pulse Oximetry 97 09/08/20 05:18 09/08/20 08:00 09/08/20 09:28 Temperature 37.0 C Pulse Rate 92 113 H 97 Respiratory Rate 20 Blood Pressure 154/86 H Pulse Oximetry 96 Intake/Output Intake/Output: Intake & Output 09/05/20 09/06/20 09/07/20 09/08/20 23:59 23:59 23:59 23:59 Intake Total 1591 5050 2760 2550 Output Total 2510 3370 4017 2075 Balance -919 1680 -1257 475 Meds/Results Medications: Active Medications Generic Name Dose Route Start Last Admin Trade Name Freq PRN Reason Stop Dose Admin Albuterol 2 puff 08/29/20 23:46 09/05/20 19:35 Albuterol Sulfate (*Sp) Aerosol 1 Puff INHALATION 2 puff QID PRN Administration Dyspnea Amiodarone HCl 200 mg 08/30/20 08:00 09/08/20 09:28 Amiodarone Hcl 200 Mg Tablet PO 200 mg DAILY@0800 ASHELY Administration Enoxaparin Sodium 30 mg 08/31/20 21:00 09/08/20 09:28 Enoxaparin 30 Mg/0.3 Ml Syringe SUB-Q 30 mg Q12HR ASHELY Administration Hydrochlorothiazide 25 mg 08/30/20 09:00 09/01/20 08:29 Hydrochlorothiazide 25 Mg Tablet PO 25 mg DAILY ASHELY Administration Hydromorphone HCl 0.75 mg 09/07/20 09:49 09/08/20 03:00 Hydromorphone Hcl Inj (*Crx) 1 Mg/Ml Syr IV PUSH 0.75 mg Q2H PRN Administration Pain Rated 4-6 Hydromorphone HCl 1.5 mg 09/07/20 09:49 09/08/20 09:28 Hydromorphone Hcl Inj (*Crx) 1 Mg/Ml Syr IV PUSH 1.5 mg Q2H PRN Administration Pain Rated 7-10 Piperacillin/Tazobactam/Dextrose 3.375 gm in 50 mls @ 100 mls/hr 08/30/20 12:00 09/08/20 11:38 Zosyn 3.375 Gm/D5w 50ml Pm IVPB 100 mls/hr Q6H ASHELY Administration Dextrose 1,000 mls @ 50 mls/hr 09/04/20 11:17 Dextrose 10% IV CONT .Q20H PRN if PN is interrupted Fat Emulsion Intravenous 250 mls @ 20.833 mls/hr 09/04/20 11:20 09/08/20 11:38 Lipids 20% IVPB 20.8 mls/hr Q24H
[2020-09-08] MEDS: MAGNESIUM CITRATE 300 ML BTL 150 ML FEED TUBE (12:04)
--- NOTE | 2020-09-08 12:22 | PCNFU ---
Nutrition Follow-Up Complete: Altered GI function as related to anastomotic leak as evidenced by NPO x 5 days. Goal: Meet estimated caloric needs Patient is progressing towards goal. We will continue current goal. Pt current nutrition is PPN. Last recorded weight is 97.5 kg, down from 100 kg on admit. Bowel Motility:Ileostomy Labs Reviewed: Glu 119,Hct 31.6,Hgb 10.2, Na 133 Meds Noted:Dilaudid,Reglan,Protonix, Zosyn. Additional Notes: Nutrition follow up. Patient continues to have hypoactive bowel sounds. PPN has been decreased from 120 ml/hr to 80 ml/hr, providing 1153 kcals and 82 gms protein. Gas and abdominal distention noted. If patient remains on parenteral nutrition, would recommend changing to TPN at 80 ml/hr, which would recommend 1863 kcals and 96 gms protein. Monitoring every Friday and Friday.
[2020-09-08 16:02] LABS: Glucose Point of Care 157 (65-105)
[2020-09-08] MEDS: ALBUTEROL SULFATE (*SP) AEROSOL 1 PUFF 2 PUFF INHALATION (18:10)
[2020-09-08 19:55] LABS: Glucose Point of Care 147 (65-105)
[2020-09-08 23:33] LABS: Glucose Point of Care 125 (65-105)
[2020-09-09] VITALS (10 sets, daily range): BP systolic 105–140; BP diastolic 68–81; PULSE 91–105; RESP 20; TEMP 36.5–36.9; O2SAT 93–99
[2020-09-09] MEDS: LORazepam INJ (*CRX) 2 MG/ML VIAL 0.5 MG IV PUSH (01:39)
[2020-09-09] MEDS: HYDROmorphone HCL INJ (*CRX) 1 MG/ML SYR 1.5 MG IV PUSH ×4 (02:30→21:07)
[2020-09-09] MEDS: CENTRAL LINE FLUSH 10 ML IV PUSH ×3 (05:32→21:09)
[2020-09-09] MEDS: METOCLOPRAMIDE HCL INJ 10 MG/2 ML VIAL IV PUSH ×4 (05:43→23:59)
[2020-09-09 06:14] LABS: Hematocrit 31.2 % (42.0-52.0); Hemoglobin 10.2 g/dL (14.0-18.0); Mean Corpuscular HGB Conc 32.7 g/dl (32-36); Mean Corpuscular Hemoglobin 32.3 pg (26-34); Mean Corpuscular Volume 98.7 fl (80-100); Mean Platelet Volume 10.3 fl (7.4-10.4); Platelet Count Result 432 k/mm3 (150-375); Red Blood Count 3.16 M/mm3 (4.6-6.20); Red Cell Distribution Width 14.5 % (11.5-14.5); White Blood Count 11.1 K/mm3 (4.5-10.0)
[2020-09-09 06:42] LABS: Anion Gap 1 mmol/L (8-16); Blood Urea Nitrogen 18 mg/dL (9-20); Calcium 8.6 mg/dL (8.4-10.2); Carbon Dioxide 31 mmol/L (22-30); Chloride 100 mmol/L (98-107); Estimated CRCL calculation 84 ml/min; Estimated Glomerular Filt Rate > 60; Glucose 130 mg/dL (75-110); Magnesium 2.4 mg/dL (1.6-2.3); Phosphorus 4.1 mg/dL (2.5-4.5); Sodium 132 mmol/L (137-145)
[2020-09-09 07:00] LABS: Glucose Point of Care 170 (65-105)
[2020-09-09] MEDS: ENOXAPARIN 40 MG/0.4 ML SYRINGE SUB-Q (08:57)
[2020-09-09] MEDS: AMIODARONE HCL 200 MG TABLET PO (08:57)
[2020-09-09] MEDS: PANTOPRAZOLE SODIUM IV 40 MG VIAL IV PUSH ×2 (08:58→21:09)
[2020-09-09] MEDS: TOLNAFTATE 1% POWDER 45 GM BTL 1 APPLIC TOPICAL ×2 (08:58→18:06)
--- NOTE | 2020-09-09 09:17 | PM.IMPN ---
Progress Note: A&P Assessment and Plan (1) Ileus following gastrointestinal surgery: Onset Date: ~09/02/20 Code(s): K91.89 - Other postprocedural complications and disorders of digestive system; K56.7 - Ileus, unspecified Status: Acute Assessment and Plan: nasogastric tube TPN recommendation per surgery Reviewed CT scan KUB still showed probable ileus Surgery following Monitor BMP Replace electrolytes (2) Hyponatremia: Onset Date: 09/01/20 Code(s): E87.1 - Hypo-osmolality and hyponatremia Status: Acute Assessment and Plan: Improve monitor BMP (3) Intra-abdominal abscess: Onset Date: ~08/25/20 Code(s): K65.1 - Peritoneal abscess Status: Acute Assessment and Plan: Current on IV antibiotics Status post ileostomy (4) Anastomotic leak of intestine: Onset Date: ~08/25/20 Code(s): K91.89 - Other postprocedural complications and disorders of digestive system Status: Acute Assessment and Plan: Status post ileostomy (5) PAF (paroxysmal atrial fibrillation): Code(s): I48.0 - Paroxysmal atrial fibrillation Status: Acute Assessment and Plan: Continue amiodarone P.r.n. metoprolol (6) COPD (chronic obstructive pulmonary disease): Code(s): J44.9 - Chronic obstructive pulmonary disease, unspecified Status: Acute Assessment and Plan: Stable continue home medication (7) Rectal cancer: Code(s): C20 - Malignant neoplasm of rectum Status: Chronic Assessment and Plan: Reason colon resection on August 14 2020 Complicated with anastomosis leak complicated with abscesses This is the 2nd admission after Surgery Fullness leak was treated conservatively This secondary current leak and abscess was treated with ileostomy Subjective Date/time seen: 09/09/20 09:17 Interval history: Patient seen and examined Patient still has nasogastric tube KUB still favor ileus over obstruction Positive atelectasis Patient denies fever headache chest pain shortness of breath I am seeing the patient for AFib Exam Narrative: Exam Narrative: Alert Chest no wheeze crackles Abdomen distended nontender CVS S1 + S2 Lower extremity edema Objective Data Vital Signs Vital Signs: Vital Signs - 24 hr 09/08/20 09:28 09/08/20 12:00 09/08/20 14:00 Temperature 97.1 F L Pulse Rate 97 99 99 Respiratory Rate 16 Blood Pressure 125/87 Pulse Oximetry 98 09/08/20 16:00 09/08/20 20:00 09/08/20 22:00 Temperature 98.1 F Pulse Rate 99 101 H 98 Respiratory Rate 21 H Blood Pressure 128/83 Pulse Oximetry 100 09/09/20 00:00 09/09/20 04:00 09/09/20 06:00 Temperature 97.7 F Pulse Rate 98 91 93 Respiratory Rate 20 Blood Pressure 105/68 Pulse Oximetry 99 09/09/20 08:57 Temperature Pulse Rate 93 Respiratory Rate Blood Pressure Pulse Oximetry Intake/Output Intake/Output: Intake & Output 09/06/20 09/07/20 09/08/20 09/09/20 23:59 23:59 23:59 23:59 Intake Total 5050 2760 3050 50 Output Total 3370 4017 3850 1254 Balance 1680 -1257 -800 -1205 Meds/Results Medications: Active Medications Generic Name Dose Route Start Last Admin Trade Name Freq PRN Reason Stop Dose Admin Albuterol 2 puff 08/29/20 23:46 09/08/20 18:10 Albuterol Sulfate (*Sp) Aerosol 1 Puff INHALATION 2 puff QID PRN Administration Dyspnea Amiodarone HCl 200 mg 08/30/20 08:00 09/09/20 08:57 Amiodarone Hcl 200 Mg Tablet PO 200 mg DAILY@0800 ASHELY Administration Enoxaparin Sodium 40 mg 09/09/20 09:00 09/09/20 08:57 Enoxaparin 40 Mg/0.4 Ml Syringe SUB-Q 40 mg DAILY ASHELY Administration Hydrochlorothiazide 25 mg 08/30/20 09:00 09/01/20 08:29 Hydrochlorothiazide 25 Mg Tablet PO 25 mg DAILY ASHELY Administration Hydromorphone HCl 0.75 mg 09/07/20 09:49 09/08/20 23:47 Hydromorphone Hcl Inj (*Crx) 1 Mg/Ml Syr IV PUSH 0.75 mg Q2H PRN
--- NOTE | 2020-09-09 09:25 | PM.PNGS ---
Progress Note: A&P Assessment and Plan (1) Anastomotic leak of intestine: Onset Date: ~08/25/20 Code(s): K91.89 - Other postprocedural complications and disorders of digestive system Status: Acute Assessment and Plan: better, will clamp NG and try to dc later today, if able to dc will start clears, cont TPN for now, encourage ambulation/IS Subjective Subjective Date/Time Seen: 09/09/20 09:25 feels slightly better today, reports some pain but no intense pain, reports increased ostomy output Review of Systems Review of Systems: All systems reviewed & are unremarkable except as noted in HPI and below Exam Const: General: cooperative, comfortable and no acute distress Resp: Effort & Inspection: normal respiratory effort Auscultation: clear to auscultation bilaterally Cardio: Rate: regular rate Rhythm: regular rhythm GI: Inspection: normal to inspection and distended GI Palp: Yes Soft to palpation, Yes Tenderness to palpation present (GI), No Guarding due to palpation present (GI) and No Rigid due to palpation Other: soft, sl dist, sanjuana TTP, ileostomy c small amount of output (recently changed), GARY c s/s output Objective Data Vital Signs Vital Signs: Vital Signs - 24 hr 09/08/20 09:28 09/08/20 12:00 09/08/20 14:00 Temperature 36.2 C L Pulse Rate 97 99 99 Respiratory Rate 16 Blood Pressure 125/87 Pulse Oximetry 98 09/08/20 16:00 09/08/20 20:00 09/08/20 22:00 Temperature 36.7 C Pulse Rate 99 101 H 98 Respiratory Rate 21 H Blood Pressure 128/83 Pulse Oximetry 100 09/09/20 00:00 09/09/20 04:00 09/09/20 06:00 Temperature 36.5 C Pulse Rate 98 91 93 Respiratory Rate 20 Blood Pressure 105/68 Pulse Oximetry 99 09/09/20 08:57 Temperature Pulse Rate 93 Respiratory Rate Blood Pressure Pulse Oximetry Intake/Output Intake/Output: Intake & Output 09/06/20 09/07/20 09/08/20 09/09/20 23:59 23:59 23:59 23:59 Intake Total 5050 2760 3050 50 Output Total 3370 4017 3850 1255 Balance 4060 -9567 -730 -5425 Meds/Results Medications: Active Medications Generic Name Dose Route Start Last Admin Trade Name Freq PRN Reason Stop Dose Admin Albuterol 2 puff 08/29/20 23:46 09/08/20 18:10 Albuterol Sulfate (*Sp) Aerosol 1 Puff INHALATION 2 puff QID PRN Administration Dyspnea Amiodarone HCl 200 mg 08/30/20 08:00 09/09/20 08:57 Amiodarone Hcl 200 Mg Tablet PO 200 mg DAILY@0800 ASHELY Administration Enoxaparin Sodium 40 mg 09/09/20 09:00 09/09/20 08:57 Enoxaparin 40 Mg/0.4 Ml Syringe SUB-Q 40 mg DAILY ASHELY Administration Furosemide 40 mg 09/09/20 09:30 Furosemide Inj 40 Mg/4 Ml Vial IV PUSH 09/09/20 09:31 ONCE ONE Hydrochlorothiazide 25 mg 08/30/20 09:00 09/01/20 08:29 Hydrochlorothiazide 25 Mg Tablet PO 25 mg DAILY ASHELY Administration Hydromorphone HCl 0.75 mg 09/07/20 09:49 09/08/20 23:47 Hydromorphone Hcl Inj (*Crx) 1 Mg/Ml Syr IV PUSH 0.75 mg Q2H PRN Administration Pain Rated 4-6 Hydromorphone HCl 1.5 mg 09/07/20 09:49 09/09/20 08:51 Hydromorphone Hcl Inj (*Crx) 1 Mg/Ml Syr IV PUSH 1.5 mg Q2H PRN Administration Pain Rated 7-10 Piperacillin/Tazobactam/Dextrose 3.375 gm in 50 mls @ 100 mls/hr 08/30/20 12:00 09/09/20 06:13 Zosyn 3.375 Gm/D5w 50ml Pm IVPB Infused Q6H ASHELY Infusion Dextrose 1,000 mls @ 50 mls/hr 09/04/20 11:17 Dextrose 10% IV CONT .Q20H PRN if PN is interrupted Fat Emulsion Intravenous 250 mls @ 20.833 mls/hr 09/04/20 11:20 09/08/20 23:40 Lipids 20% IVPB Infused Q24H ASEHLY Infusion Multivitamins 2.5 ml/ 2,005 mls @ 80 mls/hr 09/08/20 13:00 09/08/20 11:51 Multivitamins 2.5 ml/ Amino IV CONT 80 mls/hr Acids/Electrolytes/Dextrose .Q24H ASHELY Administration Protocol Lisinopril 10 mg 08/30/20 09:00 09/02/20 08:01 Lisinopril 10 Mg Tablet PO Not Given DAILY ASHELY Lorazepam 0.5 mg 08/29/20 23:4
[2020-09-09 12:18] LABS: Glucose Point of Care 126 (65-105)
[2020-09-09] MEDS: FAT EMULSIONS IV 20% 250 ML 20.8 ML IVPB (12:46)
[2020-09-09] MEDS: FUROSEMIDE INJ 40 MG/4 ML VIAL IV PUSH (12:46)
[2020-09-09] MEDS: CENTRAL LINE FLUSH 20 ML IV PUSH (12:46)
[2020-09-09] MEDS: AMINO ACIDS 5%/D15W/E-LYTES/CA 2,000 ML with MULTIVITAMINS-12 INJ VIAL 1 2.5 ML, MULTIV... 80 ML IV CONT (12:47)
[2020-09-09 12:58] LABS: Triglycerides 142 mg/dL (<150)
[2020-09-09] MEDS: HYDROmorphone HCL INJ (*CRX) 1 MG/ML SYR 0.75 MG IV PUSH ×4 (13:04→22:43)
[2020-09-09 18:19] LABS: Glucose Point of Care 150 (65-105)
[2020-09-10] VITALS (13 sets, daily range): BP systolic 113–144; BP diastolic 74–85; PULSE 91–118; RESP 16–24; TEMP 36.3–37.1; O2SAT 93–98
[2020-09-10 00:08] LABS: Glucose Point of Care 151 (65-105)
[2020-09-10] MEDS: HYDROmorphone HCL INJ (*CRX) 1 MG/ML SYR 1.5 MG IV PUSH (00:50)
[2020-09-10] MEDS: ONDANSETRON INJ 4 MG/2 ML VIAL IV PUSH ×2 (03:27→06:49)
[2020-09-10] MEDS: HYDROmorphone HCL INJ (*CRX) 1 MG/ML SYR 0.75 MG IV PUSH ×2 (03:30→05:28)
[2020-09-10] MEDS: METOCLOPRAMIDE HCL INJ 10 MG/2 ML VIAL IV PUSH ×3 (05:28→18:08)
[2020-09-10] MEDS: CENTRAL LINE FLUSH 10 ML IV PUSH ×4 (05:28→21:10)
[2020-09-10 06:01] LABS: Glucose Point of Care 154 (65-105)
[2020-09-10 06:01] LABS: Glucose Point of Care > 500 (65-105)
[2020-09-10 06:06] LABS: Hematocrit 34.1 % (42.0-52.0); Hemoglobin 9.9 g/dL (14.0-18.0); Mean Corpuscular Hemoglobin 32.2 pg (26-34); Mean Corpuscular Volume 111.1 fl (80-100); Mean Platelet Volume 10.6 fl (7.4-10.4); Platelet Count Result 455 k/mm3 (150-375); Red Blood Count 3.07 M/mm3 (4.6-6.20); Red Cell Distribution Width 15.4 % (11.5-14.5)
[2020-09-10 07:49] LABS: Anion Gap 4 mmol/L (8-16); Blood Urea Nitrogen 25 mg/dL (9-20); Calcium 9.4 mg/dL (8.4-10.2); Carbon Dioxide 29 mmol/L (22-30); Chloride 100 mmol/L (98-107); Estimated CRCL calculation 76 ml/min; Estimated Glomerular Filt Rate > 60; Glucose 135 mg/dL (75-110); Magnesium 2.3 mg/dL (1.6-2.3); Phosphorus 4.6 mg/dL (2.5-4.5); Potassium 4.3 mmol/L (3.4-5.0); Sodium 133 mmol/L (137-145)
[2020-09-10] MEDS: HYDROmorphon 0.2MG/ML PCA(*CRX 6 MG/30 ML PCA.VIAL IV CONT (09:15)
[2020-09-10] MEDS: PANTOPRAZOLE SODIUM IV 40 MG VIAL IV PUSH ×2 (09:44→21:05)
[2020-09-10] MEDS: ENOXAPARIN 40 MG/0.4 ML SYRINGE SUB-Q (09:44)
[2020-09-10] MEDS: TOLNAFTATE 1% POWDER 45 GM BTL 1 APPLIC TOPICAL ×2 (09:44→18:08)
[2020-09-10] MEDS: METOPROLOL TARTRATE INJ 5 MG/5 ML VIAL IV PUSH (09:45)
--- NOTE | 2020-09-10 11:00 | PC.NURSE ---
This patient was moved to room 248 on 09/10/20 at 1100. Personal belongings sent with patient.
--- NOTE | 2020-09-10 11:26 | PM.PNGS ---
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 (2) Anastomotic leak of intestine: Onset Date: ~08/25/20 Code(s): K91.89 - Other postprocedural complications and disorders of digestive system Status: Acute Assessment and Plan: cont drain, abx Subjective Subjective Date/Time Seen: 09/10/20 11:26 very uncomfortable overnight, reports severe L flank pain, also had N/V Review of Systems Review of Systems: All systems reviewed & are unremarkable except as noted in HPI and below Exam Const: General: cooperative, acute distress mild and uncomfortable Resp: Effort & Inspection: normal respiratory effort Auscultation: clear to auscultation bilaterally Cardio: Rate: regular rate Rhythm: regular rhythm GI: Inspection: normal to inspection, distended and incision GI Palp: Yes abdominal tenderness, Yes Soft to palpation, Yes Tenderness to palpation present (GI) and No Rigid due to palpation Other: soft, sl dist, sanjuana TTP, ostomy c good fxn Objective Data Vital Signs Vital Signs: Vital Signs - 24 hr 09/09/20 12:00 09/09/20 14:00 09/09/20 16:00 Temperature 36.8 C Pulse Rate 97 105 H 105 H Respiratory Rate 20 Blood Pressure 128/78 Pulse Oximetry 93 09/09/20 20:00 09/09/20 22:00 09/10/20 00:00 Temperature 36.9 C Pulse Rate 102 H 102 H 111 H Respiratory Rate 20 Blood Pressure 140/81 Pulse Oximetry 99 09/10/20 04:00 09/10/20 06:00 09/10/20 09:15 Temperature 36.4 C L Pulse Rate 98 104 H Respiratory Rate 20 24 H Blood Pressure 144/85 H Pulse Oximetry 98 93 09/10/20 09:45 Temperature Pulse Rate 112 H Respiratory Rate Blood Pressure Pulse Oximetry Intake/Output Intake/Output: Intake & Output 09/07/20 09/08/20 09/09/20 09/10/20 23:59 23:59 23:59 23:59 Intake Total 2760 3050 2635 550 Output Total 4019 7670 1503 837 Balance -6964 -537 1165 -451 Meds/Results Medications: Active Medications Generic Name Dose Route Start Last Admin Trade Name Freq PRN Reason Stop Dose Admin Albuterol 2 puff 08/29/20 23:46 09/08/20 18:10 Albuterol Sulfate (*Sp) Aerosol 1 Puff INHALATION 2 puff QID PRN Administration Dyspnea Amiodarone HCl 200 mg 08/30/20 08:00 09/10/20 09:43 Amiodarone Hcl 200 Mg Tablet PO Not Given DAILY@0800 ASHELY Enoxaparin Sodium 40 mg 09/09/20 09:00 09/10/20 09:44 Enoxaparin 40 Mg/0.4 Ml Syringe SUB-Q 40 mg DAILY ASHELY Administration Hydrochlorothiazide 25 mg 08/30/20 09:00 09/01/20 08:29 Hydrochlorothiazide 25 Mg Tablet PO 25 mg DAILY ASHELY Administration Hydromorphone HCl 0.75 mg 09/07/20 09:49 09/10/20 05:28 Hydromorphone Hcl Inj (*Crx) 1 Mg/Ml Syr IV PUSH 0.75 mg Q2H PRN Administration Pain Rated 4-6 Hydromorphone HCl 1.5 mg 09/07/20 09:49 09/10/20 00:50 Hydromorphone Hcl Inj (*Crx) 1 Mg/Ml Syr IV PUSH 1.5 mg Q2H PRN Administration Pain Rated 7-10 Piperacillin/Tazobactam/Dextrose 3.375 gm in 50 mls @ 100 mls/hr 08/30/20 12:00 09/10/20 06:14 Zosyn 3.375 Gm/D5w 50ml Pm IVPB Infused Q6H ASHELY Infusion Dextrose 1,000 mls @ 50 mls/hr 09/04/20 11:17 Dextrose 10% IV CONT .Q20H PRN if PN is interrupted Fat Emulsion Intravenous 250 mls @ 20.833 mls/hr 09/04/20 11:20 09/10/20 00:48 Lipids 20% IVPB Infused Q24H ASHELY Infusion Multivitamins 2.5 ml/ 2,005 mls @ 80 mls/hr 09/08/20 13:00 09/09/20 12:47 Multivitamins 2.5 ml/ Amino IV CONT 80 mls/hr Acids/Electrolytes/Dextrose .Q24H ASHELY Administration Protocol Hydromorphone HCl 30 mg/ 30 mls @ 0 mls/hr 09/10/20 09:40 Sodium Chloride IVPB PRN MS
--- NOTE | 2020-09-10 11:35 | PCOTNOTE ---
Per EMISSIONS TESTING AND REPAIR TECHNICIAN, patient not feeling well and declined after procedure. Will continue plan of care tomorrow, 09/11/20.
--- NOTE | 2020-09-10 11:39 | PCPTNOTE ---
Per RN this am(09:21) hold therapy due to increased pain and check back in a little bit. Came back at 1135 and patient states he wants to wait on therapy as he has had a busy morning with a procedure. Will hold therapy today and check back tomorrow. RN present and aware.
[2020-09-10 12:42] LABS: Glucose Point of Care 143 (65-105)
[2020-09-10] MEDS: AMINO ACIDS 5%/D15W/E-LYTES/CA 2,000 ML with MULTIVITAMINS-12 INJ VIAL 1 2.5 ML, MULTIV... 80 ML IV CONT (13:28)
[2020-09-10] MEDS: FAT EMULSIONS IV 20% 250 ML 20.8 ML IVPB (13:28)
[2020-09-10 19:23] LABS: Glucose Point of Care 134 (65-105)
[2020-09-11] VITALS (11 sets, daily range): BP systolic 123–130; BP diastolic 77–84; PULSE 90–118; RESP 20; TEMP 36.3–36.6; O2SAT 94–98
[2020-09-11] MEDS: METOCLOPRAMIDE HCL INJ 10 MG/2 ML VIAL IV PUSH ×5 (00:14→23:51)
[2020-09-11 00:32] LABS: Glucose Point of Care 160 (65-105)
[2020-09-11] MEDS: ALBUTEROL SULFATE (*SP) AEROSOL 1 PUFF 2 PUFF INHALATION (02:13)
[2020-09-11] MEDS: CENTRAL LINE FLUSH 10 ML IV PUSH ×3 (05:39→20:50)
[2020-09-11 06:05] LABS: Magnesium 2.4 mg/dL (1.6-2.3)
[2020-09-11 06:11] LABS: Transferrin 209 mg/dL (206-381)
[2020-09-11 06:13] LABS: Partial Thromboplastin Time 33.3 SECONDS (22.3-36.8)
[2020-09-11 06:15] LABS: Prothrombin Time 13.8 Seconds (11.1-14.7)
[2020-09-11 06:42] LABS: Glucose Point of Care 167 (65-105)
[2020-09-11] MEDS: PANTOPRAZOLE SODIUM IV 40 MG VIAL IV PUSH ×2 (08:38→20:49)
[2020-09-11] MEDS: ENOXAPARIN 40 MG/0.4 ML SYRINGE SUB-Q (08:39)
[2020-09-11] MEDS: TOLNAFTATE 1% POWDER 45 GM BTL 1 APPLIC TOPICAL (08:39)
[2020-09-11] MEDS: AMIODARONE HCL 200 MG TABLET PO (09:21)
--- NOTE | 2020-09-11 09:22 | PC.NURSE ---
Addendum entered by Niat London RN 09/11/20 09:22: call to pharm was at 0838 Original Note: call to pharm for missing am dose of amiodorone
--- NOTE | 2020-09-11 10:50 | PM.IMPN ---
Progress Note: A&P Assessment and Plan (1) Ileus following gastrointestinal surgery: Onset Date: ~09/02/20 Code(s): K91.89 - Other postprocedural complications and disorders of digestive system; K56.7 - Ileus, unspecified Status: Acute Assessment and Plan: Management per the primary service. Patient with hx of rectal cancer underwent resection on 08/09/2020; then underwent loop ileostomy 08/31/20 due to persistent anastomotic leak despite conservative management. Now with postoperative ileus. NG removed over weekend then pain recurred and NG was replaced and remains intact today. (2) Intra-abdominal abscess: Onset Date: ~08/25/20 Code(s): K65.1 - Peritoneal abscess Status: Acute Assessment and Plan: Management per the primary service. Drain in place. On IV Zosyn (day 13). CT yesterday demonstrates persistent 8.2 x 4.6 x 4.9 cm perirectal abscess due the leak at distal rectal anastomosis. (3) PAF (paroxysmal atrial fibrillation): Code(s): I48.0 - Paroxysmal atrial fibrillation Status: Acute Assessment and Plan: Stable, rate is controlled on amiodarone. Given borderline HRs in low 100s today, will continue cardiac monitoring with telemetry. IV lopressor PRN is available with parameters for elevated heart rates. (4) Essential hypertension: Code(s): I10 - Essential (primary) hypertension Status: Acute Assessment and Plan: BP is stable today last 123/77. Monitor BP and adjust treatment as needed. Additional Plan Thank you for allowing me to participate in this pleasant gentleman's care plan. Please reach out for any questions or concerns regarding his A fib or hypertension. Subjective Date/time seen: 09/11/20 0900 Interval history: Mr. Nieves is a pleasant 70yo M admitted due to postoperative ileus and perirectal abscess. He is feeling well this morning and in good spirits. NG is in. Slept okay last night. At present he denies abdominal discomfort, bloating, or nausea at present. He denies chest pain or shortness of breath. Review of Systems Review of Systems: All systems reviewed & are unremarkable except as noted in HPI and below Exam Narrative: Exam Narrative: General: Male resting comfortably supine in bed in no acute distress. HEENT: Normocephalic, EOMI, oral mucosa tacky, NG intact right nare. Cardiovascular: Rhythm regular, slightly tachycardic. Telemetry shows sinus HR 106. Respiratory: Lungs clear to auscultation bilaterally. Respirations even and non-labored. Abdomen: Soft, non-tender, non-distended, bowel sounds present. Janette to midline abdomen incision clean and dry. Ostomy right abdomen with minimal dark green liquid output. GARY drain at left mid abdomen with minimal serous drainage. Extremities: Peripheral pulses intact. No edema or pain to palpation. Neuro: No focal neurological deficits. Speech is clear. Objective Data Vital Signs Vital Signs: Last Vital Signs Temp 97.8 F 09/11/20 06:00 Pulse 98 09/11/20 09:21 Resp 20 09/11/20 06:00 BP 123/77 09/11/20 08:35 Pulse Ox 94 09/11/20 06:00 Intake/Output Intake/Output: Intake & Output 09/08/20 09/09/20 09/10/20 09/11/20 23:59 23:59 23:59 23:59 Intake Total 3050 2635 2656 350 Output Total 3850 1505 3685 1450 Balance -800 1130 -1029 -1100 Meds/Results Medications: Active Medications Generic Name Dose Route Start Last Admin Trade Name Freq PRN Reason Stop Dose Admin Albuterol 2 puff 08/29/20 23:46 09/11/20 02:13 Albuterol Sulfate (*Sp) Aerosol 1 Puff INHALATION 2 puff QID PRN Administration Dyspnea Amiodarone HCl 200 mg 08/30/20 08:00 09/11/20 09:21 Amiodarone Hcl 200 Mg Tablet PO 200 mg DAILY@0800 ASHELY Administration Enoxaparin Sodium 4
--- NOTE | 2020-09-11 10:57 | PM.PNGS ---
Progress Note: A&P Assessment and Plan (1) Ileus following gastrointestinal surgery: Onset Date: ~09/02/20 Code(s): K91.89 - Other postprocedural complications and disorders of digestive system; K56.7 - Ileus, unspecified Status: Acute Assessment and Plan: Distention less today. Will give Dulcolax by mouth today and tomorrow to help stimulate bowels. Increase ambulation. (2) Protein calorie malnutrition: Code(s): E46 - Unspecified protein-calorie malnutrition Status: Acute Assessment and Plan: Continue TPN and monitor electrolytes (3) Anastomotic leak of intestine: Onset Date: ~08/25/20 Code(s): K91.89 - Other postprocedural complications and disorders of digestive system Status: Acute Assessment and Plan: GARY in place in pelvis Will probably stop IV antibiotics once ileus resolved (4) Rectal cancer: Code(s): C20 - Malignant neoplasm of rectum Status: Chronic Subjective Subjective Date/Time Seen: 09/11/20 10:57 Interval history: Patient says he is feeling good today. Pain much improved. Wants to ambulate more. Feeling better since NG tube replaced yesterday. Exam GI: Inspection: distended, incision (bottom 4 cassius removed, probed with q-tip, serosanguinous drainage) and other (distention less) GI Palp: No Tenderness to palpation present (GI) Auscultation: Hypoactive bowel sounds present Other: Ostomy pink and functioning. Plastic isabella removed. Miller remains within afferent loop of ileostomy with good output. Urinary Catheter: Urinary Catheter: patent and draining and urine clear Objective Data Vital Signs Vital Signs: Vital Signs - 24 hr 09/10/20 11:50 09/10/20 12:00 09/10/20 13:10 Temperature Pulse Rate 92 91 118 H Respiratory Rate 20 24 H Blood Pressure Pulse Oximetry 09/10/20 13:54 09/10/20 16:00 09/10/20 20:00 Temperature 36.3 C L Pulse Rate 92 114 H 106 H Respiratory Rate 16 Blood Pressure 115/80 Pulse Oximetry 98 09/10/20 21:26 09/11/20 00:00 09/11/20 04:00 Temperature 37.1 C Pulse Rate 105 H 118 H 102 H Respiratory Rate 18 Blood Pressure 113/74 Pulse Oximetry 97 09/11/20 06:00 09/11/20 08:35 09/11/20 09:21 Temperature 36.6 C Pulse Rate 101 H 98 Respiratory Rate 20 Blood Pressure 125/84 123/77 Pulse Oximetry 94 Intake/Output Intake/Output: Intake & Output 09/08/20 09/09/20 09/10/20 09/11/20 23:59 23:59 23:59 23:59 Intake Total 3050 2635 2656 350 Output Total 3850 1505 3685 1450 Balance -800 1130 1021 -1100 Meds/Results Medications: Active Medications Generic Name Dose Route Start Last Admin Trade Name Freq PRN Reason Stop Dose Admin Albuterol 2 puff 08/29/20 23:46 09/11/20 02:13 Albuterol Sulfate (*Sp) Aerosol 1 Puff INHALATION 2 puff QID PRN Administration Dyspnea Amiodarone HCl 200 mg 08/30/20 08:00 09/11/20 09:21 Amiodarone Hcl 200 Mg Tablet PO 200 mg DAILY@0800 ASHELY Administration Bisacodyl 10 mg 09/11/20 10:56 Bisacodyl 5 Mg Tablet Ec PO 09/11/20 10:57 ONCE ONE Bisacodyl 10 mg 09/12/20 09:00 Bisacodyl 5 Mg Tablet Ec PO QAM ASHELY Enoxaparin Sodium 40 mg 09/09/20 09:00 09/11/20 08:39 Enoxaparin 40 Mg/0.4 Ml Syringe SUB-Q 40 mg DAILY ASHELY Administration Hydrochlorothiazide 25 mg 08/30/20 09:00 09/01/20 08:29 Hydrochlorothiazide 25 Mg Tablet PO 25 mg DAILY ASHELY Administration Piperacillin/Tazobactam/Dextrose 3.375 gm in 50 mls @ 100 mls/hr 08/30/20 12:00 09/11/20 06:26 Zosyn 3.375 Gm/D5w 50ml Pm IVPB Infused Q6H ASHELY Infusion Dextrose 1,000 mls @ 50 mls/hr 09/04/20 11:17 Dextrose 10% IV CONT .Q20H PRN if PN is interrupted Multivitamins 2.5 ml/ 2,005 mls @ 80 mls/hr 09/08/20 13:00 09/10/20 13:28 Multivitamins 2.5 ml/ Amino IV CONT 80 mls/hr Acids/Electrolytes/Dextrose .Q24H ASHELY Administration Protocol Hydromorphone HCl 30
[2020-09-11] MEDS: BISACODYL 5 MG TABLET EC 10 MG PO (11:32)
[2020-09-11 12:00] LABS: Glucose Point of Care 146 (65-105)
[2020-09-11 12:19] LABS: Triglycerides 130 mg/dL (<150)
[2020-09-11] MEDS: FAT EMULSIONS IV 20% 250 ML 20.83 ML IVPB (12:38)
[2020-09-11] MEDS: AMINO ACIDS 5%/D15W/E-LYTES/CA 2,000 ML with MULTIVITAMINS-12 INJ VIAL 1 2.5 ML, MULTIV... 80 ML IV CONT (12:38)
[2020-09-11 18:15] LABS: Glucose Point of Care 148 (65-105)
[2020-09-11] MEDS: SODIUM CHLORIDE 0.9% IV 500 ML 30 ML (22:00)
[2020-09-11 23:51] LABS: Glucose Point of Care 131 (65-105)
[2020-09-12] VITALS (13 sets, daily range): BP systolic 120–123; BP diastolic 73–80; PULSE 85–102; RESP 18–20; TEMP 35.9–36.9; O2SAT 96–98
[2020-09-12 06:02] LABS: Anion Gap 6 mmol/L (8-16); Blood Urea Nitrogen 34 mg/dL (9-20); Calcium 9.2 mg/dL (8.4-10.2); Carbon Dioxide 28 mmol/L (22-30); Chloride 101 mmol/L (98-107); Estimated CRCL calculation 76 ml/min; Estimated Glomerular Filt Rate > 60; Glucose 182 mg/dL (75-110); Potassium 4.4 mmol/L (3.4-5.0); Sodium 135 mmol/L (137-145)
[2020-09-12] MEDS: METOCLOPRAMIDE HCL INJ 10 MG/2 ML VIAL IV PUSH ×3 (06:06→18:19)
[2020-09-12 06:13] LABS: Glucose Point of Care 148 (65-105)
[2020-09-12] MEDS: CENTRAL LINE FLUSH 10 ML IV PUSH ×2 (06:35→21:04)
[2020-09-12] MEDS: CENTRAL LINE FLUSH 20 ML IV PUSH (06:35)
[2020-09-12] MEDS: PANTOPRAZOLE SODIUM IV 40 MG VIAL IV PUSH ×2 (08:30→21:04)
[2020-09-12] MEDS: AMIODARONE HCL 200 MG TABLET PO (08:31)
[2020-09-12] MEDS: BISACODYL 5 MG TABLET EC 10 MG PO (08:31)
[2020-09-12] MEDS: TOLNAFTATE 1% POWDER 45 GM BTL 1 APPLIC TOPICAL ×2 (08:32→16:27)
[2020-09-12] MEDS: ENOXAPARIN 40 MG/0.4 ML SYRINGE SUB-Q (08:32)
--- NOTE | 2020-09-12 10:42 | PM.IMPN ---
Progress Note: A&P Assessment and Plan (1) Ileus following gastrointestinal surgery: Onset Date: ~09/02/20 Code(s): K91.89 - Other postprocedural complications and disorders of digestive system; K56.7 - Ileus, unspecified Status: Acute Assessment and Plan: Management per the primary service. -Patient with hx of rectal cancer underwent resection on 08/09/2020; then underwent loop ileostomy 08/31/20 due to persistent anastomotic leak despite conservative management. Now with postoperative ileus. NG removed over weekend then pain recurred and NG was replaced and remains intact today. -he is swallowing the amiodarone on his own, will add Flomax. Hopefully in the next few days we can go forward with the voiding trial as recommended by Urology previously. Will reach out to them prior to this. (2) Intra-abdominal abscess: Onset Date: ~08/25/20 Code(s): K65.1 - Peritoneal abscess Status: Acute Assessment and Plan: Management per the primary service. -Drain in place. On IV Zosyn (day 14) -CT 09/10/20 demonstrates persistent 8.2 x 4.6 x 4.9 cm perirectal abscess due the leak at distal rectal anastomosis. (3) PAF (paroxysmal atrial fibrillation): Code(s): I48.0 - Paroxysmal atrial fibrillation Status: Acute Assessment and Plan: Stable, rate is controlled on amiodarone. -IV lopressor PRN is available with parameters for elevated heart rates. -consider restarting oral metoprolol along with amiodarone -d/c tele (4) Essential hypertension: Code(s): I10 - Essential (primary) hypertension Status: Acute Assessment and Plan: BP is stable today last 120/80. Monitor BP and adjust treatment as needed. Additional Plan Thank you for allowing me to participate in this pleasant gentleman's care plan. Please reach out for any questions or concerns regarding his A fib or hypertension. Time Spent With Patient Time with patient: 25 - 35 minutes Subjective Date/time seen: 09/12/20 10:42 Interval history: Pt is a 70-year-old male here for ileus and being seen by the hospitalist service for AFib and hypertension. Patient was seen today and states he has minimal pain. He has been walking around the halls without issue. He has some liquid coming from his ostomy bag but no air or any nausea or vomiting today. He further denies chest pain, shortness of breath, palpitations, fevers, chills, or leg swelling. Review of Systems Review of Systems: All systems reviewed & are unremarkable except as noted in HPI and below Exam Narrative: Exam Narrative: General: Well developed well nourished patient in NAD HEENT: normocephalic, NG tube intact Neck: supple Neuro: Alert and oriented x4 CV:RRR for me today. Telemetry shows a heart rate of 90 in normal sinus rhythm Resp:CTA Abd: GARY drain intact. Ostomy noted with green liquid stool with no air in the ostomy bag. Very minimal bowel sounds present Extremities: No swelling, erythema, or pain to palpation. Miller catheter intact Objective Data Vital Signs Vital Signs: Vital Signs - 24 hr 09/11/20 12:00 09/11/20 14:00 09/11/20 16:00 Temperature 97.4 F L Pulse Rate 96 105 H 96 Respiratory Rate 20 Blood Pressure 125/83 Pulse Oximetry 97 09/11/20 20:00 09/11/20 22:00 09/12/20 00:00 Temperature 97.8 F Pulse Rate 91 95 95 Respiratory Rate 20 20 20 Blood Pressure 130/83 Pulse Oximetry 98 09/12/20 04:00 09/12/20 06:00 09/12/20 08:31 Temperature 97.2 F L Pulse Rate 93 90 93 Respiratory Rate 18 Blood Pressure 120/80 Pulse Oximetry 98 09/12/20 10:09 Temperature 96.6 F L Pulse Rate 102 H Respiratory Rate 18 Blood Pressure Pulse Oximetry 96 Intake/Output Intake/Output: Intake & Output 09/09/20 09/10/20 09/11/20 09/12/20 23:59 23:59 23:59 23:59 Intake Total 2635 2656 3755 351.6 Output Total 1505 3685 3100 1000 Balance 1130 -1029 655 -648.4 Meds/R
--- NOTE | 2020-09-12 11:30 | PM.PNGS ---
Progress Note: A&P Assessment and Plan (1) Ileus following gastrointestinal surgery: Onset Date: ~09/02/20 Code(s): K91.89 - Other postprocedural complications and disorders of digestive system; K56.7 - Ileus, unspecified Status: Acute Assessment and Plan: Abdominal distention improving. KUB this morning still shows multiple dilated loops of small bowel. Getting dulcolax PO again today. Will leave the montero out of the ostomy and ask the wound care nurses to attempt gentle irrigation of the ostomy later today. Encouraged increased activity and ambulating. (2) Protein calorie malnutrition: Code(s): E46 - Unspecified protein-calorie malnutrition Status: Acute Assessment and Plan: Continue TPN and monitor electrolytes (3) Anastomotic leak of intestine: Onset Date: ~08/25/20 Code(s): K91.89 - Other postprocedural complications and disorders of digestive system Status: Acute Assessment and Plan: GARY in place in pelvis Will probably stop IV antibiotics once ileus resolved (4) Rectal cancer: Code(s): C20 - Malignant neoplasm of rectum Status: Chronic Additional Plan Discussed plan of care with Dr. Robertson. Subjective Subjective Date/Time Seen: 09/12/20 11:30 Patient reports: feels better and afebrile Interval history: Patient feeling well this morning. PT currently in the room getting the patient up to walk. He feels his abdominal pain continues to improve. Montero that was in the ostomy fell out overnight per the patient. Review of Systems Review of Systems: All systems reviewed & are unremarkable except as noted in HPI and below Constitutional: Constitutional: Denies fever(s) Exam Const: General: no acute distress, alert and awake Orientation/consciousness: patient oriented x3 Resp: Effort & Inspection: normal respiratory effort Auscultation: clear to auscultation bilaterally GI: Inspection: other (mildly distended) GI Palp: Yes Soft to palpation and Yes Tenderness to palpation present (GI) Auscultation: Hypoactive bowel sounds present Other: Ostomy pink and functioning with small amount of clear bilious fluid in bag. Midline incision with small opening at the bottom of the incision where cassius were removed, minimal serosanguineous output on dressing. GARY drain with scant drainage in tubing. Urinary Catheter: Urinary Catheter: patent and draining and urine clear Skin: General skin exam: normal color Neuro: General: moves all extremities and no focal motor deficits Extrem: General: no clubbing, cyanosis or edema and no calf tenderness Psych: Mental Status: mental status grossly normal Insight: Good insight present (Psych) Judgement: Good judgement present (Psych) Objective Data Vital Signs Vital Signs: Vital Signs - 24 hr 09/11/20 12:00 09/11/20 14:00 09/11/20 16:00 Temperature 97.4 F L Pulse Rate 96 105 H 96 Respiratory Rate 20 Blood Pressure 125/83 Pulse Oximetry 97 09/11/20 20:00 09/11/20 22:00 09/12/20 00:00 Temperature 97.8 F Pulse Rate 91 95 95 Respiratory Rate 20 20 20 Blood Pressure 130/83 Pulse Oximetry 98 09/12/20 04:00 09/12/20 06:00 09/12/20 08:31 Temperature 97.2 F L Pulse Rate 93 90 93 Respiratory Rate 18 Blood Pressure 120/80 Pulse Oximetry 98 09/12/20 10:09 Temperature 96.6 F L Pulse Rate 102 H Respiratory Rate 18 Blood Pressure Pulse Oximetry 96 Intake/Output Intake/Output: Intake & Output 09/09/20 09/10/20 09/11/20 09/12/20 23:59 23:59 23:59 23:59 Intake Total 2635 2656 3755 351.6 Output Total 1505 3685 3100 1000 Balance 1130 -1029 655 -648.4 Meds/Results Medications: Active Medications Generic Name Dose Route Start Last Admin Trade Name Freq PRN Reason Stop Dose Admin Albuterol 2 puff 08/29/20 23:46 09/11/20 02:13 Albuterol Sulfate (*Sp) Aerosol 1 Puff INHALATION 2 puff QID PRN Administration Dyspnea Alteplase, Guy
--- NOTE | 2020-09-12 12:28 | PCNFU ---
Addendum entered by Kayla Whitfield RD, LDN 09/13/20 10:45: Correction: Patient has PICC and TPN-Clinimix 5/15 at 80 ml/hr providing 1863 kcals and 96 gms protein. Agree with current diet orders. Original Note: Nutrition Follow-Up Complete: Altered GI function as related to anastomotic leak as evidenced by NPO x 5 days. Goal: Meet estimated caloric needs Progressing towards goal. We will continue current goal. Pt current nutrition is PPN. Nutrition recommendation: TPN at 80 ml/hr Last recorded weight is 95.4 kg,weight down from 100 kg on admit. Bowel Motility: ileostomy bag Labs Reviewed:Na 135,BUN 34,Glu 182 Meds Noted:Reglan,Zosyn,Lovenox, Clinimix E 4.25/5 at 80 ml/hr with 250 ml of 20% Lipids. Additional Notes: Patient seen today for nutrition follow up. Patient has NGT in place. KUB today. Plans for GARY drained to be removed. Current PPN is providing patient with 1153 kcals/82 gms protein. Recommend changed to TPN at 80 ml/hr providing 1863 kcals/96 gms protein to better meet caloric needs. Monitoring: weight, labs, parental nutrition every Friday and Friday.
[2020-09-12] MEDS: AMINO ACIDS 5%/D15W/E-LYTES/CA 2,000 ML with MULTIVITAMINS-12 INJ VIAL 1 2.5 ML, MULTIV... 80 ML IV CONT (12:45)
--- NOTE | 2020-09-12 12:45 | PC.NURSE ---
pt wishes to wait for PO flomax at this time, does not want NG tube clamped after PT
[2020-09-12] MEDS: FAT EMULSIONS IV 20% 250 ML 20.8 ML IVPB (12:46)
[2020-09-12 13:55] LABS: Glucose Point of Care 139 (65-105)
--- NOTE | 2020-09-12 14:52 | PC.NURSE ---
On 09/12/20, the student, [SANTHOSH CLINE], provided care and completed [facility] documentation on this patient. I have reviewed the student's documentation and agree with the findings.
[2020-09-12] MEDS: MAG HYDROX/AL HYDROX/SIMETH 30 ML UDC PO (16:27)
[2020-09-12] MEDS: TAMSULOSIN HCL 0.4 MG CAPSULE PO (16:27)
[2020-09-12] MEDS: SODIUM CHLORIDE 0.9% IV 1,000 ML 30 ML IV CONT (16:36)
--- NOTE | 2020-09-12 18:15 | PC.NURSE ---
call to pharmacy due to documentation on UM SPECIALIST not showing a full syringe, Nicol in pharmacy states it looks OK on her end, Luci Carrillo charge nurse double checked changing of UM SPECIALIST syringe, confirmed dose and waste
[2020-09-12 18:58] LABS: Glucose Point of Care 136 (65-105)
[2020-09-13] VITALS (13 sets, daily range): BP systolic 108–143; BP diastolic 67–81; PULSE 72–98; RESP 16–20; TEMP 36.3–37; O2SAT 94–98
[2020-09-13] MEDS: METOCLOPRAMIDE HCL INJ 10 MG/2 ML VIAL IV PUSH ×5 (00:07→23:43)
[2020-09-13] MEDS: MAG HYDROX/AL HYDROX/SIMETH 30 ML UDC PO ×5 (00:07→23:29)
[2020-09-13 01:57] LABS: Glucose Point of Care 130 (65-105)
[2020-09-13 05:33] LABS: Hematocrit 30.1 % (42.0-52.0); Hemoglobin 9.8 g/dL (14.0-18.0); Mean Corpuscular HGB Conc 32.6 g/dl (32-36); Mean Corpuscular Hemoglobin 32.2 pg (26-34); Mean Platelet Volume 10.6 fl (7.4-10.4); Platelet Count Result 516 k/mm3 (150-375); Red Blood Count 3.04 M/mm3 (4.6-6.20); Red Cell Distribution Width 14.6 % (11.5-14.5); White Blood Count 8.6 K/mm3 (4.5-10.0)
[2020-09-13] MEDS: CENTRAL LINE FLUSH 10 ML IV PUSH ×3 (05:46→23:31)
[2020-09-13] MEDS: CENTRAL LINE FLUSH 20 ML IV PUSH (05:46)
[2020-09-13 05:49] LABS: Anion Gap 7 mmol/L (8-16); Blood Urea Nitrogen 25 mg/dL (9-20); Calcium 8.7 mg/dL (8.4-10.2); Carbon Dioxide 29 mmol/L (22-30); Chloride 99 mmol/L (98-107); Estimated CRCL calculation 76 ml/min; Estimated Glomerular Filt Rate > 60; Glucose 130 mg/dL (75-110); Sodium 135 mmol/L (137-145)
[2020-09-13 06:32] LABS: Glucose Point of Care 114 (65-105)
[2020-09-13 07:53] LABS: Glucose Point of Care 140 (65-105)
[2020-09-13] MEDS: PANTOPRAZOLE SODIUM IV 40 MG VIAL IV PUSH ×2 (08:56→20:42)
[2020-09-13] MEDS: AMIODARONE HCL 200 MG TABLET PO (08:56)
[2020-09-13] MEDS: ENOXAPARIN 40 MG/0.4 ML SYRINGE SUB-Q (08:57)
[2020-09-13] MEDS: BISACODYL 5 MG TABLET EC 10 MG PO (08:57)
[2020-09-13] MEDS: TOLNAFTATE 1% POWDER 45 GM BTL 1 APPLIC TOPICAL ×2 (08:57→18:12)
[2020-09-13] MEDS: TAMSULOSIN HCL 0.4 MG CAPSULE PO (10:01)
--- NOTE | 2020-09-13 10:13 | PM.PNGS ---
Progress Note: A&P Assessment and Plan (1) Ileus following gastrointestinal surgery: Onset Date: ~09/02/20 Code(s): K91.89 - Other postprocedural complications and disorders of digestive system; K56.7 - Ileus, unspecified Status: Acute Assessment and Plan: Mylanta q6h, Reglan q6h, Dulcolax tabs daily Will clamp NG 4 hours at a time today Ostomy nurse irrigated ileostomy yesterday, possibly repeat today (2) Anastomotic leak of intestine: Onset Date: ~08/25/20 Code(s): K91.89 - Other postprocedural complications and disorders of digestive system Status: Acute Assessment and Plan: GARY drain in place with minimal output Continue IV Zosyn through 09/14/20, then discontinue (3) Protein calorie malnutrition: Code(s): E46 - Unspecified protein-calorie malnutrition Status: Acute Assessment and Plan: Continue TPN at current rate Monitor electrolytes (4) Rectal cancer: Code(s): C20 - Malignant neoplasm of rectum Status: Chronic Subjective Subjective Date/Time Seen: 09/13/20 10:13 Interval history: Ileostomy irrigated yesterday. Patient had BM and more output from ileostomy and feels better today. 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 Getting up with PT/OT. Overall starting to feel better. Exam GI: Inspection: incision (scant serosanguinous drainage from lower midline) and other (minimal distention) GI Palp: Yes Soft to palpation, No Tenderness to palpation present (GI) and No Guarding due to palpation present (GI) Other: GARY with minimal output Ileostomy pink and functioning with mostly clear bilious output Objective Data Vital Signs Vital Signs: Vital Signs - 24 hr 09/12/20 12:00 09/12/20 14:00 09/12/20 16:00 Temperature 36.9 C Pulse Rate 94 85 97 Respiratory Rate 18 18 Blood Pressure 123/73 Pulse Oximetry 98 09/12/20 18:19 09/12/20 20:00 09/12/20 20:52 Temperature Pulse Rate 92 97 90 Respiratory Rate 18 Blood Pressure Pulse Oximetry 09/12/20 22:00 09/13/20 00:00 09/13/20 00:44 Temperature 36.4 C 36.4 C Pulse Rate 99 92 72 Respiratory Rate 20 18 20 Blood Pressure 122/73 112/67 Pulse Oximetry 98 94 09/13/20 04:00 09/13/20 05:07 09/13/20 06:18 Temperature 36.4 C L Pulse Rate 96 97 90 Respiratory Rate 16 20 Blood Pressure 108/67 Pulse Oximetry 98 09/13/20 08:11 09/13/20 08:56 Temperature 36.3 C L Pulse Rate 91 98 Respiratory Rate 18 Blood Pressure 112/80 Pulse Oximetry 98 Intake/Output Intake/Output: Intake & Output 09/10/20 09/11/20 09/12/20 09/13/20 23:59 23:59 23:59 23:59 Intake Total 2656 3755 2835.0 103.2 Output Total 3685 3100 2335 1300 Balance -1029 655 500.0 -1196.8 Meds/Results Medications: Active Medications Generic Name Dose Route Start Last Admin Trade Name Freq PRN Reason Stop Dose Admin Al Hydrox/Mg Hydrox/Simethicone 30 ml 09/12/20 12:00 09/13/20 05:40 Mag Hydrox/Al Hydrox/Simeth 30 Ml Udc PO 30 ml Q6HR ASHELY Administration Albuterol 2 puff 08/29/20 23:46 09/11/20 02:13 Albuterol Sulfate (*Sp) Aerosol 1 Puff INHALATION 2 puff QID PRN Administration Dyspnea Alteplase, Recombinant 2 mg 09/11/20 13:07 Alteplase 2 Mg Vial (Cathflo) IV PUSH ONCE PRN Line Occlusion Amiodarone HCl 200 mg 08/30/20 08:00 09/13/20 08:56 Amiodarone Hcl 200 Mg Tablet PO 200 mg DAILY@0800 ASHELY Administration Artificial Tears 1 drop 09/11/20 20:06 Artificial Tears Op Soln 15 Ml Bottle EACH EYE QID PRN Dry Eye(s) Bisacodyl 10 mg 09/12/20 09:00 09/13/20 08:57 Bisacodyl 5 Mg Tablet Ec PO 10 mg QAM ASHELY Administration Enoxaparin Sodium 40 mg 09/09/20 09:00 09/13/20 08:57 Enoxaparin 40 Mg/0.4 Ml Syringe SUB-Q 40 mg DAILY ASHELY Administration Hydrochlorothiazide 25 mg 08/30/20 09:00 09/01/20 08:29 Hydrochlorothiazide 25 Mg Tablet PO 25 mg DAILY ASHELY Adminis
[2020-09-13 11:29] LABS: Triglycerides 119 mg/dL (<150)
--- NOTE | 2020-09-13 11:53 | PM.IMPN ---
Progress Note: A&P Assessment and Plan (1) Ileus following gastrointestinal surgery: Onset Date: ~09/02/20 Code(s): K91.89 - Other postprocedural complications and disorders of digestive system; K56.7 - Ileus, unspecified Status: Acute Assessment and Plan: Management per the primary service. -Patient with hx of rectal cancer underwent resection on 08/09/2020; then underwent loop ileostomy 08/31/20 due to persistent anastomotic leak despite conservative management. Now with postoperative ileus. NG removed over weekend then pain recurred and NG was replaced and remains intact today. -he is swallowing the amiodarone and Flomax on his own. He does not want a voiding trial at this time. I explained the risk and benefits of this and he wants to go forward with the Miller catheter at this time. He has had a problem with retention in the past and I do believe we can hold off for a few days. (2) Intra-abdominal abscess: Onset Date: ~08/25/20 Code(s): K65.1 - Peritoneal abscess Status: Acute Assessment and Plan: Management per the primary service. -Drain in place. On IV Zosyn (day 15) -CT 09/10/20 demonstrates persistent 8.2 x 4.6 x 4.9 cm perirectal abscess due the leak at distal rectal anastomosis. (3) PAF (paroxysmal atrial fibrillation): Code(s): I48.0 - Paroxysmal atrial fibrillation Status: Acute Assessment and Plan: Stable, rate is controlled on amiodarone. -IV lopressor PRN is available with parameters for elevated heart rates. -well restart oral metoprolol along with amiodarone -d/c tele (4) Essential hypertension: Code(s): I10 - Essential (primary) hypertension Status: Acute Assessment and Plan: BP is stable today last 112/80. Monitor BP and adjust treatment as needed. Additional Plan Thank you for allowing me to participate in this pleasant gentleman's care plan. Please reach out for any questions or concerns regarding his A fib or hypertension. Subjective Date/time seen: 09/13/20 11:53 Interval history: Pt is a 70-year-old male here for ileus and being seen by the hospitalist service for AFib and hypertension. Patient was seen today and states he has minimal pain. He has been walking around the halls without issue. He has some liquid coming from his ostomy bag but no air or any nausea or vomiting today. He further denies chest pain, shortness of breath, palpitations, fevers, chills, or leg swelling. He states he does not want to do a voiding trial because he thinks he is finally getting little better and he does not want anything to mess it up . I explained him the risks such as infection and he is okay with this Exam Narrative: Exam Narrative: General: Well developed well nourished patient in NAD HEENT: normocephalic, NG tube intact Neck: supple Neuro: Alert and oriented x4 CV:RRR for me today. Telemetry shows a heart rate of 90 in normal sinus rhythm Resp:CTA Abd: Distended. GARY drain intact with scant discharge. Ostomy noted with green liquid stool with no air in the ostomy bag. Very minimal bowel sounds present Extremities: No swelling, erythema, or pain to palpation. Miller catheter intact Objective Data Vital Signs Vital Signs: Vital Signs - 24 hr 09/12/20 12:00 09/12/20 14:00 09/12/20 16:00 Temperature 98.4 F Pulse Rate 94 85 97 Respiratory Rate 18 18 Blood Pressure 123/73 Pulse Oximetry 98 09/12/20 18:19 09/12/20 20:00 09/12/20 20:52 Temperature Pulse Rate 92 97 90 Respiratory Rate 18 Blood Pressure Pulse Oximetry 09/12/20 22:00 09/13/20 00:00 09/13/20 00:44 Temperature 97.6 F 97.6 F Pulse Rate 99 92 72 Respiratory Rate 20 18 20 Blood Pressure 122/73 112/67 Pulse Oximetry 98 94 09/13/20 04:00 09/13/20 05:07 09/13/20 06:18 Temperature 97.5 F L Pulse Rate 96 97 90 Respiratory Rate 16 20 Blood Pressure 108/67 Pulse Oximetry 98 09/13/20
[2020-09-13 12:00] LABS: Glucose Point of Care 147 (65-105)
[2020-09-13] MEDS: AMINO ACIDS 5%/D15W/E-LYTES/CA 2,000 ML with MULTIVITAMINS-12 INJ VIAL 1 2.5 ML, MULTIV... 80 ML IV CONT (12:48)
[2020-09-13] MEDS: FAT EMULSIONS IV 20% 250 ML 20.8 ML IVPB (12:48)
--- NOTE | 2020-09-13 14:41 | PC.NURSE ---
On 09/13/20, the student, [Valerie Oquendo ], provided care and completed [facility] documentation on this patient. I have reviewed the student's documentation and agree with the findings.
[2020-09-13 17:57] LABS: Glucose Point of Care 115 (65-105)
[2020-09-14] VITALS (7 sets, daily range): BP systolic 117–126; BP diastolic 71–80; PULSE 89–102; RESP 16–21; TEMP 36.4–36.7; O2SAT 94–97
[2020-09-14 00:34] LABS: Glucose Point of Care 127 (65-105)
[2020-09-14] MEDS: SODIUM CHLORIDE 0.9% IV 1,000 ML 30 ML IV CONT ×2 (01:30→12:42)
[2020-09-14] MEDS: MAG HYDROX/AL HYDROX/SIMETH 30 ML UDC PO ×3 (05:01→18:23)
[2020-09-14] MEDS: CENTRAL LINE FLUSH 10 ML IV PUSH ×3 (05:01→22:16)
[2020-09-14] MEDS: METOCLOPRAMIDE HCL INJ 10 MG/2 ML VIAL IV PUSH ×3 (05:01→18:23)
[2020-09-14 05:42] LABS: Glucose Point of Care 133 (65-105)
[2020-09-14 07:10] LABS: Anion Gap 4 mmol/L (8-16); Blood Urea Nitrogen 21 mg/dL (9-20); Calcium 8.5 mg/dL (8.4-10.2); Carbon Dioxide 31 mmol/L (22-30); Chloride 96 mmol/L (98-107); Estimated CRCL calculation 76 ml/min; Estimated Glomerular Filt Rate > 60; Glucose 128 mg/dL (75-110); Magnesium 2.1 mg/dL (1.6-2.3); Potassium 3.7 mmol/L (3.4-5.0); Sodium 131 mmol/L (137-145)
[2020-09-14] MEDS: AMIODARONE HCL 200 MG TABLET PO (08:28)
[2020-09-14] MEDS: ENOXAPARIN 40 MG/0.4 ML SYRINGE SUB-Q (08:28)
[2020-09-14] MEDS: BISACODYL 5 MG TABLET EC 10 MG PO (08:28)
[2020-09-14] MEDS: TOLNAFTATE 1% POWDER 45 GM BTL 1 APPLIC TOPICAL ×2 (08:29→18:23)
[2020-09-14] MEDS: PANTOPRAZOLE SODIUM IV 40 MG VIAL IV PUSH ×2 (08:29→22:16)
[2020-09-14] MEDS: TAMSULOSIN HCL 0.4 MG CAPSULE PO (08:29)
--- NOTE | 2020-09-14 10:46 | PM.IMPN ---
Progress Note: A&P Assessment and Plan (1) Ileus following gastrointestinal surgery: Onset Date: ~09/02/20 Code(s): K91.89 - Other postprocedural complications and disorders of digestive system; K56.7 - Ileus, unspecified Status: Acute Assessment and Plan: Management per the primary service. -Patient with hx of rectal cancer underwent resection on 08/09/2020; then underwent loop ileostomy 08/31/20 due to persistent anastomotic leak despite conservative management. Now with postoperative ileus. NG removed over weekend then pain recurred and NG was replaced and remains intact today. -he is swallowing the amiodarone and Flomax on his own. - He does not want a voiding trial at this time. I explained the risk and benefits of this and he wants to go forward with the Miller catheter at this time. He has had a problem with retention in the past and I do believe we can hold off for a few days. (2) Intra-abdominal abscess: Onset Date: ~08/25/20 Code(s): K65.1 - Peritoneal abscess Status: Acute Assessment and Plan: Management per the primary service. -Drain in place. On IV Zosyn (day 16) -CT 09/10/20 demonstrates persistent 8.2 x 4.6 x 4.9 cm perirectal abscess due the leak at distal rectal anastomosis. (3) PAF (paroxysmal atrial fibrillation): Code(s): I48.0 - Paroxysmal atrial fibrillation Status: Acute Assessment and Plan: Stable, rate is controlled on amiodarone and metoprolol. -IV lopressor PRN is available with parameters for elevated heart rates. (4) Essential hypertension: Code(s): I10 - Essential (primary) hypertension Status: Acute Assessment and Plan: BP is stable today last 120/71. Monitor BP and adjust treatment as needed. Additional Plan Thank you for allowing me to participate in this pleasant gentleman's care plan. At this time we will sign off but please reach out for any questions or concerns regarding his A fib or hypertension while he is hospitalized. Subjective Date/time seen: 09/14/20 10:46 Interval history: Pt is a 70-year-old male here for ileus and being seen by the hospitalist service for AFib and hypertension. Patient was seen today and states he has been having a lot of air and some liquid come from his ostomy bag. He also had a bowel movement through his rectum which was mostly liquid. His pain has lessened but he has been having more pain with the gas. He has not had any nausea, vomiting, fevers, chills, cough, shortness of breath or chest pain. He has no leg swelling and wants to continue to utilize a Miller catheter at this time. Exam Narrative: Exam Narrative: General: Well developed well nourished patient in NAD HEENT: normocephalic, NG tube intact Neck: supple Neuro: Alert and oriented x4 CV:RRR for me today. Telemetry shows a heart rate of 90 in normal sinus rhythm Resp:CTA Abd: Distended. GARY drain intact with scant discharge. Ostomy noted with green liquid stool with some air in the ostomy bag. Very minimal bowel sounds present Extremities: No swelling, erythema, or pain to palpation. Miller catheter intact Objective Data Vital Signs Vital Signs: Vital Signs - 24 hr 09/13/20 12:30 09/13/20 14:00 09/13/20 14:15 Temperature 98.1 F Pulse Rate 93 92 94 Respiratory Rate 19 16 20 Blood Pressure 122/68 143/81 H Pulse Oximetry 98 97 09/13/20 18:26 09/13/20 20:39 09/14/20 04:22 Temperature 98.6 F 97.9 F Pulse Rate 95 91 89 Respiratory Rate 20 18 16 Blood Pressure 126/76 117/71 Pulse Oximetry 95 94 09/14/20 06:47 09/14/20 08:28 09/14/20 09:05 Temperature 98.1 F Pulse Rate 89 92 89 Respiratory Rate 16 20 Blood Pressure 120/71 Pulse Oximetry 96 Intake/Output Intake/Output: Intake & Output 09/11/20 09/12/20 09/13/20 09/14/20 23:59 23:59 23:59 23:59 Intake Total 3755 2835.0 2993.6 2063.4 Output Total 3100 2335 2435 1068 Balance 655 500.0 558.6
[2020-09-14 11:57] LABS: Glucose Point of Care 126 (65-105)
[2020-09-14] MEDS: AMINO ACIDS 5%/D15W/E-LYTES/CA 2,000 ML with MULTIVITAMINS-12 INJ VIAL 1 2.5 ML, MULTIV... 80 ML IV CONT (12:43)
[2020-09-14] MEDS: FAT EMULSIONS IV 20% 250 ML 20.8 ML IVPB (12:44)
--- NOTE | 2020-09-14 12:59 | PM.PNGS ---
Progress Note: A&P Assessment and Plan (1) Ileus following gastrointestinal surgery: Onset Date: ~09/02/20 Code(s): K91.89 - Other postprocedural complications and disorders of digestive system; K56.7 - Ileus, unspecified Status: Acute Assessment and Plan: Mylanta q6h, Reglan q6h, Dulcolax tabs daily Clamp NG, start clear liquid trial. Can place back to LIS if patient becomes nauseated (2) Anastomotic leak of intestine: Onset Date: ~08/25/20 Code(s): K91.89 - Other postprocedural complications and disorders of digestive system Status: Acute Assessment and Plan: GARY drain in place with minimal output Discontinue Zosyn today (3) Protein calorie malnutrition: Code(s): E46 - Unspecified protein-calorie malnutrition Status: Acute Assessment and Plan: Continue TPN at current rate Monitor electrolytes (4) Rectal cancer: Code(s): C20 - Malignant neoplasm of rectum Status: Chronic Subjective Subjective Date/Time Seen: 09/14/20 12:59 Interval history: Ostomy functioning, also having a couple liquid brown BM's from rectum. Pain improving. No nausea when NG is clamped. Exam GI: Inspection: incision (scant serosanguinous drainage from lower midline) and other (minimal distention) GI Palp: Yes Soft to palpation, No Tenderness to palpation present (GI) and No Guarding due to palpation present (GI) Other: GARY with minimal output Ileostomy pink and functioning with mostly clear bilious output Objective Data Vital Signs Vital Signs: Vital Signs - 24 hr 09/13/20 14:00 09/13/20 14:15 09/13/20 18:26 Temperature 36.7 C Pulse Rate 92 94 95 Respiratory Rate 16 20 20 Blood Pressure 122/68 143/81 H Pulse Oximetry 98 97 09/13/20 20:39 09/14/20 04:22 09/14/20 06:47 Temperature 37.0 C 36.6 C Pulse Rate 91 89 89 Respiratory Rate 18 16 16 Blood Pressure 126/76 117/71 Pulse Oximetry 95 94 09/14/20 08:28 09/14/20 09:05 09/14/20 12:33 Temperature 36.7 C Pulse Rate 92 89 92 Respiratory Rate 20 21 H Blood Pressure 120/71 Pulse Oximetry 96 Intake/Output Intake/Output: Intake & Output 02/01/21 02/02/21 02/03/21 02/04/21 23:59 23:59 23:59 23:59 Intake Total 3755 2835.0 2993.6 3673.4 Output Total 3100 2335 2435 1068 Balance 655 500.0 558.6 2605.4 Meds/Results Medications: Active Medications Generic Name Dose Route Start Last Admin Trade Name Freq PRN Reason Stop Dose Admin Al Hydrox/Mg Hydrox/Simethicone 30 ml 09/12/20 12:00 09/14/20 12:44 Mag Hydrox/Al Hydrox/Simeth 30 Ml Udc PO 30 ml Q6HR ASHELY Administration Albuterol 2 puff 08/29/20 23:46 09/11/20 02:13 Albuterol Sulfate (*Sp) Aerosol 1 Puff INHALATION 2 puff QID PRN Administration Dyspnea Alteplase, Recombinant 2 mg 09/11/20 13:07 Alteplase 2 Mg Vial (Cathflo) IV PUSH ONCE PRN Line Occlusion Amiodarone HCl 200 mg 08/30/20 08:00 09/14/20 08:28 Amiodarone Hcl 200 Mg Tablet PO 200 mg DAILY@0800 ASHELY Administration Artificial Tears 1 drop 09/11/20 20:06 Artificial Tears Op Soln 15 Ml Bottle EACH EYE QID PRN Dry Eye(s) Bisacodyl 10 mg 09/12/20 09:00 09/14/20 08:28 Bisacodyl 5 Mg Tablet Ec PO 10 mg QAM ASHELY Administration Enoxaparin Sodium 40 mg 09/09/20 09:00 09/14/20 08:28 Enoxaparin 40 Mg/0.4 Ml Syringe SUB-Q 40 mg DAILY ASHELY Administration Hydrochlorothiazide 25 mg 08/30/20 09:00 09/01/20 08:29 Hydrochlorothiazide 25 Mg Tablet PO 25 mg DAILY ASHELY Administration Dextrose 1,000 mls @ 50 mls/hr 09/04/20 11:17 Dextrose 10% IV CONT .Q20H PRN if PN is interrupted Multivitamins 2.5 ml/ 2,005 mls @ 80 mls/hr 09/08/20 13:00 09/14/20 12:43 Multivitamins 2.5 ml/ Amino IV CONT 80 mls/hr Acids/Electrolytes/Dextrose .Q24H ASHELY Administration Protocol Hydromorphone HCl 30 mg/ 30 mls @ 0 mls/hr 09/10/20 09:40 09/14/20 12:33 Sodium Chlori
--- NOTE | 2020-09-14 15:21 | PC.NURSE ---
On 09/14/20, the student, [ Anthony Del Rosario], provided care and completed [facility] documentation on this patient. I have reviewed the student's documentation and agree with the findings.
--- NOTE | 2020-09-14 15:27 | PC.NURSE ---
On 09/14/20, the student, [Luci Arora ], [facility] I have reviewed the student's documentation and agree with the findings.
[2020-09-14 16:56] LABS: Glucose Point of Care 153 (65-105)
[2020-09-14] MEDS: ALTEPLASE 2 MG VIAL (CATHFLO) IV PUSH (18:59)
[2020-09-15] MEDS: METOCLOPRAMIDE HCL INJ 10 MG/2 ML VIAL IV PUSH ×2 (00:44→06:02)
[2020-09-15] MEDS: MAG HYDROX/AL HYDROX/SIMETH 30 ML UDC PO ×2 (00:44→06:02)
[2020-09-15 01:05] LABS: Glucose Point of Care 132 (65-105)
[2020-09-15 05:20] VITALS: BP 115/65; PULSE 87; RESP 18; TEMP 36.4; O2SAT 98
[2020-09-15] MEDS: CENTRAL LINE FLUSH 10 ML IV PUSH ×3 (06:02→20:47)
[2020-09-15 06:09] VITALS: PULSE 87; RESP 18
[2020-09-15 06:26] LABS: Hematocrit 30.4 % (42.0-52.0); Hemoglobin 9.9 g/dL (14.0-18.0); Mean Corpuscular HGB Conc 32.6 g/dl (32-36); Mean Corpuscular Hemoglobin 32.6 pg (26-34); Mean Platelet Volume 10.6 fl (7.4-10.4); Platelet Count Result 492 k/mm3 (150-375); Red Blood Count 3.04 M/mm3 (4.6-6.20); Red Cell Distribution Width 14.6 % (11.5-14.5)
[2020-09-15 07:36] LABS: Glucose Point of Care 140 (65-105)
--- NOTE | 2020-09-15 08:22 | PM.PNGS ---
Progress Note: A&P Assessment and Plan (1) Ileus following gastrointestinal surgery: Onset Date: ~09/02/20 Code(s): K91.89 - Other postprocedural complications and disorders of digestive system; K56.7 - Ileus, unspecified Status: Acute Assessment and Plan: Remove NG today, stop Reglan and Mylanta Increase activity (2) Anastomotic leak of intestine: Onset Date: ~08/25/20 Code(s): K91.89 - Other postprocedural complications and disorders of digestive system Status: Acute Assessment and Plan: GARY drain in place with minimal output WBC normal Still having some rectal output, mostly mucous/pus per patient (3) Protein calorie malnutrition: Code(s): E46 - Unspecified protein-calorie malnutrition Status: Acute Assessment and Plan: Continue TPN at current rate Monitor electrolytes (4) Rectal cancer: Code(s): C20 - Malignant neoplasm of rectum Status: Chronic (5) BPH (benign prostatic hyperplasia): Onset Date: Unknown Code(s): N40.0 - Benign prostatic hyperplasia without lower urinary tract symptoms Status: Acute Assessment and Plan: Voiding trial today Subjective Subjective Date/Time Seen: 09/15/20 08:22 Interval history: Much better ileostomy output. No abdominal pain. Had issues with Miller becoming clogged overnight. Still having some output from his rectum. Minimal GARY drain output. Exam GI: Inspection: non-distended and incision (scant serosanguinous drainage from lower midline) GI Palp: Yes Soft to palpation, No Tenderness to palpation present (GI) and No Guarding due to palpation present (GI) Percussion: Yes normal to percussion Auscultation: normal bowel sounds Other: GARY with minimal output Ileostomy pink and functioning with output Objective Data Vital Signs Vital Signs: Vital Signs - 24 hr 09/14/20 08:28 09/14/20 09:05 09/14/20 12:33 Temperature 36.7 C Pulse Rate 92 89 92 Respiratory Rate 20 21 H Blood Pressure 120/71 Pulse Oximetry 96 09/14/20 14:13 09/14/20 21:22 09/15/20 05:20 Temperature 36.6 C 36.4 C 36.4 C Pulse Rate 102 H 91 87 Respiratory Rate 20 16 18 Blood Pressure 126/80 120/73 115/65 Pulse Oximetry 97 95 98 09/15/20 06:09 Temperature Pulse Rate 87 Respiratory Rate 18 Blood Pressure Pulse Oximetry Intake/Output Intake/Output: Intake & Output 09/12/20 09/13/20 09/14/20 09/15/20 23:59 23:59 23:59 23:59 Intake Total 2835.0 2993.6 4323.4 2410.6 Output Total 2335 2435 3098 975 Balance 500.0 558.6 1225.4 1435.6 Meds/Results Medications: Active Medications Generic Name Dose Route Start Last Admin Trade Name Freq PRN Reason Stop Dose Admin Al Hydrox/Mg Hydrox/Simethicone 30 ml 09/12/20 12:00 09/15/20 06:02 Mag Hydrox/Al Hydrox/Simeth 30 Ml Udc PO 30 ml Q6HR ASHELY Administration Albuterol 2 puff 08/29/20 23:46 09/11/20 02:13 Albuterol Sulfate (*Sp) Aerosol 1 Puff INHALATION 2 puff QID PRN Administration Dyspnea Alteplase, Recombinant 2 mg 09/11/20 13:07 09/14/20 18:59 Alteplase 2 Mg Vial (Cathflo) IV PUSH 2 mg ONCE PRN Administration Line Occlusion Amiodarone HCl 200 mg 08/30/20 08:00 09/14/20 08:28 Amiodarone Hcl 200 Mg Tablet PO 200 mg DAILY@0800 ASHELY Administration Artificial Tears 1 drop 09/11/20 20:06 Artificial Tears Op Soln 15 Ml Bottle EACH EYE QID PRN Dry Eye(s) Bisacodyl 10 mg 09/12/20 09:00 09/14/20 08:28 Bisacodyl 5 Mg Tablet Ec PO 10 mg QAM ASHELY Administration Enoxaparin Sodium 40 mg 09/09/20 09:00 09/14/20 08:28 Enoxaparin 40 Mg/0.4 Ml Syringe SUB-Q 40 mg DAILY ASHELY Administration Hydrochlorothiazide 25 mg 08/30/20 09:00 09/01/20 08:29 Hydrochlorothiazide 25 Mg Tablet PO 25 mg DAILY ASHELY Administration Dextrose 1,000 mls @ 50 mls/hr 09/04/20 11:17 Dextrose 10% IV CONT .Q20H PRN if PN is interrupted Multivitam
[2020-09-15] MEDS: AMIODARONE HCL 200 MG TABLET PO (08:49)
[2020-09-15] MEDS: ENOXAPARIN 40 MG/0.4 ML SYRINGE SUB-Q (08:49)
[2020-09-15] MEDS: TAMSULOSIN HCL 0.4 MG CAPSULE PO (08:49)
[2020-09-15] MEDS: BISACODYL 5 MG TABLET EC 10 MG PO (08:49)
[2020-09-15] MEDS: TOLNAFTATE 1% POWDER 45 GM BTL 1 APPLIC TOPICAL ×2 (08:50→17:09)
[2020-09-15] MEDS: METOPROLOL SUCCINATE EXT REL 50 MG TABCR PO (08:50)
[2020-09-15] MEDS: PANTOPRAZOLE SODIUM IV 40 MG VIAL IV PUSH ×2 (08:50→20:47)
--- NOTE | 2020-09-15 09:27 | PCPTNOTE ---
Patient refused treatment this session due to feeling tired and did not sleep well last night. Patient reported will participate in therapy at around noon but not at 9:30.
[2020-09-15 11:13] LABS: Glucose Point of Care 127 (65-105)
[2020-09-15 11:32] LABS: Triglycerides 128 mg/dL (<150)
[2020-09-15] MEDS: FAT EMULSIONS IV 20% 250 ML 20.8 ML IVPB (12:18)
[2020-09-15] MEDS: AMINO ACIDS 5%/D15W/E-LYTES/CA 2,000 ML with MULTIVITAMINS-12 INJ VIAL 1 2.5 ML, MULTIV... 80 ML IV CONT (12:29)
[2020-09-15 14:00] VITALS: BP 165/60; PULSE 90; RESP 16; TEMP 36.4; O2SAT 99
--- NOTE | 2020-09-15 14:10 | PCDIET ---
Nutrition Follow-Up Complete: Altered GI function as related to anastomotic leak as evidenced by NPO x 5 days. Meet estimated caloric needs Goal: Goal met Pt current nutrition is TPN at 80 ml/hr providing 1863 kcals/96 gms protein Nutrition recommendation: agree Last recorded weight is 92.5 kg, down from 100kg on admit Bowel Motility: No BM noted Labs Reviewed: Hgb/Hct 9.9, 30.4, Glucose 127 Meds Noted: Clinimix 5/15 + 250% 20% lipids Additional Notes: Pt with ileus. Tolerating above TPN order. Pt currently consuming clear lqiuids as well and tolerating. NG out and plans to d/c Relgan and increase activity. As pt is able to consume 75% of kcal needs orally, recommend d/c TPN. We will continue to monitor every Friday and Friday.
--- NOTE | 2020-09-15 14:57 | PCPTNOTE ---
Patient refused treatment this session due to stating I'm tired I just got back in bed after walking to the bathroom. Therapist encouraged lower extremity strengthening exercises. Patient continued to refuse. Will continue treatment per POC.
[2020-09-15 16:36] LABS: Glucose Point of Care 124 (65-105)
[2020-09-15] MEDS: LORazepam INJ (*CRX) 2 MG/ML VIAL 0.5 MG IV PUSH (20:46)
[2020-09-15] MEDS: SODIUM CHLORIDE 0.9% IV 1,000 ML 30 ML IV CONT (20:53)
[2020-09-15 21:56] VITALS: BP 126/69; PULSE 85; RESP 18; TEMP 36.5; O2SAT 99
[2020-09-15 23:49] LABS: Glucose Point of Care 150 (65-105)
[2020-09-16] VITALS (7 sets, daily range): BP systolic 112–122; BP diastolic 61–75; PULSE 78–88; RESP 16–20; TEMP 36.5–37.1; O2SAT 93–97
[2020-09-16] MEDS: LORazepam INJ (*CRX) 2 MG/ML VIAL 0.5 MG IV PUSH (02:46)
[2020-09-16] MEDS: CENTRAL LINE FLUSH 10 ML IV PUSH ×3 (05:21→21:07)
[2020-09-16 05:33] LABS: Glucose Point of Care 137 (65-105)
[2020-09-16] MEDS: AMIODARONE HCL 200 MG TABLET PO (09:01)
[2020-09-16] MEDS: PANTOPRAZOLE SODIUM IV 40 MG VIAL IV PUSH (09:02)
[2020-09-16] MEDS: BISACODYL 5 MG TABLET EC 10 MG PO (09:02)
[2020-09-16] MEDS: TAMSULOSIN HCL 0.4 MG CAPSULE PO (09:02)
[2020-09-16] MEDS: METOPROLOL SUCCINATE EXT REL 50 MG TABCR PO (09:02)
[2020-09-16] MEDS: ENOXAPARIN 40 MG/0.4 ML SYRINGE SUB-Q (09:02)
[2020-09-16] MEDS: TOLNAFTATE 1% POWDER 45 GM BTL 1 APPLIC TOPICAL (09:03)
--- NOTE | 2020-09-16 11:10 | PCOTNOTE ---
Attempted to see Pt for OT tx this morning. Pt declined to perform ADls, therapeutic activities, and UE exercises, stating he has no energy and is very cold at the moment. Will attempt later today if able to. Will continue per POC duration/frequency.
--- NOTE | 2020-09-16 12:37 | PM.PNGS ---
Progress Note: A&P Assessment and Plan (1) Ileus following gastrointestinal surgery: Onset Date: ~09/02/20 Code(s): K91.89 - Other postprocedural complications and disorders of digestive system; K56.7 - Ileus, unspecified Status: Resolved Assessment and Plan: Advanced to a full liquid diet today Closely monitor I & O's to watch for dehydration (2) Anastomotic leak of intestine: Onset Date: ~08/25/20 Code(s): K91.89 - Other postprocedural complications and disorders of digestive system Status: Acute Assessment and Plan: GARY drain in place with minimal output WBC normal Still having some rectal output, mostly mucous/pus per patient (3) Protein calorie malnutrition: Code(s): E46 - Unspecified protein-calorie malnutrition Status: Acute Assessment and Plan: Stop TPN today Will repeat electrolytes tomorrow and continue advancing diet as tolerated (4) Rectal cancer: Code(s): C20 - Malignant neoplasm of rectum Status: Chronic (5) BPH (benign prostatic hyperplasia): Onset Date: Unknown Code(s): N40.0 - Benign prostatic hyperplasia without lower urinary tract symptoms Status: Acute Assessment and Plan: Voiding trial yesterday, continuing to urinate today without difficulty Subjective Subjective Date/Time Seen: 09/16/20 12:37 Interval history: Tolerating clear liquid diet with NG tube out for greater than 24 hours. Still having some trouble sleeping at night, but otherwise feeling well. Exam GI: Inspection: non-distended and incision (scant serosanguinous drainage from lower midline) GI Palp: Yes Soft to palpation, No Tenderness to palpation present (GI) and No Guarding due to palpation present (GI) Percussion: Yes normal to percussion Auscultation: normal bowel sounds Other: GARY with minimal output Ileostomy pink and functioning with output [place] removed from midline incision and 1/2 inch Steri-Strips applied Objective Data Vital Signs Vital Signs: Vital Signs - 24 hr 09/15/20 14:00 09/15/20 21:56 09/16/20 05:24 Temperature 36.4 C 36.5 C Pulse Rate 90 85 78 Respiratory Rate 16 18 20 Blood Pressure 165/60 H 126/69 Pulse Oximetry 99 99 09/16/20 05:55 09/16/20 09:01 09/16/20 09:02 Temperature 36.5 C Pulse Rate 78 88 88 Respiratory Rate 20 Blood Pressure 112/61 Pulse Oximetry 97 Intake/Output Intake/Output: Intake & Output 09/13/20 09/14/20 09/15/20 09/16/20 23:59 23:59 23:59 23:59 Intake Total 2993.6 4323.4 5106.8 400.8 Output Total 2435 3098 3260 1550 Balance 558.6 1225.4 1846.8 -1149.2 Meds/Results Medications: Active Medications Generic Name Dose Route Start Last Admin Trade Name Freq PRN Reason Stop Dose Admin Acetaminophen 1,000 mg 09/16/20 12:34 Acetaminophen 500 Mg Tablet PO Q6H PRN Mild Pain (1-3) or Fever Hydrocodone Bitart/Acetaminophen 1 tab 09/16/20 12:34 Hydrocodone/Acetaminophen (*Crx) 10-325 Mg Tablet PO Q4H PRN Pain Rated 7-10 Hydrocodone Bitart/Acetaminophen 1 tab 09/16/20 12:34 Hydrocodone/Acetaminophen (*Crx) 5-325 Mg Tablet PO Q4H PRN Pain Rated 4-6 Albuterol 2 puff 08/29/20 23:46 09/11/20 02:13 Albuterol Sulfate (*Sp) Aerosol 1 Puff INHALATION 2 puff QID PRN Administration Dyspnea Alteplase, Recombinant 2 mg 09/11/20 13:07 09/14/20 18:59 Alteplase 2 Mg Vial (Cathflo) IV PUSH 2 mg ONCE PRN Administration Line Occlusion Amiodarone HCl 200 mg 08/30/20 08:00 09/16/20 09:01 Amiodarone Hcl 200 Mg Tablet PO 200 mg DAILY@0800 ASHELY Administration Artificial Tears 1 drop 09/11/20 20:06 Artificial Tears Op Soln 15 Ml Bottle EACH EYE QID PRN Dry Eye(s) Bisacodyl 10 mg 09/12/20 09:00 09/16/20 09:02 Bisacodyl 5 Mg Tablet Ec PO 10 mg QAM ASHELY Administration Diphenhydramine HCl 50 mg 09/16/20 12:34 Diphenhydramine Hcl Cap 25 Mg Capsule
[2020-09-16 13:21] LABS: Glucose Point of Care 128 (65-105)
[2020-09-16] MEDS: lisinopriL 10 MG TABLET PO (14:02)
[2020-09-16 17:43] LABS: Glucose Point of Care 98 (65-105)
[2020-09-16] MEDS: ACETAMINOPHEN 500 MG TABLET 1000 MG PO (21:08)
[2020-09-16] MEDS: diphenhydrAMINE HCl CAP 25 MG CAPSULE 50 MG PO (21:08)
[2020-09-17] MEDS: LORazepam INJ (*CRX) 2 MG/ML VIAL 0.5 MG IV PUSH (01:44)
[2020-09-17 05:00] VITALS: BP 116/70; PULSE 82; RESP 18; TEMP 36.4; O2SAT 95
[2020-09-17] MEDS: CENTRAL LINE FLUSH 10 ML IV PUSH ×4 (06:26→20:49)
--- NOTE | 2020-09-17 06:51 | PC.NURSE ---
Pt urinated in BSC multiple times. Good amount of urine was in the commode but he threw toilet paper and paper towels in the commode so we were unable to measure urine. He urinated in the toilet three times. He did not use the urinal. Asked him if he could use the urinal so we can get accurate measure of his output.
[2020-09-17 07:22] LABS: Hematocrit 31.5 % (42.0-52.0); Hemoglobin 10.4 g/dL (14.0-18.0); Mean Corpuscular Hemoglobin 32.1 pg (26-34); Mean Corpuscular Volume 97.2 fl (80-100); Mean Platelet Volume 10.7 fl (7.4-10.4); Platelet Count Result 541 k/mm3 (150-375); Red Blood Count 3.24 M/mm3 (4.6-6.20); Red Cell Distribution Width 14.7 % (11.5-14.5)
[2020-09-17 10:00] LABS: Anion Gap 8 mmol/L (8-16); Blood Urea Nitrogen 30 mg/dL (9-20); Calcium 9.9 mg/dL (8.4-10.2); Carbon Dioxide 28 mmol/L (22-30); Chloride 93 mmol/L (98-107); Estimated CRCL calculation 25 ml/min; Estimated Glomerular Filt Rate 23; Glucose 100 mg/dL (75-110); Potassium 4.1 mmol/L (3.4-5.0); Sodium 129 mmol/L (137-145)
[2020-09-17] MEDS: ENOXAPARIN 40 MG/0.4 ML SYRINGE SUB-Q (10:06)
[2020-09-17 10:07] VITALS: PULSE 82
[2020-09-17] MEDS: PANTOPRAZOLE 40 MG TABLET PO (10:07)
[2020-09-17] MEDS: METOPROLOL SUCCINATE EXT REL 50 MG TABCR PO (10:07)
[2020-09-17] MEDS: TAMSULOSIN HCL 0.4 MG CAPSULE PO (10:07)
[2020-09-17] MEDS: AMIODARONE HCL 200 MG TABLET PO (10:07)
[2020-09-17] MEDS: HYDROcodone/acetaminophen (*CRX) 10-325 MG TABLET 1 TAB PO (10:58)
--- NOTE | 2020-09-17 11:26 | PM.PNGS ---
Progress Note: A&P Assessment and Plan (1) Anastomotic leak of intestine: Onset Date: ~08/25/20 Code(s): K91.89 - Other postprocedural complications and disorders of digestive system Status: Acute Assessment and Plan: Advance to soft diet today GARY drain in place with minimal output WBC normal Still having some rectal output, mostly mucous/pus per patient (2) ARF (acute renal failure): Qualifiers: Acute renal failure type: unspecified Qualified Code(s): N17.9 - Acute kidney failure, unspecified Code(s): N17.9 - Acute kidney failure, unspecified Status: Acute Assessment and Plan: Creatinine up today, likely secondary to GI losses from ileostomy Discussed increasing fluid intake to account for this Will start NS IV to help improve fluid balance (3) Rectal cancer: Code(s): C20 - Malignant neoplasm of rectum Status: Chronic (4) BPH (benign prostatic hyperplasia): Onset Date: Unknown Code(s): N40.0 - Benign prostatic hyperplasia without lower urinary tract symptoms Status: Acute Assessment and Plan: Voiding trial yesterday, continuing to urinate today without difficulty Subjective Subjective Date/Time Seen: 09/17/20 11:26 Interval history: ostomy bag has leaked several times and required changing. He is tolerating full liquids. Still having some occasional bowel movements. Exam GI: Inspection: non-distended and incision (scant serosanguinous drainage from lower midline) GI Palp: Yes Soft to palpation, No Tenderness to palpation present (GI) and No Guarding due to palpation present (GI) Percussion: Yes normal to percussion Auscultation: normal bowel sounds Other: GARY with minimal output Ileostomy pink and functioning with output [place] removed from midline incision and 1/2 inch Steri-Strips applied Objective Data Vital Signs Vital Signs: Vital Signs - 24 hr 09/16/20 13:08 09/16/20 14:00 09/16/20 21:17 Temperature 37.1 C 36.8 C Pulse Rate 88 80 85 Respiratory Rate 16 18 18 Blood Pressure 118/75 122/62 Pulse Oximetry 93 97 94 09/17/20 05:00 09/17/20 10:07 Temperature 36.4 C Pulse Rate 82 82 Respiratory Rate 18 Blood Pressure 116/70 Pulse Oximetry 95 Intake/Output Intake/Output: Intake & Output 02/0409/15/20 09/16/20 09/17/20 23:59 23:59 23:59 23:59 Intake Total 4323.4 5106.8 1100.8 520 Output Total 3098 3260 3057 1200 Balance 1225.4 1846.8 -1956.2 -680 Meds/Results Medications: Active Medications Generic Name Dose Route Start Last Admin Trade Name Freq PRN Reason Stop Dose Admin Acetaminophen 1,000 mg 09/16/20 12:34 09/16/20 21:08 Acetaminophen 500 Mg Tablet PO 1,000 mg Q6H PRN Administration Mild Pain (1-3) or Fever Hydrocodone Bitart/Acetaminophen 1 tab 09/16/20 12:34 09/17/20 10:58 Hydrocodone/Acetaminophen (*Crx) 10-325 Mg Tablet PO 1 tab Q4H PRN Administration Pain Rated 7-10 Hydrocodone Bitart/Acetaminophen 1 tab 09/16/20 12:34 Hydrocodone/Acetaminophen (*Crx) 5-325 Mg Tablet PO Q4H PRN Pain Rated 4-6 Albuterol 2 puff 08/29/20 23:46 09/11/20 02:13 Albuterol Sulfate (*Sp) Aerosol 1 Puff INHALATION 2 puff QID PRN Administration Dyspnea Alteplase, Recombinant 2 mg 09/11/20 13:07 09/14/20 18:59 Alteplase 2 Mg Vial (Cathflo) IV PUSH 2 mg ONCE PRN Administration Line Occlusion Amiodarone HCl 200 mg 08/30/20 08:00 09/17/20 10:07 Amiodarone Hcl 200 Mg Tablet PO 200 mg DAILY@0800 ASHELY Administration Artificial Tears 1 drop 09/11/20 20:06 Artificial Tears Op Soln 15 Ml Bottle EACH EYE QID PRN Dry Eye(s) Diphenhydramine HCl 50 mg 09/16/20 12:34 09/16/20 21:08 Diphenhydramine Hcl Cap 25 Mg Capsule PO 50 mg QPM PRN Administration Sleep Enoxaparin Sodium 40 mg 09/09/20 09:00 09/17/20 10:06 Enoxaparin 40 Mg/0.4 Ml Syringe SUB-Q 40 mg DAILY ASHELY Adm
--- NOTE | 2020-09-17 12:23 | PCPTNOTE ---
Attempted to see pt. for Physical therapy treatment. Pt. refused, reporting he wasn't feeling well today. Pt. reported that he had pain medicine a little while ago. Patient was in bed. Nursing was made aware of pt. reporting not feeling well. Continue per POC.
[2020-09-17] MEDS: SODIUM CHLORIDE 0.9% IV 1,000 ML 100 ML IV CONT ×2 (12:48→20:48)
[2020-09-17] MEDS: ONDANSETRON INJ 4 MG/2 ML VIAL IV PUSH ×2 (12:54→18:41)
--- NOTE | 2020-09-17 13:22 | PCOTNOTE ---
The patient treatment was not able to be completed on 09/17 due to required frequency being met. Will plan to continue treatment per plan of care tomorrow.
[2020-09-17 14:00] VITALS: BP 80/47; PULSE 73; RESP 18; TEMP 36.3; O2SAT 99
--- NOTE | 2020-09-17 15:13 | PC.NURSE ---
0900 POLisinopril on hold per physician's order
[2020-09-17 16:20] VITALS: BP 70/50; PULSE 83; RESP 22; TEMP 36.3; O2SAT 97
--- NOTE | 2020-09-17 17:01 | P.PNCROSS_ITS ---
Event Note Event Note Event Note: I was called to the room to assess patient after he got up form bed and was in the shower when he had a syncope his blood pressure was in the 60's when taken. Patient has had a high output ileostomy. General: Lying in bed, NAD HEENT: R forehead scratch, [place], EOM intact. CVS: S1, S2 heard, no gallops Respiratory: CTA b/l Abdomen: Ileostomy bag in place, midline surgical wound is closed, soft, non tender. MSK: No deformities, ROM thru PRE PRESS OPERATOR:Awake alert, OX3, no focal sensory motor deficit, CN II-XII, grossly intact. A/P 1-High output ileostomy: Continue to monitor. 2-CARLOS: Likely pr renal due to hypovolemia 3-Syncope: Likely secondary to hypovolemia, deconditioning as well bolus 2 L wide open 4-Close trauma to the head: CT head without contrast.
[2020-09-17] MEDS: SODIUM CHLORIDE 0.9% IV 1,000 ML 999 ML IV CONT ×2 (18:44→18:56)
--- NOTE | 2020-09-17 18:54 | PC.NURSE ---
Pt has no redness to groin area at this time. No Talnaftate needs for today.
[2020-09-17 21:11] VITALS: BP 102/58; PULSE 70; RESP 20; TEMP 36.9; O2SAT 96
[2020-09-17] MEDS: diphenhydrAMINE HCl CAP 25 MG CAPSULE 50 MG PO (22:17)
[2020-09-17] MEDS: ACETAMINOPHEN 500 MG TABLET 1000 MG PO (22:17)
[2020-09-17 23:02] VITALS: BP 106/70; PULSE 78; RESP 20; TEMP 36.8; O2SAT 93
[2020-09-18] MEDS: SODIUM CHLORIDE 0.9% IV 1,000 ML 100 ML IV CONT ×2 (05:53→17:05)
[2020-09-18 05:56] VITALS: BP 101/63; PULSE 68; RESP 18; TEMP 37; O2SAT 96
[2020-09-18 06:18] LABS: Hematocrit 28.5 % (42.0-52.0); Hemoglobin 9.3 g/dL (14.0-18.0); Mean Corpuscular HGB Conc 32.6 g/dl (32-36); Mean Corpuscular Hemoglobin 32.1 pg (26-34); Mean Corpuscular Volume 98.3 fl (80-100); Mean Platelet Volume 10.7 fl (7.4-10.4); Platelet Count Result 472 k/mm3 (150-375); Red Cell Distribution Width 14.6 % (11.5-14.5); White Blood Count 5.8 K/mm3 (4.5-10.0)
[2020-09-18 06:22] LABS: Sodium 128 mmol/L (137-145)
[2020-09-18 06:23] LABS: Potassium 3.8 mmol/L (3.4-5.0)
[2020-09-18 06:27] LABS: Anion Gap 7 mmol/L (8-16); Blood Urea Nitrogen 39 mg/dL (9-20); Calcium 8.7 mg/dL (8.4-10.2); Carbon Dioxide 23 mmol/L (22-30); Chloride 98 mmol/L (98-107); Estimated CRCL calculation 19 ml/min; Estimated Glomerular Filt Rate 16; Glucose 92 mg/dL (75-110); Magnesium 1.8 mg/dL (1.6-2.3); Phosphorus 5.1 mg/dL (2.5-4.5)
[2020-09-18 07:06] LABS: Add Urine Microscopic? YES; Appearance Urine Cloudy (Clear); Bacteria Urine Trace /hpf; Bilirubin Urine Negative (Negative); Blood Urine Negative (Negative); Budding Yeast Urine Present /hpf; Color Urine Yellow (Yellow); Glucose Urine UA Negative (Negative); Hyaline Casts Urine 30-49 /lpf; Ketones Urine Negative (Negative); Leukocyte Esterase Ur 1+ LEU/UL (Negative); Mucus Urine Rare /lpf; Nitrate Urine Negative (Negative); Protein Urine Negative (Negative); Specific Grav Ur 1.013 (1.001-1.035); Squamous Epithelial Cell Urine Rare /hpf (Few); Urobilinogen Urine Negative mg/dL (<2.0); WBC Clumps Urine Present /HPF; WBC Urine 31-50 /hpf
[2020-09-18 09:20] VITALS: BP 78/40
[2020-09-18] MEDS: AMIODARONE HCL 200 MG TABLET PO (09:34)
[2020-09-18] MEDS: PANTOPRAZOLE 40 MG TABLET PO (09:35)
[2020-09-18] MEDS: ENOXAPARIN 40 MG/0.4 ML SYRINGE SUB-Q (09:35)
[2020-09-18] MEDS: TOLNAFTATE 1% POWDER 45 GM BTL 1 APPLIC TOPICAL ×2 (09:35→17:05)
--- NOTE | 2020-09-18 09:37 | PM.IMPN ---
Progress Note: A&P Assessment and Plan (1) ARF (acute renal failure): Qualifiers: Acute renal failure type: unspecified Qualified Code(s): N17.9 - Acute kidney failure, unspecified Code(s): N17.9 - Acute kidney failure, unspecified Status: Acute Assessment and Plan: Cr up to 3.8 today which was normal on 09/14/20 -likely due to urinary retention -bladder scan at bedside showed over 900 mls -patient had to be straight cathed overnight -I have asked the nurse to place a Miller and contact urology -Monitor patient while being cathed due to hypotension. I have spoken to the nurse about this. -renal ultrasound will be ordered -UA shows some white blood cells but not much blood. These changes can be associated with catheter use but he could also have a new UTI although he was on Zosyn. Because of his hypotension and penile pain, I will start antibiotics but hopefully these can be stopped once the urine culture is negative. I will also draw blood cultures although I do not suspect severe infection since his white blood cell count is normal. Start with ceftriaxone and we can advance to imipenem and/or vancomycin if needed. -If Cr does not improve with these changes, consider nephrology consult in the AM (2) Urinary retention: Code(s): R33.9 - Retention of urine, unspecified Status: Acute Assessment and Plan: As above -Miller, contact urology, obtain u/s (3) Hypotension: Code(s): I95.9 - Hypotension, unspecified Status: Acute Assessment and Plan: Last BP manually is not reported in the chart but was <100 systolic. I have asked the nurse to bolus him 500 and recheck his bp then. -hold metoprolol today -No crackles in his lung but monitor fluid status -infx seem less likely but ceftriaxone started for possible UTI and blood cultures ordered (4) Syncope: Code(s): R55 - Syncope and collapse Status: Acute Assessment and Plan: Likely due to hypotension -Continue fluids and tx as stated above -stop flomax although do not suspect this is the cause (started this hospital stay) -No neurological deficits, CT brain shows no acute abnormality -pt has not recurrence of lightheadedness since this (5) Ileus following gastrointestinal surgery: Onset Date: ~09/02/20 Code(s): K91.89 - Other postprocedural complications and disorders of digestive system; K56.7 - Ileus, unspecified Status: Resolved Assessment and Plan: Management per the primary service. -Patient with hx of rectal cancer underwent resection on 08/09/2020; then underwent loop ileostomy 08/31/20 due to persistent anastomotic leak despite conservative management. -Pt is now eating with good ostomy outpt (6) Intra-abdominal abscess: Onset Date: ~08/25/20 Code(s): K65.1 - Peritoneal abscess Status: Acute Assessment and Plan: Management per the primary service. -Completed Zosyn -CT 09/10/20 demonstrates persistent 8.2 x 4.6 x 4.9 cm perirectal abscess due the leak at distal rectal anastomosis. (7) PAF (paroxysmal atrial fibrillation): Code(s): I48.0 - Paroxysmal atrial fibrillation Status: Acute Assessment and Plan: Stable, rate is controlled on amiodarone but metoprolol held today -IV lopressor PRN is available with parameters for elevated heart rate. (8) Essential hypertension: Code(s): I10 - Essential (primary) hypertension Status: Acute Assessment and Plan: hold bp medications today as stated above (9) Hyponatremia: Code(s): E87.1 - Hypo-osmolality and hyponatremia Status: Acute Assessment and Plan: Last Cr 128 -Continue fluids -recheck tomorrow Subjective Date/time seen: 09/18/20 09:37 Interval history: Pt is a 70-year-old male here for ileus and being seen by the hospitalist service for hypotension and syncope. Patient was seen
[2020-09-18] MEDS: CENTRAL LINE FLUSH 10 ML IV PUSH ×3 (09:44→20:24)
[2020-09-18] MEDS: SODIUM CHLORIDE 0.9% IV 500 ML IV CONT (10:06)
--- NOTE | 2020-09-18 10:39 | PCPTNOTE ---
Attempted PT reeval. Isabel REECE, stated to hold therapy due to BP issues. Will try again later today.
[2020-09-18 10:45] VITALS: BP 100/60
--- NOTE | 2020-09-18 10:48 | PCOTNOTE ---
Per nursing, hold OT re-assess this AM due to patient's BP. Will attempt OT re-assess at later time when medically appropriate.
--- NOTE | 2020-09-18 12:39 | PCNFU ---
Nutrition Follow-Up Complete: Altered GI function as related to anastomotic leak as evidenced by NPO x 5 days. Goal:Meet estimated caloric needs Progressing towards goal. We will continue current goal. Pt current nutrition is soft and bite sized, Level 6. Nutrition recommendation: Ensure compact BID Last recorded weight is 80.9 kg, down from 100 kg on admit. Bowel Motility: ostomy, +output. Labs Reviewed:Cr 3.8,BUN 39, NA 128,Hct 28.5,Hgb 9.3 Meds Noted:Rocephin, Lovenox, Pacerone, NS at 125 ml/hr Additional Notes: Nutrition follow up today. Patient had Miller replaced. Diet order has advanced to a soft and bite sized, Level 6. TPN has been discontinued. Oral Intake today, 25% of meals today. MD orders for Ensure compact BID, which will provide patient with 220 kcals and 9 gms protein. Monitoring: weight, labs, meds, oral intake every 3 days.
--- NOTE | 2020-09-18 13:17 | PM.PNGS ---
Progress Note: A&P Assessment and Plan (1) Anastomotic leak of intestine: Onset Date: ~08/25/20 Code(s): K91.89 - Other postprocedural complications and disorders of digestive system Status: Acute Assessment and Plan: Tolerating a soft diet and ileostomy is functioning well. WBC remains normal. GARY drain in place with minimal output. Stable from a surgical standpoint. (2) ARF (acute renal failure): Qualifiers: Acute renal failure type: unspecified Qualified Code(s): N17.9 - Acute kidney failure, unspecified Code(s): N17.9 - Acute kidney failure, unspecified Status: Acute Assessment and Plan: Creatinine up to 3.8 today. Found to have significant urinary retention, which is likely contributing to this. Renal US normal. Appreciate Hospitalist help. Continue to monitor. (3) Urinary retention: Code(s): R33.9 - Retention of urine, unspecified Status: Acute Assessment and Plan: Miller in place. (4) Rectal cancer: Code(s): C20 - Malignant neoplasm of rectum Status: Chronic (5) BPH (benign prostatic hyperplasia): Onset Date: Unknown Code(s): N40.0 - Benign prostatic hyperplasia without lower urinary tract symptoms Status: Acute Additional Plan Discussed plan of care with Dr. Robertson. Subjective Subjective Date/Time Seen: 09/18/20 11:17 Interval history: Patient reports feeling tired and frustrated today. Still tolerating his diet. Denies any dizziness or light-headedness today after having the syncopal episode last evening. He states that he has been unable to void this morning and had a catheter placed. Reports having pain in his penis from the Miller catheter, but no abdominal pain. Still having good output from the ostomy. Review of Systems Review of Systems: All systems reviewed & are unremarkable except as noted in HPI and below Gastrointestinal: Gastrointestinal: Reports as per HPI, Reports no additional gastrointestinal complaints, Denies abdominal pain, Denies nausea and Denies vomiting Exam Const: General: no acute distress, alert and awake Orientation/consciousness: patient oriented x3 GI: Inspection: non-distended GI Palp: Yes Soft to palpation Other: GARY with minimal drainage in bulb. Ileostomy pink/moist and functioning well with about 100 cc output in bag Midline incision with steri strips intact over the top of the incision and a dressing over the small opening at the inferior aspect of the incision, clean and dry. No signs of infection. Urinary Catheter: Urinary Catheter: patent and draining and urine clear Skin: General skin exam: normal color Neuro: General: moves all extremities and no focal motor deficits Extrem: General: no clubbing, cyanosis or edema and no calf tenderness Psych: Mental Status: mental status grossly normal Affect: normal affect Insight: Good insight present (Psych) Judgement: Good judgement present (Psych) Objective Data Vital Signs Vital Signs: Vital Signs - 24 hr 09/17/20 14:00 09/17/20 16:20 09/17/20 21:11 Temperature 97.3 F L 97.3 F L 98.5 F Pulse Rate 73 83 70 Respiratory Rate 18 22 H 20 Blood Pressure 80/47 L 70/50 L 102/58 L Pulse Oximetry 99 97 96 09/17/20 23:02 09/18/20 05:56 09/18/20 09:20 Temperature 98.2 F 98.6 F Pulse Rate 78 68 Respiratory Rate 20 18 Blood Pressure 106/70 101/63 78/40 L Pulse Oximetry 93 96 09/18/20 10:45 Temperature Pulse Rate Respiratory Rate Blood Pressure 100/60 Pulse Oximetry Intake/Output Intake/Output: Intake & Output 09/15/20 09/16/20 09/17/20 09/18/20 23:59 23:59 23:59 23:59 Intake Total 5106.8 1100.8 2450 1810 Output Total 3260 3057 3700 1500 Balance 1846.8 -1956.2 -1250 310 Meds/Results Medications: Active Medications Generic Name Dose Route Start Last Admin Trade Name Asim PRN Reason Stop Dose Admin Acetaminophen 1,000 mg 09/16/20 12:34 09/17/20 22:17 Acetaminophen 5
[2020-09-18 13:32] VITALS: BP 103/56; PULSE 91
--- NOTE | 2020-09-18 13:40 | PCOTNOTE ---
Per RN, hold therapy this date. Will attempt OT re-assess tomorrow as medically appropriate.
[2020-09-18] MEDS: HYDROcodone/acetaminophen (*CRX) 5-325 MG TABLET 1 TAB PO (13:46)
[2020-09-18 14:00] VITALS: BP 103/55; PULSE 90; RESP 18; TEMP 36.4; O2SAT 96
--- NOTE | 2020-09-18 15:00 | PCPTNOTE ---
Spoke w/ Isabel REECE, stated to hold therapy today due to pt still not feeling well. Will try again tomorrow.
[2020-09-18] MEDS: PHENAZOPYRIDINE HCL 100 MG TABLET 200 MG PO (18:23)
[2020-09-18 22:00] VITALS: BP 102/67; PULSE 87; RESP 20; TEMP 36.2; O2SAT 98
[2020-09-18] MEDS: diphenhydrAMINE HCl CAP 25 MG CAPSULE 50 MG PO (22:46)
[2020-09-18] MEDS: ACETAMINOPHEN 500 MG TABLET 1000 MG PO (22:46)
[2020-09-19] MEDS: SODIUM CHLORIDE 0.9% IV 1,000 ML 125 ML IV CONT (02:18)
[2020-09-19] MEDS: CENTRAL LINE FLUSH 10 ML IV PUSH ×3 (05:19→22:20)
[2020-09-19 05:25] LABS: Hematocrit 28.3 % (42.0-52.0); Hemoglobin 9.1 g/dL (14.0-18.0); Mean Corpuscular HGB Conc 32.2 g/dl (32-36); Mean Corpuscular Volume 99.6 fl (80-100); Mean Platelet Volume 10.4 fl (7.4-10.4); Platelet Count Result 421 k/mm3 (150-375); Red Blood Count 2.84 M/mm3 (4.6-6.20); Red Cell Distribution Width 14.4 % (11.5-14.5)
[2020-09-19 05:42] LABS: Alanine Aminotransferase 27 U/L (4-50); Albumin Level 2.9 g/dL (3.5-5.1); Alkaline Phosphatase 90 U/L (38-126); Anion Gap 3 mmol/L (8-16); Aspartate Amino Transferase 20 U/L (17-59); Bilirubin,Total 0.3 mg/dL (0.2-1.3); Blood Urea Nitrogen 19 mg/dL (9-20); CRP 2.7 mg/dL (<1.0); Calcium 8.8 mg/dL (8.4-10.2); Carbon Dioxide 26 mmol/L (22-30); Chloride 106 mmol/L (98-107); Estimated CRCL calculation 47 ml/min; Estimated Glomerular Filt Rate 47; Glucose 92 mg/dL (75-110); Potassium 3.9 mmol/L (3.4-5.0); Sodium 135 mmol/L (137-145)
[2020-09-19 06:00] VITALS: BP 113/67; PULSE 72; RESP 20; TEMP 36.4; O2SAT 99
[2020-09-19 08:45] VITALS: BP 102/48; PULSE 76
[2020-09-19] MEDS: AMIODARONE HCL 200 MG TABLET PO (08:45)
[2020-09-19] MEDS: PHENAZOPYRIDINE HCL 100 MG TABLET 200 MG PO ×3 (08:47→19:23)
[2020-09-19] MEDS: PANTOPRAZOLE 40 MG TABLET PO (08:48)
[2020-09-19] MEDS: FINASTERIDE 5 MG TABLET PO (08:48)
[2020-09-19] MEDS: ENOXAPARIN 40 MG/0.4 ML SYRINGE SUB-Q (08:48)
[2020-09-19] MEDS: TAMSULOSIN HCL 0.4 MG CAPSULE PO (08:49)
[2020-09-19] MEDS: TOLNAFTATE 1% POWDER 45 GM BTL 1 APPLIC TOPICAL ×2 (08:50→19:24)
[2020-09-19] MEDS: ONDANSETRON INJ 4 MG/2 ML VIAL IV PUSH (10:20)
--- NOTE | 2020-09-19 10:20 | PM.PNGS ---
Progress Note: A&P Assessment and Plan (1) Anastomotic leak of intestine: Onset Date: ~08/25/20 Code(s): K91.89 - Other postprocedural complications and disorders of digestive system Status: Acute Assessment and Plan: Tolerating a soft diet and ileostomy is functioning well. WBC remains normal. GARY drain in place with minimal output. Stable from a surgical standpoint. (2) ARF (acute renal failure): Qualifiers: Acute renal failure type: unspecified Qualified Code(s): N17.9 - Acute kidney failure, unspecified Code(s): N17.9 - Acute kidney failure, unspecified Status: Acute Assessment and Plan: Cr better today. Will stop IV fluids. Continue to closely monitor I/O's to avoid dehydration. (3) Urinary retention: Code(s): R33.9 - Retention of urine, unspecified Status: Acute Assessment and Plan: Miller in place. (4) Rectal cancer: Code(s): C20 - Malignant neoplasm of rectum Status: Chronic (5) BPH (benign prostatic hyperplasia): Onset Date: Unknown Code(s): N40.0 - Benign prostatic hyperplasia without lower urinary tract symptoms Status: Acute Subjective Subjective Date/Time Seen: 09/19/20 10:20 Interval history: Blood pressure better today. Not feeling lightheaded when getting up. Ostomy output slightly thicker. Pain from Miller improved. Exam GI: Inspection: non-distended and incision (scant serosanguinous drainage from lower midline) GI Palp: Yes Soft to palpation, No Tenderness to palpation present (GI) and No Guarding due to palpation present (GI) Percussion: Yes normal to percussion Auscultation: normal bowel sounds Other: GARY with minimal output Ileostomy pink and functioning with output [place] removed from midline incision and 1/2 inch Steri-Strips applied Objective Data Vital Signs Vital Signs: Vital Signs - 24 hr 09/18/20 10:45 09/18/20 13:32 09/18/20 14:00 Temperature 36.4 C Pulse Rate 91 90 Respiratory Rate 18 Blood Pressure 100/60 103/56 L 103/55 L Pulse Oximetry 96 09/18/20 22:00 09/19/20 06:00 09/19/20 08:45 Temperature 36.2 C L 36.4 C L Pulse Rate 87 72 76 Respiratory Rate 20 20 Blood Pressure 102/67 113/67 Pulse Oximetry 98 99 Intake/Output Intake/Output: Intake & Output 09/16/20 09/17/20 09/18/20 09/19/20 23:59 23:59 23:59 23:59 Intake Total 1100.8 2450 3460 1900 Output Total 3057 3700 4350 1400 Balance -1956.2 -1250 -890 500 Meds/Results Medications: Active Medications Generic Name Dose Route Start Last Admin Trade Name Freq PRN Reason Stop Dose Admin Acetaminophen 1,000 mg 09/16/20 12:34 09/18/20 22:46 Acetaminophen 500 Mg Tablet PO 1,000 mg Q6H PRN Administration Mild Pain (1-3) or Fever Hydrocodone Bitart/Acetaminophen 1 tab 09/16/20 12:34 09/17/20 10:58 Hydrocodone/Acetaminophen (*Crx) 10-325 Mg Tablet PO 1 tab Q4H PRN Administration Pain Rated 7-10 Hydrocodone Bitart/Acetaminophen 1 tab 09/16/20 12:34 09/18/20 13:46 Hydrocodone/Acetaminophen (*Crx) 5-325 Mg Tablet PO 1 tab Q4H PRN Administration Pain Rated 4-6 Albuterol 2 puff 08/29/20 23:46 09/11/20 02:13 Albuterol Sulfate (*Sp) Aerosol 1 Puff INHALATION 2 puff QID PRN Administration Dyspnea Alteplase, Recombinant 2 mg 09/11/20 13:07 09/14/20 18:59 Alteplase 2 Mg Vial (Cathflo) IV PUSH 2 mg ONCE PRN Administration Line Occlusion Amiodarone HCl 200 mg 08/30/20 08:00 09/19/20 08:45 Amiodarone Hcl 200 Mg Tablet PO 200 mg DAILY@0800 ASHELY Administration Artificial Tears 1 drop 09/11/20 20:06 Artificial Tears Op Soln 15 Ml Bottle EACH EYE QID PRN Dry Eye(s) Diphenhydramine HCl 50 mg 09/16/20 12:34 09/18/20 22:46 Diphenhydramine Hcl Cap 25 Mg Capsule PO 50 mg QPM PRN Administration Sleep Enoxaparin Sodium 40 mg 09/09/20 09:00 09/19/20 08:48 Enoxaparin 40 Mg/0.
--- NOTE | 2020-09-19 13:19 | PC.NURSE ---
On 09/19/20, the student, [ Nelly Delgado], provided care and completed [facility] documentation on this patient. I have reviewed the student's documentation and agree with the findings.
[2020-09-19 13:30] VITALS: BP 108/57; PULSE 81; RESP 18; TEMP 37.1; O2SAT 97
[2020-09-19 14:00] VITALS: BP 126/73; PULSE 78; RESP 20; TEMP 37.2; O2SAT 98
--- NOTE | 2020-09-19 14:38 | PM.IMPN ---
Progress Note: A&P Assessment and Plan (1) ARF (acute renal failure): Qualifiers: Acute renal failure type: unspecified Qualified Code(s): N17.9 - Acute kidney failure, unspecified Code(s): N17.9 - Acute kidney failure, unspecified Status: Acute Assessment and Plan: Suspect this may have been related to urinary retention; Cr is coming down since Miller has been replaced. Urology consulted, appreciate further recommendations. Suspect he may benefit from leaving Miller in at discharge and following up with urology outpatient given that he has failed voiding trial while inpatient. Renal ultrasound is unremarkable. Check renal function in AM. If trending down tomorrow, suspect he will be medically stable for discharge. (2) Urinary retention: Code(s): R33.9 - Retention of urine, unspecified Status: Acute Assessment and Plan: Appreciate urology input, started Proscar and Flomax. Continue Miller catheter for now pending urology recommendations. UA abnormal, may be related to retention. He was started on Rocephin 09/18, can continue this for now and deescalate antibiotics as clinically appropriate awaiting urine culture. (3) Hypotension: Code(s): I95.9 - Hypotension, unspecified Status: Acute Assessment and Plan: Lisinopril, hctz on hold due to hypotension. Notified later by nursing that metoprolol was also non-administered due to low BP this morning. Will make discharge medication recommendations pending BP trends day of discharge. (4) Syncope: Code(s): R55 - Syncope and collapse Status: Acute Assessment and Plan: Occurred 09/17 and no further issues. No dizziness today. Suspect related to hypotension. He was given IV fluids and has improved. No neuro deficits. CT brain shows no acute intracranial abnormality. Monitor. (5) Ileus following gastrointestinal surgery: Onset Date: ~09/02/20 Code(s): K91.89 - Other postprocedural complications and disorders of digestive system; K56.7 - Ileus, unspecified Status: Resolved Assessment and Plan: Management per the primary service. Seems resolved as he has been tolerating a diet with ostomy output and no nausea or vomiting. Patient with hx of rectal cancer underwent resection on 08/09/2020; then underwent loop ileostomy 08/31/20 due to persistent anastomotic leak despite conservative management. (6) Intra-abdominal abscess: Onset Date: ~08/25/20 Code(s): K65.1 - Peritoneal abscess Status: Acute Assessment and Plan: Management per the primary service. He completed Zosyn. CT 09/10/20 demonstrates persistent 8.2 x 4.6 x 4.9 cm perirectal abscess due the leak at distal rectal anastomosis. (7) PAF (paroxysmal atrial fibrillation): Code(s): I48.0 - Paroxysmal atrial fibrillation Status: Acute Assessment and Plan: Stable, rate is controlled on amiodarone but metoprolol non administered due to low BP today IV lopressor PRN is available with parameters for elevated heart rate, has not been needed in several days. (8) Essential hypertension: Code(s): I10 - Essential (primary) hypertension Status: Acute Assessment and Plan: History of HTN with lower BPs since surgery. Medications held as outlined above. (9) Hyponatremia: Code(s): E87.1 - Hypo-osmolality and hyponatremia Status: Acute Assessment and Plan: Improved to 135 with IV hydration. Additional Plan Thank you for allowing me to participate in this pleasant gentleman's care
[2020-09-19] MEDS: HYDROcodone/acetaminophen (*CRX) 5-325 MG TABLET 1 TAB PO (15:53)
[2020-09-19 21:56] VITALS: BP 119/73; PULSE 96; RESP 20; TEMP 37.1; O2SAT 77
[2020-09-19] MEDS: ACETAMINOPHEN 500 MG TABLET 1000 MG PO (22:17)
[2020-09-20 04:58] VITALS: BP 101/48; PULSE 69; RESP 18; TEMP 36.3; O2SAT 96
[2020-09-20 05:22] LABS: Anion Gap 4 mmol/L (8-16); Blood Urea Nitrogen 9 mg/dL (9-20); Calcium 8.6 mg/dL (8.4-10.2); Carbon Dioxide 26 mmol/L (22-30); Chloride 106 mmol/L (98-107); Estimated CRCL calculation 63 ml/min; Estimated Glomerular Filt Rate > 60; Glucose 103 mg/dL (75-110); Potassium 3.6 mmol/L (3.4-5.0); Sodium 136 mmol/L (137-145)
[2020-09-20] MEDS: CENTRAL LINE FLUSH 10 ML IV PUSH (06:42)
[2020-09-20 08:29] VITALS: PULSE 89
[2020-09-20] MEDS: PANTOPRAZOLE 40 MG TABLET PO (08:29)
[2020-09-20] MEDS: PHENAZOPYRIDINE HCL 100 MG TABLET 200 MG PO ×2 (08:29→13:34)
[2020-09-20] MEDS: TAMSULOSIN HCL 0.4 MG CAPSULE PO (08:29)
[2020-09-20] MEDS: ENOXAPARIN 40 MG/0.4 ML SYRINGE SUB-Q (08:29)
[2020-09-20] MEDS: FINASTERIDE 5 MG TABLET PO (08:29)
[2020-09-20] MEDS: AMIODARONE HCL 200 MG TABLET PO (08:29)
[2020-09-20] MEDS: METOPROLOL SUCCINATE EXT REL 50 MG TABCR PO (08:29)
[2020-09-20] MEDS: TOLNAFTATE 1% POWDER 45 GM BTL 1 APPLIC TOPICAL (08:30)
--- NOTE | 2020-09-20 09:42 | PM.IMPN ---
Progress Note: A&P Assessment and Plan (1) ARF (acute renal failure): Qualifiers: Acute renal failure type: unspecified Qualified Code(s): N17.9 - Acute kidney failure, unspecified Code(s): N17.9 - Acute kidney failure, unspecified Status: Resolved Assessment and Plan: Resolved. Suspect this may have been related to urinary retention; Cr down to 1.0 now that Miller has been replaced. Urology consulted, appreciate further recommendations. Suspect he may benefit from leaving Miller in at discharge and following up with urology outpatient given that he has failed voiding trial while inpatient. Renal ultrasound 09/18 is unremarkable. Given the improvement in his renal function and stable blood pressures he is medically stable for discharge today from hospitalist standpoint. (2) Urinary retention: Code(s): R33.9 - Retention of urine, unspecified Status: Acute Assessment and Plan: Appreciate urology input, started Proscar and Flomax. Continue Miller catheter for now pending urology recommendations. UA abnormal, may be related to retention. He was started on Rocephin 09/18, dc this today. Urine culture growing 50-100,000 viviane, asymptomatic. Appreciate urology recommendations, I suspect this does not require antifungal treatment at this time unless an upcoming urologic procedure is anticipated. (3) Hypotension: Qualifiers: Hypotension type: unspecified hypotension type Qualified Code(s): I95.9 - Hypotension, unspecified Code(s): I95.9 - Hypotension, unspecified Status: Acute Assessment and Plan: Hold lisinopril and HCTZ at discharge until he follows up with Dr Aldana soon; due to low BPs. Continue metoprolol and amiodarone. I have made these changes in the discharge medications and written instructions. (4) Syncope: Qualifiers: Syncope type: unspecified Qualified Code(s): R55 - Syncope and collapse Code(s): R55 - Syncope and collapse Status: Resolved Assessment and Plan: Occurred 09/17 and no further issues. No dizziness today. Suspect related to hypotension. He was given IV fluids and has improved. No neuro deficits. CT brain shows no acute intracranial abnormality. (5) Ileus following gastrointestinal surgery: Onset Date: ~09/02/20 Code(s): K91.89 - Other postprocedural complications and disorders of digestive system; K56.7 - Ileus, unspecified Status: Resolved Assessment and Plan: Management per the primary service. Seems resolved as he has been tolerating a diet with ostomy output and no nausea or vomiting. Patient with hx of rectal cancer underwent resection on 08/09/2020; then underwent loop ileostomy 08/31/20 due to persistent anastomotic leak despite conservative management. (6) Intra-abdominal abscess: Onset Date: ~08/25/20 Code(s): K65.1 - Peritoneal abscess Status: Acute Assessment and Plan: Management per the primary service. He completed a course of Zosyn. CT 09/10/20 demonstrates persistent 8.2 x 4.6 x 4.9 cm perirectal abscess due the leak at distal rectal anastomosis. (7) PAF (paroxysmal atrial fibrillation): Code(s): I48.0 - Paroxysmal atrial fibrillation Status: Acute Assessment and Plan: Stable, rate is controlled on amiodarone, metoprolol. He will follow up with Dr Jovan godwin. (8) Essential hypertension: Code(s): I10 - Essential (primary) hypertension Status: Acute Assessment and Plan: History of HTN with lower BPs since surgery. Medications held as outlined above. (9) Hyponatremia:
--- NOTE | 2020-09-20 11:01 | PCNFU ---
Nutrition Follow-Up Complete: Altered GI function as related to anastomotic leak as evidenced by NPO x 5 days. Goal: Meet estimated caloric needs Progressing towards goal. We will continue current goal. Pt current nutrition is Regular, Soft and Bite Sized, Level 6. Last recorded weight is 80.9 kg, down from 100 kg on admit. Bowel Motility:ileostomy bag Labs Reviewed:Na 136 Meds Noted:Proscar, Toprol, Protonix Additional Notes: Patient seen today for nutrition follow up. He states, appetite is improving. Oral Intake: 70-90% documented. He prefers vanilla of the Ensure Compact BID. Plans for discharge soon. Monitoring : weight,labs,oral intake every 5 days.
--- NOTE | 2020-09-20 12:02 | PM.DS ---
DS: Admitting Diagnosis Admitting Diagnosis Admitting Diagnosis: Rectal Cancer, Intra-abdominal abscess DS: Discharge Diagnosis Discharge Diagnosis (1) Anastomotic leak of intestine: Onset Date: ~08/25/20 Code(s): K91.89 - Other postprocedural complications and disorders of digestive system Status: Acute (2) Urinary retention: Onset Date: Unknown Code(s): R33.9 - Retention of urine, unspecified Status: Acute (3) Rectal cancer: Code(s): C20 - Malignant neoplasm of rectum Status: Chronic DS: Summary Hospital Course Reason for hospitalization: Anastomotic leak Hospital Course: 70-year-old man presented to the ED on 08/28/2020 with pelvic pain and right lower quadrant pain. He had previously undergone hand assisted laparoscopic low anterior resection with low pelvic anastomosis on 08/09/2020. He was discharged home after an uneventful hospital stay and then returned to the hospital on 08/19/2020 with signs of an anastomotic leak. Percutaneous drain was placed on 08/19/2020 by Radiology and he slowly showed signs of improvement from here. He was discharged home with the drain on 08/26/2020. The drain had minimal output and patient was having bowel movements until 08/28/2020. He then noticed increased drainage from the percutaneous drain and was having tenesmus with worsening pelvic pain. CT showed drain in place with slightly smaller size of abscess. He was admitted for further treatment and the pigtail drain was irrigated with sterile saline. He continued to have severe pelvic and rectal pain with tenesmus. A small-bowel follow-through and pelvic CT were obtained on 08/30/2020. This showed evidence of a persistent anastomotic leak rapidly entering into the abscess cavity and into the drainage tubing. He then underwent exploratory laparotomy with loop ileostomy on 08/31/2020. The abscess appeared well contained in the posterior presacral space and the pigtail drain was removed with replacement of a GARY drain at the time of surgery. Urology was consulted for continued urinary retention. He was placed on a clear liquid diet initially after the loop ileostomy. On 09/02/2020, patient became more bloated and had to have NG tube placed for postoperative ileus. Hospitalist was then also consulted to manage multiple medications that patient was on for paroxysmal AFib and hypertension. Patient was also started on PPN for prolonged ileus and need for IV nutrition. A PICC line was then placed on 09/07 and he was changed over to TPN. His bowels were stimulated with Reglan IV. The patient was still dealing with a lot of postoperative pain and was having difficulty with getting out of bed and was also using a large amount of narcotic pain meds to control his pain. Relistor was given to try to counteract the narcotic affect on his bowels. This still had no significant affect. His NG tube was removed on 09/09 but then had to be replaced on 09/10. His postoperative ileus slowly showed signs of improvement and NG was finally removed on 09/15. He was started on clear liquids and slowly advanced over the next several days. His TPN was stopped on 09/16. He was having a large amount of ileostomy output at this point and his creatinine was noted to be slightly elevated on 09/17. He was started back on her IV fluids to help replenish GI losses. Overnight on 09/17, he became lightheaded and had a syncopal episode while being up ambulating. He also had his Miller removed on 09/16 and was now showing signs of urinary retention again. A CT of his head was obtained after the syncopal episode and this was normal. He was given several fluid boluses to help improve his blood pressure and orthostasis. His Miller catheter also had to be replaced due to continued urinary retention. His blood pressure remained somewhat low, therefore his blood pressure meds were discontinued except for his metoprolol and amiodarone. On 09/19, his cr
[2020-09-20] MEDS: NEOMYCIN/POLYMYXIN/BACITRACIN OINTMENT PACKET 1 PACKET (13:34)
[2020-09-20 14:00] VITALS: BP 112/71; PULSE 63; RESP 18; TEMP 36.9; O2SAT 99
== END 2020-09-20 15:40 | disposition home health service (06) | DRG 329 ==
LOC: ANHED 19:15 → ANH2MED 21:00
PROVIDERS: Emergency Medicine; Family Medicine; Internal Medicine; Nurse Practitioner Family; Physician Assistant; Admitting Provider Surgery; Emergency Provider Emergency Medicine; PCP Pediatrics; Visit Provider Surgery
PROC: 0D1B0Z4 Bypass Ileum to Cutaneous, Open Approach (ICD-10-PCS; CPT 44320; principal; 2020-08-31 07:30)
DX: K91.89 Other postprocedural complications and disorders of digestive system (principal); K65.1 Peritoneal abscess; E87.1 Hypo-osmolality and hyponatremia; C20 Malignant neoplasm of rectum; K56.7 Ileus, unspecified; N13.30 Unspecified hydronephrosis; E46 Unspecified protein-calorie malnutrition; N17.9 Acute kidney failure, unspecified; Y83.2 Surgical operation with anastomosis, bypass or graft as the cause of abnormal reaction of the patient, or of later complication, without mention of misadventure at the time of the procedure; N40.0 Benign prostatic hyperplasia without lower urinary tract symptoms; R33.9 Retention of urine, unspecified; J44.9 Chronic obstructive pulmonary disease, unspecified; I10 Essential (primary) hypertension; I48.91 Unspecified atrial fibrillation; Z68.24 Body mass index [BMI] 24.0-24.9, adult
CPT/HCPCS: 36415; 36569; 70450; 72192; 74018; 74019; 74176; 74177; 74178; 74250; 76775; 80048; 80076; 81001; 82948; 83605; 83735; 84100; 84466; 84478; 85025; 85027; 85610; 85730; 86140; 86850; 86900; 86901; 87040; 87086; 94640; 96361; 96365; 96366; 96367; 96374; 96375; 96376; 97110; 97116; 97161; 97164; 97165; 97168; 97530; 97535; 99285; A9270; C1751; C9113; G0378; J0131; J0330; J0696; J1100; J1170; J1650; J1741; J1940; J2060; J2212; J2270; J2405; J2543; J2704; J2710; J2765; J2997; J3010; J3480; J7030; J7040; J7120; Q9967

== ENCOUNTER 2020-10-17 15:11 | Outpatient (CLI) | payer MEDICARE, SELFPAY ==
[2020-10-17 15:24] LABS: Basophils Absolute Auto 0.1 K/mm3 (0.0-0.1); Basophils Percent Auto 1.5 % (0.2-1.2); Eosinophils Absolute Auto 0.3 K/mm3 (0-0.3); Eosinophils Percent Auto 6.3 % (0-4.4); Hematocrit 35.8 % (42.0-52.0); Hemoglobin 11.6 g/dL (14.0-18.0); Immature Granulocyte Absolute 0.01 K/mm3 (0.00-0.031); Immature Granulocyte Percent A 0.2 % (0-0.5); Lymphocytes Absolute Auto 0.72 K/mm3 (0.9-3.2); Lymphocytes Percent Auto 15.5 % (18.3-44.2); Mean Corpuscular HGB Conc 32.4 g/dl (32-36); Mean Corpuscular Hemoglobin 30.7 pg (26-34); Mean Corpuscular Volume 94.7 fl (80-100); Mean Platelet Volume 9.8 fl (7.4-10.4); Monocytes Absolute Auto 0.6 K/mm3 (0.1-0.6); Monocytes Percent Auto 12.1 % (2.6-8.5); Neutrophils Percent Auto 64.4 % (45.5-73.1); Platelet Count Result 291 k/mm3 (150-375); Red Blood Count 3.78 M/mm3 (4.6-6.20); Red Cell Distribution Width 14.3 % (11.5-14.5); White Blood Count 4.6 K/mm3 (4.5-10.0)
[2020-10-17 15:28] LABS: Blood Urea Nitrogen 9 mg/dL (8-26); Carbon Dioxide 24 mmol/L (22-30); Chloride 103 mmol/L (98-109); Estimated Glomerular Filt Rate > 60; Glucose 98 mg/dL (70-105); Potassium 3.5 mmol/L (3.5-4.9); Sodium 139 mmol/L (138-146)
[2020-10-17 16:45] LABS: Alanine Aminotransferase 25 U/L (4-50); Alkaline Phosphatase 80 U/L (38-126); Anion Gap 8 mmol/L (8-16); Aspartate Amino Transferase 26 U/L (17-59); Bilirubin,Total 0.2 mg/dL (0.2-1.3); Blood Urea Nitrogen 11 mg/dL (9-20); Calcium 9.7 mg/dL (8.4-10.2); Carbon Dioxide 25 mmol/L (22-30); Chloride 105 mmol/L (98-107); Estimated Glomerular Filt Rate > 60; Glucose 101 mg/dL (75-110); Potassium 3.8 mmol/L (3.4-5.0); Sodium 138 mmol/L (137-145)
[2020-10-18 14:28] LABS: Carcinoembryonic Antigen 1.2 ng/mL (0.0-3.0)
== END 2020-10-17 15:12 | disposition home or self-care (01) ==
LOC: ANHLAB 15:13
PROVIDERS: PCP Pediatrics; Visit Provider Internal Medicine Hematology & Oncology
DX: C20 Malignant neoplasm of rectum (principal)
CPT/HCPCS: 36415; 80048; 80053; 82378; 85025

== ENCOUNTER → 2020-10-30 00:47 | Outpatient (CLI) | payer MEDICARE, SELFPAY ==
[2020-10-30 20:24] LABS: SARS-CoV-2 RNA PCR Negative
== END ==
PROVIDERS: PCP Pediatrics; Visit Provider Surgery
DX: Z01.812 Encounter for preprocedural laboratory examination (principal); Z20.822 Contact with and (suspected) exposure to COVID-19
CPT/HCPCS: C9803; U0003; U0005

== ENCOUNTER 2020-11-02 01:04 | Day surgery (SDC) | payer MEDICARE, SELFPAY ==
[2020-10-20 13:07] VITALS: BMI 25.7
[2020-11-02 06:59] VITALS: BP 150/86; PULSE 70; RESP 16; TEMP 36.7; O2SAT 98; BMI 28.5
[2020-11-02] MEDS: LACTATED RINGERS 1,000 ML 150 ML IV CONT (07:09)
--- NOTE | 2020-11-02 07:30 | WPDANESEPPF ---
Anes - Initial Pre Proc Eval Procedure: Operation Date: 11/02/20 08:00 Proposed Procedures p Flexible Sigmoidoscopy - Caesar Robertson DO Date/Time: 11/02/20 07:30 Surgeon: Caesar Robertson DO Pre Op Diagnosis: Rectal Cancer Patient Data Age: 70 Gender: M Height: 6 ft Weight: 95.4 kg Last Vital Signs Temp 98.1 F 11/02/20 06:59 Pulse 70 11/02/20 06:59 Resp 16 11/02/20 06:59 BP 150/86 H 11/02/20 06:59 Pulse Ox 98 11/02/20 06:59 Allergies Allergy/AdvReac Type Severity Reaction Status Date / Time No Known Allergies Allergy Verified 11/02/20 06:50 Home Medications Medication Instructions Recorded Confirmed Type albuterol sulfate 2 puff INHALATION QID PRN 01/10/20 11/02/20 History aspirin 325 mg PO DAILY 04/20/20 11/02/20 History amiodarone 200 mg tablet 200 mg PO DAILY #30 tablet 06/26/20 11/02/20 Rx finasteride [Proscar] 5 mg PO QAM 30 Days #30 tablet 09/20/20 11/02/20 Rx hydrocodone-acetaminophen 1 tablet PO Q4H PRN #20 tablet 09/20/20 11/02/20 Rx tamsulosin 0.4 mg PO QAM 30 Days #30 cap 09/20/20 11/02/20 Rx metoprolol succinate 50 mg 25 mg PO DAILY #30 tablet 09/27/20 11/02/20 Rx tablet,extended release 24 hr Patient hx anesthesia problems: none Family hx anesthesia problems: none [facility] Past Medical History Medical History Arthritis, lumbar spine Chronic low back pain Chronic obstructive pulmonary disease Essential hypertension Normal cardiac stress test (~12/2019) With normal MPI and an ejection fraction of 62%. Osteoarthritis Paroxysmal atrial fibrillation Paroxysmal supraventricular tachycardia Primary colorectal adenocarcinoma (~04/2020) Status post neoadjuvant chemoradiation and resection on 08/09/2020. Shingles (~2015) Surgical History Surgical History History of colonoscopy 04/20/2020 History of rectal surgery (~08/09/20) Hand assisted laparoscopic low anterior resection with low pelvic anastomosis for colorectal adenocarcinoma per Dr. Robertson. History of repair of rotator cuff (~2007) Bilateral repair per Dr. Fitzgerald. History of total left hip arthroplasty (~01/10/20) Family History Family History Father , age 91 Cancer Skin cancer, Bladder, cancer, Lung cancer Heart disease Sibling Cancer skin cancer Diabetes mellitus Kidney disease Mother , age 95 Cancer Skin cancer, lung cancer Social History Social History Social History: The patient lives in [place], [place] with his and their 2 laboratories. 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 He smoked up to 1.5 packs of cigarettes per day and quit in September 2019. He drinks alcohol socially and in moderation. Denies illicit substance use. His , Rohini Nieves, is his surrogate decision maker and he wishes to be a full code. Smoking packs per day: 2 Smoking cigarettes per day: 40.0 Years smoked: 50 Smoking pack-years: 100.00 Smoking status: Former smoker Tobacco type: cigarettes Second hand tobacco smoke exposure: Yes Smoking end date: 10/08/19 Additional smoking assessment comments: Smoking for 50 years. 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
--- NOTE | 2020-11-02 08:16 | WPDHPUPDATE1 ---
History and Physical Update Update Date/Time: 11/02/20 08:16 History and Physical has been reviewed, including an updated exam of the patient. There are NO changes in the patient's condition. Risks, benefits, and alternatives have been discussed and questions answered. Patient agrees to proceed with procedure.
[2020-11-02 08:29] VITALS: BP 117/75; PULSE 66; RESP 11; O2SAT 95
[2020-11-02 08:39] VITALS: BP 150/93; PULSE 61; RESP 11; O2SAT 97
[2020-11-02 08:49] VITALS: BP 173/91; PULSE 56; RESP 13; O2SAT 100
[2020-11-02] MEDS: HYDROcodone/acetaminophen (*CRX) 7.5-325 MG TABLET 1 TAB PO (08:58)
[2020-11-02 08:59] VITALS: BP 184/98; PULSE 59; RESP 18; O2SAT 98
--- NOTE | 2020-11-02 09:25 | SUR.PHASEII ---
Pt blood pressure 184/98. Dr. Khan(anesthesia)notified. No new orders. Pt complains of ongoing rectal pain which he is medicated for at home. Pain medication administered ordered by Dr. Robertson. (see Mar).
--- NOTE | 2020-11-02 09:46 | SUR.PHASEII ---
[id number] Dr. Robertson back in pt room to discuss plan with pt and family.
== END 2020-11-02 09:40 | disposition home or self-care (01) ==
PROVIDERS: PCP Pediatrics; Visit Provider Surgery
PROC: 0DJD8ZZ Inspection of Lower Intestinal Tract, Via Natural or Artificial Opening Endoscopic (ICD-10-PCS; CPT 45330; principal; 2020-11-02 08:00)
DX: K91.89 Other postprocedural complications and disorders of digestive system (principal); Y83.2 Surgical operation with anastomosis, bypass or graft as the cause of abnormal reaction of the patient, or of later complication, without mention of misadventure at the time of the procedure; Z90.49 Acquired absence of other specified parts of digestive tract; Z85.038 Personal history of other malignant neoplasm of large intestine; I10 Essential (primary) hypertension; J44.9 Chronic obstructive pulmonary disease, unspecified; I48.0 Paroxysmal atrial fibrillation; I47.1 Supraventricular tachycardia; Z92.21 Personal history of antineoplastic chemotherapy; Z92.3 Personal history of irradiation; Z79.82 Long term (current) use of aspirin; Z79.51 Long term (current) use of inhaled steroids; Z87.891 Personal history of nicotine dependence
CPT/HCPCS: 45330; A9270; C9803; J2704; J7120; U0003; U0005

== ENCOUNTER 2020-11-09 12:18 | Inpatient (IN) | payer MEDICARE, SELFPAY ==
[2020-11-09] VITALS (33 sets, daily range): BP systolic 115–169; BP diastolic 71–101; PULSE 58–76; RESP 14–25; TEMP 36.2–37.1; O2SAT 91–100; BMI 28.8
--- NOTE | ~2020-11-09 | CT_ITS ---
EXAMINATION: CT abdomen pelvis w con EXAM DATE: 11/09/2020 13:50 INDICATION: GI bleed, history of rectal cancer. TECHNIQUE: Spiral CT of the abdomen and pelvis was performed following intravenous injection of 100 m L Omnipaque 350. Axial, coronal and sagittal images were reviewed. The dose-length product (DLP) fo r this examination was 867.51 mGy-cm. The exposure was tailored according to patient size (auto mA e xposure control), and iterative reconstruction (ASIR) was used as additional dose reduction technique . Comparison is made to prior examination from 09/10/2020. FINDINGS: Previous exam patient had laparotomy cassius and a surgical drain with tip in the presacral region, surrounded by fluid. This presacral fluid collection has decreased in size from 4 cm in diam eter to about 2.5 cm in diameter, and the drain has been removed. There is a rectosigmoid anastomosis site. There is right lower quadrant loop ileostomy. There has been interval resolution of previously seen severely dilated small bowel. There is mildly hyperdense fluid in the ascending and transverse colon, and more hyperdense fluid lay ering at the cecal base. Uncertain whether or not this is from something ingested, or contrast/blood extravasation into the cecum, given the history provided, and that patient has a loop ileostomy proxi mal to this. Patient's IVC is normal in caliber, no CT evidence of volume depletion. Normal appendix. The liver, spleen, adrenal glands and pancreas are unremarkable. Gallbladder is unremarkable. No bi liary obstruction. Portal and splenic veins are patent. Kidneys enhance symmetrically. There is no hydronephrosis. There are 2 punctate left calyceal stones. No ureteral stones. The prostate is unre markable. Some diffuse bladder wall thickening with enhancing mucosa, could indicate acute or chroni c cystitis. There is no retroperitoneal or pelvic lymphadenopathy. There is mild to moderate scatt ered arteriosclerotic disease. Previously seen laparotomy cassius have been removed. The heart is normal in size. There are no pericardial or pleural effusions. There is are several sm all basilar granulomata. There is mild basilar emphysema. There are no osteoblastic or osteolytic le sions identified. There is a left hip replacement. IMPRESSION: 1. Mildly hyperdense fluid in the ascending and transverse colon, and more hyperdense fluid layering at the cecal base. Uncertain whether or not this is from something ingested, or contrast/blood extra vasation into the cecum, given the history provided, and that patient has a loop ileostomy proximal t o this. 2. Small presacral well contained fluid collection, probably abscess. 3. Acute or chronic cystitis. Reviewed, dictated and finalized at location A. IMPRESSION: 1. Mildly hyperdense fluid in the ascending and transverse colon, and more hyp erdense fluid layering at the cecal base. Uncertain whether or not this is from something ingested, or contrast/blood extravasation into the cecum, given the history provided, and that patient has a loop ileostomy proximal to this. 2. Small presacral well contained fluid collection, probably abscess. 3. Acute or chronic cystitis.
--- NOTE | 2020-11-09 12:37 | ED.GIBLEED ---
HPI - GI Bleed General Chief complaint: GI Bleed Stated complaint: blood in ileostomy Source: patient and EMS Mode of arrival: EMS Limitations: no limitations History of Present Illness HPI Narrative: Patient 70 years old white male presents with bleeding and the ileostomy bag started this morning. Patient denies any fever, chills, nausea, vomiting, abdominal pain or back pain. History of rectal cancer status post surgery July 2020. Last chemotherapy was in June 2020. Patient been treated with Augmentin and Flagyl lately for possible infection perirectally. Related Data Home Medications Medication Instructions Recorded Confirmed albuterol sulfate 2 puff INHALATION QID PRN 01/10/20 11/02/20 aspirin 325 mg PO DAILY 04/20/20 11/02/20 amoxicillin-pot clavulanate 1 tablet PO BID 11/09/20 11/09/20 metoprolol succinate 50 mg PO DAILY 11/09/20 11/09/20 Allergies Allergy/AdvReac Type Severity Reaction Status Date / Time No Known Allergies Allergy Verified 11/09/20 12:29 Review of Systems Review of Systems: Narrative: CONSTITUTIONAL: Denies fever, chills, or sweats. EYES: Denies visual changes, redness, or discharge. ENT: Denies rhinorrhea, congestion, sore throat, or otalgia. CARDIOVASCULAR: Denies chest pain, palpitations, or edema. RESPIRATORY: Denies cough or dyspnea. GASTROINTESTINAL: Denies abdominal pain, nausea, vomiting, or diarrhea. GENITOURINARY: Denies dysuria or hematuria. SKIN: Denies rash or itching. MUSCULOSKELETAL: Denies back pain, joint pain, or myalgia. NEUROLOGIC: Denies headache, numbness, or weakness. PSYCHIATRIC: Denies anxiety or depression. [facility] Past Medical History Medical History Arthritis, lumbar spine Chronic low back pain Chronic obstructive pulmonary disease Essential hypertension Normal cardiac stress test (~12/2019) With normal MPI and an ejection fraction of 62%. Osteoarthritis Paroxysmal atrial fibrillation Paroxysmal supraventricular tachycardia Primary colorectal adenocarcinoma (~04/2020) Status post neoadjuvant chemoradiation and resection on 08/09/2020. Shingles (~2015) Surgical History Surgical History History of colonoscopy 04/20/2020 History of rectal surgery (~08/09/20) Hand assisted laparoscopic low anterior resection with low pelvic anastomosis for colorectal adenocarcinoma per Dr. Robertson. History of repair of rotator cuff (~2007) Bilateral repair per Dr. Fitzgerald. History of total left hip arthroplasty (~01/10/20) Family History Family History Father , age 91 Cancer Skin cancer, Bladder, cancer, Lung cancer Heart disease Sibling Cancer skin cancer Diabetes mellitus Kidney disease Mother , age 95 Cancer Skin cancer, lung cancer Social History Social History Social History: The patient lives in [place], [place] with his and their 2 laboratories. 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 He smoked up to 1.5 packs of cigarettes per day and quit in September 2019. He drinks alcohol socially and in moderation. Denies illicit substance use. His , Rohini Nieves, is his surrogate decision maker and he wishes to be a full code. Smoking packs per day: 2 Smoking cigarettes per day: 40.0 Years smoked: 50 Smoking pack-years: 100.00 Smoking status: Former smoker Tobacco type: cigarettes Second hand tobacco smoke exposure: Yes Smoking end date: 10/08/19 Additional smoking assessment comments: Smoking for 50 years. 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
--- NOTE | 2020-11-09 12:43 | ECG_ITS ---
Measurements Intervals Wana Rate: 63 P: 52 WV: 196 QRS: 32 QRSD: 103 T: 30 QT: 401 QTc: 411 Interpretive Statements SINUS RHYTHM NORMAL ECG Electronically Signed On 11-09-2020 17:16:46 CDT by James Aldana D.O.
[2020-11-09] MEDS: SODIUM CHLORIDE 0.9% IV 1,000 ML 999 ML IV CONT (12:54)
[2020-11-09 13:03] LABS: Basophils Absolute Auto 0.1 K/mm3 (0.0-0.1); Basophils Percent Auto 1.6 % (0.2-1.2); Eosinophils Absolute Auto 0.3 K/mm3 (0-0.3); Eosinophils Percent Auto 5.8 % (0-4.4); Hematocrit 39.1 % (42.0-52.0); Hemoglobin 12.6 g/dL (14.0-18.0); Immature Granulocyte Absolute 0.02 K/mm3 (0.00-0.031); Immature Granulocyte Percent A 0.4 % (0-0.5); Lymphocytes Absolute Auto 0.71 K/mm3 (0.9-3.2); Lymphocytes Percent Auto 12.5 % (18.3-44.2); Mean Corpuscular HGB Conc 32.2 g/dl (32-36); Mean Corpuscular Hemoglobin 30.1 pg (26-34); Mean Corpuscular Volume 93.3 fl (80-100); Mean Platelet Volume 10.9 fl (7.4-10.4); Monocytes Absolute Auto 0.5 K/mm3 (0.1-0.6); Monocytes Percent Auto 9.5 % (2.6-8.5); Neutrophils Percent Auto 70.2 % (45.5-73.1); Platelet Count Result 238 k/mm3 (150-375); Red Blood Count 4.19 M/mm3 (4.6-6.20); Red Cell Distribution Width 14.8 % (11.5-14.5); White Blood Count 5.7 K/mm3 (4.5-10.0)
[2020-11-09 13:15] LABS: INR 0.9; Prothrombin Time 13.1 Seconds (11.1-14.7)
[2020-11-09 13:16] LABS: Partial Thromboplastin Time 26.3 SECONDS (22.3-36.8)
[2020-11-09 13:19] LABS: Alanine Aminotransferase 28 U/L (4-50); Albumin Level 4.1 g/dL (3.5-5.1); Alkaline Phosphatase 63 U/L (38-126); Anion Gap 5 mmol/L (8-16); Aspartate Amino Transferase 36 U/L (17-59); Bilirubin,Total 0.3 mg/dL (0.2-1.3); Blood Urea Nitrogen 13 mg/dL (9-20); Calcium 9.3 mg/dL (8.4-10.2); Carbon Dioxide 27 mmol/L (22-30); Chloride 106 mmol/L (98-107); Estimated CRCL calculation 76 ml/min; Estimated Glomerular Filt Rate > 60; Glucose 104 mg/dL (75-110); Lipase 108 U/L (23-300); Magnesium 1.7 mg/dL (1.6-2.3); Potassium 4.2 mmol/L (3.4-5.0); Sodium 138 mmol/L (137-145)
--- NOTE | 2020-11-09 16:26 | PM.CNGS ---
Assessment and Plan Assessment and plan (1) Acute GI bleeding: Code(s): K92.2 - Gastrointestinal hemorrhage, unspecified Status: Acute Assessment and Plan: Patient with reports of bright red blood from ileostomy. On exam in the ER, there is dark maroon/brown liquid stool in the bag and after removing the ostomy appliance, there was no evidence of active bleeding that is around the stoma. The stoma is pink and healthy appearing. This does not appear to be surgery related. The concern is for other GI causes of the bleeding and we would agree with GI consultation for evaluation. He is hemodynamically stable and his hemoglobin is stable. The output from his ileostomy after cleaning around it is a liquid brown/green stool. Monitor H/H and await GI recommendations. (2) Abscess: Code(s): L02.91 - Cutaneous abscess, unspecified Status: Acute Assessment and Plan: He had an anastomotic leak following his initial resection that resulted in an intra-abdominal abscess and he subsequently had the second surgery for the diverting loop ileostomy. His WBC count is normal and the fluid collection has actually improved since his last CT. He was started on oral Augmentin and Flagyl as an outpatient by Dr. Robertson a week ago after his flex. sigmoidoscopy. We would recommend to continue these oral antibiotics while inpatient, as this appears stable. (3) Ileostomy in place: Code(s): Z93.2 - Ileostomy status Status: Acute Assessment and Plan: Does not appear to be the source of his bleeding. See plan above. (4) Paroxysmal atrial fibrillation: Code(s): I48.0 - Paroxysmal atrial fibrillation Status: Acute (5) COPD (chronic obstructive pulmonary disease): Code(s): J44.9 - Chronic obstructive pulmonary disease, unspecified Status: Acute (6) Essential hypertension: Code(s): I10 - Essential (primary) hypertension Status: Acute Additional Plan I have discussed the patient's case and plan of care with Dr. Robertson. Thank you for allowing us to see the patient in consultation and we will follow along peripherally. History of Present Illness Consult details Consult date: 11/10/20 Reason for consult: other (Bleeding from loop ileostomy) Requesting physician: Tonia Cadena MD Narrative: This is a 70-year-old male with a history of rectal cancer that underwent a YUNI low anterior resection on 08/09/20. He had an anastomotic leak and subsequently had a diverting loop ileostomy. He has been following for this as an outpatient and had a flexible sigmodoscopy one week ago by Dr. Robertson. He was found to have a false channel extending along the sacrum and purulent mucous, which did not appear to connect to the abdominal cavity. He was started on Augmentin and Flagyl with planned follow-up in 2 weeks. The patient had some left-sided abdominal pain Dennise, which he has been taking [place] and Tylenol as needed. The pain improved, but today he noticed bright red blood in his ostomy appliance. Home health came to see the patient and change his appliance, and told him that he had bright red bloody stool coming from the stoma. They then called EMS to take the patient to the ER for evaluation. Labs showed a hemoglobin of 12.6. He has been hemodynamically stable. The ER physician contacted our service to evaluate the ileostomy as a source for bleeding. I then came to the ER to evaluate the patient. Review of Systems Review of Systems: All systems reviewed & are unremarkable except as noted in HPI and below Constitutional: Constitutional: Reports as per HPI, Denies chills, Denies fatigue and Denies fever(s) Cardiovascular: Cardiovascular: Reports no additional cardiovascular complaints, Denies chest pain and Denies leg edema Respiratory: Respiratory: Reports no additional respiratory complaints, Denies cough and Denies dyspnea Gastrointestinal: Gastrointestinal: Reports as per HPI, Reports no edgar
--- NOTE | 2020-11-09 17:13 | ADMGEN ---
This patient, Isma Nieves, was admitted to Medical Room 255-. Patient/family oriented to hospital policies and general routines including ID bracelet, bed and alarms, visiting hours, pain management, procedures, bathroom and other care routines, personal items, smoking policy, room service/diet, and visiting hours. Information on how to activate the Rapid Response Team has been discussed. Patient/Family are encouraged to report perceived risks to care and to ask questions if they do not understand what they are told or what they should do.
[2020-11-09 17:40] LABS: Hematocrit 37.3 % (42.0-52.0)
[2020-11-09] MEDS: SODIUM CHLORIDE 0.9% IV 1,000 ML 125 ML IV CONT (17:48)
--- NOTE | 2020-11-09 18:00 | PM.IMHP ---
H&P: HPI History of Present Illness Date/Time: 11/09/20 16:00 Chief Complaint: Blood in ileostomy. Narrative: This is a very pleasant 70-year-old male with colorectal adenocarcinoma arising in the proximal rectum status post resection, COPD, paroxysmal atrial fibrillation, hypertension, and benign prostatic hyperplasia who presented to the emergency department earlier today via EMS from home for evaluation after he noticed blood in his ileostomy bag. He was diagnosed with colorectal cancer in April 2020 and underwent neoadjuvant chemoradiation prior to a low anterior resection on 08/09/2020 complicated by an anastomotic leak requiring percutaneous drainage. He ultimately required a diverting loop ileostomy on 08/31/2020 due to persistent leak. Since that time he continues to have issues with purulent drainage from the rectum. He reportedly had some sort of imaging done several days ago after complaining of mid abdominal pain which showed improvement in the size of an abscess, for which he is still taking Augmentin and Flagyl. In any event he has been doing pretty well in the last month and a half since his discharge until he noticed dark maroon-colored blood in his ileostomy bag today. He was seen by Marti Arboleda NP (general surgery) in the emergency department and she did not notice any new blood coming from a pink, healthy-appearing stoma and feels that it would be prudent to obtain a GI consult to evaluate other sources of bleeding. Currently the patient has no specific complaints and he specifically denies nausea, vomiting, and current abdominal pain. He also denies fever, chills, and sweats. No lightheadedness or dizziness. Review of Systems Review of Systems: Narrative: Twelve systems were reviewed with pertinent positives and negatives as per HPI. No fever, chills, or sweats. He denies: Flu symptoms. No chest pain or shortness of breath. No cough. Denies dysuria. Except as documented, all other systems were reviewed and are negative. [facility] Past Medical History Medical History (Updated 11/09/20 @ 20:51 by Aviva Pisano PA-C) Arthritis, lumbar spine Benign prostatic hyperplasia Chronic anemia Chronic low back pain Chronic obstructive pulmonary disease Essential hypertension Normal cardiac stress test (~12/2019) With normal MPI and an ejection fraction of 62%. Osteoarthritis Paroxysmal atrial fibrillation Paroxysmal supraventricular tachycardia Primary colorectal adenocarcinoma (~04/2020) Status post neoadjuvant chemoradiation and low anterior resection on 08/09/2020. Complicated by persistent anastomotic leak requiring diverting loop ileostomy on 08/31/2020. Shingles (~2015) Surgical History Surgical History (Updated 11/09/20 @ 20:45 by Aviva Pisano PA-C) History of colonoscopy (~04/20/20) History of ileostomy (~08/31/20) Diverting loop ileostomy due to persistent anastomotic leak as above. History of rectal surgery (~08/09/20) Hand assisted laparoscopic low anterior resection with low pelvic anastomosis for colorectal adenocarcinoma , with then subsequent loop ileostomy for anastomotic leak History of repair of rotator cuff (~2007) Bilateral repair per Dr. Fitzgerald. History of total left hip arthroplasty (~01/10/20) Family History Family History Father , age 91 Cancer Skin cancer, Bladder, cancer, Lung cancer Heart disease Sibling Cancer skin cancer Diabetes mellitus Kidney disease Mother , age 95 Cancer Skin cancer, lung cancer Social History Social History (Updated 11/09/20 @ 20:46 by Aviva Pisano PA-C) Social History: The patient lives in [place], [place] with his and their 2 Labradors. 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 He smoked 1.5 to 2 packs of cigarettes per day for about 50 years and quit in September 2019. He drinks alcohol social
[2020-11-09 21:29] LABS: Hematocrit 37.3 % (42.0-52.0)
[2020-11-09] MEDS: metroNIDAZOLE 250 MG TABLET 500 MG PO (21:56)
[2020-11-10] MEDS: SODIUM CHLORIDE 0.9% IV 1,000 ML 75 ML IV CONT (02:01)
[2020-11-10] MEDS: LIDOCAINE HCL 2% JELLY 5 ML TUBE 1 APPLIC TOPICAL (02:04)
[2020-11-10 03:25] LABS: Hemoglobin 11.1 g/dL (14.0-18.0); Mean Corpuscular HGB Conc 31.7 g/dl (32-36); Mean Corpuscular Hemoglobin 29.3 pg (26-34); Mean Corpuscular Volume 92.3 fl (80-100); Mean Platelet Volume 10.6 fl (7.4-10.4); Platelet Count Result 225 k/mm3 (150-375); Red Blood Count 3.79 M/mm3 (4.6-6.20); Red Cell Distribution Width 14.6 % (11.5-14.5); White Blood Count 4.9 K/mm3 (4.5-10.0)
[2020-11-10 03:45] LABS: Anion Gap 4 mmol/L (8-16); Blood Urea Nitrogen 7 mg/dL (9-20); Calcium 8.6 mg/dL (8.4-10.2); Carbon Dioxide 25 mmol/L (22-30); Chloride 109 mmol/L (98-107); Estimated CRCL calculation 76 ml/min; Estimated Glomerular Filt Rate > 60; Glucose 113 mg/dL (75-110); Magnesium 1.6 mg/dL (1.6-2.3); Potassium 3.4 mmol/L (3.4-5.0); Sodium 138 mmol/L (137-145)
[2020-11-10] MEDS: metroNIDAZOLE 250 MG TABLET 500 MG PO ×2 (05:47→14:36)
[2020-11-10 07:44] VITALS: BP 139/77; PULSE 69; RESP 16; TEMP 35.7; O2SAT 99
[2020-11-10 08:40] VITALS: PULSE 69
[2020-11-10] MEDS: PANTOPRAZOLE SODIUM IV 40 MG VIAL IV PUSH (08:40)
[2020-11-10] MEDS: AMIODARONE HCL 200 MG TABLET PO (08:40)
[2020-11-10] MEDS: TAMSULOSIN HCL 0.4 MG CAPSULE PO (08:40)
[2020-11-10] MEDS: FINASTERIDE 5 MG TABLET PO (08:40)
[2020-11-10] MEDS: AMOXICILLIN/CLAVULANATE K 875-125 MG TAB 1 TABLET PO (08:40)
[2020-11-10] MEDS: METOPROLOL SUCCINATE EXT REL 50 MG TABCR PO (08:40)
[2020-11-10 09:25] LABS: Hematocrit 37.4 % (42.0-52.0); Hemoglobin 12.1 g/dL (14.0-18.0)
--- NOTE | 2020-11-10 12:27 | WPDGICN ---
Assessment and Plan Assessment and plan (1) Acute GI bleeding: Code(s): K92.2 - Gastrointestinal hemorrhage, unspecified Status: Acute Assessment and Plan: because the blood is bright red, it had to originate from the stoma or just proximal to that. I explained to the patient and his family that upper gastrointestinal bleeding would have resulted in melena or maroon stools and would not have cleared as rapidly as his did. I think that we can advance his diet and send him home today GI Consult Note Consult date/time: 11/10/20 12:27 HPI: Isma Nieves is a 70 year old male who presented to the emergency room yesterday with bright red blood in his Colostomy. He had resection of the distal colon cancer several months ago and because in to [place] leak subsequently required diversion ostomy. He had felt well but earlier this week had had some upset stomach with severe nausea for few hours. That resolved by the next morning. He had a sigmoidoscopy a week or so ago and because it was felt that he still had infection he has been on antibiotics. He has never had peptic ulcer disease or other upper gastrointestinal pathology before. When he awoke yesterday morning and so the bright red blood in his ostomy he came to the emergency room. Shortly after arriving here and changing his bag of the blood was gone and he only has been passing brown liquid since then. Surgery examine his stoma did not feel that there was a issue with the stoma itself. Review of Systems Review of Systems: All systems reviewed & are unremarkable except as noted in HPI and below PMFSH Past Medical History Medical History Arthritis, lumbar spine Benign prostatic hyperplasia Chronic anemia Chronic low back pain Chronic obstructive pulmonary disease Essential hypertension Normal cardiac stress test (~12/2019) With normal MPI and an ejection fraction of 62%. Osteoarthritis Paroxysmal atrial fibrillation Paroxysmal supraventricular tachycardia Primary colorectal adenocarcinoma (~04/2020) Status post neoadjuvant chemoradiation and low anterior resection on 08/09/2020. Complicated by persistent anastomotic leak requiring diverting loop ileostomy on 08/31/2020. Shingles (~2015) Surgical History Surgical History History of colonoscopy (~04/20/20) History of ileostomy (~08/31/20) Diverting loop ileostomy due to persistent anastomotic leak as above. History of rectal surgery (~08/09/20) Hand assisted laparoscopic low anterior resection with low pelvic anastomosis for colorectal adenocarcinoma , with then subsequent loop ileostomy for anastomotic leak History of repair of rotator cuff (~2007) Bilateral repair per Dr. Fitzgerald. History of total left hip arthroplasty (~01/10/20) Family History Family History Father , age 91 Cancer Skin cancer, Bladder, cancer, Lung cancer Heart disease Sibling Cancer skin cancer Diabetes mellitus Kidney disease Mother , age 95 Cancer Skin cancer, lung cancer Social History Social History Social History: The patient lives in [place], [place] with his and their 2 Labradors. 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 He smoked 1.5 to 2 packs of cigarettes per day for about 50 years and quit in September 2019. He drinks alcohol socially and in moderation. No illicit substance use. His , Rohini Nieves, is his surrogate decision maker and he wishes to be a full code. Smoking packs per day: 2 Smoking cigarettes per day: 40.0 Years smoked: 50 Smoking pack-years: 100.00 Smoking status: Former smoker Second hand tobacco smoke exposure: Yes Additional smoking assessment comments: Smoking for 50 years.
--- NOTE | 2020-11-10 12:50 | PM.DS ---
DS: Admitting Diagnosis Admitting Diagnosis Admitting Diagnosis: GI bleeding, anemia DS: Discharge Diagnosis Discharge Diagnosis (1) Acute GI bleeding: Code(s): K92.2 - Gastrointestinal hemorrhage, unspecified Status: Acute Assessment and Plan: Patient noted bright red blood with admitting provider noting dark maroon-colored blood noted in ileostomy prior to removal yesterday. No acute bleeding since that time. H&H stable. Evaluated by General Surgery who does not feel related to surgery and evaluated by Dr. Tanner who feels no further work up given stable H&H and bleeding has stopped Dr. Robertson (surgery) and Flores (Gastroenterology) consulted; appreciate recommendations Trend H&H as outpatient early next week Advance diet and d/c today F/u with Dr. Robertson at established appointment next week (2) Chronic anemia: Code(s): D64.9 - Anemia, unspecified Status: Acute Assessment and Plan: Hemoglobin and hematocrit are stable on review of previous labs and will be trended as an outpatient as noted above. (3) Ileostomy in place: Code(s): Z93.2 - Ileostomy status Status: Acute Assessment and Plan: Stoma is pink and healthy and there was no acute bleeding upon appliance removal. (4) Intra-abdominal abscess: Code(s): K65.1 - Peritoneal abscess Status: Acute Assessment and Plan: This has been followed by surgery for sometime and recent imaging showed improvement in size. Continue Augmentin and Flagyl per Surgery recommendations F/u with Dr. Robertson as outpatient (5) Essential hypertension: Code(s): I10 - Essential (primary) hypertension Status: Acute Assessment and Plan: Blood pressures 130s sys today Continue home medications (6) Paroxysmal atrial fibrillation: Code(s): I48.0 - Paroxysmal atrial fibrillation Status: Acute Assessment and Plan: Currently in a sinus rhythm. Continue amiodarone and metoprolol. Aspirin 325 milligrams held; will resume next week (7) Benign prostatic hyperplasia: Code(s): N40.0 - Benign prostatic hyperplasia without lower urinary tract symptoms Status: Acute Assessment and Plan: No acute issues. Continue finasteride and tamsulosin. (8) Chronic obstructive pulmonary disease: Code(s): J44.9 - Chronic obstructive pulmonary disease, unspecified Status: Acute Assessment and Plan: No acute issues. Albuterol rescue inhaler available as needed. DS: Summary Hospital Course Reason for hospitalization: GI bleeding; anemia Hospital Course: Date of arrival: 11/09/20 Date of discharge: 11/10/20 Patient is a 70-year-old male with colorectal adenocarcinoma arising in the proximal rectum status post resection, COPD, paroxysmal atrial fibrillation, hypertension, and benign prostatic hyperplasia who presented to the emergency department on 11/09 via EMS from home for evaluation after he noticed blood in his ileostomy bag. He was diagnosed with colorectal cancer in April 2020 and underwent neoadjuvant chemoradiation prior to a low anterior resection on 08/09/2020 complicated by an anastomotic leak requiring percutaneous drainage. He ultimately required a diverting loop ileostomy on 08/31/2020 due to persistent leak. Since that time he continues to have issues with purulent drainage from the rectum. While in the ED, he was evaluated by General Surgery, who did not see any evidence of new blood coming from a pink, healthy appearing stoma and felt it would be prudent for a GI consultation to evaluate other sources of bleeding. H&H in the ED was mildly low,
[2020-11-10 13:51] VITALS: BP 128/77; PULSE 70; RESP 16; TEMP 35.8; O2SAT 99
--- NOTE | 2020-11-10 14:24 | PC.NURSE ---
On 11/10/20, the student, [Tre Ramirez ], provided care and completed [facility] documentation on this patient. I have reviewed the student's documentation and agree with the findings.
== END 2020-11-10 14:53 | disposition home health service (06) | DRG 377 ==
LOC: ANHED 15:10 → ANH2MED 18:03
PROVIDERS: Physician Assistant; Admitting Provider Internal Medicine; Emergency Provider Emergency Medicine; PCP Pediatrics; Visit Provider Physician Assistant
DX: K92.2 Gastrointestinal hemorrhage, unspecified (principal); K65.1 Peritoneal abscess; D64.9 Anemia, unspecified; Z93.2 Ileostomy status; I10 Essential (primary) hypertension; N40.0 Benign prostatic hyperplasia without lower urinary tract symptoms; J44.9 Chronic obstructive pulmonary disease, unspecified; I48.0 Paroxysmal atrial fibrillation; M19.90 Unspecified osteoarthritis, unspecified site; Z96.642 Presence of left artificial hip joint; Z85.048 Personal history of other malignant neoplasm of rectum, rectosigmoid junction, and anus; Z87.891 Personal history of nicotine dependence
CPT/HCPCS: 36415; 74177; 80048; 80053; 83690; 83735; 85014; 85018; 85025; 85027; 85610; 85730; 86850; 86900; 86901; 93005; 96360; 99285; A9270; C9113; J7030; Q9967

== ENCOUNTER 2020-12-04 12:15 | Outpatient (CLI) | payer MEDICARE, SELFPAY ==
--- NOTE | ~2020-12-04 | CT_ITS ---
EXAMINATION: CT pelvis w con DATE: 12/04/2020 12:42 INDICATION: Other postprocedural complications of digestive system. TECHNIQUE: Computed tomography (CT) of the pelvis was performed with 100 mL Omnipaque 350 intravenous contrast. Automated exposure control and iterative reconstruction technique were employed. The dose- length product was 736.53 mGy-cm. COMPARISON: CT abdomen and pelvis 11/09/2020, 08/19/20, 04/28/20 FINDINGS: There are small bilateral inguinal hernias containing fat. There is an anastomosis in the r ectum. There is a thick-walled presacral fluid collection that is contiguous with the rectal anastomo sis. The fluid collection measures 2.2 x 1.7 x 4.4 cm. There is a diverting ileostomy in right abdome n. There is chronic diffuse bladder wall thickening, likely benign. There are no pathologically enlar ged lymph nodes. There is no free intraperitoneal fluid. There is severe lumbar spondylosis. There is a total left hip arthroplasty. There is osteolysis superior to the acetabular cup, stable from . IMPRESSION: 1. Stable 2.2 x 1.7 x 4.4 cm presacral abscess that is contiguous with the rectal anastomosis. Reviewed, dictated and finalized at location A. IMPRESSION: 1. Stable 2.2 x 1.7 x 4.4 cm presacral abscess that is contiguous with the rect al anastomosis.
== END 2020-12-04 12:16 | disposition home or self-care (01) ==
PROVIDERS: PCP Pediatrics; Visit Provider Surgery
DX: K91.89 Other postprocedural complications and disorders of digestive system (principal)
CPT/HCPCS: 72193; Q9967

== ENCOUNTER 2020-12-06 08:50 | Outpatient (RCR) | payer MEDICARE, SELFPAY | END 2021-01-17 10:40 | disposition home or self-care (01) | LOC: ANHWOC 08:50 | PROVIDERS: PCP Pediatrics; Visit Provider Surgery | DX: Z43.2 Encounter for attention to ileostomy (principal) | CPT/HCPCS: 99213; A9270; G0463 ==

== ENCOUNTER 2021-01-11 12:33 | Outpatient (CLI) | payer MEDICARE, SELFPAY ==
--- NOTE | ~2021-01-11 | CT_ITS ---
EXAMINATION: CT abdomen pelvis w con DATE: 01/11/2021 13:02 INDICATION: Rectal cancer TECHNIQUE: Computed tomography (CT) of the abdomen and pelvis was performed with 100 mL Omnipaque-350 intravenous contrast. Automated exposure control and iterative reconstruction technique were employe d. The dose-length product was 1222.78 mGy-cm. COMPARISON: CT studies dated 12/04/2020 and 11/09/2020 FINDINGS: Mild emphysema at the lung bases. Calcified left lower lobe nodule calcified NaSal lymph nodes consis tent with old granulomatous disease. Heart size is normal. No pericardial or pleural effusion. Unchan ged 6 mm low-attenuation likely cyst or hemangioma in the right hepatic lobe. Splenic calcifications consistent with old granulomatous disease. Gallbladder, pancreas and bilateral adrenal glands are nor mal. A couple 1-2 mm nonobstructing stones in a middle calyx of the left kidney.. There are couple espinosa bcentimeter low-attenuation likely cysts which are too small to characterize in the right kidney. Nor mal appendix. Right lower quadrant diverting loop ileostomy. No bowel obstruction. Again seen are rin nges of prior partial colectomy with dehiscent anastomosis at the rectosigmoid junction. There is sof t tissue density likely representing scarring surrounding a now largely decompressed peripherally enh ancing presacral abscess which is decreased in size to approximately 1.1 x 1.8 cm at the level of the dehiscence tapering to a point approximately 2.5 cm cephalad to the level of the dehiscence. The pre vious corresponding measurements were 3.1 x 1.9 x 4.3 cm. Geraldo decrease in the degree of prior diffu se bladder wall thickening suggesting this was previously related to cystitis. No free intraperitonea l gas or fluid. No pathologically enlarged abdominal or pelvic lymphadenopathy. Severe lower lumbar s pondylosis. Left total hip arthroplasty. No significant change in some osteolysis along the superior margin of the acetabular cup. Small bilateral fat-containing inguinal hernias. IMPRESSION: 1. Soft tissue likely representing scarring surrounding a decreasing, now 2.5 x 1.1 x 1.8 cm presacra l abscess which is contiguous with a likely dehiscent rectal anastomosis. 2. Mild emphysema at the lung bases. 3. A couple nonobstructing 1-2 mm left renal stones. Reviewed, dictated and finalized at location A. IMPRESSION: 1. Soft tissue likely representing scarring surrounding a decreasing, now 2.5 x 1.1 x 1.8 cm presacral abscess which is contiguous with a likely dehiscent rec gage anastomosis. 2. Mild emphysema at the lung bases. 3. A couple nonobstructing 1-2 mm left renal stones.
[2021-01-11 12:56] LABS: Estimated Glomerular Filt Rate > 60
== END 2021-01-11 12:34 | disposition home or self-care (01) ==
LOC: ANHIMG 12:36
PROVIDERS: PCP Pediatrics; Visit Provider Internal Medicine Hematology & Oncology
DX: C20 Malignant neoplasm of rectum (principal); N20.0 Calculus of kidney; J43.9 Emphysema, unspecified
CPT/HCPCS: 74177; Q9967

== ENCOUNTER 2021-01-25 14:55 | Emergency (ER) | payer MEDICARE, SELFPAY ==
[2021-01-25 14:58] VITALS: BP 163/78; PULSE 74; RESP 18; TEMP 36.6; O2SAT 100
--- NOTE | 2021-01-25 15:13 | ED.GENADULT ---
HPI - General Adult General Chief complaint: Unspecified Stated complaint: leakage around ileostomy Time Seen by Provider: 01/25/21 15:03 History of Present Illness HPI narrative: 70 yo male w/ ileostomy presents to the ED for ostomy care. He reports that he has had blisters around the ostomy, which pop and cause leakage. He has an appointment scheduled with wound care, but when he called today they suggested that he come to the ED. He does report decreased stoma output today. No other symptoms. Related Data Home Medications Medication Instructions Recorded Confirmed albuterol sulfate 2 puff INHALATION QID PRN 01/10/20 01/24/21 aspirin 325 mg PO DAILY 04/20/20 01/24/21 Allergies Allergy/AdvReac Type Severity Reaction Status Date / Time No Known Allergies Allergy Verified 01/25/21 15:03 Review of Systems Review of Systems: All systems reviewed & are unremarkable except as noted in HPI and below Constitutional: Constitutional: Denies chills and Denies fever(s) ENT: Reports system reviewed and no additional complaints, except as documented Cardiovascular: Cardiovascular: Denies chest pain Respiratory: Respiratory: Denies dyspnea Gastrointestinal: Gastrointestinal: Denies abdominal pain and Denies vomiting PMFSH Past Medical History Medical History Arthritis, lumbar spine Benign prostatic hyperplasia Chronic anemia Chronic low back pain Chronic obstructive pulmonary disease Essential hypertension Nausea Normal cardiac stress test (~12/2019) With normal MPI and an ejection fraction of 62%. Osteoarthritis Paroxysmal atrial fibrillation Paroxysmal supraventricular tachycardia Primary colorectal adenocarcinoma (~04/2020) Status post neoadjuvant chemoradiation and low anterior resection on 08/09/2020. Complicated by persistent anastomotic leak requiring diverting loop ileostomy on 08/31/2020. Shingles (~2015) Surgical History Surgical History H/O sigmoidoscopy 11/02/20 History of colonoscopy (~04/20/20) History of ileostomy (~08/31/20) Diverting loop ileostomy due to persistent anastomotic leak as above. History of rectal surgery (~08/09/20) Hand assisted laparoscopic low anterior resection with low pelvic anastomosis for colorectal adenocarcinoma , with then subsequent loop ileostomy for anastomotic leak History of repair of rotator cuff (~2007) Bilateral repair per Dr. Fitzgerald. History of total left hip arthroplasty (~01/10/20) Family History Family History Father , age 91 Cancer Skin cancer, Bladder, cancer, Lung cancer Heart disease Sibling Cancer skin cancer Diabetes mellitus Kidney disease Mother , age 95 Cancer Skin cancer, lung cancer Social History Social History Social History: The patient lives in [place], [place] with his and their 2 Labradors. 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 He smoked 1.5 to 2 packs of cigarettes per day for about 50 years and quit in September 2019. He drinks alcohol socially and in moderation. No illicit substance use. His , Rohini Nieves, is his surrogate decision maker and he wishes to be a full code. Smoking packs per day: 2 Smoking cigarettes per day: 40.0 Years smoked: 50 Smoking pack-years: 100.00 Smoking status: Former smoker Second hand tobacco smoke exposure: Yes Additional smoking assessment comments: Smoking for 50 years. 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
[2021-01-25 17:23] VITALS: PULSE 70; RESP 16
== END 2021-01-25 17:20 | disposition home or self-care (01) ==
PROVIDERS: Emergency Provider Emergency Medicine; PCP Pediatrics
DX: K94.19 Other complications of enterostomy (principal); N40.0 Benign prostatic hyperplasia without lower urinary tract symptoms; D64.9 Anemia, unspecified; J44.9 Chronic obstructive pulmonary disease, unspecified; Z87.891 Personal history of nicotine dependence; I10 Essential (primary) hypertension; M47.816 Spondylosis without myelopathy or radiculopathy, lumbar region; I48.0 Paroxysmal atrial fibrillation; Z79.82 Long term (current) use of aspirin; Z85.048 Personal history of other malignant neoplasm of rectum, rectosigmoid junction, and anus
CPT/HCPCS: 99281

== ENCOUNTER 2021-01-29 08:58 | Outpatient (RCR) | payer MEDICARE, SELFPAY | END 2021-04-03 12:11 | disposition home or self-care (01) | LOC: ANHWOC 08:58 | PROVIDERS: PCP Pediatrics; Visit Provider Surgery | DX: Z43.2 Encounter for attention to ileostomy (principal) | CPT/HCPCS: 99213; A9270; G0463 ==

== ENCOUNTER 2021-02-05 10:17 | Outpatient (CLI) | payer MEDICARE, SELFPAY ==
--- NOTE | ~2021-02-05 | XR_ITS ---
EXAMINATION: XR enema water soluble DATE: 02/05/2021 11:25 INDICATION: Post procedure complication with distal colonic anastomotic leak. TECHNIQUE: A flatwork supervisor radiograph was obtained. A catheter was inserted into the patient's rectum. Water- soluble contrast was infused by gravity. Fluoroscopic spot images and conventional radiographs were o btained. A total of 19 fluoroscopic images were recorded. Fluoroscopy exposure time was 1.1 minutes. Total DAP was 24.29 mGycm^2 COMPARISON: CT dated 01/11/2021 FINDINGS: There is contrast extension into a small cavity in the presacral space posterior to the rectocolic an astomosis corresponding in size and location to the most recent imaging of a previously drained misty cral abscess. The contrast-filled cavity measures approximately 2.5 x 1.2 x 2.0 cm. The neck connecti ng the lumen of the rectum with the extraluminal contrast collection measures approximately 6 mm in c raniocaudal width on the lateral projection. Contrast extends freely across the anastomosis opacifyin g the more proximal colon which appears normal aside from a few sigmoid diverticula. IMPRESSION: 1. 2.5 x 1.2 x 2.0 cm contained presacral anastomotic leak which extends posteriorly from the rectoco lonic anastomosis. Reviewed, dictated and finalized at location A. IMPRESSION: 1. 2.5 x 1.2 x 2.0 cm contained presacral anastomotic leak which extends honest john rocket crew member iorly from the rectocolonic anastomosis.
== END 2021-02-05 10:18 | disposition home or self-care (01) ==
LOC: ANHIMG 10:22
PROVIDERS: PCP Pediatrics; Visit Provider Surgery
DX: K91.89 Other postprocedural complications and disorders of digestive system (principal); Z93.2 Ileostomy status
CPT/HCPCS: 74270

== ENCOUNTER 2021-05-15 11:12 | Outpatient (CLI) | payer MEDICARE, SELFPAY | END 2021-05-15 11:13 | disposition home or self-care (01) | LOC: ANHSURGERY 11:16 | PROVIDERS: PCP Pediatrics; Visit Provider Surgery | DX: Z93.2 Ileostomy status (principal) | CPT/HCPCS: 36415; 86850; 86900; 86901 ==

== ENCOUNTER 2021-05-15 13:33 | Outpatient (CLI) | payer MEDICARE, SELFPAY ==
--- NOTE | ~2021-05-15 | CT_ITS ---
EXAMINATION:CT diagnostic chest wo con DATE: 05/15/2021 14:00 INDICATION: Nonspecific abnormal findings of lung field. TECHNIQUE: Computed tomography (CT) of the chest was performed without intravenous contrast. Automate d exposure control and iterative reconstruction technique were employed. The dose-length product (DLP ) was 218.98 mGy-cm. COMPARISON: Chest CT 04/28/2020, CT abdomen and pelvis 01/11/2021 FINDINGS: There is moderate emphysema. There is mild atelectasis bilaterally. Calcified bilateral marti g nodules and calcified hilar and mediastinal lymph nodes are consistent with old granulomatous disea se. No pleural effusion. The heart size is normal. There are coronary artery calcifications. No peric ardial effusion. There are two 3 mm stones in left kidney. There is thoracic dextroscoliosis and mild spondylosis. IMPRESSION: 1. Moderate emphysema. Reviewed, dictated and finalized at location A. IMPRESSION: 1. Moderate emphysema.
== END 2021-05-15 13:34 | disposition home or self-care (01) ==
LOC: ANHIMG 13:37
PROVIDERS: PCP Pediatrics; Visit Provider Pediatrics
DX: R91.8 Other nonspecific abnormal finding of lung field (principal); N20.0 Calculus of kidney; M41.9 Scoliosis, unspecified; J43.9 Emphysema, unspecified; M47.814 Spondylosis without myelopathy or radiculopathy, thoracic region
CPT/HCPCS: 36415; 71250; 86850; 86900; 86901

== ENCOUNTER → 2021-05-19 00:14 | Outpatient (CLI) | payer MEDICARE, SELFPAY ==
[2021-05-19 18:06] LABS: SARS-CoV-2 RNA PCR Negative
== END ==
PROVIDERS: PCP Pediatrics; Visit Provider Surgery
DX: Z01.812 Encounter for preprocedural laboratory examination (principal); Z20.822 Contact with and (suspected) exposure to COVID-19
CPT/HCPCS: C9803; U0003; U0005

== ENCOUNTER 2021-05-22 10:34 | Inpatient (IN) | payer MEDICARE, SELFPAY ==
[2021-05-15 11:30] VITALS: BMI 33.6
[2021-05-15 12:13] VITALS: BP 184/97; PULSE 68; RESP 18; TEMP 36.8; O2SAT 95
--- NOTE | 2021-05-21 15:44 | WPDANESEPPF ---
Anes - Initial Pre Proc Eval Procedure: Operation Date: 05/22/21 07:30 Proposed Procedures p Takedown Of Ileostomy - Caesar Robertson DO Date/Time: 05/21/21 15:44 Surgeon: Caesar Robertson DO Pre Op Diagnosis: Ileostomy Status Patient Data Age: 70 Gender: M Height: 1.83 m Weight: 112.6 kg Last Vital Signs Temp 36.8 C 05/15/21 12:13 Pulse 68 05/15/21 12:13 Resp 18 05/15/21 12:13 BP 184/97 H 05/15/21 12:13 Pulse Ox 95 05/15/21 12:13 Allergies Allergy/AdvReac Type Severity Reaction Status Date / Time No Known Allergies Allergy Verified 05/15/21 11:27 Home Medications Medication Instructions Recorded Confirmed Type albuterol sulfate 2 puff INHALATION QID PRN 01/10/20 05/15/21 History aspirin 325 mg PO QAM 04/20/20 05/15/21 History finasteride [Proscar] 5 mg PO QAM 30 Days #30 tablet 09/20/20 05/15/21 Rx tamsulosin 0.4 mg PO QAM 30 Days #30 cap 09/20/20 05/15/21 Rx amiodarone 200 mg PO QAM 05/15/21 05/15/21 History metoprolol succinate 50 mg PO QAM 05/15/21 05/15/21 History Patient hx anesthesia problems: none Family hx anesthesia problems: none Results Review: All pre-operative results and documents have been reviewed as part of the pre-operative evaluation. [facility] Past Medical History Medical History Arthritis, lumbar spine Benign prostatic hyperplasia Chronic anemia Chronic low back pain Chronic obstructive pulmonary disease Essential hypertension Nausea Normal cardiac stress test (~12/2019) With normal MPI and an ejection fraction of 62%. Osteoarthritis Paroxysmal atrial fibrillation Paroxysmal supraventricular tachycardia Primary colorectal adenocarcinoma (~04/2020) Status post neoadjuvant chemoradiation and low anterior resection on 08/09/2020. Complicated by persistent anastomotic leak requiring diverting loop ileostomy on 08/31/2020. Shingles (~2015) Surgical History Surgical History H/O sigmoidoscopy 11/02/20 History of colonoscopy (~04/20/20) History of ileostomy (~08/31/20) Diverting loop ileostomy due to persistent anastomotic leak as above. History of rectal surgery (~08/09/20) Hand assisted laparoscopic low anterior resection with low pelvic anastomosis for colorectal adenocarcinoma , with then subsequent loop ileostomy for anastomotic leak History of repair of rotator cuff (~2007) Bilateral repair per Dr. Fitzgerald. History of total left hip arthroplasty (~01/10/20) Family History Family History Father , age 91 Cancer Skin cancer, Bladder, cancer, Lung cancer Heart disease Sibling Cancer skin cancer Diabetes mellitus Kidney disease Mother , age 95 Cancer Skin cancer, lung cancer Social History Social History Social History: The patient lives in [place], [place] with his and their 2 Labradors. 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 He smoked 1.5 to 2 packs of cigarettes per day for about 50 years and quit in September 2019. He drinks alcohol socially and in moderation. No illicit substance use. His , Rohini Nieves, is his surrogate decision maker and he wishes to be a full code. Smoking packs per day: 2 Smoking cigarettes per day: 40.0 Years smoked: 50 Smoking pack-years: 100.00 Smoking status: Former smoker Second hand tobacco smoke exposure: Yes Additional smoking assessment comments: Smoking for 50 years. 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
[2021-05-22] VITALS (14 sets, daily range): BP systolic 111–150; BP diastolic 63–87; PULSE 52–62; RESP 12–20; TEMP 36–36.8; O2SAT 90–100
[2021-05-22] MEDS: LACTATED RINGERS 1,000 ML 30 ML IV CONT ×2 (06:30→09:32)
[2021-05-22] MEDS: ALVIMOPAN 12 MG CAPSULE PO (06:49)
[2021-05-22] MEDS: ACETAMINOPHEN 500 MG TABLET 1000 MG PO ×4 (06:49→23:20)
[2021-05-22] MEDS: KETOROLAC 15 MG/ML VIAL (*BKC) IV PUSH (06:49)
--- NOTE | 2021-05-22 07:11 | PM.IMHP ---
H&P: HPI History of Present Illness Date/Time: 05/22/21 07:11 Chief Complaint: ileostomy status Narrative: 70 yo man presents for takedown of ileostomy. He reports no significant changes since last seen in office. Review of Systems Review of Systems: All systems reviewed & are unremarkable except as noted in HPI and below Constitutional: Constitutional: Denies chills, Denies fever(s), Denies headache(s) and Denies weight loss Eyes: Eyes: Denies change in vision ENT: Denies dizziness, Denies headache(s), Denies neck mass and Denies throat swelling Cardiovascular: Cardiovascular: Denies chest pain, Denies lightheadedness and Denies dyspnea Respiratory: Respiratory: Denies cough, Denies dyspnea and Denies wheezing Gastrointestinal: Gastrointestinal: Denies abdominal pain, Denies change in bowel habits, Denies nausea and Denies vomiting Genitourinary: Genitourinary: Denies hematuria and Denies dysuria Musculoskeletal: Musculoskeletal: Reports as per HPI Integumentary/Breasts: Skin/Breast: Reports as per HPI Neurologic: Denies dizziness and Denies headache(s) Allergic/Immunologic: Allergic/Immunologic: Denies throat swelling and Denies wheezing [facility] Past Medical History Medical History Arthritis, lumbar spine Benign prostatic hyperplasia Chronic anemia Chronic low back pain Chronic obstructive pulmonary disease Essential hypertension Nausea Normal cardiac stress test (~12/2019) With normal MPI and an ejection fraction of 62%. Osteoarthritis Paroxysmal atrial fibrillation Paroxysmal supraventricular tachycardia Primary colorectal adenocarcinoma (~04/2020) Status post neoadjuvant chemoradiation and low anterior resection on 08/09/2020. Complicated by persistent anastomotic leak requiring diverting loop ileostomy on 08/31/2020. Shingles (~2015) Surgical History Surgical History H/O sigmoidoscopy 11/02/20 History of colonoscopy (~04/20/20) History of ileostomy (~08/31/20) Diverting loop ileostomy due to persistent anastomotic leak as above. History of rectal surgery (~08/09/20) Hand assisted laparoscopic low anterior resection with low pelvic anastomosis for colorectal adenocarcinoma , with then subsequent loop ileostomy for anastomotic leak History of repair of rotator cuff (~2007) Bilateral repair per Dr. Fitzgerald. History of total left hip arthroplasty (~01/10/20) Family History Family History Father , age 91 Cancer Skin cancer, Bladder, cancer, Lung cancer Heart disease Sibling Cancer skin cancer Diabetes mellitus Kidney disease Mother , age 95 Cancer Skin cancer, lung cancer Social History Social History Social History: The patient lives in [place], [place] with his and their 2 Labradors. 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 He smoked 1.5 to 2 packs of cigarettes per day for about 50 years and quit in September 2019. He drinks alcohol socially and in moderation. No illicit substance use. His , Rohini Nieves, is his surrogate decision maker and he wishes to be a full code. Smoking packs per day: 2 Smoking cigarettes per day: 40.0 Years smoked: 50 Smoking pack-years: 100.00 Smoking status: Former smoker Second hand tobacco smoke exposure: Yes Additional smoking assessment comments: Smoking for 50 years. 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
--- NOTE | 2021-05-22 07:13 | WPDHPUPDATE1 ---
History and Physical Update Update Date/Time: 05/22/21 07:13 History and Physical has been reviewed, including an updated exam of the patient. There are NO changes in the patient's condition. Risks, benefits, and alternatives have been discussed and questions answered. Patient agrees to proceed with procedure.
[2021-05-22] MEDS: ceFAZolin 2 GM/D5W 50 ML 2 GM/50 ML BAG IVPB (07:26)
[2021-05-22] MEDS: metroNIDAZOLE 500 MG/ISO 100ML 500 MG/100 ML BAG 100 MG IVPB (07:40)
[2021-05-22] MEDS: BUPIVACAINE HCL 0.5% PF 30 ML VIAL INFILTRATE (09:16)
--- NOTE | 2021-05-22 09:31 | W.PM.PROC2 ---
Procedure Note - Detailed Date of Procedure 05/22/21 Pre-op Diagnosis Ileostomy Status Post-op Diagnosis same Procedure Performed 1. Takedown of ileostomy 2. Small bowel resection with side to side anastomosis Surgeon Caesar Robertson, DO Anesthesia general and local (0.5% bupivacaine) Indications This is a 70-year-old man who presents for takedown of ileostomy. He has a prior history of rectal cancer and underwent low anterior resection. He had a contained anastomotic leak that did not appear to heal with percutaneous drainage, therefore loop ileostomy was performed. Discussions were made with the patient about treatment options and decision was made to proceed with takedown of ileostomy. Findings Takedown of ileostomy was performed. The 2 limbs of the ileostomy appeared healthy and viable. A small segment of ileum was resected going up to the loop ileostomy so that a [id number] stapled anastomosis could be performed. The anastomosis appeared healthy and viable. No other abnormalities were noted. Description of Procedure Procedure as well as risks, benefits, and alternatives were discussed with the patient. Written consent was obtained and placed in chart prior to procedure. The patient was brought back to surgical suite. He was placed supine on operating table. Time-out was done to confirm patient and procedure. He was then intubated by the Anesthesia Department. His abdomen was prepped and draped in sterile fashion using chlorhexidine prep, and Betadine was sprayed around the ileostomy. An elliptical incision was made vertically around the ileostomy using a 15 blade scalpel. Electrocautery was then used for careful hemostasis and dissection through the subcutaneous tissue. The 2 limbs of the ileum were carefully identified within the subcutaneous space and adhesions were carefully freed up around the ileum using electrocautery. This was carried out all the way down to the level of the fascia. I then carefully took down adhesions further until I was within the abdominal cavity. I carefully swept my finger around the ileostomy site under the peritoneum to ensure that there were no adhesions of the bowel up to the abdominal wall. This then allowed me to deliver the ileum through this incision another several inches so that I could perform the anastomosis. Enterotomies were then made the anti mesenteric border of both the afferent and efferent limb of ileum. A ASHELY 75 mm blue load stapler was then advanced through each enterotomy and the bowel was clamped together in a [id number]-rz-[id number] fashion and then the stapler was fired. The anastomosis was inspected and appeared healthy and viable. A window was created in the mesentery right at the level of the enterotomies and another ASHELY 75 mm blue load stapler was then advanced across the bowel at this point to close the enterotomy and resect the portion of the bowel going up to the skin. The remaining mesenteric attachments of the resected ileum were taken down using LigaSure bipolar cautery. The ileostomy specimen was sent to the lab for pathology. The anastomosis was then inspected and appeared widely patent and healthy and viable. The apex and anterior surface of the staple line were reinforced using 3-0 silk seromuscular sutures. The mesenteric rent was then closed using a 3-0 chromic running suture. The bowel was then released back down into the abdominal cavity. One final inspection was made around the subcutaneous space and the fascia was carefully inspected. A malleable retractor was then placed to prevent the bowel from protruding up through the incision, and then the fascia was reapproximated using 0 PDS [id number]-[id number] sutures. These were placed in a vertical fashion to reapproximate the rectus muscle and fascia. 0.5% bupivacaine was then infiltrated locally around the fascia and subcutaneous space. The wound bed was then irrigated with sterile saline. Martinez's fascia was reapproximated
--- NOTE | 2021-05-22 10:45 | ADMGEN ---
This patient, Isma Nieves, was admitted to Medical Room 250-01. Patient/family oriented to hospital policies and general routines including ID bracelet, bed and alarms, visiting hours, pain management, procedures, bathroom and other care routines, personal items, smoking policy, room service/diet, and visiting hours. Information on how to activate the Rapid Response Team has been discussed. Patient/Family are encouraged to report perceived risks to care and to ask questions if they do not understand what they are told or what they should do.
[2021-05-22] MEDS: LACTATED RINGERS 1,000 ML 100 ML IV CONT ×2 (11:06→23:19)
[2021-05-22] MEDS: ONDANSETRON INJ 4 MG/2 ML VIAL IV PUSH (20:13)
[2021-05-23] VITALS (7 sets, daily range): BP systolic 115–151; BP diastolic 61–85; PULSE 57–67; RESP 16–20; TEMP 36.4–36.5; O2SAT 90–97
[2021-05-23] MEDS: HYDROmorphone HCL INJ (*CRX) 1 MG/ML SYR IV PUSH ×2 (03:14→15:57)
[2021-05-23 05:40] LABS: Basophils Percent Auto 0.5 % (0.2-1.2); Eosinophils Percent Auto 0.2 % (0-4.4); Hematocrit 41.4 % (42.0-52.0); Hemoglobin 13.6 g/dL (14.0-18.0); Immature Granulocyte Absolute 0.04 K/mm3 (0.00-0.031); Immature Granulocyte Percent A 0.5 % (0-0.5); Lymphocytes Absolute Auto 0.61 K/mm3 (0.9-3.2); Lymphocytes Percent Auto 7.1 % (18.3-44.2); Mean Corpuscular HGB Conc 32.9 g/dl (32-36); Mean Corpuscular Hemoglobin 30.8 pg (26-34); Mean Corpuscular Volume 93.7 fl (80-100); Mean Platelet Volume 10.8 fl (7.4-10.4); Monocytes Absolute Auto 0.8 K/mm3 (0.1-0.6); Monocytes Percent Auto 8.8 % (2.6-8.5); Neutrophils Absolute Auto 7.1 K/mm3 (1.3-6.7); Neutrophils Percent Auto 82.9 % (45.5-73.1); Platelet Count Result 220 k/mm3 (150-375); Red Blood Count 4.42 M/mm3 (4.6-6.20); Red Cell Distribution Width 12.5 % (11.5-14.5); White Blood Count 8.6 K/mm3 (4.5-10.0)
[2021-05-23 05:56] LABS: Sodium 136 mmol/L (137-145)
[2021-05-23] MEDS: ACETAMINOPHEN 500 MG TABLET 1000 MG PO ×3 (06:24→17:39)
[2021-05-23 06:32] LABS: Anion Gap 7 mmol/L (8-16); Blood Urea Nitrogen 12 mg/dL (9-20); Calcium 9.2 mg/dL (8.4-10.2); Carbon Dioxide 26 mmol/L (22-30); Chloride 103 mmol/L (98-107); Estimated CRCL calculation 83 ml/min; Estimated Glomerular Filt Rate > 60; Glucose 120 mg/dL (65-110); Potassium 3.9 mmol/L (3.4-5.0)
[2021-05-23] MEDS: ENOXAPARIN 40 MG/0.4 ML SYRINGE SUB-Q (08:43)
[2021-05-23] MEDS: ONDANSETRON INJ 4 MG/2 ML VIAL IV PUSH ×3 (08:43→22:08)
[2021-05-23] MEDS: METOPROLOL SUCCINATE EXT REL 50 MG TABCR PO (08:44)
[2021-05-23] MEDS: AMIODARONE HCL 200 MG TABLET PO (08:44)
[2021-05-23] MEDS: FINASTERIDE 5 MG TABLET PO (08:44)
[2021-05-23] MEDS: TAMSULOSIN HCL 0.4 MG CAPSULE PO (08:45)
--- NOTE | 2021-05-23 13:15 | PM.PNGS ---
Progress Note: A&P Assessment and Plan (1) Ileostomy in place: Code(s): Z93.2 - Ileostomy status Status: Acute Assessment and Plan: POD1 and doing well. Will advance to full liquids and stop IV fluids. Start oral anagesics as needed. Encouraged increasing activity, walking the halls, and IS use. (2) Paroxysmal atrial fibrillation: Code(s): I48.0 - Paroxysmal atrial fibrillation Status: Acute Assessment and Plan: Home medications restarted. RRR on exam. Additional Plan I discussed the plan of care with Dr. Robertson. Subjective Subjective Date/Time Seen: 05/23/21 12:15 Post Op day: 1 (Takedown of ileostomy, small bowel resection with side to side anastomosis) Patient reports: still having pain (incisional), tolerating liquids well, flatus, diarrhea, nausea (he feels it is from the clears and ensure) and afebrile Interval history: This is a 70 yo with a history of rectal cancer treated with neoadjuvant therapy and resection. He underwent a YUNI low anterior resection in July [address] Robertson. He was found to have an anastomotic leak with intra-abdominal abscess treated with percutaneous drainage in August 2020, and ultimately was taken to surgery for a diverting loop ileostomy by Dr. Robertson. He has been followed as an outpatient and decision was made to present yesterday for takedown of the ileostomy. He was seen and examined today. He reports feeling tired. He is having mostly right-sided incisional abdominal pain that is being controlled with the Tylenol and IV Dilaudid. He is tolerating the clear liquids, but feels that the ensure is causing some nausea. No vomiting or significant bloating. He reports lots of flatus and has had multiple liquid BMs. He reports a few this morning appeared dark red in color, and a few other times he had some mucousy bowel movements. Review of Systems Review of Systems: All systems reviewed & are unremarkable except as noted in HPI and below Constitutional: Constitutional: Reports as per HPI, Reports no additional constitutional complaints and Denies fever(s) Cardiovascular: Cardiovascular: Reports no additional cardiovascular complaints, Denies chest pain and Denies leg edema Respiratory: Respiratory: Reports no additional respiratory complaints, Denies cough and Denies dyspnea Gastrointestinal: Gastrointestinal: Reports as per HPI and Reports no additional gastrointestinal complaints Neurologic: Reports system reviewed and no additional complaints, except as documented, Denies Abnormal speech present and Denies focal weakness Exam Const: General: comfortable, no acute distress, alert and awake Orientation/consciousness: patient oriented x3 Resp: Effort & Inspection: normal respiratory effort Auscultation: clear to auscultation bilaterally Cardio: Rate: regular rate Rhythm: regular rhythm GI: Inspection: non-distended and incision (Right-sided dressing clean and dry) GI Palp: Yes Soft to palpation and Yes Tenderness to palpation present (GI) (incisional) Auscultation: normal bowel sounds Rectal Exam: deferred Skin: General skin exam: normal color Neuro: General: moves all extremities and no focal motor deficits Extrem: General: no clubbing, cyanosis or edema and no calf tenderness Psych: Mental Status: mental status grossly normal Insight: Good insight present (Psych) Judgement: Good judgement present (Psych) Objective Data Vital Signs Vital Signs: Vital Signs - 24 hr 05/22/21 16:19 05/22/21 20:00 05/22/21 20:19 Temperature 96.8 F L 96.9 F L Pulse Rate 52 L 60 61 Respiratory Rate 18 18 20 Blood Pressure 145/85 H 147/75 H Pulse Oximetry 93 94 95 05/22/21 20:27 05/23/21 00:19 05/23/21 04:19 Temperature 97.7 F 97.5 F L Pulse Rate 60 58 L 62 Respiratory Rate 18 20 20 Blood Pressure 151/85 H 142/70 H Pulse Oximetry 94 95 90 05/23/21 08:44 05/23/21 10:15 Temperature 97.6 F Pulse Rate 64 67 Respiratory Rate 18
[2021-05-23] MEDS: HYDROcodone/acetaminophen (*CRX) 5-325 MG TABLET 1 TAB PO (14:19)
--- NOTE | 2021-05-23 14:24 | WPDANESPN ---
Anes - Prog Note Post-Op Date/Time: 05/23/21 14:24 Cardiovascular status: normal Respiratory status: normal Airway patency: baseline Mental status: baseline Post-Op hydration status: normal Vital Signs: Last Vital Signs Temp 36.4 C 05/23/21 10:15 Pulse 67 05/23/21 10:15 Resp 18 05/23/21 10:15 BP 136/76 05/23/21 10:15 Pulse Ox 93 05/23/21 10:15 Pain Score (VAS): 2 I/O: Intake & Output 05/22/21 05/23/21 05/23/21 23:59 07:59 15:59 Intake Total 1290 240 360 Balance 1290 240 360 Laboratory Tests 05/23/21 05:24 05/23/21 05:24 05/23/21 05/23/21 05:24 05:24 WBC 8.6 RBC 4.42 L Hgb 13.6 L Hct 41.4 L MCV 93.7 MCH 30.8 MCHC 32.9 RDW 12.5 Plt Count 220 MPV 10.8 H Immature Gran % (Auto) 0.5 Neut % (Auto) 82.9 H Lymph % (Auto) 7.1 L [place] % (Auto) 8.8 H Eos % (Auto) 0.2 Baso % (Auto) 0.5 Lymph # (Auto) 0.61 L [place] # (Auto) 0.8 H Eos # (Auto) 0.0 Baso # (Auto) 0.0 Abs Immat Gran (auto) 0.04 H Absolute Neuts (auto) 7.1 H Absolute Nucleated RBC 0.0 Nucleated RBC % 0.0 Sodium 136 L Potassium 3.9 Chloride 103 Carbon Dioxide 26 Anion Gap 7 L BUN 12 D Creatinine 1.00 Estim Creat Clear Calc 83 Estimated GFR > 60 Glucose 120 H Calcium 9.2 Post-procedural complaints: none Patient Feedback: Patient satisfied with anesthetic care.
[2021-05-24] VITALS (8 sets, daily range): BP systolic 133–152; BP diastolic 63–85; PULSE 62–74; RESP 16–20; TEMP 36.6–37.2; O2SAT 91–97
[2021-05-24] MEDS: ACETAMINOPHEN 500 MG TABLET 1000 MG PO ×5 (01:17→23:05)
[2021-05-24 05:48] LABS: Hematocrit 40.3 % (42.0-52.0); Hemoglobin 13.3 g/dL (14.0-18.0); Mean Corpuscular Hemoglobin 31.8 pg (26-34); Mean Corpuscular Volume 96.4 fl (80-100); Mean Platelet Volume 10.8 fl (7.4-10.4); Platelet Count Result 188 k/mm3 (150-375); Red Blood Count 4.18 M/mm3 (4.6-6.20); Red Cell Distribution Width 13.2 % (11.5-14.5); White Blood Count 7.5 K/mm3 (4.5-10.0)
[2021-05-24 06:06] LABS: Anion Gap 11 mmol/L (8-16); Blood Urea Nitrogen 9 mg/dL (9-20); Calcium 8.9 mg/dL (8.4-10.2); Carbon Dioxide 25 mmol/L (22-30); Chloride 101 mmol/L (98-107); Estimated CRCL calculation 83 ml/min; Estimated Glomerular Filt Rate > 60; Glucose 99 mg/dL (65-110); Potassium 3.7 mmol/L (3.4-5.0); Sodium 137 mmol/L (137-145)
[2021-05-24] MEDS: HYDROcodone/acetaminophen (*CRX) 10-325 MG TABLET 1 TAB PO (09:03)
[2021-05-24] MEDS: METOPROLOL SUCCINATE EXT REL 50 MG TABCR PO (09:04)
[2021-05-24] MEDS: TAMSULOSIN HCL 0.4 MG CAPSULE PO (09:04)
[2021-05-24] MEDS: FINASTERIDE 5 MG TABLET PO (09:04)
[2021-05-24] MEDS: AMIODARONE HCL 200 MG TABLET PO (09:05)
[2021-05-24] MEDS: ENOXAPARIN 40 MG/0.4 ML SYRINGE SUB-Q (09:05)
[2021-05-24] MEDS: LOPERAMIDE HCL 2 MG CAPSULE PO (09:33)
--- NOTE | 2021-05-24 12:37 | PM.PNGS ---
Progress Note: A&P Assessment and Plan (1) Ileostomy in place: Code(s): Z93.2 - Ileostomy status Status: Acute Assessment and Plan: POD2 and doing well. Main complaint is frequent liquid stools. Imodium added if needed. Will add triple care ointment for his perianal maceration. Will advance to a regular diet. Encouraged increasing activity, walking the halls, and IS use. Hopefully he can be discharged tomorrow if he continues to improve. (2) Paroxysmal atrial fibrillation: Code(s): I48.0 - Paroxysmal atrial fibrillation Status: Acute Assessment and Plan: Continue home medications. Additional Plan I discussed the plan of care with Dr. Robertson. Subjective Subjective Date/Time Seen: 05/24/21 12:37 Post Op day: 2 Patient reports: tolerating liquids well (full liquids), flatus, diarrhea and afebrile Interval history: Patient seen and examined. He reports feeling well today. He has had innumerable liquid bowel movements overnight and this morning with some stool incontinence at times. He feels it was about 17 liquid stools just this morning. I ordered Imodium earlier today and he already feels that it has slowed down since then. He reports his perianal area is sore and there is streaks of blood on the toilet paper when wiping. He denies nausea or vomiting. Pain is controlled. No other complaints at this time. Review of Systems Review of Systems: All systems reviewed & are unremarkable except as noted in HPI and below Constitutional: Constitutional: Reports as per HPI, Reports no additional constitutional complaints, Denies chills and Denies fever(s) Cardiovascular: Cardiovascular: Reports no additional cardiovascular complaints, Denies chest pain and Denies leg edema Respiratory: Respiratory: Reports no additional respiratory complaints, Denies cough and Denies dyspnea Gastrointestinal: Gastrointestinal: Reports as per HPI and Reports no additional gastrointestinal complaints Neurologic: Reports system reviewed and no additional complaints, except as documented, Denies Abnormal speech present and Denies focal weakness Exam Const: General: comfortable, no acute distress, alert and awake Orientation/consciousness: patient oriented x3 Resp: Effort & Inspection: normal respiratory effort Auscultation: clear to auscultation bilaterally Cardio: Rate: regular rate Rhythm: regular rhythm GI: Inspection: non-distended and incision (Abdominal incision clean and dry, skin slightly pink at center of incision) GI Palp: Yes Soft to palpation and Yes Tenderness to palpation present (GI) (incisional) Auscultation: normal bowel sounds Other: Superficial maceration circumferentially around the anal verge Skin: General skin exam: normal color Neuro: General: moves all extremities and no focal motor deficits Extrem: General: no clubbing, cyanosis or edema and no calf tenderness Psych: Mental Status: mental status grossly normal Insight: Good insight present (Psych) Judgement: Good judgement present (Psych) Objective Data Vital Signs Vital Signs: Vital Signs - 24 hr 05/23/21 14:30 05/23/21 18:00 05/23/21 21:30 Temperature 97.7 F 97.7 F 97.7 F Pulse Rate 57 L 64 64 Respiratory Rate 16 16 18 Blood Pressure 115/61 136/68 115/70 Pulse Oximetry 97 93 93 05/24/21 00:41 05/24/21 04:00 05/24/21 09:04 Temperature 98.6 F 97.8 F Pulse Rate 62 66 74 Respiratory Rate 16 20 Blood Pressure 135/71 152/78 H Pulse Oximetry 91 93 05/24/21 09:05 05/24/21 10:30 Temperature 98.4 F Pulse Rate 74 66 Respiratory Rate 18 Blood Pressure 133/71 Pulse Oximetry 91 Intake/Output Intake/Output: Intake & Output 05/21/21 05/22/21 05/23/21 05/24/21 23:59 23:59 23:59 23:59 Intake Total 1830 1420 420 Balance 1830 1420 420 Meds/Results Medications: Active Medications Generic Name Dose Route Start Last Admin Trade Name Freq PRN Reason Stop Dose Admin Acetaminophen 1,000 mg
[2021-05-24] MEDS: diphenhydrAMINE HCl CAP 25 MG CAPSULE 50 MG PO (23:06)
[2021-05-25] VITALS (7 sets, daily range): BP systolic 134–159; BP diastolic 65–97; PULSE 64–80; RESP 14–18; TEMP 36.5–37.3; O2SAT 93–96
[2021-05-25] MEDS: ACETAMINOPHEN 500 MG TABLET 1000 MG PO ×2 (06:35→11:39)
[2021-05-25] MEDS: FINASTERIDE 5 MG TABLET PO (08:18)
[2021-05-25] MEDS: AMIODARONE HCL 200 MG TABLET PO (08:18)
[2021-05-25] MEDS: TAMSULOSIN HCL 0.4 MG CAPSULE PO (08:18)
[2021-05-25] MEDS: METOPROLOL SUCCINATE EXT REL 50 MG TABCR PO (08:18)
[2021-05-25] MEDS: HYDROcodone/acetaminophen (*CRX) 5-325 MG TABLET 1 TAB PO (11:39)
--- NOTE | 2021-05-25 12:34 | PM.PNGS ---
Progress Note: A&P Assessment and Plan (1) Encounter for surgical aftercare following surgery on the digestive system: Code(s): Z48.815 - Encounter for surgical aftercare following surgery on the digestive system Status: Acute Assessment and Plan: Continue to monitor rectal bleeding, should improve as bowel movements become less frequent and more solid. Possibly home tomorrow if improving. (2) Ileostomy in place: Code(s): Z93.2 - Ileostomy status Status: Acute (3) Rectal cancer: Code(s): C20 - Malignant neoplasm of rectum Status: Chronic Subjective Subjective Date/Time Seen: 05/25/21 12:34 Interval history: Having some bright red blood per rectum today. Concerned about going home and this getting worse. Tolerating regular diet. No nausea/vomiting. No fevers. Exam GI: Inspection: incision (intact with cassius) GI Palp: Yes Soft to palpation and No Guarding due to palpation present (GI) Auscultation: normal bowel sounds Other: Scant drainage on bandage, no erythema or wound openings Objective Data Vital Signs Vital Signs: Vital Signs - 24 hr 05/24/21 13:55 05/24/21 18:00 05/24/21 22:00 Temperature 37.2 C 37.2 C 36.8 C Pulse Rate 73 65 70 Respiratory Rate 16 16 18 Blood Pressure 137/85 135/63 135/63 Pulse Oximetry 96 95 97 05/25/21 00:20 05/25/21 06:00 05/25/21 10:00 Temperature 37.3 C 37.1 C 37.0 C Pulse Rate 66 67 67 Respiratory Rate 14 16 18 Blood Pressure 134/65 137/74 139/70 Pulse Oximetry 95 96 96 Intake/Output Intake/Output: Intake & Output 05/22/21 05/23/21 05/24/21 05/25/21 23:59 23:59 23:59 23:59 Intake Total 1830 1420 1310 300 Balance 1830 1420 1310 300 Meds/Results Medications: Active Medications Generic Name Dose Route Start Last Admin Trade Name Freq PRN Reason Stop Dose Admin Acetaminophen 1,000 mg 05/22/21 12:00 05/25/21 11:39 Acetaminophen 500 Mg Tablet PO 1,000 mg Q6HR ASHELY Administration Hydrocodone Bitart/Acetaminophen 1 tab 05/23/21 11:31 05/25/21 11:39 Hydrocodone/Acetaminophen (*Crx) 5-325 Mg Tablet PO 1 tab Q4H PRN Administration Pain Rated 4-6 Hydrocodone Bitart/Acetaminophen 1 tab 05/23/21 11:31 05/24/21 09:03 Hydrocodone/Acetaminophen (*Crx) 10-325 Mg Tablet PO 1 tab Q6H PRN Administration Pain Rated 7-10 Albuterol 2 puff 05/22/21 10:34 Albuterol Sulfate (*Sp) Aerosol 1 Puff INHALATION QID PRN Dyspnea Amiodarone HCl 200 mg 05/23/21 09:00 05/25/21 08:18 Amiodarone Hcl 200 Mg Tablet PO 200 mg QAM ASHELY Administration Diphenhydramine HCl 50 mg 05/23/21 13:13 05/24/21 23:06 Diphenhydramine Hcl Cap 25 Mg Capsule PO 50 mg QPM PRN Administration Insomnia Enoxaparin Sodium 40 mg 05/23/21 09:00 05/24/21 09:05 Enoxaparin 40 Mg/0.4 Ml Syringe SUB-Q 40 mg DAILY ASHELY Administration Finasteride 5 mg 05/23/21 09:00 05/25/21 08:18 Finasteride 5 Mg Tablet PO 5 mg QAM ASHELY Administration Hydromorphone HCl 1 mg 05/22/21 10:34 05/23/21 15:57 Hydromorphone Hcl Inj (*Crx) 1 Mg/Ml Syr IV PUSH 1 mg Q2H PRN Administration Pain Rated 7-10 Hydromorphone HCl 0.5 mg 05/22/21 10:34 Hydromorphone Hcl Inj (*Crx) 1 Mg/Ml Syr IV PUSH Q2H PRN Pain Rated 4-6 Loperamide HCl 2 mg 05/24/21 09:06 05/24/21 09:33 Loperamide Hcl 2 Mg Capsule PO 2 mg Q2H PRN Administration Diarrhea Metoprolol Succinate 50 mg 05/23/21 09:00 05/25/21 08:18 Metoprolol Succinate Ext Rel 50 Mg Tabcr PO 50 mg QAM ASHELY Administration Miconazole Nitrate 1 applic 05/24/21 09:00 05/25/21 08:19 Miconazole 2% Antifungal Ointment 56 Gm TOPICAL 1 applic Q12HR ASHELY Administration Ondansetron HCl 4 mg 05/22/21 10:34 05/23/21 22:08 Ondansetron Inj 4 Mg/2 Ml Vial IV PUSH 4 mg Q4H PRN Administration Nausea And Vomiting Tamsulosin HCl 0.4 mg 05/23/21 09:00 05/25/21 08:18 Tamsulosin Hcl 0.4 Mg Ca
[2021-05-25] MEDS: ENOXAPARIN 40 MG/0.4 ML SYRINGE SUB-Q (13:07)
[2021-05-25] MEDS: LOPERAMIDE HCL 2 MG CAPSULE PO ×2 (16:02→20:03)
[2021-05-26] MEDS: diphenhydrAMINE HCl CAP 25 MG CAPSULE 50 MG PO (00:45)
[2021-05-26] MEDS: ACETAMINOPHEN 500 MG TABLET 1000 MG PO (00:46)
[2021-05-26 00:54] VITALS: BP 140/73; PULSE 68; RESP 18; TEMP 36.5; O2SAT 93
[2021-05-26 05:33] LABS: Hematocrit 35.9 % (42.0-52.0); Hemoglobin 12.2 g/dL (14.0-18.0); Mean Corpuscular Hemoglobin 31.8 pg (26-34); Mean Corpuscular Volume 93.5 fl (80-100); Mean Platelet Volume 10.8 fl (7.4-10.4); Platelet Count Result 188 k/mm3 (150-375); Red Blood Count 3.84 M/mm3 (4.6-6.20); Red Cell Distribution Width 12.8 % (11.5-14.5); White Blood Count 4.8 K/mm3 (4.5-10.0)
[2021-05-26 05:51] LABS: Anion Gap 12 mmol/L (8-16); Blood Urea Nitrogen 13 mg/dL (9-20); Carbon Dioxide 22 mmol/L (22-30); Chloride 101 mmol/L (98-107); Estimated CRCL calculation 90 ml/min; Estimated Glomerular Filt Rate > 60; Glucose 104 mg/dL (65-110); Potassium 3.4 mmol/L (3.4-5.0); Sodium 135 mmol/L (137-145)
[2021-05-26 05:56] VITALS: BP 130/76; PULSE 70; RESP 16; TEMP 36.9; O2SAT 94
[2021-05-26] MEDS: ENOXAPARIN 40 MG/0.4 ML SYRINGE SUB-Q (08:59)
[2021-05-26] MEDS: FINASTERIDE 5 MG TABLET PO (08:59)
[2021-05-26] MEDS: METOPROLOL SUCCINATE EXT REL 50 MG TABCR PO (08:59)
[2021-05-26] MEDS: AMIODARONE HCL 200 MG TABLET PO (08:59)
[2021-05-26] MEDS: TAMSULOSIN HCL 0.4 MG CAPSULE PO (08:59)
--- NOTE | 2021-05-26 09:30 | PM.DS ---
DS: Admitting Diagnosis Discharge Date 05/26/2021 Admitting Diagnosis ileostomy status, rectal cancer DS: Discharge Diagnosis Discharge Diagnosis (1) Rectal cancer: Code(s): C20 - Malignant neoplasm of rectum Status: Chronic Assessment and Plan: s/p ileostomy takedown, cont routine postop care, f/u 1-2 wks for staple removal, home c po analgesia DS: Summary Hospital Course Reason for hospitalization: Ileostomy status, history of rectal cancer Hospital Course: The patient is a 70-year-old male well known to our service. Patient has a history of rectal cancer status post LAR, complicated by anastomotic leak and subsequent loop ileostomy. The patient presented on 05/22 and had ileostomy reversal by Dr. Robertson, please see full operative report for details of that procedure. Postoperative, the patient has done well on the med surg floor. The patient has now had return of bowel function and is tolerating a diet without issue. The patient has been up and ambulating also without issue. The patient's pain is well controlled with p.o. analgesia. He will now be sent home with p.o. analgesia. He will follow up in the office for staple removal in 1-2 weeks. Status at Discharge Functional status at discharge: independent ambulation Overall status at discharge: patient is progressing back to baseline Time Spent with Patient Time attestation: Total time spent providing and/or coordinating discharge services: Time spent: Less than 30 minutes Exam Const: General: cooperative, comfortable and no acute distress Nutritional Appearance: obese Orientation/consciousness: patient oriented x3 Limitations: no limitations Resp: Effort & Inspection: normal respiratory effort Auscultation: clear to auscultation bilaterally Cardio: Rate: regular rate Rhythm: regular rhythm GI: Inspection: normal to inspection, non-distended and incision GI Palp: Yes Soft to palpation, No Tenderness to palpation present (GI) and No Guarding due to palpation present (GI) DS: Data Data Completed and Pending Completed studies during hospitalization: Pending at discharge 05/22/21 08:45 Surgical [PTH] Routine Labs on day of discharge: Labs from last 24 hours 05/26/21 05/26/21 05:07 05:07 WBC 4.8 RBC 3.84 L Hgb 12.2 L Hct 35.9 L MCV 93.5 MCH 31.8 MCHC 34.0 RDW 12.8 Plt Count 188 MPV 10.8 H Sodium 135 L Potassium 3.4 Chloride 101 Carbon Dioxide 22 Anion Gap 12 BUN 13 Creatinine 0.90 Estim Creat Clear Calc 90 Estimated GFR > 60 Glucose 104 Calcium 8.0 L Discharge Plan Discharge Attending physician on discharge: Caesar Robertson Discharging Clinician: Yuridia Sierra Anticipated Discharge Date/Time: 05/26/21 11:00 Patient Disposition: Home, Self-Care Activity: other - see discharge instructions Diet: regular Wound Care Instructions: other - see discharge instructions Discharge Instructions: Shower daily, no bathing or soaking underwater for 2 weeks. No lifting greater than 10 lb for the next 6 weeks. Okay to take Imodium as needed for greater than 5 BMs per day. Continue Sitz baths and apply Desitin cream as needed for perirectal redness. Call office for increasing pain, redness or drainage at incision, or fevers. Take hydrocodone or OTC Tylenol or ibuprofen as needed for pain. Patient Instructions: Antibiotic Form Stand Alone Forms: General Discharge Information Follow-up/Referrals: Caesar Robertson DO [Physician] - Keep Reg. Scheduled Appt. Discharge Medications: New hydrocodone-acetaminophen 5-325 mg tablet 1 tablet PO Q4H PRN (Reason: pain) Qty: 15 RF: 0 Continued albuterol sulfate 90 mcg/actuation Hfa Aerosol Inhaler 2 puff INHALATION QID PRN (Reason: Dyspnea) RF: 0 finasteride [Proscar] 5 mg Tablet 5 mg PO QAM 30 Days Qty: 30 RF: 0 tamsulosin 0.4 mg Capsule 0.4 mg PO QAM 30 Days Qty: 30
[2021-05-26 10:00] VITALS: BP 135/70; PULSE 68; RESP 20; TEMP 36.8; O2SAT 94
== END 2021-05-26 12:03 | disposition home or self-care (01) | DRG 331 ==
LOC: ANH2MED 05-24 07:11
PROVIDERS: Nurse Practitioner Family; Admitting Provider Surgery; PCP Pediatrics; Visit Provider Surgery
PROC: 0DBB0ZZ Excision of Ileum, Open Approach (ICD-10-PCS; CPT 44620; principal; 2021-05-22 07:30)
DX: Z43.2 Encounter for attention to ileostomy (principal); I10 Essential (primary) hypertension; I48.0 Paroxysmal atrial fibrillation; N40.0 Benign prostatic hyperplasia without lower urinary tract symptoms; Z85.048 Personal history of other malignant neoplasm of rectum, rectosigmoid junction, and anus; Z28.21 Immunization not carried out because of patient refusal; Z79.82 Long term (current) use of aspirin; Z79.899 Other long term (current) drug therapy
CPT/HCPCS: 36415; 80048; 85025; 85027; 88307; A9270; C9803; J0690; J1100; J1170; J1650; J1885; J2250; J2405; J2704; J2710; J3010; J7120; U0003; U0005

== ENCOUNTER 2021-07-09 15:17 | Outpatient (CLI) | payer MEDICARE, SELFPAY ==
[2021-07-09 16:08] LABS: Add Urine Microscopic? NO; Appearance Urine Clear (Clear); Bilirubin Urine Negative (Negative); Blood Urine Negative (Negative); Color Urine Straw (Yellow); Glucose Urine UA Negative (Negative); Ketones Urine Negative (Negative); Leukocyte Esterase Ur Negative LEU/UL (NEGATIVE); Nitrate Urine Negative (Negative); Protein Urine Negative (Negative); Specific Grav Ur 1.009 (1.001-1.035); Urobilinogen Urine Negative mg/dL (<2.0)
== END 2021-07-09 15:18 | disposition home or self-care (01) ==
LOC: ANHLAB 15:19
PROVIDERS: PCP Pediatrics; Visit Provider Surgery
DX: R10.9 Unspecified abdominal pain (principal)
CPT/HCPCS: 81003

== ENCOUNTER 2021-07-09 16:00 | Outpatient (CLI) | payer MEDICARE, SELFPAY ==
--- NOTE | ~2021-07-09 | CT_ITS ---
EXAMINATION: CT abdomen pelvis wo con EXAM DATE: 07/09/2021 16:34 INDICATION: R10.9 - Unspecified abdominal pain. Rectal cancer follow-up. TECHNIQUE: Spiral CT of the abdomen and pelvis was performed without contrast. Axial, coronal and sag ittal images were reviewed. The dose-length product (DLP) for this examination was 1022.39 mGy-cm. The exposure was tailored according to patient size (auto mA exposure control), and iterative reconst ruction (ASIR) was used as additional dose reduction technique. Comparison is made to prior examinati on from 01/11/2021. FINDINGS: There is rectosigmoid anastomosis site. Pocket of fluid and gas in the presacral space whic h appears to likely communicate with the rectosigmoid colon, probably patulous portion of the anastom osis site, or chronic contained dehiscence given this was present on prior study (was fluid-filled). There is a prior right lower quadrant ostomy site. Several punctate left calyceal stones. No ureteral stones or hydronephrosis. The prostate is unremar kable. The bladder is unremarkable. The liver, spleen, adrenal glands and pancreas are unremarkable . Gallbladder is unremarkable. No biliary obstruction. There is no retroperitoneal or pelvic lymph adenopathy. The appendix is normal. The stomach and small bowel are unremarkable. There is mild sigmoid colonic diverticulosis. There is no adjacent inflammatory change to suggest diverticulitis. There is expecte d amount of colonic stool. No free intraperitoneal gas. The heart is normal in size. There are n o pericardial or pleural effusions. There is mild emphysema. There are no osteoblastic or osteolyti c lesions identified. IMPRESSION: 1. Rectosigmoid anastomosis with outpouching, contained pocket of fluid and gas in the presacral spa ce. 2. Mild sigmoid diverticulosis. 3. Punctate left nephrolithiasis. 4. Mild emphysema. Reviewed, dictated and finalized at location A. UNITY RELATIONS COORDINATOR IMPRESSION: 1. Rectosigmoid anastomosis with outpouching, contained pocket of fluid and ga s in the presacral space. 2. Mild sigmoid diverticulosis. 3. Punctate left nephrolithiasis. 4. Mild emphysema.
== END 2021-07-09 16:01 | disposition home or self-care (01) ==
PROVIDERS: PCP Pediatrics; Visit Provider Surgery
DX: K57.30 Diverticulosis of large intestine without perforation or abscess without bleeding (principal); N20.0 Calculus of kidney; J43.9 Emphysema, unspecified
CPT/HCPCS: 74176; 81003

== ENCOUNTER 2021-08-09 13:37 | Outpatient (CLI) | payer MEDICARE, SELFPAY ==
--- NOTE | ~2021-08-09 | MR_ITS ---
EXAMINATION: MR lumbar spine wo con DATE: 08/09/2021 14:28 INDICATION: Low back pain. TECHNIQUE: Magnetic resonance imaging (MRI) of the lumbar spine was performed without intravenous con trast. Sequences included sagittal T2-weighted FSE, sagittal T2-weighted FS FSE, sagittal T1-weighted FSE, and axial T2-weighted FSE. COMPARISON: Lumbar spine radiographs 07/31/2021 FINDINGS: There is 11 degrees dextroscoliosis of thoracolumbar spine. There is mild chronic anterior wedging of T12 vertebral body. There is a burst fracture of L1 with 2/5 loss of height, low signal fr acture line, and bone marrow edema. There is 3 mm retrolisthesis of L3 on L4 and L4 on L5. There is s everely decreased disc height from L3-L4 through L5-S1 with endplate remodeling. The distal spinal co rd signal intensity is normal. The conus medullaris is at L1-L2. The following disc levels are specif ically discussed: L1-L2: The disc does not extend beyond the endplate margin. There is mild right facet joint osteoarth ritis. There is no neural foraminal stenosis. There is no central canal stenosis. L2-L3: The disc is bulging. There is mild bilateral facet joint osteoarthritis. There is mild bilater al neural foraminal stenosis. There is mild central canal stenosis. L3-L4: The disc is bulging and has an annular fissure. There is mild bilateral facet joint osteoarthr itis. There is moderate bilateral neural foraminal stenosis. There is mild central canal stenosis. L4-L5: The disc is bulging and has an annular fissure. There is mild bilateral facet joint osteoarthr itis. There is moderate bilateral neural foraminal stenosis. There is mild central canal stenosis. L5-S1: The disc is bulging and has an annular fissure. There is mild bilateral facet joint osteoarthr itis. There is moderate bilateral neural foraminal stenosis. There is mild central canal stenosis. IMPRESSION: 1. Subacute L1 burst fracture, stable from 07/31/2021. 2. Severe lumbar spondylosis. 3. Thoracolumbar dextroscoliosis. Reviewed, dictated and finalized at location B. [employer] FOR[employer] DEVELOPER
== END 2021-08-09 13:38 | disposition home or self-care (01) ==
LOC: ANHIMG 13:42
PROVIDERS: PCP Pediatrics; Visit Provider Orthopaedic Surgery
DX: M47.896 Other spondylosis, lumbar region (principal)
CPT/HCPCS: 72148

== ENCOUNTER 2021-09-11 10:08 | Outpatient (CLI) | payer MEDICARE, SELFPAY ==
--- NOTE | ~2021-09-11 | CT_ITS ---
EXAMINATION: CT abdomen pelvis w con DATE: 09/11/2021 11:02 INDICATION: Rectal cancer restaging TECHNIQUE: Computed tomography (CT) of the abdomen and pelvis was performed with 100 cc Omnipaque 350 intravenous contrast. Automated exposure control and iterative reconstruction technique were employe d. Exam dose: 1026.86 mGy-cm total exam DLP. COMPARISON: 07/09/2021 CT abdomen pelvis 04/28/2020 CT chest abdomen pelvis FINDINGS: Emphysematous changes are noted. There is minimal dependent atelectasis in the lower lungs. Normal heart size. No pericardial or pleural effusion. 8 mm right hepatic stable hypoechoic attenuation, likely a cyst. There is a very small rounded area o f hypoattenuation at the dome of the liver which appears stable since 04/28/2020, likely a very small cyst. No significant new hepatic finding is noted. The gallbladder is present. No gallbladder wall th ickening or pericholecystic fluid or fat stranding. Normal splenic size and occasional calcified splenic granulomas. No pancreatic mass lesion, calcifica tion or ductal dilatation. Normal morphology of the adrenal glands. There are a couple of small 5-6 mm stable right renal cysts since 04/28/2020. There are 2 pinpoint nonobstructing left renal calculi. No ureteral calculus or hydroureteronephrosis is evident. There is diffuse thickening of the urinary bladder wall; differential diagnosis includes cystitis, bl adder outlet obstruction due to prostate enlargement and/or post radiation change if applicable. Normal caliber of the abdominal aorta. No intraperitoneal or retroperitoneal or pelvic mass lesion or adenopathy or ascites is noted. Normal appendix. No bowel obstruction or intraperitoneal free air. A suture line is again noted in the rectum. There is persistent presacral soft tissue thickening cont aining a sinus tract filled with air extending from the rectum. Status post left total hip arthroplasty. There is patchy sclerosis and moderate anterior wedge compression fracture of L1, a new finding since 07/09/2021. There is degenerative disc disease at L3-4, L4-5 and particularly severe at L5-S1. IMPRESSION: New moderate anterior wedge compression fracture deformity patchy sclerosis of L1 since 07/09/2021 Presacral soft tissue swelling with air-containing fistulous tract from the rectum Status post rectal resection for history of carcinoma Stable small hepatic probable cysts Small right renal cysts 2 pinpoint nonobstructing left renal calculi Diffuse urinary bladder wall; differential diagnosis is given above Reviewed, dictated and finalized at [facility]. Reviewed, dictated and finalized at location B. TREER IMPRESSION: New moderate anterior wedge compression fracture deformity patchy sclerosis of L1 since 07/09/2021 Presacral soft tissue swelling with air-containing fistulous tract from the rec omid Status post rectal resection for history of carcinoma Stable small hepatic probable cysts Small right renal cysts 2 pinpoint nonobstructing left renal calculi Diffuse urinary bladder wall; differential diagnosis is given above
[2021-09-11 10:56] LABS: Estimated Glomerular Filt Rate > 60
== END 2021-09-11 10:09 | disposition home or self-care (01) ==
LOC: ANHIMG 10:12
PROVIDERS: PCP Pediatrics; Visit Provider Internal Medicine Hematology & Oncology
DX: C20 Malignant neoplasm of rectum (principal); M48.56XA Collapsed vertebra, not elsewhere classified, lumbar region, initial encounter for fracture; M79.89 Other specified soft tissue disorders; Z98.890 Other specified postprocedural states; K76.89 Other specified diseases of liver; N28.1 Cyst of kidney, acquired; N20.0 Calculus of kidney
CPT/HCPCS: 74177; Q9967

== ENCOUNTER → 2021-09-17 00:45 | Outpatient (CLI) | payer MEDICARE, SELFPAY ==
[2021-09-17 12:58] LABS: SARS-CoV-2 RNA PCR Negative
== END ==
PROVIDERS: PCP Pediatrics; Visit Provider Surgery
DX: Z01.812 Encounter for preprocedural laboratory examination (principal); Z20.822 Contact with and (suspected) exposure to COVID-19
CPT/HCPCS: C9803; U0003; U0005

== ENCOUNTER 2021-09-20 00:04 | Day surgery (SDC) | payer MEDICARE, SELFPAY ==
[2021-09-10 11:12] VITALS: BMI 32.0
[2021-09-20 06:30] VITALS: BP 171/89; PULSE 72; RESP 20; TEMP 36.6; O2SAT 99; BMI 31.6
[2021-09-20] MEDS: LACTATED RINGERS 1,000 ML 150 ML IV CONT (06:38)
--- NOTE | 2021-09-20 07:22 | WPDANESEPPF ---
Anes - Initial Pre Proc Eval Procedure: Operation Date: 09/20/21 07:30 Proposed Procedures p Screening Colonoscopy - Caesar Robertson DO Date/Time: 09/20/21 07:22 Surgeon: Caesar Robertson DO Pre Op Diagnosis: Hx of rectal ca Patient Data Age: 71 Gender: M Height: 1.83 m Weight: 105.6 kg Last Vital Signs Temp 97.8 F 09/20/21 06:30 Pulse 72 09/20/21 06:30 Resp 20 09/20/21 06:30 BP 171/89 H 09/20/21 06:30 Pulse Ox 99 09/20/21 06:30 Allergies Allergy/AdvReac Type Severity Reaction Status Date / Time No Known Allergies Allergy Verified 09/20/21 06:29 Home Medications Medication Instructions Recorded Confirmed Type albuterol sulfate 2 puff INHALATION QID PRN 01/10/20 09/10/21 History aspirin 325 mg PO QAM 04/20/20 09/10/21 History tamsulosin 0.4 mg PO QAM 30 Days #30 cap 09/20/20 09/10/21 Rx metoprolol succinate 50 mg 100 mg PO DAILY tablet 07/26/21 09/10/21 History tablet,extended release 24 hr pravastatin 20 mg tablet 20 mg PO DAILY #90 tablet 08/09/21 09/10/21 Rx amiodarone 100 mg PO DAILY 09/10/21 09/10/21 History finasteride 5 mg PO DAILY 09/10/21 09/10/21 History Patient hx anesthesia problems: none Family hx anesthesia problems: none Results Review: All pre-operative results and documents have been reviewed as part of the pre-operative evaluation. [facility] Past Medical History Medical History (Updated 07/31/21 @ 09:35 by Loy Fitzgerald MD) Arthritis of lumbosacral spine Arthritis, lumbar spine Benign prostatic hyperplasia Chronic anemia Chronic low back pain Chronic obstructive pulmonary disease Essential hypertension Nausea Normal cardiac stress test (~12/2019) With normal MPI and an ejection fraction of 62%. Osteoarthritis Paroxysmal atrial fibrillation Paroxysmal supraventricular tachycardia Primary colorectal adenocarcinoma (~04/2020) Status post neoadjuvant chemoradiation and low anterior resection on 08/09/2020. Complicated by persistent anastomotic leak requiring diverting loop ileostomy on 08/31/2020. Shingles (~2015) Surgical History Surgical History H/O sigmoidoscopy 11/02/20 History of colonoscopy (~04/20/20) History of ileostomy (~08/31/20) Diverting loop ileostomy due to persistent anastomotic leak as above. History of ileostomy takedown of ileostomy 05/22/21 History of rectal surgery (~08/09/20) Hand assisted laparoscopic low anterior resection with low pelvic anastomosis for colorectal adenocarcinoma , with then subsequent loop ileostomy for anastomotic leak History of repair of rotator cuff (~2007) Bilateral repair per Dr. Fitzgerald. History of total left hip arthroplasty (~01/10/20) Family History Family History Father , age 91 Cancer Skin cancer, Bladder, cancer, Lung cancer Heart disease Sibling Cancer skin cancer Diabetes mellitus Kidney disease Mother , age 95 Cancer Skin cancer, lung cancer Social History Social History Social History: The patient lives in [place], [place] with his and their 2 Labradors. 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 He smoked 1.5 to 2 packs of cigarettes per day for about 50 years and quit in September 2019. He drinks alcohol socially and in moderation. No illicit substance use. His , Rohini Nieves, is his surrogate decision maker and he wishes to be a full code. Smoking packs per day: 0 Smoking cigarettes per day: 0.0 Years smoked: 50 Smoking pack-years: 0.00 Smoking status: Former smoker Tobacco type: cigarettes Second hand tobacco smoke exposure: Yes Additional smoking assessment comments: Smoking for 50 years. Alcohol intake: former Alcohol use details: Moderate Substance use: never Substance use type: does not u
--- NOTE | 2021-09-20 07:31 | PM.IMHP ---
H&P: HPI History of Present Illness Date/Time: 09/20/21 07:31 Chief Complaint: History rectal cancer Narrative: 71-year-old man presents for colonoscopy. It has been 1 year since he had surgery for rectal cancer. He still has some occasional rectal pain but bowel movements are becoming more solid. Review of Systems Review of Systems: All systems reviewed & are unremarkable except as noted in HPI and below Constitutional: Constitutional: Denies chills, Denies fever(s), Denies headache(s) and Denies weight loss Eyes: Eyes: Denies change in vision ENT: Denies dizziness, Denies headache(s), Denies neck mass and Denies throat swelling Cardiovascular: Cardiovascular: Denies chest pain, Denies lightheadedness and Denies dyspnea Respiratory: Respiratory: Denies cough, Denies dyspnea and Denies wheezing Gastrointestinal: Gastrointestinal: Denies abdominal pain, Denies change in bowel habits, Denies nausea and Denies vomiting Genitourinary: Genitourinary: Denies hematuria and Denies dysuria Musculoskeletal: Musculoskeletal: Reports as per HPI Integumentary/Breasts: Skin/Breast: Reports as per HPI Neurologic: Denies dizziness and Denies headache(s) Allergic/Immunologic: Allergic/Immunologic: Denies throat swelling and Denies wheezing PMF Past Medical History Medical History (Updated 07/31/21 @ 09:35 by Loy Fitzgerald MD) Arthritis of lumbosacral spine Arthritis, lumbar spine Benign prostatic hyperplasia Chronic anemia Chronic low back pain Chronic obstructive pulmonary disease Essential hypertension Nausea Normal cardiac stress test (~12/2019) With normal MPI and an ejection fraction of 62%. Osteoarthritis Paroxysmal atrial fibrillation Paroxysmal supraventricular tachycardia Primary colorectal adenocarcinoma (~04/2020) Status post neoadjuvant chemoradiation and low anterior resection on 08/09/2020. Complicated by persistent anastomotic leak requiring diverting loop ileostomy on 08/31/2020. Shingles (~2016) Surgical History Surgical History H/O sigmoidoscopy 11/02/20 History of colonoscopy (~04/20/20) History of ileostomy (~08/31/20) Diverting loop ileostomy due to persistent anastomotic leak as above. History of ileostomy takedown of ileostomy 05/22/21 History of rectal surgery (~08/09/20) Hand assisted laparoscopic low anterior resection with low pelvic anastomosis for colorectal adenocarcinoma , with then subsequent loop ileostomy for anastomotic leak History of repair of rotator cuff (~2007) Bilateral repair per Dr. Fitzgerald. History of total left hip arthroplasty (~01/10/20) Family History Family History Father , age 91 Cancer Skin cancer, Bladder, cancer, Lung cancer Heart disease Sibling Cancer skin cancer Diabetes mellitus Kidney disease Mother , age 95 Cancer Skin cancer, lung cancer Social History Social History Social History: The patient lives in [place], [place] with his and their 2 Labradors. 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 He smoked 1.5 to 2 packs of cigarettes per day for about 50 years and quit in September 2019. He drinks alcohol socially and in moderation. No illicit substance use. His , Rohini Nieves, is his surrogate decision maker and he wishes to be a full code. Smoking packs per day: 0 Smoking cigarettes per day: 0.0 Years smoked: 50 Smoking pack-years: 0.00 Smoking status: Former smoker Tobacco type: cigarettes Second hand tobacco smoke exposure: Yes Additional smoking assessment comments: Smoking for 50 years. Alcohol intake: former Alcohol use details: Moderate Substance use: never Substance use type: does not use Living arrangements: with family Additional living arrangements commen
[2021-09-20 07:52] VITALS: BP 95/61; PULSE 65; RESP 18; O2SAT 92
[2021-09-20 08:02] VITALS: BP 111/67; PULSE 64; RESP 18; O2SAT 96
[2021-09-20 08:12] VITALS: BP 131/96; PULSE 59; RESP 14; O2SAT 99
== END 2021-09-20 08:30 | disposition home or self-care (01) ==
PROVIDERS: PCP Pediatrics; Visit Provider Surgery
PROC: 0DJD8ZZ Inspection of Lower Intestinal Tract, Via Natural or Artificial Opening Endoscopic (ICD-10-PCS; CPT 45378; principal; 2021-09-20 07:30)
DX: Z08 Encounter for follow-up examination after completed treatment for malignant neoplasm (principal); K57.30 Diverticulosis of large intestine without perforation or abscess without bleeding; Z85.048 Personal history of other malignant neoplasm of rectum, rectosigmoid junction, and anus; Z92.21 Personal history of antineoplastic chemotherapy; Z92.3 Personal history of irradiation; Z90.49 Acquired absence of other specified parts of digestive tract; I10 Essential (primary) hypertension; I48.91 Unspecified atrial fibrillation; I47.1 Supraventricular tachycardia; J44.9 Chronic obstructive pulmonary disease, unspecified; N40.0 Benign prostatic hyperplasia without lower urinary tract symptoms; D64.9 Anemia, unspecified; Z87.891 Personal history of nicotine dependence; Z79.51 Long term (current) use of inhaled steroids; Z79.82 Long term (current) use of aspirin
CPT/HCPCS: 45378; C9803; J2704; J7120; U0003; U0005

== ENCOUNTER 2022-05-07 07:28 | Outpatient (CLI) | payer MEDICARE, SELFPAY ==
--- NOTE | ~2022-05-07 | CT_ITS ---
EXAMINATION: CT abdomen pelvis w con DATE: 05/07/2022 08:09 INDICATION: Rectal cancer. TECHNIQUE: Computed tomography (CT) of the abdomen and pelvis was performed with 100 mL Omnipaque 350 intravenous contrast. Automated exposure control and iterative reconstruction technique were employe d. The dose-length product was 643.54 mGy-cm. COMPARISON: CT abdomen and pelvis 09/11/2021 FINDINGS: The visualized portions of the lung bases demonstrate smooth septal thickening and perihila r groundglass opacities. A calcified left lung nodule and calcified left hilar lymph nodes are consis tent with old granulomatous disease. No pleural effusion. The heart size is normal. No pericardial ef fusion. There is a 10 mm cyst in the liver. The gallbladder is normal. There is a 5 mm cyst in the sp rosa isela. The pancreas and adrenal glands are normal. There is cortical thinning of the kidneys. There ar e cysts in right kidney measuring up to 5 mm. There is an anastomosis in the rectum. There is fat str anding in the perirectal region with focus of extraluminal gas. There are no dilated loops of bowel. The appendix is normal. There are no pathologically enlarged lymph nodes. There is no free intraperit haddad fluid. There is a left inguinal hernia containing fat. There is a total left hip arthroplasty. There is severe lumbar spondylosis. There is a chronic compression fracture of L1. IMPRESSION: 1. No evidence of metastatic disease. 2. 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 3. Diffuse lung disease, likely mild pulmonary edema. Reviewed, dictated and finalized at location A. IMPRESSION: 1. No evidence of metastatic disease. 2. 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 3. Diffuse lung disease, likely mild pulmonary edema.
[2022-05-07 08:05] LABS: Estimated Glomerular Filt Rate > 60
== END 2022-05-07 07:29 | disposition home or self-care (01) ==
PROVIDERS: PCP Pediatrics; Visit Provider Internal Medicine Hematology & Oncology
DX: C20 Malignant neoplasm of rectum (principal); R91.8 Other nonspecific abnormal finding of lung field
CPT/HCPCS: 74177; Q9967

== ENCOUNTER 2022-05-14 14:08 | Outpatient (CLI) | payer MEDICARE, SELFPAY ==
[2022-05-14 14:23] LABS: Basophils Absolute Auto 0.1 K/mm3 (0.0-0.1); Basophils Percent Auto 1.4 % (0.2-1.2); Eosinophils Absolute Auto 0.2 K/mm3 (0-0.3); Hematocrit 40.7 % (42.0-52.0); Hemoglobin 13.1 g/dL (14.0-18.0); Immature Granulocyte Absolute 0.02 K/mm3 (0.00-0.031); Immature Granulocyte Percent A 0.4 % (0-0.5); Mean Corpuscular HGB Conc 32.2 g/dl (32-36); Mean Corpuscular Hemoglobin 30.1 pg (26-34); Mean Corpuscular Volume 93.6 fl (80-100); Mean Platelet Volume 10.7 fl (7.4-10.4); Monocytes Absolute Auto 0.6 K/mm3 (0.1-0.6); Neutrophils Absolute Auto 3.2 K/mm3 (1.3-6.7); Neutrophils Percent Auto 64.2 % (45.5-73.1); Platelet Count Result 210 k/mm3 (150-375); Red Blood Count 4.35 M/mm3 (4.6-6.20); Red Cell Distribution Width 13.3 % (11.5-14.5)
[2022-05-14 14:26] LABS: Blood Urea Nitrogen 10 mg/dL (8-26); Carbon Dioxide 28 mmol/L (22-30); Chloride 99 mmol/L (98-109); Estimated Glomerular Filt Rate > 60; Glucose 98 mg/dL (70-105); Potassium 4.4 mmol/L (3.5-4.9); Sodium 137 mmol/L (138-146)
[2022-05-14 16:34] LABS: Alanine Aminotransferase 17 U/L (6-50); Albumin Level 4.1 g/dL (3.5-5.1); Alkaline Phosphatase 88 U/L (38-126); Anion Gap 9 mmol/L (8-16); Aspartate Amino Transferase 24 U/L (17-59); Bilirubin,Total 0.7 mg/dL (0.2-1.3); Blood Urea Nitrogen 11 mg/dL (9-20); Calcium 8.6 mg/dL (8.4-10.2); Carbon Dioxide 25 mmol/L (22-30); Carcinoembryonic Antigen 0.9 ng/mL (0.0-3.0); Chloride 100 mmol/L (98-107); Estimated Glomerular Filt Rate > 60; Glucose 98 mg/dL (65-110); Potassium 4.4 mmol/L (3.4-5.0); Sodium 134 mmol/L (137-145)
== END 2022-05-14 14:09 | disposition home or self-care (01) ==
LOC: ANHLAB 14:09
PROVIDERS: PCP Pediatrics; Visit Provider Internal Medicine Hematology & Oncology
DX: C20 Malignant neoplasm of rectum (principal)
CPT/HCPCS: 36415; 80047; 80053; 82378; 85025

== ENCOUNTER 2022-09-17 14:22 | Outpatient (CLI) | payer MEDICARE, SELFPAY ==
[2022-09-17 14:33] LABS: Basophils Absolute Auto 0.1 K/mm3 (0.0-0.1); Eosinophils Absolute Auto 0.3 K/mm3 (0-0.3); Eosinophils Percent Auto 4.1 % (0-4.4); Hematocrit 42.4 % (42.0-52.0); Hemoglobin 13.9 g/dL (14.0-18.0); Immature Granulocyte Absolute 0.01 K/mm3 (0.00-0.031); Immature Granulocyte Percent A 0.1 % (0-0.5); Lymphocytes Absolute Auto 1.13 K/mm3 (0.9-3.2); Lymphocytes Percent Auto 16.4 % (18.3-44.2); Mean Corpuscular HGB Conc 32.8 g/dl (32-36); Mean Corpuscular Hemoglobin 30.4 pg (26-34); Mean Corpuscular Volume 92.8 fl (80-100); Mean Platelet Volume 10.3 fl (7.4-10.4); Monocytes Absolute Auto 0.6 K/mm3 (0.1-0.6); Monocytes Percent Auto 8.2 % (2.6-8.5); Neutrophils Absolute Auto 4.8 K/mm3 (1.3-6.7); Neutrophils Percent Auto 70.2 % (45.5-73.1); Platelet Count Result 214 k/mm3 (150-375); Red Blood Count 4.57 M/mm3 (4.6-6.20); Red Cell Distribution Width 13.4 % (11.5-14.5); White Blood Count 6.9 K/mm3 (4.5-10.0)
[2022-09-17 14:38] LABS: Blood Urea Nitrogen 12 mg/dL (8-26); Carbon Dioxide 30 mmol/L (22-30); Chloride 102 mmol/L (98-109); Estimated Glomerular Filt Rate > 60; Glucose 103 mg/dL (70-105); Ionized Calcium (POC) 1.19 mmol/L (1.11-1.31); Potassium 4.4 mmol/L (3.5-4.9); Sodium 138 mmol/L (138-146)
[2022-09-17 16:33] LABS: Alanine Aminotransferase 18 U/L (6-50); Albumin Level 3.9 g/dL (3.5-5.1); Alkaline Phosphatase 87 U/L (38-126); Anion Gap 5 mmol/L (8-16); Aspartate Amino Transferase 23 U/L (17-59); Bilirubin,Total 0.6 mg/dL (0.2-1.3); Blood Urea Nitrogen 12 mg/dL (9-20); Calcium 8.9 mg/dL (8.4-10.2); Carbon Dioxide 28 mmol/L (22-30); Chloride 104 mmol/L (98-107); Estimated Glomerular Filt Rate > 60; Glucose 100 mg/dL (65-110); Potassium 4.5 mmol/L (3.4-5.0); Sodium 137 mmol/L (137-145)
[2022-09-17 17:08] LABS: Carcinoembryonic Antigen 1.1 ng/mL (0.0-3.0)
== END 2022-09-17 14:23 | disposition home or self-care (01) ==
LOC: ANHLAB 14:24
PROVIDERS: PCP Pediatrics; Visit Provider Internal Medicine Hematology & Oncology
DX: C20 Malignant neoplasm of rectum (principal)
CPT/HCPCS: 36415; 80047; 80053; 82378; 85025

== ENCOUNTER 2023-01-24 08:21 | Outpatient (CLI) | payer MEDICARE, SELFPAY ==
--- NOTE | ~2023-01-24 | CT_ITS ---
EXAMINATION: CT abdomen pelvis w con DATE: 01/24/2023 08:56 INDICATION: Rectal cancer. TECHNIQUE: Computed tomography (CT) of the abdomen and pelvis was performed with 100 cc Omnipaque 350 intravenous contrast. The dose-length product was 714.92 mGy-cm. Automated exposure control and iter ative reconstruction technique were employed. COMPARISON: CT dated 05/07/2020. FINDINGS: There are coarse interstitial changes with groundglass opacities of the lower lobes. Heart size normal. Calcified granuloma left lower lobe. No significant pleural or pericardial effusion. Sub tle hypodense lesion of the right hepatic lobe, most likely benign. Otherwise, the liver parenchyma i s within normal limits. The spleen, pancreas, adrenal glands and left kidney are unremarkable. There are small subcentimeter hypodensities of the right kidney, too small to characterize although statist ically likely benign. Gallbladder is present. Nonobstructive bowel gas pattern. There is an anastomos is in the rectum. There is fat stranding in the perirectal region with extraluminal gas. No evidence for bowel obstruction. No pathologically enlarged lymph nodes. Mild atherosclerosis. Small fat-contai adalgisa umbilical hernia. There is a left total hip arthroplasty. Generalized demineralization. Severe l umbar spondylosis. Chronic compression fracture of L1 unchanged. IMPRESSION: 1. 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 Appearance is not significantly changed from prior examination allowing for differences of technique. 2: No evidence for metastatic disease. Reviewed, dictated and finalized at location A. IMPRESSION: 1. 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 Appearance is not significantly changed from prior examination allo wing for differences of technique. 2: No evidence for metastatic disease.
[2023-01-24 08:53] LABS: Estimated Glomerular Filt Rate > 60
== END 2023-01-24 08:22 | disposition home or self-care (01) ==
PROVIDERS: PCP Pediatrics; Visit Provider Internal Medicine Hematology & Oncology
DX: C20 Malignant neoplasm of rectum (principal)
CPT/HCPCS: 74177; Q9967

== ENCOUNTER 2023-01-28 11:27 | Outpatient (CLI) | payer MEDICARE, SELFPAY ==
[2023-01-28 11:40] LABS: Basophils Absolute Auto 0.1 K/mm3 (0.0-0.1); Basophils Percent Auto 1.1 % (0.2-1.2); Eosinophils Absolute Auto 0.3 K/mm3 (0-0.3); Eosinophils Percent Auto 4.1 % (0-4.4); Hematocrit 40.6 % (42.0-52.0); Hemoglobin 13.3 g/dL (14.0-18.0); Immature Granulocyte Absolute 0.03 K/mm3 (0.00-0.031); Immature Granulocyte Percent A 0.5 % (0-0.5); Lymphocytes Absolute Auto 1.29 K/mm3 (0.9-3.2); Lymphocytes Percent Auto 21.2 % (18.3-44.2); Mean Corpuscular HGB Conc 32.8 g/dl (32-36); Mean Corpuscular Hemoglobin 31.2 pg (26-34); Mean Corpuscular Volume 95.3 fl (80-100); Mean Platelet Volume 10.2 fl (7.4-10.4); Monocytes Absolute Auto 0.6 K/mm3 (0.1-0.6); Neutrophils Absolute Auto 3.9 K/mm3 (1.3-6.7); Neutrophils Percent Auto 64.1 % (45.5-73.1); Platelet Count Result 220 k/mm3 (150-375); Red Blood Count 4.26 M/mm3 (4.6-6.20); White Blood Count 6.1 K/mm3 (4.5-10.0)
[2023-01-28 11:44] LABS: Blood Urea Nitrogen 14 mg/dL (8-26); Carbon Dioxide 27 mmol/L (22-30); Chloride 100 mmol/L (98-109); Estimated Glomerular Filt Rate 55; Glucose 100 mg/dL (70-105); Ionized Calcium (POC) 1.19 mmol/L (1.11-1.31); Potassium 4.3 mmol/L (3.5-4.9); Sodium 137 mmol/L (138-146)
[2023-01-28 15:05] LABS: Alanine Aminotransferase 20 U/L (6-50); Albumin Level 4.1 g/dL (3.5-5.1); Alkaline Phosphatase 66 U/L (38-126); Anion Gap 5 mmol/L (8-16); Aspartate Amino Transferase 25 U/L (17-59); Bilirubin,Total 0.5 mg/dL (0.2-1.3); Blood Urea Nitrogen 15 mg/dL (9-20); Calcium 8.7 mg/dL (8.4-10.2); Carbon Dioxide 29 mmol/L (22-30); Chloride 101 mmol/L (98-107); Estimated Glomerular Filt Rate > 60; Glucose 96 mg/dL (65-110); Potassium 4.4 mmol/L (3.4-5.0); Sodium 135 mmol/L (137-145)
[2023-01-28 15:32] LABS: Carcinoembryonic Antigen 0.9 ng/mL (0.0-3.0)
== END 2023-01-28 11:28 | disposition home or self-care (01) ==
LOC: ANHLAB 11:30
PROVIDERS: PCP Pediatrics; Visit Provider Internal Medicine Hematology & Oncology
DX: C20 Malignant neoplasm of rectum (principal)
CPT/HCPCS: 36415; 80047; 80053; 82378; 85025

== ENCOUNTER 2023-04-18 12:31 | Outpatient (CLI) | payer MEDICARE, SELFPAY ==
--- NOTE | ~2023-04-18 | CT_ITS ---
EXAMINATION: CT abdomen pelvis w con INDICATION: Abdominal pain, frequent loose stools TECHNIQUE: Computed tomographic images of the abdomen and pelvis were obtained after the administrati on of 100 cc of Omnipaque 350 intravenous contrast. The dose-length product (DLP) was 1047.28 mGy-cm. Automated exposure control and iterative reconstruction technique were employed. COMPARISON: 01/24/2023 FINDINGS: Minimal dependent atelectasis is present in the lung bases. The heart size is normal. There is any millimeters cyst of the right hepatic lobe. There is a 5 mm cyst of the spleen. The pancreas, gallbladder, and adrenal glands are normal. Hypoattenuating lesions of the right kidney measuring up to 5 mm are too small to characterize but likely represent cysts. There is a 3 mm nonobstructing sto ne of the left kidney. No pathologically enlarged abdominal or pelvic lymph nodes are identified. No free intraperitoneal gas or evidence of bowel obstruction. There is calcified atherosclerosis of the aorta and many of the other arteries. There is there is a surgical anastomosis in the rectum. Again s een is a chronic presacral soft tissue density with a fistula to the rectum and a chronic focus of un changed, contained extraluminal gas. There is severe lumbar spondylosis. There is a chronic compressi on fracture of L1. There is a new surgical staple line of the cecum. IMPRESSION: 1. No evidence of metastatic disease. 2. Chronic presacral scarring with fistula and small focus of contained extraluminal gas. Reviewed, dictated and finalized at location B. IMPRESSION: 1. No evidence of metastatic disease. 2. Chronic presacral scarring with fistula and small focus of contained extralu meryl gas.
[2023-04-18 14:06] LABS: Basophils Absolute Auto 0.1 K/mm3 (0.0-0.1); Basophils Percent Auto 1.4 % (0.2-1.2); Eosinophils Absolute Auto 0.3 K/mm3 (0-0.3); Eosinophils Percent Auto 5.5 % (0-4.4); Hematocrit 41.1 % (42.0-52.0); Hemoglobin 13.3 g/dL (14.0-18.0); Immature Granulocyte Absolute 0.01 K/mm3 (0.00-0.031); Immature Granulocyte Percent A 0.2 % (0-0.5); Lymphocytes Absolute Auto 0.94 K/mm3 (0.9-3.2); Lymphocytes Percent Auto 18.4 % (18.3-44.2); Mean Corpuscular HGB Conc 32.4 g/dl (32-36); Mean Corpuscular Hemoglobin 31.1 pg (26-34); Mean Corpuscular Volume 96.3 fl (80-100); Monocytes Absolute Auto 0.5 K/mm3 (0.1-0.6); Neutrophils Absolute Auto 3.3 K/mm3 (1.3-6.7); Neutrophils Percent Auto 65.5 % (45.5-73.1); Platelet Count Result 180 k/mm3 (150-375); Red Blood Count 4.27 M/mm3 (4.6-6.20); Red Cell Distribution Width 13.1 % (11.5-14.5); White Blood Count 5.1 K/mm3 (4.5-10.0)
[2023-04-18 14:18] LABS: Estimated Glomerular Filt Rate > 60
== END 2023-04-18 12:32 | disposition home or self-care (01) ==
PROVIDERS: PCP Pediatrics; Visit Provider Pediatrics
DX: C19 Malignant neoplasm of rectosigmoid junction (principal)
CPT/HCPCS: 36415; 74177; 85025; Q9967

== ENCOUNTER 2023-05-15 10:39 | Outpatient (CLI) | payer MEDICARE, SELFPAY ==
--- NOTE | ~2023-05-15 | CT_ITS ---
CT Scan of the Chest without Contrast: Clinical Indication: Lung cancer screening, smoking history Technique: Contiguous sections were acquired throughout the chest without intravenous contrast. Dose reduction technique was used on this scan by utilizing automated exposure control and iterative recon struction technique. The dose-length product (DLP) was 135.56 mGy-cm. COMPARISON: 05/15/2021 Findings: There is no evidence of any significant mediastinal, hilar or axillary lymphadenopathy. Small calcifi ed mediastinal and right hilar lymph nodes are present. Mild coronary artery calcifications are prese nt. There is no evidence of pleural or pericardial effusion. Scattered calcified granulomas are present. There is moderate emphysema. Images through the upper abdomen reveal no abnormalities. Compression fracture of L1 is present, part ially imaged. Impression: Lung RADS 2: Benign appearance. 12 month follow-up screening CT advised. Moderate emphysema. L1 compression fracture, age-indeterminate, though new since 05/15/2021. Reviewed, dictated and finalized at location . Impression: Lung RADS 2: Benign appearance. 12 month follow-up screening CT advised. Moderate emphysema. L1 compression fracture, age-indeterminate, though new since 05/15/2021.
== END 2023-05-15 10:40 | disposition home or self-care (01) ==
LOC: ANHIMG 10:41
PROVIDERS: PCP Pediatrics; Visit Provider Pediatrics
DX: Z12.2 Encounter for screening for malignant neoplasm of respiratory organs (principal); Z87.891 Personal history of nicotine dependence; J43.9 Emphysema, unspecified
CPT/HCPCS: 71271

== ENCOUNTER → 2023-07-16 12:05 | Outpatient (CLI) | payer MEDICARE, SELFPAY ==
--- NOTE | ~2023-07-16 | XR_ITS ---
[XR_[id number]_CR ] INDICATION: Chest wall pain TECHNIQUE: Frontal projection of the upper left ribs, frontal projection of the lower left ribs, obli que projection of all the left ribs, frontal inspiratory chest x-ray for interpretation. FINDINGS: There are no displaced rib fractures identified. There are no soft tissue abnormality see n. The lungs are clear. IMPRESSION: 1:No acute displaced rib fractures. Reviewed, dictated and finalized at location L. [employer]
== END ==
PROVIDERS: PCP Pediatrics; Visit Provider Pediatrics
DX: R07.89 Other chest pain (principal)
CPT/HCPCS: 71101

== ENCOUNTER 2023-07-24 10:21 | Outpatient (CLI) | payer MEDICARE, SELFPAY ==
[2023-07-24 10:55] LABS: Basophils Absolute Auto 0.1 K/mm3 (0.0-0.1); Basophils Percent Auto 1.6 % (0.2-1.2); Eosinophils Absolute Auto 0.3 K/mm3 (0-0.3); Eosinophils Percent Auto 6.8 % (0-4.4); Hematocrit 41.4 % (42.0-52.0); Hemoglobin 13.4 g/dL (14.0-18.0); Immature Granulocyte Absolute 0.01 K/mm3 (0.00-0.031); Immature Granulocyte Percent A 0.2 % (0-0.5); Lymphocytes Absolute Auto 1.09 K/mm3 (0.9-3.2); Lymphocytes Percent Auto 21.8 % (18.3-44.2); Mean Corpuscular HGB Conc 32.4 g/dl (32-36); Mean Corpuscular Hemoglobin 30.9 pg (26-34); Mean Corpuscular Volume 95.4 fl (80-100); Mean Platelet Volume 10.4 fl (7.4-10.4); Monocytes Absolute Auto 0.5 K/mm3 (0.1-0.6); Monocytes Percent Auto 10.8 % (2.6-8.5); Neutrophils Absolute Auto 2.9 K/mm3 (1.3-6.7); Neutrophils Percent Auto 58.8 % (45.5-73.1); Platelet Count Result 227 k/mm3 (150-375); Red Blood Count 4.34 M/mm3 (4.6-6.20); Red Cell Distribution Width 12.8 % (11.5-14.5)
[2023-07-24 18:12] LABS: Alanine Aminotransferase 16 U/L (6-50); Albumin Level 4.1 g/dL (3.5-5.1); Alkaline Phosphatase 91 U/L (38-126); Anion Gap 8 mmol/L (8-16); Aspartate Amino Transferase 26 U/L (17-59); Bilirubin,Total 0.6 mg/dL (0.2-1.3); Blood Urea Nitrogen 12 mg/dL (9-20); Calcium 9.3 mg/dL (8.4-10.2); Carbon Dioxide 27 mmol/L (22-30); Chloride 104 mmol/L (98-107); Estimated Glomerular Filt Rate > 60; Glucose 97 mg/dL (65-110); Potassium 4.3 mmol/L (3.4-5.0); Sodium 139 mmol/L (137-145)
[2023-07-24 18:43] LABS: Carcinoembryonic Antigen 1.3 ng/mL (0.0-3.0)
== END 2023-07-24 10:22 | disposition home or self-care (01) ==
PROVIDERS: PCP Pediatrics; Visit Provider Internal Medicine Hematology & Oncology
DX: C20 Malignant neoplasm of rectum (principal)
CPT/HCPCS: 36415; 80053; 82378; 85025

== ENCOUNTER 2023-08-18 08:36 | Outpatient (CLI) | payer MEDICARE, SELFPAY ==
[2023-08-18 09:03] LABS: Basophils Absolute Auto 0.1 K/mm3 (0.0-0.1); Basophils Percent Auto 1.6 % (0.2-1.2); Eosinophils Absolute Auto 0.5 K/mm3 (0-0.3); Eosinophils Percent Auto 8.1 % (0-4.4); Hematocrit 40.5 % (42.0-52.0); Hemoglobin 13.5 g/dL (14.0-18.0); Immature Granulocyte Absolute 0.01 K/mm3 (0.00-0.031); Immature Granulocyte Percent A 0.2 % (0-0.5); Lymphocytes Absolute Auto 1.19 K/mm3 (0.9-3.2); Lymphocytes Percent Auto 21.5 % (18.3-44.2); Mean Corpuscular HGB Conc 33.3 g/dl (32-36); Mean Corpuscular Hemoglobin 31.1 pg (26-34); Mean Corpuscular Volume 93.3 fl (80-100); Mean Platelet Volume 10.8 fl (7.4-10.4); Monocytes Absolute Auto 0.5 K/mm3 (0.1-0.6); Monocytes Percent Auto 8.5 % (2.6-8.5); Neutrophils Absolute Auto 3.3 K/mm3 (1.3-6.7); Neutrophils Percent Auto 60.1 % (45.5-73.1); Platelet Count Result 183 k/mm3 (150-375); Red Blood Count 4.34 M/mm3 (4.6-6.20); Red Cell Distribution Width 12.8 % (11.5-14.5); White Blood Count 5.5 K/mm3 (4.5-10.0)
[2023-08-18 09:08] LABS: Blood Urea Nitrogen 16 mg/dL (8-26); Carbon Dioxide 24 mmol/L (22-30); Chloride 101 mmol/L (98-109); Estimated Glomerular Filt Rate > 60; Glucose 98 mg/dL (70-105); Potassium 3.8 mmol/L (3.5-4.9); Sodium 139 mmol/L (138-146)
[2023-08-18 17:05] LABS: Alanine Aminotransferase 15 U/L (6-50); Albumin Level 3.8 g/dL (3.5-5.1); Alkaline Phosphatase 73 U/L (38-126); Anion Gap 8 mmol/L (8-16); Aspartate Amino Transferase 24 U/L (17-59); Bilirubin,Total 0.5 mg/dL (0.2-1.3); Blood Urea Nitrogen 16 mg/dL (9-20); Carbon Dioxide 24 mmol/L (22-30); Chloride 104 mmol/L (98-107); Estimated Glomerular Filt Rate > 60; Glucose 93 mg/dL (65-110); Potassium 3.9 mmol/L (3.4-5.0); Sodium 136 mmol/L (137-145)
[2023-08-18 17:57] LABS: Carcinoembryonic Antigen 1.3 ng/mL (0.0-3.0)
== END 2023-08-18 08:37 | disposition home or self-care (01) ==
LOC: ANHLAB 08:38
PROVIDERS: PCP Pediatrics; Visit Provider Internal Medicine Hematology & Oncology
DX: C20 Malignant neoplasm of rectum (principal)
CPT/HCPCS: 36415; 80047; 80053; 82378; 85025

== ENCOUNTER 2024-04-07 07:36 | Outpatient (CLI) | payer MEDICARE, SELFPAY ==
--- NOTE | ~2024-04-07 | CT_ITS ---
CT of the Abdomen and Pelvis: Indication: Rectal cancer Technique: 2.5 mm axial scans were obtained through the abdomen and pelvis following intravenous adm inistration of 100 cc of Omnipaque 350. Dose reduction technique was used on this scan by utilizing a utomated exposure control and iterative reconstruction technique. The dose-length product (DLP) was 5 86.09 mGy-cm. COMPARISON: 04/18/2023 Findings: Scans through the lung bases are unremarkable. There is diffuse hepatic steatosis. The spleen, pancreas, gallbladder, adrenals and kidneys are withi n normal limits. There are atherosclerotic calcifications of the aorta. No lymphadenopathy. Rectosigmoid anastomosis noted. There is persistent soft tissue thickening and extraluminal air in th e presacral region, similar appearance to prior exam. No bowel obstruction. Images through the pelvis are degraded by streak artifact from left hip arthroplasty. Urinary bladder unremarkable. Prostate gland unremarkable. No ascites. Chronic L1 compression fracture present. Impression: No significant interval change. Stable presacral soft tissue thickening and extraluminal air, compati ble with chronic contained perforation or fistula. No evidence for metastatic disease. Diffuse hepatic steatosis. Reviewed, dictated and finalized at location . Impression: No significant interval change. Stable presacral soft tissue thickening and ext raluminal air, compatible with chronic contained perforation or fistula. No evidence for metastatic disease. Diffuse hepatic steatosis.
[2024-04-07 08:05] LABS: Estimated Glomerular Filt Rate > 60
== END 2024-04-07 07:37 | disposition home or self-care (01) ==
PROVIDERS: PCP Pediatrics; Visit Provider Internal Medicine Hematology & Oncology
DX: C20 Malignant neoplasm of rectum (principal); K76.0 Fatty (change of) liver, not elsewhere classified
CPT/HCPCS: 74177; Q9967

== ENCOUNTER 2024-05-18 11:18 | Outpatient (CLI) | payer MEDICARE, SELFPAY ==
--- NOTE | ~2024-05-18 | CT_ITS ---
CT Scan of the Chest without Contrast: Clinical Indication: Lung cancer screening, nicotine dependence Technique: Contiguous sections were acquired throughout the chest without intravenous contrast. Dose reduction technique was used on this scan by utilizing automated exposure control and iterative recon struction technique. The dose-length product (DLP) was 140.42 mGy-cm. COMPARISON: 05/15/2023 Findings: There is no evidence of any significant mediastinal, hilar or axillary lymphadenopathy. Calcified med iastinal lymph nodes are present. There is no evidence of pleural or pericardial effusion. Moderate emphysema present. Calcified granulomas are present. There is focal airspace opacities left lung base, likely focal atelectatic change or pneumonia. Images through the upper abdomen reveal no abnormalities. Chronic L1 compression fracture present. Impression: Lung RADS 2: Benign appearance. 12 month follow-up screening CT advised. Focal atelectasis or possibly pneumonia at the left lung base. Reviewed, dictated and finalized at [facility]. Impression: Lung RADS 2: Benign appearance. 12 month follow-up screening CT advised. Focal atelectasis or possibly pneumonia at the left lung base.
== END 2024-05-18 11:19 | disposition home or self-care (01) ==
PROVIDERS: PCP Pediatrics; Visit Provider Pediatrics
DX: Z12.2 Encounter for screening for malignant neoplasm of respiratory organs (principal); Z87.891 Personal history of nicotine dependence
CPT/HCPCS: 71271

== ENCOUNTER 2024-06-08 02:14 | Day surgery (SDC) | payer MEDICARE, SELFPAY ==
[2024-05-25 14:22] VITALS: BMI 23.5
[2024-06-08 10:17] VITALS: BP 152/82; PULSE 62; RESP 20; TEMP 36.1; O2SAT 100
[2024-06-08] MEDS: LACTATED RINGERS 1,000 ML 150 ML IV CONT (10:27)
--- NOTE | 2024-06-08 11:00 | WPDANESEPPF ---
Anes - Initial Pre Proc Eval Procedure: Operation Date: 06/08/24 11:00 Proposed Procedures p Colonoscopy - Caesar Robertson DO Date/Time: 06/08/24 11:00 Surgeon: Caesar Robertson DO Pre Op Diagnosis: Other fecal abnormalities Patient Data Age: 73 Gender: M Height: 1.83 m Weight: 81 kg Last Vital Signs Temp 36.1 C L 06/08/24 10:17 Pulse 62 06/08/24 10:17 Resp 20 06/08/24 10:17 BP 152/82 H 06/08/24 10:17 Pulse Ox 100 06/08/24 10:17 O2 Del Method Room Air 06/08/24 10:17 Allergies Allergy/AdvReac Type Severity Reaction Status Date / Time No Known Allergies Allergy Verified 06/08/24 10:15 Home Medications Medication Instructions Recorded Confirmed Type albuterol sulfate 90 mcg/actuation 2 puff inhalation QID PRN Dyspnea 01/10/20 05/25/24 History aerosol inhaler aspirin 325 mg tablet 325 mg PO QAM 04/20/20 05/25/24 History tamsulosin 0.4 mg capsule 0.4 mg PO QAM 30 days #30 caps 09/20/20 05/25/24 Rx finasteride 5 mg tablet 5 mg PO DAILY 09/10/21 05/25/24 History cyclobenzaprine 10 mg tablet 10 mg PO .prn 07/25/22 05/25/24 History hydrocodone 5 mg-acetaminophen 325 1 tablet PO QHS PRN Pain 07/24/23 05/25/24 History mg tablet metoprolol succinate 25 mg 25 mg PO DAILY #90 tabs 11/03/23 05/25/24 Rx tablet,extended release 24 hr pravastatin 20 mg tablet See Rx Instructions .Route 01/30/24 05/25/24 Rx .COMPLEX #90 tabs amiodarone 100 mg tablet See Rx Instructions .Route 04/29/24 05/25/24 Rx .COMPLEX #90 tabs losartan 50 mg tablet See Rx Instructions .Route 05/21/24 05/25/24 Rx .COMPLEX #90 tabs Patient hx anesthesia problems: none Family hx anesthesia problems: none Results Review: All pre-operative results and documents have been reviewed as part of the pre-operative evaluation. 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 Osteoarthritis Paroxysmal atrial fibrillation Paroxysmal supraventricular tachycardia Primary colorectal adenocarcinoma (~04/2020) Status post neoadjuvant chemoradiation and low anterior resection on 08/09/2020. Complicated by persistent anastomotic leak requiring diverting loop ileostomy on 08/31/2020. Sacral back pain Shingles (~2015) Surgical History Surgical History H/O sigmoidoscopy 11/02/20 History of colonoscopy (~04/20/20) History of ileostomy (~08/31/20) Diverting loop ileostomy due to persistent anastomotic leak as above. History of ileostomy takedown of ileostomy 05/22/21 History of rectal surgery (~08/09/20) Hand assisted laparoscopic low anterior resection with low pelvic anastomosis for colorectal adenocarcinoma , with then subsequent loop ileostomy for anastomotic leak History of repair of rotator cuff (~2007) Bilateral repair per Dr. Fitzgerald. History of total left hip arthroplasty (~01/10/20) January 2020 Family History Family History Father , age 91 Cancer Skin cancer, Bladder, cancer, Lung cancer Heart disease Sibling Cancer skin cancer Diabetes mellitus Kidney disease Mother , age 95 Cancer Skin cancer, lung cancer Social History Social History Social History: The patient lives in [place], [place] with his and their 2 Labradors. 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 He smoked 1.5 to 2 packs of cigarettes per day for about 50 years and quit in September 2019. He drinks alcohol socially and in moderation. No illicit substance use. His , Rohini Neives, is his surrogate decision maker and he wishes to be a full code. Smoking packs per day: 0 Smoking cigarettes per day: 0.0 Years smoked: 50 Smoking pack-years: 0.00 Smoking status: Former smoker Tobacco type: cigarettes Second hand tobacco smoke exposure: Yes Smoking end date: 09/11/19 Additional smoking assessment comments: Smoking for 50 years. 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 Informed Consent: The patient's anesthetic plan and its attendant risks and benefits were discussed with the patient/family/POA. Questions were solicited and answers provided to the satisfaction of the patient/family/POA.
--- NOTE | 2024-06-08 11:30 | PM.IMHP ---
H&P: HPI History of Present Illness Date/Time: 06/08/24 11:30 Chief Complaint: rectal cancer Narrative: this is a 73-year-old man who presents for colonoscopy. He has a history of rectal cancer and underwent low anterior resection in 2019. He has been following oncology and has had surveillance CTs. This last colonoscopy was normal in 2021. He denies any hematochezia or melena. Review of Systems Review of Systems: All systems reviewed & are unremarkable except as noted in HPI and below Constitutional: Constitutional: Denies chills, Denies fever(s), Denies headache(s) and Denies weight loss Eyes: Eyes: Denies change in vision ENT: Denies dizziness, Denies headache(s), Denies neck mass and Denies throat swelling Cardiovascular: Cardiovascular: Denies chest pain, Denies lightheadedness and Denies dyspnea Respiratory: Respiratory: Denies cough, Denies dyspnea and Denies wheezing Gastrointestinal: Gastrointestinal: Denies abdominal pain, Denies change in bowel habits, Denies nausea and Denies vomiting Genitourinary: Genitourinary: Denies hematuria and Denies dysuria Musculoskeletal: Musculoskeletal: Reports as per HPI Integumentary/Breasts: Skin/Breast: Reports as per HPI Neurologic: Denies dizziness and Denies headache(s) Allergic/Immunologic: Allergic/Immunologic: Denies throat swelling and Denies wheezing [facility] Past Medical History Medical History Arthritis of lumbosacral spine Arthritis, lumbar spine Benign prostatic hyperplasia Chronic anemia Chronic low back pain Chronic obstructive pulmonary disease 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 Osteoarthritis Paroxysmal atrial fibrillation Paroxysmal supraventricular tachycardia Primary colorectal adenocarcinoma (~04/2020) Status post neoadjuvant chemoradiation and low anterior resection on 08/09/2020. Complicated by persistent anastomotic leak requiring diverting loop ileostomy on 08/31/2020. Sacral back pain Shingles (~2015) Surgical History Surgical History H/O sigmoidoscopy 11/02/20 History of colonoscopy (~04/20/20) History of ileostomy (~08/31/20) Diverting loop ileostomy due to persistent anastomotic leak as above. History of ileostomy takedown of ileostomy 05/22/21 History of rectal surgery (~08/09/20) Hand assisted laparoscopic low anterior resection with low pelvic anastomosis for colorectal adenocarcinoma , with then subsequent loop ileostomy for anastomotic leak History of repair of rotator cuff (~2007) Bilateral repair per Dr. Fitzgerald. History of total left hip arthroplasty (~01/10/20) January 2020 Family History Family History Father , age 91 Cancer Skin cancer, Bladder, cancer, Lung cancer Heart disease Sibling Cancer skin cancer Diabetes mellitus Kidney disease Mother , age 95 Cancer Skin cancer, lung cancer Social History Social History Social History: The patient lives in [place], [place] with his and their 2 Labradors. 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 He smoked 1.5 to 2 packs of cigarettes per day for about 50 years and quit in September 2019. He drinks alcohol socially and in moderation. No illicit substance use. His , Rohini Nieves, is his surrogate decision maker and he wishes to be a full code. Smoking packs per day: 0 Smoking cigarettes per day: 0.0 Years smoked: 50 Smoking pack-years: 0.00 Smoking status: Former smoker Tobacco type: cigarettes Second hand tobacco smoke exposure: Yes Smoking end date: 09/11/19 Additional smoking assessment comments: Smoking for 50 years. 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[employer] Gender identity (if verbalized by the patient): Male Spiritual care concerns: No Meds Home Medications and Allergies Home Medications Medication Instructions Recorded Confirmed Type albuterol sulfate 90 mcg/actuation 2 puff inhalation QID PRN Dyspnea 01/10/20 05/25/24 History aerosol inhaler aspirin 325 mg tablet 325 mg PO QAM 04/20/20 05/25/24 History tamsulosin 0.4 mg capsule 0.4 mg PO QAM 30 days #30 caps 09/20/20 05/25/24 Rx finasteride 5 mg tablet 5 mg PO DAILY 09/10/21 05/25/24 History cyclobenzaprine 10 mg tablet 10 mg PO .prn 07/25/22 05/25/24 History hydrocodone 5 mg-acetaminophen 325 1 tablet PO QHS PRN Pain 07/24/23 05/25/24 History mg tablet metoprolol succinate 25 mg 25 mg PO DAILY #90 tabs 11/03/23 05/25/24 Rx tablet,extended release 24 hr pravastatin 20 mg tablet See Rx Instructions .Route 01/30/24 05/25/24 Rx .COMPLEX #90 tabs amiodarone 100 mg tablet See Rx Instructions .Route 04/29/24 05/25/24 Rx .COMPLEX #90 tabs losartan 50 mg tablet See Rx Instructions .Route 05/21/24 05/25/24 Rx .COMPLEX #90 tabs Allergies Allergy/AdvReac Type Severity Reaction Status Date / Time No Known Allergies Allergy Verified 06/08/24 10:15 Vital Signs Vital Signs - 24 hr 06/08/24 10:17 Temperature 97 F L Pulse Rate 62 Respiratory Rate 20 Blood Pressure 152/82 H Pulse Oximetry 100 Oxygen Delivery Room Air Exam Const: General: no acute distress and alert Orientation/consciousness: patient oriented x3 HENMT: Head: normocephalic and atraumatic Ears: hearing grossly normal bilaterally Face/Nose/Sinus: Normal nares present Mouth: Yes Normal oral and palatal mucosa present Eyes: Periorbital: periorbital findings normal Sclera: sclerae normal EOM: EOMs intact bilaterally Neck: Neck: normal visual inspection, no lymphadenopathy and trachea midline Chest: Chest palpation & inspection: normal inspection of the chest Resp: Effort & Inspection: normal respiratory effort Auscultation: clear to auscultation bilaterally Cardio: Jugular venous distension: no JVD Rate: regular rate Rhythm: regular rhythm Heart sounds: S1 normal heart sound present and S2 normal heart sound present Peripheral pulses: Peripheral pulses 2+ throughout GI: Inspection: normal to inspection GI Palp: Yes Soft to palpation, No Tenderness to palpation present (GI), No Guarding due to palpation present (GI) and No Rebound tenderness present Percussion: Yes normal to percussion Auscultation: normal bowel sounds : General: Yes no CVA tenderness Back/Spine/Pelvis: Back: no CVA tenderness Neuro: General: patient oriented x3, no focal motor deficits and CN's II-XI intact bilaterally Cognition (Neuro): normal cognition Speech: normal speech Motor exam (neuro): 5/5 motor strength present throughout Extrem: General: capillary refill normal and no clubbing, cyanosis or edema Assessment and Plan Assessment and plan (1) Rectal cancer: Code(s): C20 - Malignant neoplasm of rectum Status: Chronic Assessment and Plan: I have recommended colonoscopy. I have discussed the procedure, risks, benefits, and alternatives. Questions were answered. Patient is agreeable to proceed.
[2024-06-08 12:05] VITALS: BP 127/80; PULSE 53; RESP 18; O2SAT 100
[2024-06-08 12:15] VITALS: BP 159/95; PULSE 53; RESP 18; O2SAT 100
[2024-06-08 12:25] VITALS: BP 166/97; PULSE 53; RESP 18; O2SAT 100
== END 2024-06-08 12:49 | disposition home or self-care (01) ==
PROVIDERS: PCP Pediatrics; Visit Provider Surgery
PROC: 0DJD8ZZ Inspection of Lower Intestinal Tract, Via Natural or Artificial Opening Endoscopic (ICD-10-PCS; CPT 45378; principal; 2024-06-08 11:00)
DX: Z09 Encounter for follow-up examination after completed treatment for conditions other than malignant neoplasm (principal); K57.30 Diverticulosis of large intestine without perforation or abscess without bleeding; L92.8 Other granulomatous disorders of the skin and subcutaneous tissue; K51.814 Other ulcerative colitis with abscess; I10 Essential (primary) hypertension; N40.0 Benign prostatic hyperplasia without lower urinary tract symptoms; D64.9 Anemia, unspecified; J44.9 Chronic obstructive pulmonary disease, unspecified; M19.041 Primary osteoarthritis, right hand; I48.0 Paroxysmal atrial fibrillation; I47.19 Other supraventricular tachycardia; M47.897 Other spondylosis, lumbosacral region; M47.896 Other spondylosis, lumbar region; G89.29 Other chronic pain; M54.50 Low back pain, unspecified; Z79.51 Long term (current) use of inhaled steroids; Z79.82 Long term (current) use of aspirin; Z79.891 Long term (current) use of opiate analgesic; Z98.890 Other specified postprocedural states; Z98.0 Intestinal bypass and anastomosis status; Z90.49 Acquired absence of other specified parts of digestive tract; Z87.891 Personal history of nicotine dependence; Z85.048 Personal history of other malignant neoplasm of rectum, rectosigmoid junction, and anus; Z84.0 Family history of diseases of the skin and subcutaneous tissue; Z80.52 Family history of malignant neoplasm of bladder; Z80.1 Family history of malignant neoplasm of trachea, bronchus and lung; Z82.49 Family history of ischemic heart disease and other diseases of the circulatory system
CPT/HCPCS: 45380; 88305; J2704; J7120

== ENCOUNTER 2024-12-29 07:59 | Outpatient (CLI) | payer MEDICARE, SELFPAY ==
--- NOTE | ~2024-12-29 | CT_ITS ---
EXAMINATION: CT abdomen pelvis w con DATE: 12/29/2024 08:26 INDICATION: Abdominal discomfort TECHNIQUE: Computed tomography (CT) of the abdomen and pelvis was performed with 100 mL Omnipaque-350 intravenous contrast. Automated exposure control and iterative reconstruction technique were employe d. The dose-length product was 623.20 mGy-cm. COMPARISON: 04/07/2024 FINDINGS: Lung bases are clear. Heart size is normal. Atherosclerotic coronary artery calcification. No pericar dial or pleural effusion. Calcified mediastinal lymph nodes consistent with old granulomatous disease . Cysts versus hemangiomas in the liver and spleen. Gallbladder, pancreas and bilateral adrenal gland s are normal. There are also few subcentimeter low-attenuation cysts in both kidneys. 3 mm nonobstruc ting left renal stone. Bladder is normal. Normal appendix. Anastomotic suture line along a loop of sm all bowel in the right lower quadrant. No bowel obstruction.. Large amount of colonic stool. 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 No free intraperitoneal gas or fluid. No pat hologically enlarged abdominal or pelvic lymphadenopathy. Severe lumbar spondylosis and chronic L1 co mpression fracture. Left total hip arthroplasty. IMPRESSION: 1. 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 No other acute intra-abdominal/pelvic process. Reviewed, dictated and finalized at location A. IMPRESSION: 1. 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 No other acute intra-abdominal/pelvic process.
[2024-12-29 08:22] LABS: Estimated Glomerular Filt Rate 60
--- OUTSIDE RECORDS SUMMARY | 2024-12-29 08:47 | XMS_ITS | Clinical Summary ---
Author Organization [facility] Address [address] [facility] [address] [place] [address] Phone Care Team Providers Care Program Project Manager Name Role Phone Chapin Galdamez MD Primary Care Provider [phone] Caesar Robertson MD Unavailable [phone] Alex Conti Unavailable Allergies No known active allergies Medications metroNIDAZOLE (FLAGYL) 250 MG Tablet 0 Active hydroCHLOROthia zide 25 MG Tablet TAKE 1 TABLET (25 MG) BY ORAL ROUTE ONCE A DAY 0 Active lisinopril (PRINIVIL, ZESTRIL) 10 MG Tablet Take 10 mg by mouth daily. 0 Active Acetaminophen (TYLENOL ARTHRITIS PAIN PO) Take 625 mg by mouth. Pt states he takes this medication q 4hrs Active aspirin 325 MG Tablet Take 325 mg by mouth daily. Active Active Problems No known active problems Family History Medical History Relation Name Comments Cancer Father Cancer Sister Relation Name Status Comments Father Sister Social History Tobacco Use Types Packs/Day Years Used Date Smoking Tobacco: Former Smokeless Tobacco: Never Tobacco Cessation:Counseling Given: No Alcohol Use Standard Drinks/Week Comments Yes 0 (1 standard drink = 0.6 oz pur e alcohol) Drinks beer 2x week Sex and Gender Information Value Date Recorded Sex Assigned at Not on file Legal Sex Male 3:31 PM CDT Gender Identity Not on file Sexual Orientation Not on file Last Filed Vital Signs Vital Sign Reading Time Taken Comments Blood Pressure 118/88 04/04/2020 2:34 PM CDT Pulse 68 04/04/2020 2:34 PM CDT Temperature 36.7 C (98 F) 04/04/2020 2:34 PM CDT Respiratory Rate 22 04/04/2020 2:34 PM CDT Oxygen Saturation 96% 04/04/2020 2:34 PM CDT Inhaled Oxygen Concentration - - Weight 95.3 kg (210 lb) 04/04/2020 2:34 PM CDT Height 182.9 cm (6') 04/04/2020 2:34 PM CDT Body Mass Index 28.48 04/04/2020 2:34 PM CDT Plan of Treatment Health Maintenance Due Date Last Done Comments Hepatitis C Virus (HCV) Screening 1950 TdaP Immunization 1950 Cologuard 2002 Pneumococcal Immunization (5 0+ years) (1 of 1 - PCV) 2002 Zoster Immunization (1 of 2) 2002 Immunochemical Fecal Occult Blood 03/27/2021 020 Colonoscopy 04/20/2021 04/20/2020 Colorectal Cancer Screening 04/20/2021 Influenza Immunization (#1) 2024 SARS-COV-2 Immunization ( season) 2024 Respiratory Syncytial Virus (RSV) Immunization (Adult) (1 - 1-dose 75+ series) 2027 04/20/2020 Hepatitis B Immunization Aged Out No longer eligible based on patient's age to complete this topic Meningococcal Immunization (ACWY) Aged Out No longer eligible based on patient's age to complete this topic Rotavirus Immunization Aged Out No lo nger eligible based on patient's age to complete this topic Procedures Procedure Name Priority Date/Time Associated Diagnosis Comments COLONOSCOPY Routine 04/20/2020 STOOL, OCCULT BLOOD IMMUNOAS SAY (IFOB) Routine 03/27/2020 from Last 3 Months or Most Recently Relevant to Health Maintenance Results * COLONOSCOPY (04/20/2020) us Daryn T Klslava DO PROCEDURE/MINOR SURGICAL ORDERA BLES Final Result * STOOL, OCCULT BLOOD IMMUNOASSAY (IFOB) (03/27/2020) Other STOOL SPECIMEN / Unknown us Chapin Galdamez MD BODY FLUIDS & STOOLS ORDERABLE S Final Result from Last 3 Months or Most Recently Relevant to Health Maintenance Insurance MEDICARE C [employer]ET[employer] Care Teams Program Project Manager Relationship Specialty Start Date End Date Chapin Galdamez MD [address] [place] [address] PCP - General Pediatrics 04/04/20 Caesar Robertson MD [address] [facility] [address] [place] [address] General Surgery 05/04/20 Alex Conti [address] [facility] [address] [place] [address] Hematology 05/04/20
--- OUTSIDE RECORDS SUMMARY | 2024-12-29 08:47 | XMS_ITS | Clinical Summary ---
[facility] Address [address] [address] Care Team Providers Care Urban And Regional Planner Name Role Phone Bryn Galdamez MD Primary Care Provider [phone] Allergies No known active allergies Medications aspirin (KAMRAN) 325 mg tablet Take 325 mg by mouth. Active albuterol HFA 90 mcg inhaler Take 2 Puffs by inhalation every 6 hours as needed for Shortness of Breath. Active amiodarone (CORDARONE) 200 mg tablet Take 100 mg by mouth daily. 0 Active metoprolol succinate (TOPROL XL) 50 mg Extended Release 24 hour tablet TAKE 1 TABLET BY MOUTH EVERY DAY 0 Active tamsulosin (FLOMAX) 0.4 mg capsule 1 Active finasteride (PROSCAR) 5 mg tablet 1 Active pravastatin (PRAVACHOL) 20 mg tablet 1 Active diphenoxylate-a tropine 2.5 mg-0.025 mg/5 mL oral liquid Take 5 mL by mouth 4 times daily as needed for Diarrhea/Loose Stools. Active losartan (COZAAR) 25 mg tablet Take 50 mg by mouth daily. Active Active Problems Problem Noted Date Diagnosed Date Rectal cancer 04/28/2020 Encounters Date Type Department Care Team Description 11/23/2024 External Device Data STL ABSTRACTION Provider, Abstract 10/27/2024 External Device Data STL ABSTRACTION Provider, Abstract 10/27/2024 External Device Data ST[facility] ABSTRACTION Provider, Abstract 10/18/2024 External Device Data STL ABSTRACTION Provider, Abstract 10/16/2024 External Device Data STL ABSTRACTION Provider, Abstract 10/15/2024 External Device Data STL ABSTRACTION Provider, Abstract 10/13/2024 External Device Data STL ABSTRACTION Provider, Abstract from Last 3 Months Family History Medical History Relation Name Comments Cancer Brother Cancer Father Heart Disease Father Cancer Mother Diabetes Mother Cancer Sister Relation Name Status Comments Brother Alive Father Mother Sister Alive Social History Tobacco Use Types Packs/Day Years Used Date Smoking Tobacco: Former Cigarettes 1.5 25 Smokeless Tobacco: Never Tobacco Cessation:Counseling Given: Not Answered Alcohol Use Standard Drinks/Week Comments Yes 0 (1 standard drink = 0.6 oz pur e alcohol) OCAASIONLLY Sex and Gender Information Value Date Recorded Sex Assigned at Not on file Legal Sex Male 2:36 PM CDT Gender Identity Not on file Sexual Orientation Not on file Last Filed Vital Signs Vital Sign Reading Time Taken Comments Blood Pressure 139/78 05/11/2024 9:57 AM CDT Pulse 53 05/11/2024 9:52 AM CDT Temperature 36.5 C (97.7 F) 05/11/2024 9:52 AM CDT Respiratory Rate 16 05/11/2024 9:52 AM CDT Oxygen Saturation 94% 05/11/2024 9:52 AM CDT Inhaled Oxygen Concentration - - Weight 83.9 kg (185 lb) 05/11/2024 9:52 AM CDT Height 182.9 cm (6') 05/14/2022 2:28 PM CDT Body Mass Index 25.09 05/14/2022 2:28 PM CDT Plan of Treatment Upcoming Encounters Date Type Department Care Team (Late st Contact Info) Description 02/08/2025 10:00 AM CDT Office Visit [facility] Oncology and Hematology - [place] [address] [facility] [address] [place] [address] Alex Conti MD [address] [facility] [address] [place] [address] Health Maintenance Due Date Last Done Comments DTAP/TDAP/TD VACCINES (1 - Tdap) 1971 PNEUMOCOCCAL VACCINE 50+ YEARS (1 of 1 - PCV) 07/31/20 02 ZOSTER VACCINE (1 of 2) 2002 Abdominal Aortic Aneurysm (AAA) Screening 2017 INFLUENZA VACCINE (#1) 2024 08/03/2020 RSV VACCINE (60+ or ) (1 - 1-dose 75+ series) 2027 COLORECTAL SCREENING Discontinued 04/20/2020 Colorectal Cancer Screening Discontinued FIT-DNA Q 3 years Discontinued FIT/FOBT Q 1 year Discontinued Flex Sig/CT Colonography Q 5 years Discontinued Insurance AETNA PPO MCR Care Teams Urban And Regional Planner Relationship Specialty Start Date End Date Bryn Galdamez MD [address] [place] [phone] PCP - General Family Practice 04/28/20
--- OUTSIDE RECORDS SUMMARY | 2024-12-29 08:47 | XMS_ITS | Encounter Summary ---
Author Organization [facility] Address [address] [place] [address] Care Team Providers Care Desktop Specialist Name Role Phone Bryn Galdamez MD Primary Care Provider [phone] Encounter Details Date Type Department Care Team (Late Contact Info) Description 05/03/2020 Chart Note Tyrone Cavazos [facility] Radiation Therapy [address] [place] [address] [place] [address] [place] [address] Social History Tobacco Use Types Packs/Day Years Used Date Smoking Tobacco: Former Cigarettes 1.5 25 Smokeless Tobacco: Never Alcohol Use Standard Drinks/Week Comments Yes 0 (1 standard drink = 0.6 oz pur e alcohol) OCAASIONLLY Sex and Gender Information Value Date Recorded Sex Assigned at Not on file Legal Sex Male 2:36 PM CDT Gender Identity Not on file Sexual Orientation Not on file COVID-19 Exposure Response Date Recorded In the last month, have you been in contact with someone who was confirmed or suspected to have Coronavirus / COVID-19? No / Unsure 04/28/2020 1:40 PM CDT documented as of this encounter Plan of Treatment Upcoming Encounters Date Type Department Care Team (Late st Contact Info) Description 02/08/2025 10:00 AM CDT Office Visit [facility] Oncology and Hematology - [place] [address] [place] [address] Alex Conti MD [address] [facility] [address] [place] [address] documented as of this encounter Visit Diagnoses Not on filedocumented in this encounter Care Teams Desktop Specialist Relationship Specialty Start Date End Date Bryn Galdamez MD [address] [place] [phone] PCP - General Family Practice 04/28/20 documented as of this encounter
--- OUTSIDE RECORDS SUMMARY | 2024-12-29 08:47 | XMS_ITS | Continuity of Care Document ---
Author Organization [facility] Address [address] [place] [address] utive [facility] [address] [place] [address] Phone Care Team Providers Care Baggageman Name Role Phone Micky Victor MD, FACS Unavailable Unavailab le Advance Directives Directive Yes / No Effective Date File Name No Information Encounters Encounter Description Practice Location Reason(s) For Visit Diagnoses Date Provider Providers Copied on Encounter [facility], [address], [place], [place], [id number], [place] tel:[phone] SEC Bobbi Martínezgasperdemetrius No Information [phone] Kayleigh Weeks. [address], [place], [place], [id number], [place]. tel:[phone] Family History Family Member Type Diagnosis Age At Onset No Information Payers Payer name Insurance type Covered libertarian ID Authoriza tion(s) No Information Social History Type Description Quantity Date Captured Comments Sex Male Smoking Status No Information Chief Complaint And Reason For Visit No Information Reason For Referral Reason For Referral No Information History Of Present Illness Encounter Date Complaint History Of Prese nt Illness No Information Functional Status Date Functional Assessmen t No Information Instructions Date Instruction Additional Infor mation No Information Assessments Type Assessment Date No Information Patient Care Teams Name Effective Dates (start - stop) Status Members No Information
== END 2024-12-29 08:00 | disposition home or self-care (01) ==
PROVIDERS: PCP Pediatrics; Visit Provider Pediatrics
DX: R10.9 Unspecified abdominal pain (principal); Z98.0 Intestinal bypass and anastomosis status
CPT/HCPCS: 74177; Q9967

== ENCOUNTER 2025-07-01 14:46 | Outpatient (CLI) | payer MEDICARE, SELFPAY ==
--- NOTE | ~2025-07-01 | MR_ITS ---
EXAMINATION: MR lumbar spine wo con DATE: 07/01/2025 15:36 INDICATION: Left buttock pain TECHNIQUE: Magnetic resonance imaging (MRI) of the lumbar spine was performed without intravenous contrast. Sequences included sagittal T2-weighted FSE, sagittal T2-weighted FS FSE, sagittal T1-weighted FSE, and axial T2-weighted FSE. COMPARISON: None FINDINGS: 3 mm retrolisthesis L4 on L5 and 2 mm retrolisthesis L3 on L4 and L5 on S1. Interval healing of the previously subacute, currently chronic L1 burst fracture with 40% anterior vertebral body height loss and 2 mm retropulsion along the posterior wall. There is a new prominent Schmorl's node along the superior endplate. No change in minimal likely physiologic anterior wedging at T11 and T12. Remaining vertebral body heights are normal. No significant change in severe disc height loss at L3-L4 through L5-S1. Interval progression of now moderate disc height loss at L2-L3 and mild disc height loss at L1-L2. Unchanged mild disc height loss at T11-T12. There are annular fissures at L1-L2 through L5-S1. There is are T2 hyperintense fibrovascular degenerative endplate changes at L2-L3 and L5-S1 and minimally at T11-T12. There is increased signal at the bilateral sacral ala on the sagittal oriented T2-weighted images in location suggestive of sacral insufficiency fractures. Marrow signal is otherwise unrem arkable. The conus medullaris terminates at L1-L2. There is normal signal in the caudal spinal cord. There is a collection of what appears to be extraluminal gas situated between the rectum and the anterior sacrum as seen on CT dated 12/29/2024. Paravertebral soft tissues are otherwise unremarkable. The following disc levels are specifically discussed: T11-T12: Disc is mildly bulging. There is mild right and severe left facet osteoarthritis. There is mild right and moderate left neural foraminal stenosis. There is minimal central canal stenosis. T12-L1: Disc is mildly bulging. There is mild bilateral facet joint osteoarthritis. There is mild bilateral neural foraminal stenosis. There is minimal central canal stenosis. L1-L2: Disc is bulging. There is mild left and mild to moderate right facet joint osteoarthritis. There is mild right and mild to moderate left neural foraminal stenosis. There is mild central canal stenosis. L2-L3: Disc is bulging. There is mild bilateral facet joint osteoarthritis. There is moderate left and mild to moderate right neural foraminal stenosis. There is mild central canal stenosis. L3-L4: Disc is bulging. There is mild bilateral facet joint osteoarthritis. There is moderate bilateral, right greater than left, neural foraminal stenosis. There is mild central canal stenosis. L4-L5: Disc is bulging There is moderate right and mild left facet joint osteoarthritis. There is moderate left and moderate to severe right neural foraminal stenosis. There is mild central canal stenosis. L5-S1: Disc is bulging. There is moderate bilateral facet joint osteoarthritis. There is moderate bilateral neural foraminal stenosis. There is mild central canal stenosis. IMPRESSION: 1. Mild interval progression of severe lumbar spondylosis. 2. Interval healing of the previously subacute L1 burst fracture. 3. Increased fluid signal seen at the left and right sides of the sacral ala on the sagittal images in location suspicious for sacral insufficiency fractures. 4. Persistent small collection of gas situated between the rectum and anterior sacrum as seen on CT dated 12/29/2024 which was suspicious for fistula formation extending from a suspected perforation at a colocolonic anastomosis seen on prior CT. Reviewed, dictated and finalized at location A. REPAIRER TRIMMER DIES IMPRESSION: 1. Mild interval progression of severe lumbar spondylosis. 2. Interval healing of the previously subacute L1 burst fracture. 3. Increased fluid signal seen at the left and right sides of the sacral ala on the sagittal images in location suspicious for sacral insufficiency fractures. 4. Persistent small collection of gas situated between the rectum and anterior sacrum as seen on CT dated 12/29/2024 which was suspicious for fistula formation extending from a suspected perforation at a colocolonic anastomosis seen on pr ior CT.
--- OUTSIDE RECORDS SUMMARY | 2025-07-01 10:59 | XMS_ITS | Encounter Summary ---
Author Organization [facility] Address [address] [place] [address] Care Team Providers Care Psychiatric Clinical Nurse Specialist Name Role Phone Chapin Galdamez MD Primary Care Provider [phone] Adrian Alvarez MD Unavailable Reason for Visit * Physical Therapy (Routine) - Authorized Specialty Diagnoses / Procedures Referred By Contac t Referred To Contact PHYSICAL THERAPY / [facility] Physical Therapy Diagnoses Rotator cuff tear, recurrent tear lt Procedures Esteban Dooley MD [address] [facility] [address] [place] [address] Phone: tel: [place]: [place] [address] [place] [address] Phone: tel: fax: Referral ID Status Reason Start Date Expiration Date Visits Requested Visits Authorized [id number] Authorized Physical Therapy 06/17/2025 08/10/2025 99 99 Encounter Details Date Type Department Care Team (Late st Contact Info) Description 07/01/2025 10:59 AM UPHOLSTERY RESTORER Hospital Encounter [facility] Therapy [address] [place] [address] Esteban Lazo MD [address] [facility] [address] [place] [address] Denise Conway, INSPECTOR QUALITY ASSURANCE Arrived Social History Tobacco Use Types Packs/Day Years Used Date Smoking Tobacco: Former Cigarettes 1.5 40 Smokeless Tobacco: Never Alcohol Use Standard Drinks/Week Comments Not Currently 0 (1 standard drink = 0.6 oz pur e alcohol) Sex and Gender Information Value Date Recorded Sex Assigned at Male 09/15/2024 9:06 AM UPHOLSTERY RESTORER Legal Sex Male 9:38 AM CDT Gender Identity Not on file Sexual Orientation Not on file 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 He has remaining soreness in the L shoulder, but is getting stronger. Compliance to Home Program: Fair Pain Current Location of Pain: L shoulder Other (comments): sore OBJECTIVE Treatment provided today: Therapeutic Exercise - 45008 Exercise: pulleys Exercise: B scapular retraction Exercise: 3-way bicep curls 4# Exercise: bent over rows/ext 4# Exercise: [place] rows/lat pulls 20# Exercise: TB ER with scap retraction Exercise: doorway stretch Exercise: SL ER/Abd 4# Exercise: supine cane flex/chest press/serratus 4# Manual Therapy - 33965 Intervention: L shoulder inferior mobs in sitting and supine Intervention: STM to L shoulder Intervention: L shoulder PROM with scapular stabilization Education Was Education Provided: Yes Topic: HEP review Recipient: Patient Method: Verbal, Demonstration Response: Verbalized understanding, Demonstrates adequately Barriers: None ASSESSMENT Assessment Note: Isma has been progressing his shoulder strength and was able to increase his dumbbell weights by a pound this date and denied any difficulty. His PROM is WNL and appears to be minimal pain. Hedoes have some discomfort with active abduction. Denied the need for modalities this date. No adverse effects observed or noted by the pt. Response to Treatment : Fair Continue on Functional Deficit of: L shoulder mobility, strength, and stability; scapular strength and stability PLAN Plan Next Visit Plan: progress scapular and RC stability; inferior mobs LSTERY RESTORER documented in this encounter Plan of Treatment Upcoming Encounters Date Type Department Care Team (Late st Contact Info) Description 07/04/2025 11:00 AM UPHOLSTERY RESTORER Appointment [facility] [address] [place] [address] Esteban Lazo MD [address] [facility] [address] [place] [address] [place] [address] [place] [phone] 07/11/2025 10:00 AM UPHOLSTERY RESTORER Appointment [facility] [address] [place] [address] Esteban Lazo MD [address] [facility] [address] [place] [address] [place] [address] [place] [phone] 07/15/2025 10:15 AM UPHOLSTERY RESTORER Appointment [facility] [address] [place] [address] Esteban Lazo MD [address] [facility] [address] [place] [phone] [place] [address] [place] [phone] 07/18/2025 10:00 AM UPHOLSTERY RESTORER Appointment [facility] [address] [place] [address] Esteban Lazo MD [address] [facility] [address] [place] [address] [place] [address] [place] [address] documented as of this encounter Visit Diagnoses Diagnosis Left shoulder pain- Primary Pain in joint, shoulder region documented in this encounter Care Teams Psychiatric Clinical Nurse Specialist Relationship Specialty Start Date End Date Chapin Galdamez MD [address] [place] [id number] PCP - General PEDIATRICS 03/14/16 Adrian Alvraez MD [address] [address] [place] Stack Supervisor CARDIOVASCULAR DISEASE 01/10/16 documented as of this encounter
--- OUTSIDE RECORDS SUMMARY | 2025-07-01 14:53 | XMS_ITS | Encounter Summary ---
Author Organization [facility] Address [address] [place] [address] Care Team Providers Care Exterior Designer Name Role Phone Bryn Galdamez MD Primary Care Provider [phone] Encounter Details Date Type Department Care Team (Late Contact Info) Description 05/03/2020 Chart Note Tyrone Cavazos [facility] Radiation Therapy [address] [place] [address] [place] [address] [place] [address] Social History Tobacco Use Types [...] Care Team (Late st Contact Info) Description 09/26/2025 2:15 PM MED CARE MANAGER Office Visit [facility] Oncology and Hematology - [place] [address] [place] [phone] Alex Conti MD [address] [facility] [address] [place] [address] documented as of this encounter Visit Diagnoses Not on filedocumented in this encounter Care Teams Exterior Designer Relationship Specialty Start Date End Date Bryn Galdamez MD [address] [place] [address] PCP - General Family Practice 04/28/20 documented as of this encounter
--- OUTSIDE RECORDS SUMMARY | 2025-07-01 14:53 | XMS_ITS | Patient Health Record ---
Author Organization [facility] dicine Address [address] [place] [address] Care Team Providers Care Press Hand Supervisor Name Role Phone Dr. Chapin Galdamez Primary Care Provider [phone] Guzman Lance Unavailable [phone] Migration, Provider Unavailable Unavailable Allergies No Known Allergies Results Component Value Reference Range Flag Notes X ray : Shoulder, left Reviewed date:02/15/2025 01:41:03 PM Interpretation: Performing Lab: Notes/Report: CT Abdomen and Pelvis with c ontrast ([id number]) Reviewed date:12/29/2024 09:10:34 AM Interpretation: Performing Lab: Notes/Report: Vitamin B12 Reviewed date:03/18/2025 05:22:19 PM Interpretation: Performing Lab: Notes/Report: [facility]# [id number] Test Performed by: [place] [id number] Water Plant Maintenance Mechanic: Luca Blanchard DO Vitamin B12 Lvl 948 180-914 pg/mL H Vitamin B12 Interpretation: Normal Range: 180-914 pg/mL Indeterminate: 140-180 pg/mL Deficient: <140 pg/mL Comprehensive Metabolic Pane l Reviewed date:05/19/2025 02:22:02 PM Interpretation: Performing Lab: Notes/Report: Test Performed by: [place] [id number] [employer] Plant Maintenance Mechanic: Luca Blanchard DO Glucose Lvl 75 74-109 mg/dL ADA risk stratification for diabetes <100 mg/dL = Normal 100-125 mg/dL = Increased risk for future diabetes >=126 mg/dL = Diabetes, if on more than one testing occasion BUN 9 7-25 mg/dL Creatinine Lvl 0.92 0.70-1.30 mg/dL eGFR CKD-EPI 88 >=90 mL/min/1.73 m2 L The CKD-EPI equation is validated in individuals 18 years of age and older. It is less accurate in patients with extremes of muscle mass, restriction of dietary protein, ingestion of creatine, extra-renal metabolism of creatinine, or treatment with medications that affect renal tubular creatinine secretion. GFR Categories in Chronic Kidney Disease (CKD) GFR GFR (mL/min/1.73 Category: square meters): Interpretation: G1 90 or greater Normal or high* G2 60-89 Mild decrease* G3a 45-59 Mild to moderate decrease G3b 30-44 Moderate to severe decrease G4 15-29 Severe decrease G5 14 or less Kidney failure *In the absence of evidence of kidney damage, neither GFR category G1 nor G2 fulfill the criteria for CKD (Kidney Int Suppl 2013;3:1-150) Calcium Lvl 9.1 8.6-10.3 mg/dL Sodium Lvl 142 136-145 mmol/L Potassium Lvl 4.1 3.5-5.1 mmol/L Chloride Lvl 106 98-107 mmol/L CO2 30 21-31 mmol/L Anion Gap 5.9 <=16.0 mmol/L Alk Phos 54 34-104 unit/L Bilirubin Total 0.4 0.3-1.0 mg/dL Albumin Lvl 3.8 3.5-5.2 g/dL Protein Total 6.6 6.4-8.9 g/dL Albumin/Globulin Ratio 1.4 1.1-2.5 ALT 9 7-52 unit/L AST 13 13-39 unit/L Lipid Panel {Chol, Trig, HDL , LDL} Reviewed date:05/19/2025 02:22:02 PM Interpretation: Performing Lab: Notes/Report: Test Performed by: Keena Manuel [address] [address] Water Plant Maintenance Mechanic: Luca Blanchard DO Cholesterol Total 156 <=199 mg/dL Triglycerides 74 0-149 mg/dL Triglyceride Reference Ranges: <150 mg/dL Normal 150 - 199 mg/dL Borderline High 200 - 499 mg/dL High >=500 mg/dL Very High LDL 79 <=100 mg/dL LDL Optimal: <100 Near or above optimal: 100-129 Borderline high: 130-159 High: 160-189 Very high: >=190 Coronary heart disease risk factors should be considered when determining LDL goals. Please refer to ATPIII guidelines for further information. If LDL is not calculated, please call the lab to add on the direct LDL methodology, if desired. HDL 63 23-92 mg/dL Non HDL Cholesterol 94 <=130 mg/dL Chol/HDL 2 0-5 PSA Annual Screening Reviewed date:05/19/2025 02:22:02 PM Interpretation: Performing Lab: Notes/Report: Test Performed by: [place] [address] Water Plant Maintenance Mechanic: Luca Blanchard DO PSA Total 0.17 0.00-4.00 ng/mL Free T4 And TSH Reviewed date:05/19/2025 02:22:02 PM Interpretation: Performing Lab: Notes/Report: Test Performed by: [place] [address] Water Plant Maintenance Mechanic: Luca Blanchard DO T4 Free 0.74 0.60-1.70 ng/dL TSH 6.43 0.45-5.33 mcIU/mL H C-Reactive Protein Reviewed date:05/26/2025 06:43:27 PM Interpretation: Performing Lab: Notes/Report: Test Performed by: [address] [address] Water Plant Maintenance Mechanic: Luca Blanchard DO CRP 1.7 0.0-1.0 mg/dL H Erythrocyte Sedimentation Ra te Reviewed date:05/26/2025 06:43:27 PM Interpretation: Performing Lab: Notes/Report: Test Performed by: [address] [address] Water Plant Maintenance Mechanic: Luca Blanchard DO ESR, Westergren 25 0-20 mm/hr H Magnesium Reviewed date:05/26/2025 06:43:27 PM Interpretation: Performing Lab: Notes/Report: Test Performed by: [place] [id number] Water Plant Maintenance Mechanic: Luca Blanchard DO Magnesium Lvl 2.0 1.6-2.4 mg/dL Vitamin B12 Reviewed date:05/26/2025 06:43:27 PM Interpretation: Performing Lab: Notes/Report: Test Performed by: Keena Manuel [address] [address] Water Plant Maintenance Mechanic: Luca Blanchard DO Vitamin B12 Lvl 1001 180-914 pg/mL H Vitamin B12 Interpretation: Normal Range: 180-914 pg/mL Indeterminate: 140-180 pg/mL Deficient: <140 pg/mL Comprehensive Metabolic Pane l Reviewed date:05/26/2025 06:43:27 PM Interpretation: Performing Lab: Notes/Report: Test Performed by: Keena Manuel [place] [id number] Water Plant Maintenance Mechanic: Luca Blanchard DO Glucose Lvl 81 74-109 mg/dL ADA risk stratification for diabetes <100 mg/dL = Normal 100-125 mg/dL = Increased risk for future diabetes >=126 mg/dL = Diabetes, if on more than one testing occasion BUN 18 7-25 mg/dL Creatinine Lvl 1.05 0.70-1.30 mg/dL eGFR CKD-EPI 75 >=90 mL/min/1.73 m2 L The CKD-EPI equation is validated in individuals 18 years of age and older. It is less accurate in patients with extremes of muscle mass, restriction of dietary protein, ingestion of creatine, extra-renal metabolism of creatinine, or treatment with medications that affect renal tubular creatinine secretion. GFR Categories in Chronic Kidney Disease (CKD) GFR GFR (mL/min/1.73 Category: square meters): Interpretation: G1 90 or greater Normal or high* G2 60-89 Mild decrease* G3a 45-59 Mild to moderate decrease G3b 30-44 Moderate to severe decrease G4 15-29 Severe decrease G5 14 or less Kidney failure *In the absence of evidence of kidney damage, neither GFR category G1 nor G2 fulfill the criteria for CKD (Kidney Int Suppl 2013;3:1-150) Calcium Lvl 8.9 8.6-10.3 mg/dL Sodium Lvl 137 136-145 mmol/L Potassium Lvl 4.5 3.5-5.1 mmol/L Chloride Lvl 103 98-107 mmol/L CO2 30 21-31 mmol/L Anion Gap 4.0 <=16.0 mmol/L Alk Phos 56 34-104 unit/L Bilirubin Total 0.4 0.3-1.0 mg/dL Albumin Lvl 3.9 3.5-5.2 g/dL Protein Total 6.8 6.4-8.9 g/dL Albumin/Globulin Ratio 1.3 1.1-2.5 ALT 9 7-52 unit/L AST 14 13-39 unit/L CBC w Auto Diff Reviewed date:05/26/2025 06:43:27 PM Interpretation: Performing Lab: Notes/Report: Test Performed by: [place] [address] Water Plant Maintenance Mechanic: Luca Blanchard DO WBC 6.8 4.0-11.7 K/mcL RBC 4.06 4.28-5.56 x10*6/mcL L Hgb 12.4 13.0-17.0 g/dL L Hct 37.3 38.1-48.9 % L MCV 91.8 83.4-98.1 fL MCH 30.5 27.0-34.2 pg MCHC 33.3 31.8-35.3 g/dL RDW 13.6 12.0-16.4 % Platelets 229 149-393 K/mcL MPV 10.3 7.0-11.0 fL Neutro Auto 72.5 45.3-79.0 % Lymph Auto 14.8 11.8-45.9 % [place] Auto 7.9 4.4-12.0 % Eosinophil Auto 3.9 0.0-6.3 % Basophil Auto 0.9 0.2-1.6 % Neutro Absolute 5.0 2.4-8.4 x10*3/mcL Lymph Absolute 1.0 0.8-3.7 x10*3/mcL [place] Absolute 0.5 0.3-1.1 x10*3/mcL Eos Absolute 0.3 0.0-0.5 x10*3/mcL Baso Absolute 0.1 0.0-0.1 x10*3/mcL Reason For Referral No Information Medications Medication SIG (Take, Route, Frequency, Duration) Notes Start Date End Date Status Losartan Potassium 25 MG Tablet 1 tablet Oral daily; Duration: 0 days 05/31/2022 Active DuoDERM CGF Extra Thin - Miscellaneous apply 6x6 patch Externally daily; Duration: 90 days 04/13/2025 Active Cyclobenzaprine HCl 10 MG Tablet 1 tablet every 8 hours as needed Orally Active Albuterol Sulfate HFA 108 (9 0 Base) MCG/ACT Aerosol Solution 1 puff as needed Inhalation every 4 hrs; Duration: 30 days 05/02/2025 Active Gabapentin 100 MG Capsule 1-3 tablets Orally 3 times a day; Duration: 30 days As needed 05/25/2025 Active Metoprolol Succinate 25 MG Capsule ER 24 Hour Sprinkle 1 capsule Orally Once a day 04/05/2025 Active Finasteride 5 MG Tablet 1 tablet Orally Once a day Active Pravastatin Sodium 20 MG Tablet 1 Oral every day; Duration: 0 05/31/2022 Active Amiodarone HCl 100 MG Tablet 1 Oral ever y day; Duration: 0 days 01/05/2021 Active Aspirin 325 MG Tablet 1 Oral every day; Duration: 0 01/22/2021 Active Levothyroxine Sodium 25 MCG Tablet TAKE 1 TABLET BY MOUTH EVERY DAY IN MORNING ON EMPTY STOMACH; Duration: 90 Active Tamsulosin HCl 0.4 MG Capsule 1 Oral cassandra day; Duration: 0 01/05/2021 Active Immunizations Vaccine Route Administration Date Status Comme nts Influenza, high-dose seasonal, quadrivalent, preservative free >65 yrs IM Intramuscular 06/12/2021 Administered ,sourcename : New immunization record ,immstatus : Complete Source VFC Code: : Influenza, high-dose seasonal, quadrivalent, preservative free >65 yrs IM Intramuscular 05/31/2022 Administered ,sourcename : New immunization record ,immstatus : Complete Source VFC Code: : Social History Tobacco Use: Social History Observation Description Date Details (start date - stop date) Former Smoker NA - NA Social History Household: Social Info Question Answer Notes Household Marital status: Tobacco Use: Social Info Question Answer Notes Tobacco Control (Standard) Tobacco use: Former smoker Additional Details Category Social Info Options Details Miscellaneous: 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 No Section Notes: quit in 2019. 2PPD Problems Problem Type SNOMED Code ICD Code Onset Dates Problem Status W/U Status Risk Notes Problem Cellulitis and abscess of neck (681209159) Cellulitis and abscess of neck (682.1) 018 Problem resolved confirmed Problem Actinic keratosis (064138) Actinic keratosis (702.0) 018 Problem resolved confirmed Problem Chest pain (96157343) Chest pain, unspecified (786.50) 08/21/2 018 Problem resolved confirmed Problem Malignant neoplasm of rectosigmoid junction (196930380) Malignant neoplasm of rectosigmoid junction (C19) Active confirmed Problem Neoplasm of uncertain behavior of skin (10640013) Neoplasm of uncertain behavior of skin (D48.5) Active confirmed Problem Obesity (215302219) Obesity, unspecified (E66.9) Active confirmed Problem Tobacco user (187372618) Nicotine dependence, unspecified, uncomplicated (F17.200) Active confirmed Problem Polyneuropathy (73290815) Polyneuropathy, unspecified (G62.9) Active confirmed Problem Eustachian tube disorder (57155047) Unspecified Eustachian tube disorder, unspecified ear (H69.90) Active confirmed Problem Disorder of ear (49294022) Unspecified disorder of left ear (H93.92) Active confirmed Problem Essential hypertension (83293813) Essential (primary) hypertension (I10) Active confirmed Problem Paroxysmal atrial fibrillation (534918820) Paroxysmal atrial fibrillation (I48.0) Active confirmed Problem Hypotension (45719226) Hypotension, unspecified (I95.9) Problem resolved confirmed Problem Chronic sinusitis (74208312) Chronic sinusitis, unspecified (J32.9) Active confirmed Problem Emphysema (38174088) Emphysema, unspecified (J43.9) Active confirmed Problem Acute exacerbation of chronic obstructive airways disease (443662190) Chronic obstructive pulmonary disease with (acute) exacerbation (J44.1) Active confirmed Problem Chronic obstructive pulmonary disease (33713019) Chronic obstructive pulmonary disease, unspecified (J44.9) Active confirmed Problem Constipation (00702175) Constipation, unspecified (K59.00) Active confirmed Problem Anorectal disorder (833119672) Other specified diseases of anus and rectum (K62.89) Active confirmed Problem Gastrointestinal hemorrhage (37077093) Gastrointestinal hemorrhage, unspecified (K92.2) Problem resolved confirmed Problem Impetigo (12995770) Impetigo, unspecified (L01.00) Active confirmed Problem Cellulitis of neck (06255480) Cellulitis of neck (L03.221) Problem resolved confirmed Problem Seborrheic dermatitis (43964043) Seborrheic dermatitis, unspecified (L21.9) Active confirmed Problem Inflammatory dermatosis (340453946) Other specified dermatitis (L30.8) Active confirmed Problem Actinic keratosis (387990) Actinic keratosis (L57.0) Active confirmed Problem Xerosis cutis (09741524) Xerosis cutis (L85.3) Active confirmed Problem Pyogenic granuloma (56899934) Pyogenic granuloma (L98.0) Active confirmed Problem Localized, primary osteoarthritis of the pelvic region and thigh (442243378) Unilateral primary osteoarthritis, left hip (M16.12) Active confirmed Problem Localized, primary osteoarthritis of the hand (719268610) Unilateral primary osteoarthritis of first carpometacarpal joint, left hand (M18.12) Active confirmed Problem Chest pain (16901335) Other chest pain (R07.89) Active confirmed Problem Abdominal pain (75390171) Unspecified abdominal pain (R10.9) Active confirmed Problem Fecal urgency (56330879) Fecal urgency (R15.2) Active confirmed Problem Diarrhea (20795721) Diarrhea, unspecified (R19.7) Active confirmed Problem Form of skin change (065188194) Other skin changes (R23.8) Active confirmed Problem Thyroid function tests abnormal (752425752) Abnormal results of thyroid function studies (R94.6) Active confirmed Problem Other slipping, tripping and stumbling without falling, initial encounter (W18.49XA) Problem resolved confirmed Problem Nicotine dependence (61327808) Personal history of nicotine dependence (Z87.891) 09/27/2 023 Active confirmed Problem Ileostomy present (018173354) Ileostomy status (Z93.2) Inactive confirmed Problem Encounter for screening for COVID-19 (Z11.52) 022 Active confirmed Problem Low back pain (013879946) Low back pain, unspecified (M54.50) 021 Active confirmed Problem Vitamin B12 deficiency (110916053) Vitamin B12 deficiency (E53.8) Active confirmed Problem Essential hypertension (52842497) Essential hypertension (I10) Active confirmed Problem Hypothyroidism (21753611) Hypothyroidism, unspecified type (E03.9) Active confirmed Problem History of malignant neoplasm of rectum (735871222) History of rectal cancer (Z85.048) Active confirmed Vital Signs Heart Rate 67 /min 05/25/2025 Temperature 97.4 degrees Fahrenheit 05/25/2025 Height-cm 182.88 cm 05/25/2025 Oximetry 97 % 05/25/2025 Blood pressure diastolic 68 mm Hg 05/25/2025 Weight-kg 87.27 kg 05/25/2025 Height 72.00 in 05/25/2025 Blood pressure systolic 120 mm Hg 05/25/2025 Weight 192.4 lbs 05/25/2025 BMI 26.09 kg/m2 05/25/2025 Encounters Encounter Location Date Provider Diagnosis [address] [address] 09/28/2024 Dr. Chapin Galdamez Chronic obstructive pulmonary disease, unspecified J44.9 and Essential (primary) hypertension I10 [address] [address] 11/26/2024 Dr. Chapin Galdamez Pain, joint, shoulder, left M25.512 and Tinea cruris B35.[address] [address] 12/22/2024 Dr. Chapin Galdamez Osteoarthritis of left shoulder, unspecified osteoarthritis type M19.012 ; Abdominal discomfort R10.9 and Rectal pain K62.[address] [address] 02/10/2025 Dr. Chapin Galdamez Vitamin B12 deficiency E53.[address] [address] 02/18/2025 Dr. Chapin Galdamez Vitamin B12 deficiency E53.[address] [address] 03/04/2025 Dr. Chapin Galdamez Vitamin B12 deficiency E53.[address] [address] 03/21/2025 Dr. 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 Chapin Galdamez [address] [address] 04/13/2025 Dr. Chapin Galdamez Malignant neoplasm of rectosigmoid junction C19 ; Paroxysmal atrial fibrillation I48.0 and Abnormal results of thyroid function studies R94.[address] [address] 05/25/2025 Dr. Chapin Galdamez Low back pain, unspecified M54.50 ; Left thigh pain M79.652 ; Left buttock pain M79.18 ; Vitamin B12 deficiency E53.8 ; History of rectal cancer Z85.048 ; Candidal dermatitis B37.2 and Hypothyroidism, unspecified type E03.[address] [address] 07/10/2024 Provider Migration [address] [address] 07/11/2024 Provider Migration [address] [address] 08/27/2024 Dr. Chapin Galdamez [address] [address] 11/30/2024 Dr. Chapin Galdamez [address] [address] 12/10/20[address] [address] 12/29/2024 Dr. Chapin Galdamez [address] [address] 02/08/2025 Dr. Chapin Galdamez [address] [address] 02/10/2025 Dr. Chapin Galdamez [address] [address] 03/18/2025 Dr. Chapin Galdamez [address] [address] 04/05/2025 Dr. Chapin Galdamez Change in stool caliber R19.[address] [address] 05/02/2025 Dr. Chapin Galdamez Chronic obstructive pulmonary disease with (acute) exacerbation J44.[address] [address] 05/11/2025 Guzman Natalio Diarrhea, unspecifie d R19.[address] [address] 05/19/2025 Dr. Chapin Galdamez Hypothyroidism, unspecified type E03.9 and Vitamin B12 deficiency E53.[address] [address] 05/26/2025 Dr. Chapin Galdamez [address] [address] 05/30/2025 Dr. Chapin Galdamez Candidal dermatitis B37.[address] [address] 06/01/2025 Dr. Chapin Galdamez Left buttock pain M79.18 Assessments Encounter Date Diagnosis (ICD Code) Assessment Notes Treatment Notes Treatment Clinical Notes Section Notes 05/19/2025 Hypothyroidism, unspecified type (ICD-10 - E03.9) 05/11/2025 Diarrhea, unspecified (ICD-10 - R19.7) 06/01/2025 Left buttock pain (ICD-10 - M79.18) 05/30/2025 Candidal dermatitis (ICD-10 - B37.2) 05/02/2025 Chronic obstructive pulmonary disease with (acute) exacerbation (ICD-10 - J44.1) 05/19/2025 Vitamin B12 deficiency (ICD-10 - E53.8) 05/25/2025 Left thigh pain (ICD-10 - M79.652) 05/25/2025 Low back pain, unspecified (ICD-10 - M54.50) 09/28/2024 Chronic obstructive pulmonary disease, unspecified (ICD-10 - J44.9) 11/26/2024 Tinea cruris (ICD-10 - B35.6) 11/26/2024 Pain, joint, shoulder, left (ICD-10 - M25.512) 12/22/2024 Abdominal discomfort (ICD-10 - R10.9) 12/22/2024 Osteoarthritis of left shoulder, unspecified osteoarthritis type (ICD-10 - M19.012) Joint injection successful. 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 Patient reports not to have gabapentin at home. Consider this if needed. Caution pt of use of cyclobenazaprine. Can continue with pain medication as well, if providing relief. Pt. staying in connection with Dr. Conti. 05/25/2025 Left buttock pain (ICD-10 - M79.18) 04/13/2025 Abnormal results of thyroid function studies (ICD-10 - R94.6) 05/25/2025 Vitamin B12 deficiency (ICD-10 - E53.8) 05/25/2025 History of rectal cancer (ICD-10 - Z85.048) 05/25/2025 Candidal dermatitis (ICD-10 - B37.2) 05/25/2025 Hypothyroidism, unspecified type (ICD-10 - E03.9) Plan Of Treatment Pending Test Test Name Order Date MRI : Lumbosacral Spines 06/01/2025 Stool Culture Panel 04/05/2025 Fecal Leukocytes 04/05/2025 Ova and Parasite, Fecal-ARUP 04/05/2025 Helicobacter pylori Ag, Fecal by EIA C Diff PCR 04/05/2025 Occult Blood Stool 04/05/2025 Basic Metabolic Panel 12/22/2024 CBC w Auto Diff 04/13/2025 Vitamin B12 05/19/2025 Insurance Providers Payer Name Payer Address Payer Phone Subscriber Number Group Number Insured Name Patient Relationship to Insured Coverage Start Date Coverage End Date [employer] Advantage Ppo [address] [place] [address] [id number] Ezequiel Isma Self - patient is the insured Medications Administered Medication Instructions Date of Administration Dosage Notes B12 02/10/2025 1000 ug B12 02/18/2025 1000 ug B12 03/04/2025 1000 ug dexAMETHasone 03/21/2025 6 mg Medical (General) History Medical History History ICD Code Impetigo, unspecified L01.00 Malignant neoplasm of rectosigmoid junct ion C19 Nicotine dependence, unspecified, uncomp licated F17.200 Obesity, unspecified E66.9 Polyneuropathy, unspecified G62.9 Essential (primary) hypertension I10 Paroxysmal atrial fibrillation I48.0 Chronic sinusitis, unspecified J32.9 Emphysema, unspecified J43.9 Chronic obstructive pulmonary disease wi th (acute) exacerbation J44.1 Chronic obstructive pulmonary disease, u nspecified J44.9 Pyogenic granuloma L98.0 Unilateral primary osteoarthritis, left hip M16.12 Xerosis cutis L85.3 Surgical History Surgery Date(Month/Year) Hip replacement ,notes : left hip 01/2020 Echocardiogram ,notes : 01/2020 EF 62% Bowel Surgery ,notes : take down of ileostomy, small bowel resection. Dr. Robertson 05/22/2021
--- OUTSIDE RECORDS SUMMARY | 2025-07-01 14:53 | XMS_ITS | Clinical Summary ---
Author Organization [facility] Lei Baer Address [address] [place] [address] Care Team Providers Care Hand Scudder Name Role Phone Bryn Galdamez MD Primary Care Provider Allergies No known active allergies Medications aspirin [...] Take 50 mg by mouth daily. Active levothyroxine 25 mcg tablet Take 25 mcg by mouth daily in the morning. 5 Active Active Problems Problem Noted Date Diagnosed Date Rectal cancer 04/28/2020 Encounters Date Type Department Care Team Description 05/20/2025 12:15 PM CDT Office Visit [facility] - [place] [address] [place] [address] Alex Conti MD Rectal cancer (CMS/HCC) (Primary Dx) 05/19/2025 Orders Only [facility] [address] [place] [address] Alex Conti MD 04/26/2025 External Device Data STL ABSTRACTION Provider, Abstract [...] Sign Reading Time Taken Comments Blood Pressure 131/76 05/20/2025 12:17 PM CDT Pulse 54 05/20/2025 12:13 PM CDT Temperature 36.1 C (96.9 F) 05/20/2025 12:13 PM CDT Respiratory Rate 16 05/20/2025 12:1 3 PM CDT Oxygen Saturation 90% 05/20/2025 12: 13 PM CDT Inhaled Oxygen Concentration - - Weight 87.5 kg (192 lb 12.8 oz) 025 12:13 PM CDT Height 182.9 cm (6') 05/14/2022 2:28 PM CDT Body Mass Index 26.15 05/14/2022 2:28 PM CDT Plan of Treatment Upcoming Encounters Date Type Department Care Team (Late st Contact Info) Description 09/26/2025 2:15 PM MEDICAL AFFAIRS MANAGER Office Visit [facility] [address] [place] [address] Alex Conti MD [address] [place] [address] Health Maintenance Due Date Last Done Comments DTAP/TDAP/TD VACCINES (1 - Tdap) 1971 PNEUMOCOCCAL VACCINE 50+ YEA RS (1 of 2 - PCV) 1971 RSV VACCINE (60+ or ) (1 - Risk 50-74 years 1-dose series) 2002 ZOSTER VACCINE (1 of 2) 2002 Abdominal Aortic Aneurysm (A AA) Screening 2017 INFLUENZA VACCINE (#1) 2025 2, 06/12/2021, 08/03/2020 COLORECTAL SCREENING Discontinued 04/20/2020 Colorectal Cancer Screening Discontinued FIT-DNA Q 3 years Discontinued FIT/FOBT Q 1 year Discontinued Flex Sig/CT Colonography Q 5 years Discontinued Procedures Procedure Name Priority Date/Time Associated Diagnosis Comments CEA Routine 05/18/2025 8:46 AM CDT VITAMIN B12 LEVEL Routine 05/18/2025 8:3 9 AM CDT CBC WITH AUTODIFFERENTIAL Routine 2024 8:38 AM CDT from Last 3 Months Results * CEA (05/18/2025 8:46 AM CDT) Blood us lAex Conti MD CHEMISTRY ORDERABLES Final Resu lt * VITAMIN B12 LEVEL (05/18/2025 8:39 AM CDT) Blood us Alex Conti MD CHEMISTRY ORDERABLES Final Resu lt * CBC WITH AUTODIFFERENTIAL (05/18/2025 8:38 AM CDT) Blood us Alex Conti MD HEMATOLOGY ORDERABLES Final Res ult from Last 3 Months Insurance [employer] PPO MCR Care Teams Hand Scudder Relationship Specialty Start Date End Date Bryn Galdamez MD [address] [place] [id number] PCP - General Family Practice 04/28/20
--- OUTSIDE RECORDS SUMMARY | 2025-07-01 14:53 | XMS_ITS | Clinical Summary ---
Author Organization [facility] Address [address] [place] [address] Care Team Providers Care Christmas Bell Ringer Name Role Phone Chapin Galdamez MD Primary Care Provider [phone] Adrian Alvarez MD Unavailable [phone] Allergies No known active allergies Medications nitroGLYCERIN 0.[address] 1 tablet under tongue for chest pain, up to 3 doses 5 minutes apart. If no relief after 3rd dose, call 911. 25 tablet 3 03/26/2016 Active Naproxen Sodium (ALEVE) 220 MG Cap Take 220 mg by mouth 2 (two) times a day. Active albuterol sulfate HFA 108 (90 Base) MCG/ACT inhaler Inhale 2 puffs into the lungs every 6 (six) hours as needed for Wheezing. Active amiodarone (PACERONE) 200 MG tablet Take 0.5 tablets (100 mg total) by mouth daily. Active aspirin 325 MG tablet Take 1 tablet (325 mg total) by mouth daily. Active cyclobenzaprine (FLEXERIL) 10 MG tablet Take 1 tablet (10 mg total) by mouth daily as needed for Muscle Spasms. Active diphenoxylate-a tropine (LOMOTIL) 2.5-0.025 MG tablet Take 1 tablet by mouth 4 (four) times daily as needed for Diarrhea. Active finasteride (PROSCAR) 5 MG tablet Take 1 tablet (5 mg total) by mouth daily. Active losartan (COZAAR) 50 MG tablet Take 0.5 tablets (25 mg total) by mouth 2 (two) times daily. Active metoprolol succinate ER (TOPROL-XL) 50 MG 24 hr tablet Take by mouth daily. Active pravastatin (PRAVACHOL) 20 MG tablet Take 1 tablet (20 mg total) by mouth nightly at bedtime. Active tamsulosin (FLOMAX) 0.4 MG Cap Take 1 capsule (0.4 mg total) by mouth daily. 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 1 Container 08/22/2022 Active Active Problems Problem Noted Date Diagnosed Date Hypertension, essential, benign Encounters Date Type Department Care Team Description 07/01/2025 10:59 AM [employer] Hospital Encounter [facility] [address] [place] [address] Esteban Lazo MD Timmermann, Candice P, SUPERVISOR [employer] Arrived 07/01/2025 Travel 06/27/2025 9:47 AM [employer] - 06/27/2025 11:59 PM [employer] Hospital Encounter [facility] [address] [place] [address] Esteban Lazo MD Scott, Kelli, PTA Shoulder Pain Discharge Disposition: Home or Self Care (Routine Discharge) 06/27/2025 Travel 06/20/2025 9:48 AM [employer] - 06/20/2025 11:59 PM [employer] Hospital Encounter [facility] [address] [place] [address] Esteban Lazo MD McClenahan, Krystal M, PT Discharge Disposition: Home or Self Care (Routine Discharge) 06/20/2025 Travel 06/17/2025 1:15 PM [employer] - 06/17/2025 11:59 PM [employer] Hospital Encounter [facility] [address] [place] [address] Non-Staff, Provider Esteban Lazo MD McClenahan, Krystal M, PT Discharge Disposition: Home or Self Care (Routine Discharge) 06/17/2025 Travel 03/31/2025 1:06 PM CDT - 03/31/2025 5:08 PM CDT Emergency [facility] [address] [place] [address] Nathaniel Peoples MD Back Pain Discharge Disposition: Home or Self Care (Routine Discharge) 03/31/2025 Travel from Last 3 Months Family History Medical History Relation Comments pacemaker Father Relation Status Comments Brother Alive Father Maternal Grandfather Maternal Grandmother Mother Alive Sister 1 Alive Sister 2 Alive Social History Tobacco Use Types Packs/Day Years Used Date Smoking Tobacco: Former Cigarettes 1.5 40 Smokeless Tobacco: Never Tobacco Cessation:Counseling Given: Not Answered Alcohol Use Standard Drinks/Week Comments Not Currently 0 (1 standard drink = 0.6 oz pur e alcohol) Sex and Gender Information Value Date Recorded Sex Assigned at Male 09/15/2024 9:06 AM [employer] Legal Sex Male 9:38 AM CDT Gender Identity Not on file Sexual Orientation Not on file 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 Not on file Not on file Not on sudeep e Last Filed Vital Signs Vital Sign Reading Time Taken Comments Blood Pressure 136/63 03/31/2025 4:54 PM CDT Pulse 57 03/31/2025 4:54 PM CDT Temperature 36.7 C (98.1 F) 03/31/2025 4:54 PM CDT Respiratory Rate 16 03/31/2025 4:54 PM CDT Oxygen Saturation 100% 03/31/2025 4:54 PM CDT Inhaled Oxygen Concentration - - Weight 86.2 kg (190 lb) 03/31/2025 1:09 PM CDT Height 182.9 cm (6') 03/31/2025 1:09 PM CDT Body Mass Index 25.77 03/31/2025 1:09 PM CDT Plan of Treatment Upcoming Encounters Date Type Department Care Team (Late st Contact Info) Description 07/04/2025 11:00 AM [employer] Appointment [facility] [address] [place] [address] Esteban Lazo MD [address] [place] [address] [place] [address] [place] [address] 07/11/2025 10:00 AM [employer] Appointment [facility] [address] [place] [address] Esteban Lazo MD [address] [facility] [address] [place] [address] [place] [address] [place], [place] [phone] 07/15/2025 10:15 AM [employer] Appointment [address] [place] [address] Esteban Lazo MD [address] [facility] [address] [place] [address] [place] [address] [place], [place] [phone] 07/18/2025 10:00 AM [employer] Appointment [address] [place] [address] Esteban Lazo MD [address] [facility] [address] [place] [address] [place] [address] [place], [place] [phone] Health Maintenance Due Date Last Done Comments Colorectal Cancer Screening Colonoscopy (10 Years) 1952 Hepatitis C 1970 Lung Cancer Screening 2002 Pneumococcal Vaccine: 50+ Years (1 of 1 - PCV) 2002 Zoster Vaccines (1 of 2) 2002 Annual Medicare Wellness Visit 2017 DTaP, Tdap and Td Vaccines (2 - Tdap) 01/16/2023 01/16/2013 COVID-19 Vaccine (1 - 2024- season) 2025 Influenza Adult (#1) 2025 07/18/2020 RSV Immunization or 60+ Years (1 - 1-dose 75+ series) 2027 AAA SCREENING Completed 03/31/2025, 03/12, 07/11/2021, Additional history exists Hepatitis A Vaccines Aged Out No long er eligible based on patient's age to complete this topic Meningococcal B Vaccine Aged Out No l onger eligible based on patient's age to complete this topic Meningococcal Vaccine Aged Out No meet segun eligible based on patient's age to complete this topic RSV Immunizations Under 20 Months Aged Out No longer eligible based on patient's age to complete this topic Medical Devices Implanted Type Area Scourer Device Identifier Shelf Expiration Date Model / Serial / Lot Tecnis 1 Piece Iol Implanted:Qty: 1 on 10/13/2024 by Juanita Olson MD at [facility] Lens Left: Eye [employer] [id number] 04/16/2027 DCB00 / [id number] / Tecnis 1 Piece Iol Implanted:Qty: 1 on 09/15/2024 by Juanita Olson MD at [facility] Right: Eye [employer] 04/05/2027 DCB00 / [id number] / Procedures Procedure Name Priority Date/Time Associated Diagnosis Comments HC URINALYSIS AUTO W/O MICRO STAT 03/31/2025 4:03 PM CDT HC URNLS DIP STICK/TABLET RGNT AUTO W/O MICRO STAT 03/31/2025 3:57 PM CDT HC BACTERIA BLOOD CULTURE T1 STAT 03/31/2025 2:50 PM CDT XR CHEST PORTABLE STAT 03/31/2025 2:4 7 PM CDT CTA CHEST+ABD+PEL STAT 03/31/2025 2:3 2 PM CDT POCT GLUCOSE - DOCKED DEVICE Routine 03/31/2025 1:53 PM CDT HC BACTERIA BLOOD CULTURE T1 STAT 03/31/2025 1:30 PM CDT HC PROTHROMBIN TIME (PT) STAT 03/31/2025 1:30 PM CDT PRO-BRAIN NATRIURETIC PEPTIDE STAT 03/31/2025 1:30 PM CDT HC TROPONIN QN STAT 03/31/2025 1:30 PM CDT HC COMPREHENSIVE METABOLIC PANEL STAT 03/31/2025 1:30 PM CDT LACTIC ACID W REFLEX (SEPSIS) STAT 03/31/2025 1:30 PM CDT HC CBC AUTO W/AUTO DIFF STAT 03/31/2025 1:30 PM CDT ECG 12-LEAD STAT 03/31/2025 1:25 PM CDT from Last 3 Months Results * (ABNORMAL) URINALYSIS AUTO DIP (03/31/2025 4:03 PM CDT) COLOR (U) COLORLESS(A ) YELLOW 03/31/2025 4:46 PM CDT [facility] TRANSPARENCY CLEAR CLEAR 03/31/2025 4:46 PM CDT [facility] SPECIFIC GRAVITY (U) 1.019 1.010 - 1.025 03/31/2025 4:46 PM CDT [facility] U PH 6.5 5.0 - 8.5 03/31/2025 4:46 PM CDT [facility] LEUKOCYTES (U) NEGATIVE NEGATIVE 03/31/2025 4:46 PM CDT [facility] NITRITES NEGATIVE NEGATIVE 03/31/2025 4:46 PM CDT [facility] PROTEIN RANDOM (U) NEGATIVE NEGATIVE 03/31/2025 4:46 PM CDT [facility] GLUCOSE (U) NORMAL(A) NEGATIVE 03/31/2025 4:46 PM CDT [facility] KETONES MG/DL (U) NEGATIVE NEGATIVE 03/31/2025 4:46 PM CDT [facility] UROBILINOGEN NORMAL 0.2 - 1.0 EU/DL 03/31/2025 4:46 PM CDT [facility] BILIRUBIN (U) NEGATIVE NEGATIVE 03/31/2025 4:46 PM CDT [facility] BLOOD (U) NEGATIVE NEGATIVE 03/31/2025 4:46 PM CDT [facility] URINE SPECIMEN OBTAINED BY CLEAN CATCH PROCEDURE / Unknown 03/31/2025 4:03 PM CDT us Nathaniel Peoples MD URINE ORDERABLES Final Resu lt [facility] [address] [place] [address], * URINALYSIS (03/31/2025 3:57 PM CDT) SPECIMEN TYPE URINE, UNSPECIFIED 04/01/2025 3:51 AM CDT [facility] COLOR (U) COLORLESS 03/31/2025 7:58 PM CDT [facility] TRANSPARENCY CLEAR 03/31/2025 7:58 PM CDT [facility] SPECIFIC GRAVITY (U) 1.019 1.001 - 1.030 03/31/2025 7:58 PM CDT [facility] U PH 6.5 5.0 - 9.0 03/31/2025 7:58 PM CDT [facility] LEUKOCYTES (U) NEGATIVE NEGATIVE 03/31/2025 7:58 PM CDT [facility] NITRITES NEGATIVE NEGATIVE 03/31/2025 7:58 PM CDT [facility] PROTEIN RANDOM (U) NEGATIVE <30 MG/DL 03/31/2025 7:58 PM CDT [facility] GLUCOSE (U) NORMAL NORMAL MG/DL 03/31/2025 7:58 PM CDT [facility] KETONES MG/DL (U) NEGATIVE NEGATIVE MG/DL 03/31/2025 7:58 PM CDT [facility] UROBILINOGEN NORMAL NORMAL MG/DL 03/31/2025 7:58 PM CDT [facility] BILIRUBIN (U) NEGATIVE NEGATIVE MG/DL 03/31/2025 7:58 PM CDT [facility] BLOOD (U) NEGATIVE NEGATIVE 03/31/2025 7:58 PM CDT [facility] URINE SPECIMEN OBTAINED BY CLEAN CATCH PROCEDURE / Unknown 03/31/2025 3:57 PM CDT Nathaniel Peoples MD URINE ORDERABLES Final Resu lt Performing Organization Address [facility] Co de Phone Number [facility] [address] [place] [address], * CULTURE, BACTERIA, BLOOD (03/31/2025 2:50 PM CDT) Only the most recent of2 resultswithin the time period is included. SPEC DESCRIPTION BLOOD 03/31/2025 1:15 PM CDT [facility] SPECIAL REQUESTS NO SPECIAL REQUEST 03/31/2025 1:15 PM CDT [facility] CULTURE RESULT NO GROWTH 5 DAYS 04/05/2025 10:09 PM CDT [facility] BLOOD SPECIMEN OBTAINED FOR BLOOD CULTURE / Unknown 03/31/2025 2:50 PM CDT 03/31/2025 2:55 PM CDT Nathaniel Peoples MD MICROBIOLOGY - GENERAL ORDE [facility] Final Result Performing Organization Address City/[facility]/ZIP Co de Phone Number [facility] [address] [place] [address], [address] [place] [address], [place] * XR CHEST PORTABLE (03/31/2025 2:47 PM CDT) Anatomical Region Laterality Modality Chest Computed Tomogra phy 03/31/2025 2:53 PM CDT Impressions 03/31/2025 2:53 PM CDT IMPRESSION: No acute findings Ordered By: NATHANIEL PEOPLES Interpreted By: Jovan Vazquez MD, 03/31/2025 2:53 PM Narrative 03/31/2025 2:53 PM CDT [address] [place] [address] SINGLE VIEW OF THE CHEST Clinical history: Flank pain Comparison: September 19, 2024 A single view of the chest demonstrates the cardiac silhouette to be normal in size and appearance. The pulmonary vasculature appears normal. The Lungs are clear. No consolidations or effusions are seen. Procedure Note Jovan Vazquez MD - 03/31/[address] [place] [address] SINGLE VIEW OF THE CHEST Clinical history: Flank pain Comparison: September 19, 2024 A single view of the chest demonstrates the cardiac silhouette to benormal in size and appearance. The pulmonary vasculature appears normal.The Lungs are clear. No consolidations or effusions are seen. IMPRESSION: No acute findings Ordered By: NATHANIEL PEOPLES Interpreted By: Jovan Vazquez MD, 03/31/2025 2:53 PM Nathaniel Peoples MD GENERAL IMAGING Final Resul t * CTA CHEST+ABD+PEL (03/31/2025 2:32 PM CDT) Anatomical Region Laterality Modality Chest, Abdomen, Pelvis Computed Tomography 03/31/2025 2:58 PM CDT Impressions 03/31/2025 3:03 PM CDT IMPRESSION: 1. No evidence of dissection or significant vascular abnormality 2. Nonspecific soft tissue anterior to the sacrum. This is likely related to the patient's previous history of rectal cancer, however, this area is poorly visualized due to artifact arising from the patient's total left hip arthroplasty. Recurrence is not excluded Ordered By: NATHANIEL PEOPLES Interpreted By: Jovan Vazquez MD, 03/31/2025 2:58 PM Narrative 03/31/2025 3:03 PM [address]T [address] [place] [address] CT ABDOMEN CHEST, AND PELVIS WITH CONTRAST CT ANGIOGRAM OF THE CHEST, ABDOMEN AND PELVIS History: Flank pain, shock Technique: Dynamic helical images of the chest, abdomen and pelvis were obtained after the patient received 100 mL of Isovue-370 nonionic intravenous contrast through an IV in the right antecubital fossa and images were repeated in early arterial phase. A dose lowering technique was used for this procedure, which may include, but is not limited to, dose reduction technique, automated exposure control, the use of iterative reconstruction, and ALARA (As Low As Reasonably Achievable) / Image Gently techniques. 3-dimensional vessel subtraction, investigation, and analysis was performed on a separate workstation. Selected images are made available for review. Images are reviewed CT of the abdomen and pelvis without contrast on July 29, 2017. VASCULAR FINDINGS: The overall left ventricular outflow has a normal overall appearance. The aortic valve is tricuspid and appears normal. There is normal opacification of the proximal coronary arteries. The ascending aorta is normal in course and caliber without atheromatous changes. The brachiocephalic, left common carotid, and left subclavian arteries appear normal. The descending thoracic aorta is normal in appearance. The caliber remains normal at the diaphragmatic hiatus. The celiac and superior mesenteric arteries are widely patent. 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 2 right renal arteries are widely patent. Single left renal artery appears normal. The infrarenal aorta is normal in caliber. The inferior mesenteric artery is widely patent. Both left and right common iliac arteries and external iliac arteries appear normal. Both common femoral arteries are within normal limits NONVASCULAR FINDINGS: The heart appears normal in size and morphology. No significant pericardial effusion is seen. No pathologically enlarged lymph nodes are present within the mediastinum or isreal. No axillary adenopathy is observed. The great vessels are within normal limits. Pulmonary windows reveal moderate emphysematous changes. No airspace consolidation is seen. No pleural fluid is noted. Images of the abdomen demonstrate the overall size and morphology of the liver to be within normal limits. No hepatic lesions are observed. No ascites is seen. The gallbladder is present and normally distended. No stones are observed within its lumen and there is no evidence of cholecystitis or biliary obstruction. The pancreas, spleen, and adrenal glands appear grossly normal. The kidneys are normal in size bilaterally. There is normal symmetric enhancement after the administration of contrast. No stones or hydronephrosis is apparent. Both ureters follow normal expected course through the retroperitoneum. Images of the pelvis demonstrate the urinary bladder to appear normal. The prostate is grossly normal in size. The stomach and small bowel have a normal overall appearance. The terminal ileum and appendix appear normal. The colon appears normal, however, postsurgical changes are noted within the rectum or surgical anastomosis has a grossly normal appearance. Prominent soft tissue is noted within the pelvis anterior to the sacrum. This is poorly visualized due to artifact arising from the patient's total left hip arthroplasty. This likely represents postsurgical change, however, recurrence or other processes are not excluded Procedure Note Jovan Vazquez MD - 03/31/[address] [place] [address] CT ABDOMEN CHEST, AND PELVIS WITH CONTRAST CT ANGIOGRAM OF THE CHEST, ABDOMEN AND PELVIS History: Flank pain, shock Technique: Dynamic helical images of the chest, abdomen and pelvis wereobtained after the patient received 100 mL of Isovue-370 nonionicintravenous contrast through an IV in the right antecubital fossa andimages were repeated in early arterial phase. A dose lowering techniquewas used for this procedure, which may include, but is not limited to,dose reduction technique, automated exposure control, the use of iterativereconstruction, and ALARA (As Low As Reasonably Achievable) / Image Gentlytechniques. 3-dimensional vessel subtraction, investigation, and analysis wasperformed on a separate workstation. Selected images are made availablefor review. Images are reviewed CT of the abdomen and pelvis without contrast onDe2016. VASCULAR FINDINGS: The overall left ventricular outflow has a normal overall appearance. Theaortic valve is tricuspid and appears normal. There is normalopacification of the proximal coronary arteries. The ascending aorta isnormal in course and caliber without atheromatous changes. Thebrachiocephalic, left common carotid, and left subclavian arteries appearnormal. The descending thoracic aorta is normal in appearance. The caliber remainsnormal at the diaphragmatic hiatus. The celiac and superior mesentericarteries are widely patent. A replaced right hepatic artery is notedarising from the SMA. 2 right renal arteries are widely patent. Singleleft renal artery appears normal. The infrarenal aorta is normal in caliber. The inferior mesenteric arteryis widely patent. Both left and right common iliac arteries and externaliliac arteries appear normal. Both common femoral arteries are withinnormal limits NONVASCULAR FINDINGS: The heart appears normal in size and morphology. No significantpericardial effusion is seen. No pathologically enlarged lymph nodes arepresent within the mediastinum or isreal. No axillary adenopathy isobserved. The great vessels are within normal limits. Pulmonary windows reveal moderate emphysematous changes. No airspaceconsolidation is seen. No pleural fluid is noted. Images of the abdomen demonstrate the overall size and morphology of theliver to be within normal limits. No hepatic lesions are observed. Noascites is seen. The gallbladder is present and normally distended. Nostones are observed within its lumen and there is no evidence ofcholecystitis or biliary obstruction. The pancreas, spleen, and adrenalglands appear grossly normal. The kidneys are normal in size bilaterally.There is normal symmetric enhancement after the administration ofcontrast. No stones or hydronephrosis is apparent. Both ureters follownormal expected course through the retroperitoneum. Images of the pelvis demonstrate the urinary bladder to appear normal. Theprostate is grossly normal in size. The stomach and small bowel have a normal overall appearance. The terminalileum and appendix appear normal. The colon appears normal, however,postsurgical changes are noted within the rectum or surgical anastomosishas a grossly normal appearance. Prominent soft tissue is noted within the pelvis anterior to the sacrum.This is poorly visualized due to artifact arising from the patient's totalleft hip arthroplasty. This likely represents postsurgical change,however, recurrence or other processes are not excluded IMPRESSION: 1. No evidence of dissection or significant vascular abnormality 2. Nonspecific soft tissue anterior to the sacrum. This is likely relatedto the patient's previous history of rectal cancer, however, this area ispoorly visualized due to artifact arising from the patient's total lefthip arthroplasty. Recurrence is not excluded Ordered By: NATHANIEL PEOPLES Interpreted By: Jovan Vazquez MD, 03/31/2025 2:58 PM Nathaniel Peoples MD CT Final Resul t * POCT glucose (03/31/2025 1:53 PM CDT) Pathologist [facility] GLUCOSE POC 87 70 - 99 MG/DL 03/31/2025 2:11 PM CDT [facility] 03/31/2025 1:53 PM CDT Nathaniel Peoples MD POCT ORDERABLES - DEVICE Fi nal Result Performing Organization Address [facility] Co de Phone Number [facility] [address] [place] [address], * LACTIC ACID W REFLEX (SEPSIS) (03/31/2025 1:30 PM CDT) [facility] LACTIC ACID VENOUS 0.9 0.5 - 2.0 MMOL/L 03/31/2025 2:27 PM CDT [facility] 03/31/2025 1:30 PM CDT Nathaniel Peoples MD LABORATORY Final Resul t Performing Organization Address [facility] Co de Phone Number [facility] [address] [place] [address], * (ABNORMAL) PRO-BRAIN NATRIURETIC PEPTIDE (03/31/2025 1:30 PM CDT) PRO-BRAIN NATRIURETIC PEPTIDE 704(H) 0 - 125 PG/ML 03/31/2025 2:41 PM CDT [facility] Comment: CUT POINTS ESTABLISHED BY [employer] ON NT PROBNP (ICON) STUDY (2006). AGE INDEPENDENT: <300 PG/ML HAS A 99% NEGATIVE PREDICTIVE VALUE FOR EXCLUDING ACUTE CHF <50 YEARS: >450 PG/ML IS CONSISTENT WITH ACUTE CHF 50-75 YEARS: >900 PG/ML IS CONSISTENT WITH ACUTE CHF >75 YEARS: >1800 PG/ML IS CONSISTENT WITH ACUTE CHF IN PATIENTS WITH RENAL INSUFFICIENCY (GFR <60), >1200 PG/ML YIELDS A DIAGNOSTIC SENSITIVITY AND SPECIFICITY OF 89% AND 72% FOR ACUTE CHF. 03/31/2025 1:30 PM CDT Nathaniel Peoples MD LABORATORY Final Resul t Performing Organization Address [facility] de Phone Number [facility] [address] [place] [address], [place] * PROTIME/INR, VENOUS (03/31/2025 1:30 PM CDT) PROTIME 12.2 9.4 - 12.5 SEC 03/31/2025 1:58 PM CDT [facility] INR 1.1 0.9 - 1.1 03/31/2025 1:58 PM CDT [facility] Comment: Recommended INR Therapeutic Goals: 2.0-3.0 Routine Therapy 2.5-3.5 Mechanical Prosthetic Valves (High Risk) 03/31/2025 1:30 PM CDT Nathaniel Peoples MD LABORATORY Final Resul t Performing Organization Address [facility] Co de Phone Number [facility] [address] [place] [address], [place] * (ABNORMAL) COMPREHENSIVE METABOLIC PANEL (03/31/2025 1:30 PM CDT) GLUCOSE 63(L) 70 - 99 MG/DL 03/31/2025 2:41 PM CDT [facility] BUN 13 7 - 18 MG/DL 03/31/2025 2:41 PM CDT [facility] CREATININE S/P/B 1.03 0.50 - 1.20 MG/DL 03/31/2025 2:41 PM CDT [facility] SODIUM S/P/B 137 136 - 145 MMOL/L 03/31/2025 2:41 PM CDT [facility] POTASSIUM S/P/B 3.8 3.5 - 5.1 MMOL/L 03/31/2025 2:41 PM CDT [facility] CHLORIDE S/P/B 101 100 - 108 MMOL/L 03/31/2025 2:41 PM CDT [facility] CO2 28.5 21.0 - 32.0 MMOL/L 03/31/2025 2:41 PM CDT [facility] CALCIUM S/P/B 8.6 8.5 - 10.1 MG/DL 03/31/2025 2:41 PM CDT [facility] BILIRUBIN TOTAL S/P/B 0.8 0.2 - 1.2 MG/DL 03/31/2025 2:41 PM CDT [facility] Comment: THIS ASSAY IS NOT RECOMMENDED FOR PATIENTS UNDERGOING TREATMENT WITH ELTROMBOPAG DUE TO THE POTENTIAL FOR FALSELY ELEVATED RESULTS. TOTAL PROTEIN S/P/B 6.4 6.4 - 8.2 G/DL 03/31/2025 2:41 PM CDT [facility] ALBUMIN S/P/B 2.9(L) 3.4 - 5.0 G/DL 03/31/2025 2:41 PM CDT [facility] AST 10(L) 15 - 37 U/L 03/31/2025 2:41 PM CDT [facility] ALT 10(L) 16 - 60 U/L 03/31/2025 2:41 PM CDT [facility] ALKALINE PHOSPHATASE S/P/B 62 50 - 136 U/L 03/31/2025 2:41 PM CDT [facility] ANION GAP 7.5 5.0 - 15.0 MMOL/L 03/31/2025 2:41 PM CDT [facility] BUN CREATININE RATIO 12.6 6 - 26 03/31/2025 2:41 PM CDT [facility] A/G RATIO 0.8(L) 1.0 - 2.5 RATIO 03/31/2025 2:41 PM CDT [facility] GFR ESTIMATE 77(L) >90 ML/MIN/1.7 3 M2 03/31/2025 2:41 PM CDT [facility] Comment: NOTE: eGFR is not calculated for patients <18 years of age. This is an estimated GFR calculation using the new CKD EPI creatinine equation without race and so does not require a correction factor for race. This estimated GFR should not be used for calculating drug doses. 03/31/2025 1:30 PM CDT Nathaniel Peoples MD LABORATORY Final [facility] t [facility] [address] [place] [address], * (ABNORMAL) CBC W/DIFF AUTOMATED (03/31/2025 1:30 PM CDT) WBC 9.35 4.50 - 11.00 x10'3/uL 03/31/2025 1:48 PM CDT [facility] RBC 3.82(L) 4.50 - 5.90 x10'6/uL 03/31/2025 1:48 PM CDT [facility] HGB 11.7(L) 14.0 - 18.0 G/DL 03/31/2025 1:48 PM CDT [facility] HCT 36.4(L) 43.0 - 54.0 % 03/31/2025 1:48 PM CDT [facility] MCV 95.3 80.0 - 100.0 FL 03/31/2025 1:48 PM CDT [facility] MCH 30.6 26.0 - 34.0 PG 03/31/2025 1:48 PM CDT [facility] MCHC 32.1 31.0 - 37.0 G/DL 03/31/2025 1:48 PM CDT [facility] RDW 13.9 11.6 - 14.8 % 03/31/2025 1:48 PM CDT [facility] PLT 233 130 - 400 x10'3/uL 03/31/2025 1:48 PM CDT [facility] MPV 10.8 7.0 - 12.0 FL 03/31/2025 1:48 PM CDT [facility] CBC COMMENT AUTOMATED RBC MORPHOLOGY AND PLATELET EVALUATION NORMAL 03/31/2025 1:48 PM CDT [facility] NEUTROPHILS % 71.6 40.0 - 74.0 % 03/31/2025 1:48 PM CDT [facility] LYMPHOCYTES % 13.3(L) 14.0 - 46.0 % 03/31/2025 1:48 PM CDT [facility] MONOCYTES % 13.2(H) 4.0 - 13.0 % 03/31/2025 1:48 PM CDT [facility] EOSINOPHILS 0.9 0.0 - 7.0 % 03/31/2025 1:48 PM CDT [facility] BASOPHILS 0.4 0.0 - 3.0 % 03/31/2025 1:48 PM CDT [facility] IMMATURE GRANS % 0.6(H) 0.0 - 0.43 % 03/31/2025 1:48 PM CDT [facility] NRBC % 0.0 % 03/31/2025 1:48 PM CDT [facility] ABS. NEUTROPHILS TOTAL 6.70 1.69 - 7.81 x10'3/uL 03/31/2025 1:48 PM CDT [facility] ABS. LYMPHOCYTES 1.24 0.21 - 5.42 x10'3/uL 03/31/2025 1:48 PM CDT [facility] ABS. MONOCYTES 1.23 0.04 - 1.37 x10'3/uL 03/31/2025 1:48 PM CDT [facility] ABS. EOSINOPHILS 0.08 0.00 - 0.68 x10'3/uL 03/31/2025 1:48 PM CDT [facility] ABS. BASOPHILS 0.04 0.00 - 0.08 x10'3/uL 03/31/2025 1:48 PM CDT [facility] ABS. IMMATURE GRANULOCYTES 0.06 0.00 - 0.06 x10'3/uL 03/31/2025 1:48 PM CDT [facility] ABS. NUCLEATED RBC'S 0.00 0.00 - 0.01 x10'3/uL 03/31/2025 1:48 PM CDT [facility] 03/31/2025 1:30 PM CDT Nathaniel Peoples MD LABORATORY Final Resul t Performing Organization Address City/[facility]/ZIP Co de Phone Number [facility] [address] [place] [address], [place] * TROPONIN, QUANT (03/31/2025 1:30 PM CDT) [facility] TROPONIN I HIGH SENSITIVITY 8 0 - 79 ng/L 03/31/2025 2:41 PM CDT [facility] Comment: HIGH DOSES OF BIOTIN, TROPONIN-SPECIFIC AUTOANTIBODIES, AND ANTIBODY THERAPY CONTAINING HAMA MAY INTERFERE WITH THIS TEST RESULT. CORRELATION TO CLINICAL HISTORY AND PRESENTATION RECOMMENDED. 03/31/2025 1:30 PM CDT us Nathaniel Peoples MD LABORATORY Final Resul t Performing Organization Address City/[facility]/ZIP Co de Phone Number [facility] [address] [place] [address], [place] * ECG 12 lead (03/31/2025 1:25 PM CDT) 03/31/2025 1:25 PM CDT Narrative [facility] - 03/31/2025 10:30 PM CDT HFG Test Date: 2025-03-31 Pat Name: DAQUAN CHAUHANLEN Department: 100 Room: ED3 Gender: Male Fabric Finisher: : 1950 Requested By: NATHANIEL PEOPLES Order Number: [id number] Reading MD: Benjamin Suggs Measurements Intervals [place] Rate: 58 P: 67 MA: 170 QRS: 59 QRSD: 101 T: 69 QT: 394 QTc: 388 Interpretive Statements SINUS BRADYCARDIA WARNING: DATA QUALITY MAY AFFECT INTERPRETATION Procedure Note Benjamin Suggs MD - 03/31/2025 HFG Test Date: 2025-03-31 Pat Name: DAQUAN NIEVES Department: 100 Room: ED3 Gender: Male Fabric Finisher: : 1950 Requested By: NATHANIEL PEOPLES Order Number: [id number] Reading MD: Benjamin Suggs Measurements Intervals [place] Rate: 58 P: 67 MA: 170 QRS: 59 QRSD: 101 T: 69 QT: 394 QTc: 388 Interpretive Statements SINUS BRADYCARDIA WARNING: DATA QUALITY MAY AFFECT INTERPRETATION us Nathaniel Peoples MD ECG ORDERABLES Final Resul t [facility] [address] [place] [address] from Last 3 Months Insurance [employer] MEDICARE Care Teams Christmas Bell Ringer Relationship Specialty Start Date End Date Chapin Galdamez MD [address] [place] [address] PCP - General PEDIATRICS 03/14/16 Adrian Alvarez MD [address] [address] [place] [employer] CARDIOVASCULAR DISEASE 01/10/16
--- OUTSIDE RECORDS SUMMARY | 2025-07-01 14:53 | XMS_ITS | Clinical Summary ---
Author Organization [facility] Address [address] [facility] [address] [place] [address] Phone Care Team Providers Care Team Foreman Name Role Phone Chapin Galdamez MD Primary Care Provider [phone] Caesar Robertson MD Unavailable [phone] Alex Conti Unavailable Allergies No known active [...] (HCV) Screening 1950 TdaP Immunization 1950 Cologuard 1997 Pneumococcal Immunization (5 0+ years) (1 of 1 - PCV) 2002 Zoster Immunization (1 of 2) 2002 Medicare Initial AWV [id number] 08/11/2020 Immunochemical Fecal Occult Blood 03/27/2021 020 Colonoscopy 04/20/2021 04/20/2020 Colorectal Cancer Screening 04/20/2021 Influenza Immunization (#1) 2025 SARS-COV-2 Immunization ( - season) 2025 Respiratory Syncytial Virus (RSV) Immunization (Adult) (1 - 1-dose 75+ series) 2027 Hepatitis B Immunization Aged Out No longer eligible based on patient's age to complete this topic Human Papillomavirus (HPV) Immunization Aged Out No longer eligible b ased on patient's age to complete this topic Meningococcal Immunization (ACWY) Aged Out No longer eligible based on patient's age to complete this topic Rotavirus Immunization Aged Out No lo nger eligible based on patient's age to complete this topic Procedures Procedure Name Priority Date/Time Associated Diagnosis Comments HM COLONOSCOPY Routine 04/20/2020 STOOL, OCCULT BLOOD IMMUNOAS SAY (IFOB) Routine 03/27/2020 from Last 3 Months or Most Recently Relevant to Health Maintenance Results * HM COLONOSCOPY (04/20/2020) us Daryn Woodson DO PROCEDURE/MINOR SURGICAL ORDERA BLES Final Result * STOOL, OCCULT BLOOD IMMUNOASSAY (IFOB) (03/27/2020) Other STOOL SPECIMEN / Unknown Chapin Galdamez MD BODY FLUIDS & STOOLS ORDERABLE S Final Result from Last 3 Months or Most Recently Relevant to Health Maintenance Insurance MEDICARE C [employer] Care Teams Team Foreman Relationship Specialty Start Date End Date Chapin Galdamez MD [address] [place] [address] PCP - General Pediatrics 04/04/20 Caesar Robertson MD [address] [place] [address] General Surgery 05/04/20 Alex Cnoti [address] [place] [id number] Hematology 05/04/20
--- OUTSIDE RECORDS SUMMARY | 2025-07-01 14:53 | XMS_ITS | Encounter Summary ---
Author Organization [facility] Address [facility] [place] [address] Care Team Providers Care Aboriginal Education Worker Coordinator Name Role Phone Chapin Galdamez MD Primary Care Provider [phone] Adrian Alvarez MD Unavailable [phone] Encounter Details Date Type Department Care Team (Latest Contact Info) Description 07/01/2025 Travel Social History Tobacco Use Types Packs/Day Years Used Date Smoking Tobacco: Former Cigarettes 1.5 40 Smokeless Tobacco: Never Alcohol Use Standard Drinks/Week Comments Not Currently 0 (1 standard drink = 0.6 oz pur e alcohol) Sex and Gender Information Value Date Recorded Sex Assigned at Male 09/15/2024 9:06 AM COMMUNITY MARKETING COORDINATOR Legal Sex Male 9:38 AM CDT Gender Identity Not on file Sexual Orientation Not on file 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 Not on file Not on sudeep e documented as of this encounter Plan of Treatment Upcoming Encounters Date Type Department Care Team (Late st Contact Info) Description 07/04/2025 11:00 AM COMMUNITY MARKETING COORDINATOR Appointment [facility] [address] [place] [address] Esteban Lazo MD [address] [place] [address] [place] [address] [place] [address] 07/11/2025 10:00 AM COMMUNITY MARKETING COORDINATOR Appointment [facility] [address] [place] [address] Esteban Lazo MD [address] [place] [address] [place] [address] [place] [address] 07/15/2025 10:15 AM COMMUNITY MARKETING COORDINATOR Appointment [address] [address] Esteban Lazo MD [address] [facility] [address] [place] [phone] [place] [address] [place] [address] 07/18/2025 10:00 AM COMMUNITY MARKETING COORDINATOR Appointment [address] [address] Esteban Lazo MD [address] [facility] [place] [phone] [place] [address] [place] [address] documented as of this encounter Visit Diagnoses Not on filedocumented in this encounter Care Teams Aboriginal Education Worker Coordinator Relationship Specialty Start Date End Date Chapin Galdamez MD [address] [place], [place] [id number] PCP - General PEDIATRICS 03/14/16 Adrian Alvarez MD [facility]. [address] [address] [place]athana[place] Volunteer Services Director CARDIOVASCULAR DISEASE 01/10/16 documented as of this encounter
== END 2025-07-01 14:47 | disposition home or self-care (01) ==
PROVIDERS: PCP Pediatrics; Visit Provider Pediatrics
DX: M79.18 Myalgia, other site (principal); M47.896 Other spondylosis, lumbar region
CPT/HCPCS: 72148